=== PATIENT | female | born 1960 | race Caucasian/White ===

== ENCOUNTER 2023-12-24 12:19 | Outpatient (AMB) | payer MEDICARE, SELFPAY ==
--- NOTE | 2023-12-24 12:34 | MHC.OFFWIV ---
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 see sage Developer Relations Manager Required: No Allergies acetaminophen Allergy (Severe, Verified 12/24/23 12:38) Swelling allopurinol Allergy (Severe, Verified 12/24/23 12:38) Swelling blue dye Allergy (Severe, Verified 12/24/23 12:38) Swelling codeine Allergy (Severe, Verified 12/24/23 12:38) Swelling oxycodone [From Percocet] Allergy (Severe, Verified 12/24/23 12:38) Swelling HPI 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 She states that she walked in to day because she has been having this LUQ pain x 1 month. She states she fell on her side and then that's when the pain started. She states that initially it did not feel that bad but over the last couple weeks it is gotten significantly worse and has been worsening daily in the last few days. She states that she can not lay on her left side because it will wake her up. She says it feels like it starts in the front of her abdomen and goes to the back area. She says that she is worried that it could be her kidneys or her spleen. No pain with eating but reports a reduced appetite. She has been very nauseous with the pain x 2 weeks. She states lorazepam tends to subside the nausea. She denies any significant weight loss. No bowel changes. No dysuria. She does get frequent urination. She follows with Dr. Briggs. No blood in the urine. She is endorses night sweats x 2 weeks. No fever or chills. S/p cholecystectomy. FORMERLY [facility], [facility] Medical History (Updated 12/24/23 @ 13:18 by Kalpana Veronica PA-C) GERD (gastroesophageal reflux disease) Generalized anxiety disorder with panic attacks Dyslipidemia Overactive bladder AML (acute myeloid leukemia) in remission Surgical History (Updated 12/24/23 @ 13:18 by Kalpana Veronica PA-C) Stem cells transplant status Physical Exam Vital Signs: Last Vital Signs Pulse 90 12/24/23 12:45 Resp 14 12/24/23 12:45 BP 98/70 12/24/23 12:45 Pulse Ox 96 12/24/23 12:45 Oxygen Delivery Method Room Air 12/24/23 12:45 BMI result Body Mass Index 32.0 Const Orientation/consciousness: patient oriented x3 Neck Thyroid: Thyroid normal Lymphatic: no lymphadenopathy noted Resp Auscultation: clear to auscultation bilaterally Cardio Rate: regular rate Rhythm: regular rhythm Heart sounds: S1 normal heart sound present and S2 normal heart sound present GI Other: There is tenderness to palpation in the right upper quadrant with some guarding. CVA tenderness bilaterally. Inspection: Yes normal to inspection Palpation (GI): Soft to palpation Auscultation: normoactive bowel sounds Skin General skin exam: no rashes or lesions noted Neuro General: patient oriented x3, gait normal and no focal motor deficits Assessment & Plan Assessment & Plan (1) Left upper quadrant abdominal pain: Code(s): R10.12 - Left upper quadrant pain Plan: Given the amount of discomfort today on exam I have recommended her to go to the ER as there is no CT scan available here today. I have recommended that she get more of an emergent evaluation. An expect was called in. We will send her to [facility]. Advised to follow up next week in the office for a new patient visit. (2) Nausea: Code(s): R11.0 - Nausea Plan: As above. Coding Level of Care Code Est Pt Level 4 (64380) Diagnoses Left upper quadrant abdominal pain R10.12 Nausea R11.0
[2023-12-24 12:45] VITALS: BP 98/70; PULSE 90; RESP 14; O2SAT 96; BMI 32.0
== END 2023-12-24 13:14 | disposition home or self-care (01) ==
PROVIDERS: PCP Physician Assistant; Visit Provider Physician Assistant
DX: R10.12 Left upper quadrant pain (principal); R11.0 Nausea
CPT/HCPCS: 99214

== ENCOUNTER 2023-12-31 15:35 | Outpatient (AMB) | payer MEDICARE, SELFPAY ==
--- NOTE | 2023-12-31 15:37 | MHC.PC.OV ---
Vital Signs 12/31/23 15:52 Height 5 ft 2.5 in BP 124/73 Blood Pressure Location Lt brachial Position Sitting Respiration 14 Pulse 78 Pulse Source Pulse Oximeter Temp 98.1 F Temp Source Temporal Artery Scan Pulse Oximetry (%) 97 Oxygen Delivery Method Room Air Intake Visit Reasons: 30 min new visit Intake Note: New patient visit Allergies acetaminophen Allergy (Severe, Verified 12/31/23 15:42) Swelling allopurinol Allergy (Severe, Verified 12/31/23 15:42) Swelling blue dye Allergy (Severe, Verified 12/31/23 15:42) Swelling codeine Allergy (Severe, Verified 12/31/23 15:42) Swelling oxycodone [From Percocet] Allergy (Severe, Verified 12/31/23 15:42) Swelling Medication List - Last Reconciled 12/31/23 by Kalpana Veronica PA-C atorvastatin 80 mg PO DAILY clonidine HCl 0.1 mg PO DAILY erythromycin ophthalmic (eye) escitalopram oxalate 20 mg PO DAILY ibuprofen (Motrin IB) 200 mg PO Q6H PRN lorazepam 1 mg PO BID montelukast 10 mg PO DAILY nystatin 1 appl topical BID-TID omeprazole 80 mg PO ONCE Tobacco use date assessed: 12/31/23 Fall risk assessment: 2 + Falls in past year Last assessed Fall Risk: 12/31/23 Dental Screening Dental Screen Date: 12/31/23 Did you have a dental visit in the last 12 months?: Yes Did you have a dental problem in the last 6 months where you did not have access to dental care?: No Was dental information given to patient?: Patient has dentist HPI 30 min new visit HPI Details Patient is a 63-year-old female with a significant past medical history of AML, s/p stem cell transpant 1992, anxiety, hyperlipidemia, GERD, ckd stage 3, asthma, prior TIA 2013, hypertension, compression fracture of lumbar spine, fibromyalgia, IBS, insomnia, osteonecrosis of left knee, thyroid nodule, degenerative joint disease, diverticulosis, ulcers found by endoscopy in 2008,, s/p cervical fusion per patient in 2010 presenting today for a follow up. -She was seen recently for LUQ pain x 1 month. She states she fell on her side and then that's when the pain started. She states that initially it did not feel that bad but over the last couple weeks it is gotten significantly worse and has been worsening daily in the last few days. She states that she can not lay on her left side because it will wake her up. She says it feels like it starts in the front of her abdomen and goes to the back area. She says that she is worried that it could be her kidneys or her spleen. No pain with eating but reports a reduced appetite. She has been very nauseous with the pain x 2 weeks. She states lorazepam tends to subside the nausea. She denies any significant weight loss. No bowel changes. No dysuria. She does get frequent urination. She follows with Dr. Briggs. No blood in the urine. She is endorses night sweats x 2 weeks. No fever or chills. S/p cholecystectomy. I had sent her to the ER where she did have a CT of the abdomen and pelvis which was consistent with mild enterocolitis with liquid stool in normal caliber small bowel loops and right hemicolon with air-fluid levels. No significant wall thickening or surrounding inflammatory change. It also showed apparent bladder wall thickening which could be due to under distention or cystitis. She was discharged and diagnosed with unspecified abdominal pain. She saw urology yesterday and who told her that the kidneys are normal. No signs of a uti. She thinks the LUQ is coming from her back since her fall a month ago. She tripped and landed on a large flower pot. No radiation of pain down the legs. She is still very sore. She states that 2 years ago she had her left foot operated on ([facility]OS) and since then she has has numbness in her left foot which has caused her to fall a bit more frequently. Heme/onc: follows with Dr. Owens annually and gets IVIG intermittently. FORMERLY [facility] Medical History (Updated 12/31/23 @ 16:31 by Kalpana Veronica PA-C) GERD (gastroesophageal reflux disease) Generalized anxiety disorder with panic attacks Dyslipidemia Overactive bladder AML (acute myeloid leukemia) in remission Surgical History (Updated 12/24/23 @ 13:18 by Kalpana Veronica PA-C) Stem cells transplant status Social History Housing: House Patient Tobacco Use Status: Never used Tobacco e-Cigarette/Vaping Use: Never Used Second Hand Smoke Exposure: Yes service: No Current occupational status: retired Cognitive needs: No Hearing needs: No Vision needs: Yes (glasses) Questionnaire PHQ-9 Over the last 2 weeks, how often have you been bothered by any of the following problems? 1. Little interest or pleasure in doing things: not at all 2. Feeling down, depressed, or hopeless: not at all 3. Trouble falling or staying asleep, or sleeping too much: nearly every day 4. Feeling tired or having little energy: not at all 5. Poor appetite or overeating: not at all 6. Feeling bad about yourself - or that you are a failure or have let yourself or your family down: not at all 7. Trouble concentrating on things, such as reading the newspaper or watching television: not at all 8. Moving or speaking so slowly that other people could have noticed. Or the opposite - being so fidgety or restless that you have been moving around a lot more than usual: not at all 9. Thoughts that you would be better off or of hurting yourself in some way: not at all Total score: 3 Depression Screening Done: Yes 23209 - PHQ-9 Billing: Yes Source: Developed by Drs. Coy Tam, Monica Calvin, Eliazar Monroy and colleagues, with an educational ignacio from [employer]. Thrive Questionnaire Date Thrive assessed: 12/31/23 I am a: Patient What is your living situation today?: I have a steady place to live Within the past 12 months, did the food you bought not last and you didn't have the money to get more?: Never true Within the past 12 months, did you worry whether your food would run out before you got money to buy more?: Never true Do you have trouble paying for medicines?: No Do you have trouble getting transportation to medical appointments?: No Do you have trouble paying your heating and electricity bill?: No Do you have trouble taking care of your child, family member or friend?: No Do you have trouble with day-to-day activities such as bathing, preparing meals, shopping, managing finances, etc.?: No Are you currently unemployed and looking for a job?: No Are you interested in more education?: No Please select the resources that you would like help with: None THRIVE Score: 0 AUDIT C Alcohol Use Questionnaire (AUDIT-C) 1. How often do you have a drink containing alcohol?: Monthly or less 2. How many drinks containing alcohol do you have on a typical day when you are drinking?: 1 or 2 3. How often do you have six or more drinks on one occasion?: Never Total Score: 1 IRAIS-7 AMB Questionnaire IRAIS-7 Feeling nervous, anxious, or on edge: 3 = Nearly every day Not being able to stop or control worryin = Nearly every day Worrying too much about different things: 3 = Nearly every day Trouble relaxin = Nearly every day Being so restless that it is hard to sit still: 3 = Nearly every day Becoming easily annoyed or irritable: 2 = More than half the days Feeling afraid as if something awful might happen: 0 = Not at all Total IRAIS-7 score (0-4 normal; 5-9 mild; 10-14 moderate; 15-21 severe): 17 Source: Developed by Drs. Coy Tam, Monica Calvin, Eliazar Monroy and colleagues, with an educational ignacio from [employer]. IRAIS-7 Assessment Billing IRAIS-7 Assessment Tool: IRAIS-7 Assessment 91864 Physical exam (Primary Care) Vital Signs: Last Vital Signs Temp 98.1 F 12/31/23 15:52 Pulse 78 12/31/23 15:52 Resp 14 12/31/23 15:52 BP 124/73 12/31/23 15:52 Pulse Ox 97 12/31/23 15:52 Oxygen Delivery Method Room Air 12/31/23 15:52 Tobacco/Smoking Status: Tobacco use Status Tobacco use date assessed 12/31/23 12/31/23 15:46 Patient Tobacco Use Status Never used Tobacco 12/31/23 15:46 e-Cigarette/Vaping Use Never Used 12/31/23 15:46 Assessment and Plan Assessment & Plan (1) Thoracic back pain: Code(s): M54.6 - Pain in thoracic spine Qualifiers: Chronicity: acute Plan: X-ray ordered. No report of any findings on CT. We will try baclofen as she has tolerated Flexeril in the past but did not find this as effective. Discussed risks and benefits and adverse effects of the medication. (2) RUQ pain: Code(s): R10.11 - Right upper quadrant pain Plan: Unchanged. Labs ordered. (3) AML (acute myeloid leukemia) in remission: Code(s): C92.01 - Acute myeloblastic leukemia, in remission Plan: Following with Heme-Onc. Has been in remission for over 20 years. (4) Dyslipidemia: Code(s): E78.5 - Hyperlipidemia, unspecified Plan: Lipids ordered. (5) Generalized anxiety disorder with panic attacks: Code(s): F41.1 - Generalized anxiety disorder; F41.0 - Panic disorder [episodic paroxysmal anxiety] Plan: Stable on lorazepam and Lexapro. Continue current regimen. Plan Labs ordered. Follow up in 2-4 weeks. Sooner if needed. Patient understands and agrees with the plan. Orders: Orders Vitamin B12 and Folate Today C92.01 - Acute myeloblastic leukemia, in remission, E78.5 - Hyperlipidemia, unspecified, F41.0 - Panic disorder [episodic paroxysmal anxiety], F41.1 - Generalized anxiety disorder, M54.6 - Pain in thoracic spine, R10.11 - Right upper quadrant pain TSH reflex Free T4 Today C92.01 - Acute myeloblastic leukemia, in remission, E78.5 - Hyperlipidemia, unspecified, F41.0 - Panic disorder [episodic paroxysmal anxiety], F41.1 - Generalized anxiety disorder, M54.6 - Pain in thoracic spine, R10.11 - Right upper quadrant pain Lyme IgG/IgM w/reflex to WB Today C92.01 - Acute myeloblastic leukemia, in remission, E78.5 - Hyperlipidemia, unspecified, F41.0 - Panic disorder [episodic paroxysmal anxiety], F41.1 - Generalized anxiety disorder, M54.6 - Pain in thoracic spine, R10.11 - Right upper quadrant pain XR thoracic spine 2V Today M54.6 - Pain in thoracic spine, R10.11 - Right upper quadrant pain Comprehensive [place]. Panel Fast Today C92.01 - Acute myeloblastic leukemia, in remission, E78.5 - Hyperlipidemia, unspecified, F41.0 - Panic disorder [episodic paroxysmal anxiety], F41.1 - Generalized anxiety disorder, M54.6 - Pain in thoracic spine, R10.11 - Right upper quadrant pain Lipid Panel Today C92.01 - Acute myeloblastic leukemia, in remission, E78.5 - Hyperlipidemia, unspecified, F41.0 - Panic disorder [episodic paroxysmal anxiety], F41.1 - Generalized anxiety disorder, M54.6 - Pain in thoracic spine, R10.11 - Right upper quadrant pain Complete Blood Count Auto Diff Today C92.01 - Acute myeloblastic leukemia, in remission, E78.5 - Hyperlipidemia, unspecified, F41.0 - Panic disorder [episodic paroxysmal anxiety], F41.1 - Generalized anxiety disorder, M54.6 - Pain in thoracic spine, R10.11 - Right upper quadrant pain PT Evaluation and Treatment Today M54.6 - Pain in thoracic spine Medications: New baclofen 10 mg PO TID 30 days 90 tabs 1RF diclofenac sodium 1% (Arthritis Pain (diclofenac)) 4 grams topical QID PRN 100 grams 3RF pain Coding Level of Care Code Est Pt Level 4 (14373) Complex EM visit Add On G2211 Diagnoses Thoracic back pain M54.6 Chronicity: acute RUQ pain R10.11 AML (acute myeloid leukemia) in remission C92.01 Dyslipidemia E78.5 Generalized anxiety disorder with panic attacks F41.1; F41.0 Additional Codes IRAIS-7 Assessment Billing - IRAIS-7 Assessment Tool: IRAIS-7 Assessment 13651 ([id number])
[2023-12-31 15:52] VITALS: BP 124/73; PULSE 78; RESP 14; TEMP 36.7; O2SAT 97
== END 2023-12-31 16:29 | disposition home or self-care (01) ==
PROVIDERS: PCP Physician Assistant; Visit Provider Physician Assistant
DX: M54.6 Pain in thoracic spine (principal); C92.01 Acute myeloblastic leukemia, in remission; R10.11 Right upper quadrant pain; E78.5 Hyperlipidemia, unspecified; F41.1 Generalized anxiety disorder; F41.0 Panic disorder [episodic paroxysmal anxiety]
CPT/HCPCS: 99214; G2211

== ENCOUNTER 2024-01-12 10:56 | Outpatient (REF) | payer MEDICARE, SELFPAY ==
[2024-01-12 14:27] LABS: MANUAL DIFF FLAG NO
[2024-01-12 14:36] LABS: Basophils Absolute Auto 0.1 X10*3/uL (0.0-0.2); Basophils Percent Auto 0.5 % (0-2); Eosinophils Absolute Auto 0.4 X10*3/uL (0.0-0.4); Hematocrit 37.9 % (37.0-47.0); Hemoglobin 12.5 g/dl (12.0-16.0); Imm Gran Abs Auto 0.03 X10*3/uL (0.00-0.03); Imm Gran Pct Auto 0.3 % (0.0-0.4); Lymphocytes Absolute Auto 1.8 X10*3/uL (1.2-4.9); Lymphocytes Percent Auto 18.7 % (20-40); Mean Corpuscular Hemoglobin 30.4 pg (27.0-33.0); Mean Corpuscular Volume 92.2 fL (80.0-98.0); Mean Platelet Volume 9.5 fL (9.4-12.3); Monocytes Absolute Auto 0.7 X10*3/uL (0.1-1.2); Monocytes Percent Auto 6.9 % (2-11); Neutrophils Absolute Auto 6.9 x10*3/uL (2.0-8.3); Neutrophils Percent Auto 69.6 % (45-73); Platelet Count 248 X10*3/uL (160-400); Red Blood Count 4.11 X10*6/uL (4.20-5.50); Red Cell Distribution Width 14.5 % (11.0-16.0); White Blood Count 9.9 X10*3/uL (4.8-10.8)
[2024-01-12 14:57] LABS: Alanine Aminotransferase 19 U/L (0-31); Albumin Level 3.9 g/dL (3.5-5.0); Alkaline Phosphatase 100 U/L (39-117); Anion Gap 11 (12-20); Aspartate Amino Transferase 22 U/L (5-31); Bilirubin Total 0.5 mg/dL (0.0-1.0); Blood Urea Nitrogen 19 mg/dL (9-16); Calcium 9.9 mg/dL (8.4-10.2); Carbon Dioxide 25 mmol/L (22-29); Chloride 111 mmol/L (96-108); Cholesterol 229 mg/dL (<200); Estimated Glomerular Filt Rate 46; Glucose Fasting 88 mg/dL (60-99); HDL Cholesterol 35 mg/dL (>40); LDL Cholesterol Calculated 148 mg/dL (<100); Sodium 143 mmol/L (135-145); Total Protein 6.8 g/dL (6.5-8.0); Triglycerides 230 mg/dL (<150)
[2024-01-12 15:14] LABS: TSH reflex Free T4 1.13 uIU/mL (0.32-4.0)
[2024-01-12 15:23] LABS: Folate 5.4 ng/mL (> or = 4.0); Vitamin B12 332 pg/mL (200-900)
[2024-01-13 22:08] LABS: Lyme Abs Screen <0.90 index
== END 2024-01-12 10:57 | disposition home or self-care (01) ==
LOC: HO.WFDLDS 10:56
PROVIDERS: Visit Provider Physician Assistant
DX: M54.6 Pain in thoracic spine (principal); R10.11 Right upper quadrant pain; C92.01 Acute myeloblastic leukemia, in remission; E78.5 Hyperlipidemia, unspecified; F41.1 Generalized anxiety disorder; F41.0 Panic disorder [episodic paroxysmal anxiety]
CPT/HCPCS: 36415; 80053; 80061; 82607; 82746; 84443; 85025; 86617; 86618

== ENCOUNTER 2024-01-15 09:07 | Outpatient (AMB) | payer MEDICARE, SELFPAY ==
[2024-01-15 09:34] VITALS: BP 108/60; PULSE 90; RESP 15; TEMP 36.5; O2SAT 99; BMI 31.9
--- NOTE | 2024-01-15 09:34 | MHC.OFFWIV ---
Intake Vital Signs 01/15/24 09:34 Height 5 ft 2.5 in Weight 177 lb 5 oz BMI 31.9 BP 108/60 Blood Pressure Location Rt brachial Position Sitting Respiration 15 Pulse 90 Pulse Source Pulse Oximeter Temp 97.7 F Temp Source Temporal Artery Scan Pulse Oximetry (%) 99 Oxygen Delivery Method Room Air Intake Visit Reasons: Gout issues Patient Tobacco Use Status: Never used Tobacco Patient Financial Services Coordinator Required: No Accompanied by: Sister Allergies acetaminophen Allergy (Severe, Verified 01/15/24 09:39) Swelling allopurinol Allergy (Severe, Verified 01/15/24 09:39) Swelling blue dye Allergy (Severe, Verified 01/15/24 09:39) Swelling codeine Allergy (Severe, Verified 01/15/24 09:39) Swelling oxycodone [From Percocet] Allergy (Severe, Verified 01/15/24 09:39) Swelling Do you need a note to return to daycare/school/sports/work: No HPI HPI Comments History of Present Illness Details This is a 63-year-old female with a past medical history of GERD, generalized anxiety disorder with panic attacks, dyslipidemia, overactive bladder, multiple medication allergies and AML in remission presenting for gout. Her symptoms started a week ago today with swelling, redness and severe pain in the right big toe and foot. She called the office, and her PCP initially prescribed colchicine, but the tablets at the pharmacy had blue dye so she could not take them due to her allergy. She was then prescribed a Medrol Dosepak which she started taking a few days ago. She is also elevating and icing her foot. She says the swelling and redness and pain have decreased, but she is requesting prednisone because it is usually faster working for her and is more effective. Patient says she has had gout on and off for the past 10 years. Her last episode was about a year ago. She has not sure what triggered this episode. No foot trauma, fever or wounds. Patient mentions last night she had a sore throat and was concerned she was going to have a medication reaction because she gets swelling and throat closing with certain medications. She took some Benadryl. She has no sore throat today, fevers, chills, shortness of breath, hives. Patient mentioned she also has some canker sores for which I recommended [id number] canker cover and to check with the pharmacist to make sure she can use this safely with her allergies. [facility] Medical History (Updated 12/31/23 @ 16:31 by Kalpana Veronica PA-C) GERD (gastroesophageal reflux disease) Generalized anxiety disorder with panic attacks Dyslipidemia Overactive bladder AML (acute myeloid leukemia) in remission Surgical History (Updated 12/24/23 @ 13:18 by Kalpana Veronica PA-C) Stem cells transplant status Social History Housing: House Patient Tobacco Use Status: Never used Tobacco e-Cigarette/Vaping Use: Never Used Second Hand Smoke Exposure: Yes service: No Current occupational status: retired Cognitive needs: No Hearing needs: No Vision needs: Yes (glasses) Review of Systems Const Details: Pertinent ROS negative except as noted in HPI. Physical Exam Vital Signs: Last Vital Signs Temp 97.7 F 01/15/24 09:34 Pulse 90 01/15/24 09:34 Resp 15 01/15/24 09:34 BP 108/60 01/15/24 09:34 Pulse Ox 99 01/15/24 09:34 Oxygen Delivery Method Room Air 01/15/24 09:34 BMI result Body Mass Index 31.9 Const Other: Constitutional: Alert, in no distress. Mouth/Throat: Canker sore on insight of lower lip. No erythema, exudates or swelling. Musculoskeletal: Mild swelling and erythema of the right big toe MTP joint. She has right great toe pain with flexion, extension and palpation. Dorsal pedal pulses are symmetric. No open wounds. Assessment & Plan Assessment & Plan (1) Gout attack: Code(s): M10.9 - Gout, unspecified Qualifiers: Gout site: toe Gout etiology: idiopathic Laterality: right Qualified Code(s): M10.071 - Idiopathic gout, right ankle and foot Plan Elevate, push fluids, use ice or cool compress. Discontinue methylprednisolone. Prescribed prednisone taper. Side effects and administration reviewed. Follow up with PCP if symptoms do not continue resolving over the next 48 hours or sooner for worsening symptoms. Medications: New prednisone Take 3 tabs qam x 3 days, then take 2 tabs daily for 3 days, then take 1 tab daily for 3 days, then take 1/2 tab daily for 2 days; 19 tabs 0RF Discontinued methylprednisolone (Medrol (Ron)) Discontinued Reason: Doctor's Order PO PER PKG DIR for 6 days 21 ea 0RF Coding Level of Care Code Est Pt Level 3 (26461) Diagnoses Acute idiopathic gout involving toe of right foot M10.071 Gout site: toe Gout etiology: idiopathic Laterality: right
--- OUTSIDE RECORDS SUMMARY | 2024-01-21 06:31 | XMS_ITS | Continuity of Care Document ---
Author Organization [facility] Address [address] [place] [id number]- Care Team Providers Care Cleaning Professional Name Role Phone Sendy Buckner MD Primary Care Physician [facility] Date[facility]): 09/08[facility]19 - 09/08/[address] [address]- [facility] Attending Physician: Sendy Buckner MD Allergies, Adverse Reactions, Alerts Substance Reaction Severity Status codeine acute abdominal pain Active allopurinol swelling of face/neck Active pravastatin Active lisinopril Active Cipro Active Xanax Active Flexeril Active Tylenol with Codeine Active Dilaudid IV ONLY/// PO OK Active Vicodin swelling face/ neck Active Percocet 5/325 acute abdominal pain Activ e amLODIPine Active Immunizations Given and Recorded Vaccine Date Status Refusal Reason Influenza Virus Vaccine (oldterm) 06/05/19 Recorde d Pneumococcal Vaccine (oldterm) 1 06/29/15 Given influenza virus vaccine, inactivated 2 03/29/15 Gi faustino influenza virus vaccine, inactivated 04/25/14 Give n influenza virus vaccine, inactivated 3 04/25/14 Gi faustino influenza virus vaccine, inactivated 04/07/13 Give n pneumococcal 23-valent vaccine 04/07/13 Given tetanus-diphtheria toxoids (Td) 4 05/27/11 Recorde d tetanus-diphtheria toxoids (Td) 03/07/11 Given hepatitis B adult vaccine 5 09/18/97 Recorded hepatitis B adult vaccine 6 04/18/97 Recorded hepatitis B adult vaccine 7 03/20/97 Recorded Measles/Mumps/Rubella Virus Vaccine 8 02/05/95 Rec orded 1Admin Note: PER PT 2Admin Note: [facility] [place] 3Admin Note: DECLINED 4Location History: [facility] 5Location History: [facility] 6Location History: [facility] 7Location History: [facility] 8Location History: [facility] Medications albuterol-ipratropium 3 mg-0.5 mg/3 ml inhalation solution 3 mL, Neb, 4 times a day, # 180 each, 3 Refills, Maintenance, 11/03/18 14:28:35 EDT, Solution, 3 mLNeb 4 times a day Start Date: 11/03/18 Status: Ordered Aspir 81 Oral Enteric Coated Tablet 1 tablet = 81 mg, By Mouth, Daily, # 30 tablet, 3 Refills, Maintenance, 03/29/14 11:38:34, EC Tablet Start Date: 03/29/14 Stop Date: 07/27/14 Status: Ordered atorvastatin 80 mg oral tablet 1 tablet = 80 mg, By Mouth, Daily, # 90 tablet, 0 Refills, Maintenance, 06/09/19 9:35:50 EST, Tablet Start Date: 06/09/19 Stop Date: 09/07/19 Status: Ordered Claritin 10 mg oral tablet 1 tablet = 10 mg, By Mouth, Daily, # 30 tablet, 0 Refills, Maintenance, 03/07/14 11:52:01, Tablet Start Date: 03/07/14 Status: Ordered Flovent HFA 110 mcg/inh inhalation aerosol 2 puffs, Inhalation, 2 times a day, # 12 Gm, 6 Refills, Maintenance, 07/05/19 11:41:07 EST, Aerosol, 159, cm, 07/05/19 11:19:56 EST, Height, 81, kg, 04/06/19 23:12:31 EDT, Dry Weight Start Date: 07/05/19 Status: Ordered FLUoxetine 20 mg oral capsule 40 mg, 2, capsule, By Mouth, Daily, # 180 capsule, Refills 1, Tot. Refills 1, Maintenance, 04/22/1916:31:30 EDT, Route to Pharmacy Electronically, [id number], [facility] #[id number] Start Date: 04/22/19 Status: Ordered Imodium A-D 2 mg oral tablet 2 mg, 1, tablet, By Mouth, Every 4 hours, PRN, # 100 tablet, Refills 0, Tot. Refills 0, Maintenance, for loose stool, 08/06/17 12:58:09, Route to Pharmacy Electronically, [id number], [facility] [id number] Start Date: 08/06/17 Status: Ordered LORazepam 1 mg oral tablet See Instructions, TAKE 1 TABLET BY MOUTH THREE TIMES DAILY NEEDED FOR ANXIETY, # 75 tablet, 0 Refills, Soft Stop, 09/07/19 10:54:00 EST, Dry Weight Start Date: 09/07/19 Status: Ordered minoxidil 2% topical solution 1 mL = 0.02 Gm, Topically, 2 times a day, # 60 mL, 0 Refills, Maintenance, 03/07/14 11:52:58, Solution Start Date: 03/07/14 Status: Ordered nystatin topical 209853 u/gm powder 1 application, Topically, 2 times a day, # 60 Gm, 0 Refills, Maintenance, 02/28/19 16:40:54 EDT, Powder, 1 application Topically 2 times a day Start Date: 02/28/19 Status: Ordered SEROquel 50 mg oral tablet 1 tablet = 50 mg, By Mouth, Daily, as needed., # 30 tablet, 6 Refills, Maintenance, 07/05/19 11:51:50 EST, Tablet, 159, cm, 07/05/19 11:19:56 EST, Height, 81, kg, 04/06/19 23:12:31 EDT, Dry Weight Start Date: 07/05/19 Status: Ordered Singulair 10 mg oral tablet 1, tablet, By Mouth, Daily in PM, # 30 tablet, Refills 5, Tot. Refills 5, Maintenance, 11/29/18 16:38:09 EDT, Route to Pharmacy Electronically, [id number], [facility] [id number] Start Date: 11/29/18 Status: Ordered Trelegy Ellipta inhalation powder 1 puffs, Inhalation, Daily, at the same time every day, # 60 each, 0 Refills, Maintenance, 209:03:00 EST, Powder, [facility] [address], 159, cm, 07/05/19 11:19:00 EST, Height, 81, kg, 04/06/19 23:12:00 EDT, Dry Weight Start Date: 08/19/19 Status: Ordered Ventolin HFA 108 mcg/inh inhalation aerosol with adapter 2 puffs, Inhalation, 4 times a day, PRN for wheezing, # 18 Gm, 6 Refills, Maintenance, 07/05/19 11:51:28 EST, Aerosol, 159, cm, 07/05/19 11:19:56 EST, Height, 81, kg, 04/06/19 23:12:31 EDT, Dry Weight Start Date: 07/05/19 Status: Ordered Vitamin C 500 mg oral tablet 1 tablet = 500 mg, By Mouth, Daily, # 30 tablet, 0 Refills, Maintenance, 03/07/14 11:53:25, Tablet Start Date: 03/07/14 Status: Ordered Vitamin D3 1000 intl units oral tablet 1 tablet = 1,000 International_Units, By Mouth, Daily, # 30 tablet, 0 Refills, Maintenance, 03/07/14 11:52:45, Tablet Start Date: 03/07/14 Status: Ordered Problem List Condition Effective Dates Status Health Status Inform ant 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) 1 Active Adenomatous colon polyp(Conf irmed) 2, 3 Active Anemia(Confirmed) Active Anxiety(Confirmed) Active Asthma(Confirmed) Active Back pain(Confirmed) Active Thomas's esophagus(Confirmed) 4 Active Cataract(Confirmed) 5 Active CVA (cerebral infarction)(Confirmed) Active Cervical disc disease(Confirmed) Active CKD (chronic kidney disease) stage 3, GFR 30-59 ml/min(Confirmed) Active Chronic pain(Confirmed) Active Compression fracture of thor acic spine, non-traumatic(Confirmed) Active Depression(Confirmed) Active Dyslipidemia(Confirmed) Active GERD (gastroesophageal reflu x disease)(Confirmed) Active Gout(Confirmed) Active 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) 6 Active Headache(Confirmed) Active Internal and external hemorr hoids without complication(Confirmed) 7 Active Hypertension(Confirmed) Active Insomnia(Confirmed) Active IBS (irritable bowel syndrome)(Confirmed) Active Knee pain(Confirmed) Active Other nonspecific abnormal s shadia enzyme levels(Confirmed) Active Thigh numbness(Confirmed) Active Degenerative joint disease(Confirmed) Active Osteopenia(Confirmed) Active Recurrent UTI (urinary tract infection)(Confirmed) Active Rib pain(Confirmed) Active Shoulder pain(Confirmed) Active Thyroid nodule(Confirmed) Active Vitamin D deficiency(Confirmed) Active 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 2018 3Colonoscopy 2012 positive polyp, repeat 2015. 4Barrett's esophagus on endoscopy in the past, patient having repeat endoscopy 2013. 5BILATERAL 6RIGHT KNEE 7colo 2016 Social History Social History Type Response Smoking Status Never smoker entered on: 01/10/14 Sex
--- OUTSIDE RECORDS SUMMARY | 2024-01-21 06:31 | XMS_ITS | Continuity of Care Document ---
Author Organization [facility] Sean lt Address [address] [place] [address]- Care Team Providers Care Clinical Quality Assurance Specialist Name Role Phone Sita PEREYRA, Sendy Arteaga Primary Care Physician [facility] Date[facility]): 09[facility]21 - 10/20/21 [facility] Adult [address] [place] [address]- Allergies, Adverse Reactions, Alerts Substance Reaction Severity Status codeine acute abdominal pain Active allopurinol swelling of face/neck Active lisinopril Active methocarbamol Active Cipro Active Xanax Active Flexeril Active Tylenol with Codeine Active Dilaudid IV ONLY/// PO OK Active Vicodin swelling face/ neck Active Other Environmental Allergy blue dye Active Percocet 5/325 acute abdominal pain Activ e Immunizations Given and Recorded Vaccine Date Status Refusal Reason SARS-CoV-2 (COVID-19) mRNA-1273 vaccine 10/02/21 G iven SARS-CoV-2 (COVID-19) mRNA-1273 vaccine 10/18/20 R ecorded SARS-CoV-2 (COVID-19) mRNA-1273 vaccine 09/20/20 R ecorded Influenza Virus Vaccine (oldterm) 06/05/19 Recorde d [...] orded 1Admin Note: PER PT 2Admin Note: [facility] [place] 3Admin Note: DECLINED 4Location History: [facility] 5Location [facility]: [facility] 6Location [facility] 7Location History[facility] 8Location History: [facility] Medications albuterol-ipratropium 3 mg-0.5 mg/3 ml inhalation [...] mg, By Mouth, Daily, # 90 tablet, 3 Refills, Maintenance, 05/31/20 10:03:00 EST, Tablet, [facility] #[id number], 155, cm, 05/31/20 2:34:00 EST, Height, 77, kg, 05/31/20 2:34:00 EST, Dry Weight Start Date: 05/31/20 Status: Ordered Blood Pressure Monitor See Instructions, # 1 each, Refills 0, Tot. Refills 0, Maintenance, ICD I10, 10/05/20 14:06:00 EST,Supply, 155, cm, 06/07/20 11:11:00 EST, Height, 77, kg, 05/31/20 2:34:00 EST, Dry Weight Start Date: 10/05/20 Status: Ordered ciclopirox topical 0.77% shampoo 0 Refills, Maintenance, 09/21/21 9:18:00 EST, Partial fill upon patient request if the prescriptionis for a schedule II opioid drug. Start Date: 09/21/21 Status: Ordered cloNIDine 0.1 mg oral tablet 0.1 mg, 1, tablet, By Mouth, Daily at bedtime, # 30 tablet, Refills 0, Tot. Refills 0, Maintenance,09/11/21 11:36:00 EST, Route to Pharmacy Electronically, [facility] #[id number], Partial fill upon patient request if the prescription is for a sc... Start Date: 09/11/21 Status: Ordered duloxetine 20 mg oral enteric coated capsule 1 capsule = 20 mg, By Mouth, 2 times a day, no blue dye capsule, allergic, # 60 capsule, 0 Refills,Maintenance, 09/24/21 14:27:00 EST, EC Capsule, [facility] #[id number], Partial fill upon patient request if the prescription is for a schedule II... Start Date: 09/24/21 Status: Ordered fluocinolone 0.01% topical oil 1 application, Topically, 3 times a day, # 118.28 mL, 0 Refills, Maintenance, 09/21/21 9:18:00 EST,Oil, Partial fill upon patient request if the prescription is for a schedule II opioid drug. Start Date: 09/21/21 Status: Ordered LORazepam 1 mg oral tablet 1 tablet = 1 mg, By Mouth, 2 times a day, PRN as needed for anxiety, # 60 tablet, 0 Refills, Maintenance, 09/21/21 9:14:00 EST, Tablet, [facility] #[id number], Partial fill upon patient request if the prescription is for a schedule II opioid drug... Start Date: 09/21/21 Status: Ordered magnesium oxide 500 mg oral tablet 1 tablet = 500 mg, By Mouth, Daily, 0 Refills, Maintenance, 12/04/20 6:40:00 EDT, Partial fill uponpatient request if the prescription is for a schedule II opioid drug. Start Date: 12/04/20 Status: Ordered montelukast 10 mg oral tablet 10 mg, 1, tablet, By Mouth, Daily, no blue dye, allergic, # 90 tablet, Refills 3, Tot. Refills 3, Maintenance, 09/28/21 9:47:00 EST, Route to Pharmacy Electronically, [facility] #[id number], Partial fill upon patient request if the prescription i... Start Date: 09/28/21 Status: Ordered mupirocin 2% topical ointment 1 application, Topically, 3 times a day, # 15 Gm, 0 Refills, Maintenance, 09/21/21 9:17:00 EST, Ointment, Partial fill upon patient request if the prescription is for a schedule II opioid drug. Start Date: 09/21/21 Status: Ordered omeprazole 20 mg oral enteric coated capsule 1 capsule = 20 mg, By Mouth, Daily, [id number], # 30 capsule, 6 Refills, Maintenance, 08/14/21 15:12:00EST, EC Capsule, [facility] #[id number], Partial fill upon patient request if the prescriptionis for a schedule II opioid drug., 158, cm, ... Start Date: 08/14/21 Status: Ordered predniSONE 10 mg oral tablet See Instructions, take 6 tabs x 3 days, then take 5 tabs x 3 days, then take 4 tabs x 3 days, then take 3 tabs x 3 days, then 2 tabs x 3 days, then 1 tab x 3 days, # 63 tablet, 0 Refills, Maintenance, 09/21/21 9:19:00 EST, [facility] #[id number],... Start Date: 09/21/21 Status: Ordered Tylenol Extra Strength 500 mg oral tablet 2 tablet = 1,000 mg, By Mouth, Every 8 hours, PRN Pain , Mild, 0 Refills, Maintenance, 06/24/21 9:34:00 EST, Partial fill upon patient request if the prescription is for a schedule II opioid drug. Start Date: 06/24/21 Status: Ordered Ventolin HFA 108 mcg/inh inhalation aerosol with adapter 2 puffs, Inhalation, 4 times a day, PRN for wheezing, # 18 Gm, 11 Refills, Maintenance, 05/13/21 14:54:00 EDT, Aerosol, [facility] #[id number], 158, cm, 05/13/21 14:25:00 EDT, Height, 83.3, kg, 12/26/20 11:59:00 EDT, Dry Weight Start Date: 05/13/21 Stop Date: 05/08/22 Status: Ordered Vitamin C 500 mg oral tablet 1 tablet = 500 mg, By Mouth, Daily, 0 Refills, Maintenance, 12/04/20 6:40:00 EDT, Partial fill uponpatient request if the prescription is for a schedule II opioid drug. Start Date: 12/04/20 Status: Ordered Vitamin D3 1000 intl units oral tablet 1 tablet = 1,000 International_Units, By Mouth, Daily, # 30 tablet, 0 Refills, Maintenance, 03/07/14 11:52:45, Tablet Start Date: 03/07/14 Status: Ordered Wixela Inhub 250 mcg-50 mcg inhalation powder 1 inhalation, Inhalation, 2 times a day, rinse mouth and throat after use, # 1 each, 3 Refills, Maintenance, 09/11/21 11:32:00 EST, Powder, [facility] #[id number], Partial fill upon patient request if the prescription is for a schedule II opioid... Start Date: 09/11/21 Status: Ordered ZyrTEC 10 mg oral tablet 1 tablet = 10 mg, By Mouth, Daily, 0 Refills, Maintenance, 12/04/20 6:39:00 EDT, Partial fill upon patient request if the prescription is for a schedule II opioid drug. 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) 1 Active Adenomatous colon polyp(Conf irmed) 2, 3 Active Anxiety(Confirmed) Active Asthma(Confirmed) Active Thomas's esophagus(Confirmed) 4 Active Cataract(Confirmed) 5 Active CVA (cerebral infarction)(Confirmed) Active CKD (chronic kidney disease) stage 3, GFR 30-59 ml/min(Confirmed) Active Compression fracture of thor acic spine, non-traumatic(Confirmed) Active Depression(Confirmed) Active Dyslipidemia(Confirmed) Active GERD (gastroesophageal reflu x disease)(Confirmed) Active Generalized anxiety disorder(Confirmed) Active Gout(Confirmed) Active 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) 6 Active Headache(Confirmed) Active Internal and external hemorr hoids without complication(Confirmed) 7 Active Hypertension(Confirmed) Active Insomnia(Confirmed) Active IBS (irritable bowel syndrome)(Confirmed) Active Other nonspecific abnormal s shadia enzyme levels(Confirmed) Active Thigh numbness(Confirmed) Active Obese class I(Confirmed) Active Degenerative joint disease(Confirmed) Active Osteopenia(Confirmed) Active Medicare annual wellness vis it, subsequent(Confirmed) Active Recurrent UTI (urinary tract infection)(Confirmed) Active Right rotator cuff tear(Confirmed) Active Seasonal allergies(Confirmed) Active Syncope and collapse(Confirmed) Active Thyroid nodule(Confirmed) Active Vitamin D deficiency(Confirmed) Active 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 2018 3Colonoscopy 2012 positive polyp, repeat 2015. 4Barrett's esophagus on endoscopy in the past, patient having repeat endoscopy 2013. 5BILATERAL 6RIGHT KNEE 7colo 2016 Social History Social History Type Response Smoking Status Never smoker entered on: 01/10/14 Sex Female
--- OUTSIDE RECORDS SUMMARY | 2024-01-21 06:31 | XMS_ITS | Continuity of Care Document ---
Author Organization [facility] Address [address], [address] [place] [address]- Care Team Providers Care Home Health Rn Name Role Phone Sita PEREYRA, Sendy Arteaga Primary Care Physician [phone] [facility]counter [facility] Date[facility]s): 08/06/20 - 09/05/20 [facility] [address], [address], [address] [place] [address]- Attending Physician: Dusty Valdez Admitting Physician: AdmtrDusty Referring Physician: Admtr, Ar8 Allergies, Adverse Reactions, Alerts Substance Reaction Severity [...] orded 1Admin Note: PER PT 2Admin Note: [facility] [place] 3Admin Note: DECLINED 4Location History: [facility] 5Location History: [facility] 6Location History: [facility] 7Location History: [facility] 8Location History: [facility] Medications albuterol-ipratropium 3 mg-0.5 mg/3 ml inhalation [...] 3 Refills, Maintenance, 05/31/20 10:03:00 EST, Tablet, [facility] #[id number], 155, cm, 05/31/20 2:34:00 EST, Height, 77, kg, 05/31/20 2:34:00 EST, Dry Weight Start Date: 05/31/20 Status: Ordered Claritin 10 mg oral tablet 1 tablet = 10 mg, By Mouth, Daily, # 30 tablet, 0 Refills, Maintenance, 03/07/14 11:52:01, Tablet Start Date: 03/07/14 Status: Ordered FLUoxetine 20 mg oral capsule 60 mg, 3, capsule, By Mouth, Daily, # 270 capsule, Refills 2, Tot. Refills 2, Maintenance, 06/12/2010:43:00 EST, Route to Pharmacy Electronically, [facility] #[id number], Partial fill upon patient request, 155, cm, 06/07/20 11:11:00 EST, Height,... Start Date: 06/12/20 Status: Ordered fluticasone 50 mcg/inh nasal spray See Instructions, SHAKE LIQUID AND USE 1 SPRAY IN EACH NOSTRIL TWICE DAILY, # 48 Gm, 0 Refills, Maintenance, [facility] #52944, 90, SHAKE LIQUID AND USE 1 SPRAY IN EACH NOSTRIL TWICE DAILY,158, cm, 04/24/20 12:18:00 EDT, Height, 81, kg, ... Start Date: 04/24/20 Status: Ordered Imodium A-D 2 mg oral tablet 2 mg, 1, tablet, By Mouth, Every 4 hours, PRN, # 100 tablet, Refills 0, Tot. Refills 0, Maintenance, for loose stool, 08/06/17 12:58:09, Route to Pharmacy Electronically, [id number], [id number] Start Date: 08/06/17 Status: Ordered LORazepam 1 mg oral tablet 1 tablet, By Mouth, Daily at bedtime, # 30 tablet, 0 Refills, Maintenance, 08/29/20 9:09:00 EST, [facility] #[id number], 155, cm, 06/07/20 11:11:00 EST, Height, 77, kg, 05/31/20 2:34:00 EST, DryWeight Start Date: 08/29/20 Status: Ordered minoxidil 2% topical solution 1 mL = 0.02 Gm, Topically, 2 times a day, # 60 mL, 0 Refills, Maintenance, 03/07/14 11:52:58, Solution Start Date: 03/07/14 Status: Ordered nystatin topical 282029 u/gm powder 1 application, Topically, 2 times a day, # 60 Gm, 0 Refills, Maintenance, 02/28/19 16:40:54 EDT, Powder, 1 application Topically 2 times a day Start Date: 02/28/19 Status: Ordered predniSONE 10 mg oral tablet See Instructions, Take 6 tablets x 3 days, then 5 tablets x 3 days, then 4 tablets x 3 days, then 3tablets x 3 days, then 2 tablets x 3 days, then 1 tablet x 3 days, # 63 tablet, 0 Refills, Maintenance, 05/04/20 12:17:00 EDT, [facility] #[id number]... Start Date: 05/04/20 Status: Ordered Singulair 10 mg oral tablet 1, tablet, By Mouth, Daily in PM, # 30 tablet, Refills 5, Tot. Refills 5, Maintenance, 01/13/20 10:43:00 EDT, Route to Pharmacy Electronically, [facility] #[id number], 158, cm, 10/10/19 10:55:00EDT, Height, 81, kg, 04/06/19 23:12:00 EDT, Dry Weight Start Date: 01/13/20 Status: Ordered Ventolin HFA 108 mcg/inh inhalation [...] and throat after use, # 1 each, 2 Refills, Maintenance, 06/12/20 10:41:00 EST, Powder, [facility] #[id number], Partial fill upon patient request, 1 inhalation Inhalation 2 times a day,Instr:rin... 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
--- OUTSIDE RECORDS SUMMARY | 2024-01-21 06:31 | XMS_ITS | Continuity of Care Document ---
Author Organization [facility] Emery Bolden Sean lt Address [address] [place] [address]- Care Team Providers Care Screen Making Technician Name Role Phone Sita PEREYRA, Sendy Arteaga Primary Care Physician [phone] [facility] Date[facility]s): 04/09/20 - 05/09/20 [facility] Emery Friendley Adult [address] [place] [address]- [facility] Allergies, Adverse Reactions, Alerts Substance Reaction Severity [...] 1Admin Note: PER PT 2Admin Note: [facility] [place] 3Admin Note: DECLINED 4Location History: [facility] 5Location History: [facility] 6Location History: [facility] 7Location History: [facility] 8Location History: [facility] Medications albuterol-ipratropium 3 mg-0.5 mg/3 [...] tablet = 80 mg, By Mouth, Daily, further refills require appt, # 90 tablet, 0 Refills, Maintenance, 02/14/20 10:57:00 EDT, Tablet, [facility] #[id number], 158, cm, 10/10/19 10:55:00 EDT, Height, 81, kg, 04/06/19 23:12:00 EDT, Dry Weight Start Date: 02/14/20 Stop Date: 05/14/20 Status: Ordered Claritin 10 mg oral tablet 1 tablet = 10 mg, By Mouth, Daily, # 30 tablet, 0 Refills, Maintenance, 03/07/14 11:52:01, Tablet Start Date: 03/07/14 Status: Ordered FLUoxetine 20 mg oral tablet 3 tablet = 60 mg, By Mouth, Daily, # 270 tablet, 2 Refills, Maintenance, 03/02/20 11:49:00 EDT, Tablet, [email or web address] #[id number], 158, cm, 10/10/19 10:55:00 EDT, Height, 81, kg, 04/06/19 23:12:00 EDT, Dry Weight Start Date: 03/02/20 Status: Ordered fluticasone 50 mcg/inh nasal spray See Instructions, SHAKE LIQUID AND USE 1 SPRAY IN EACH NOSTRIL TWICE DAILY, # 48 Gm, 0 Refills, Maintenance, [email or web address] #[id number], 90, SHAKE LIQUID AND USE 1 SPRAY IN EACH NOSTRIL TWICE DAILY,158, cm, 04/24/20 12:18:00 EDT, Height, 81, kg, .. Start Date: 04/24/20 Status: Ordered Imodium A-D 2 mg oral tablet 2 mg, 1, tablet, By Mouth, Every 4 hours, PRN, # 100 tablet, Refills 0, Tot. Refills 0, Maintenance, for loose stool, 08/06/17 12:58:09, Route to Pharmacy Electronically, [id number], [id number] Start Date: 08/06/17 Status: Ordered LORazepam 1 mg oral tablet 1 tablet = 1 mg, By Mouth, Daily at bedtime, # 30 tablet, 0 Refills, Soft Stop, 05/03/20 15:16:00 EDT, [facility] #[id number], 158, cm, 04/24/20 12:18:00 EDT, Height, 81, kg, 04/06/19 23:12:00 EDT, Dry Weight Start Date: 05/03/20 Status: Ordered minoxidil 2% topical solution 1 mL = 0.02 Gm, Topically, 2 times a day, # 60 mL, 0 Refills, Maintenance, 03/07/14 11:52:58, Solution Start Date: 03/07/14 Status: Ordered nystatin topical 028524 u/gm powder 1 application, Topically, 2 times [...] tablet, 0 Refills, Maintenance, 05/04/20 12:17:00 EDT, [facility] #17... Start Date: 05/04/20 Status: Ordered Singulair 10 mg oral tablet 1, tablet, By Mouth, Daily in PM, # 30 tablet, Refills 5, Tot. Refills 5, Maintenance, 01/13/20 10:43:00 EDT, [facility]ically, [id number], 158, cm, 10/10/19 10:55:00EDT, Height, 81, kg, 04/06/19 23:12:00 EDT, Dry Weight Start Date: 01/13/20 Status: Ordered valacyclovir 1 gm oral tablet 1 tablet = 1 Gm, By Mouth, 2 times a day, # 14 tablet, 0 Refills, Maintenance, 04/24/20 12:56:00 EDT, Tablet, [facility] #[id number], 158, cm, 04/24/20 12:18:00 EDT, Height, 81, kg, 04/06/19 23:12:00 EDT, Dry Weight Start Date: 04/24/20 Status: Ordered Ventolin HFA 108 mcg/inh inhalation [...]
--- OUTSIDE RECORDS SUMMARY | 2024-01-21 06:31 | XMS_ITS | Continuity of Care Document ---
Author Organization [facility] ter Address [address] [place] [address]- Care Team Providers Care Advanced Clinical Specialist Name Role Phone Sita PEREYRA, Sendy Arteaga Primary Care Physician [phone] [facility]counter [facility] Date(s): 09/07/19 - 09/07/[address] [address]- [facility] Attending Physician: Kahlil Neumann MD Allergies, Adverse Reactions, Alerts Substance Reaction [...] orded 1Admin Note: PER PT 2Admin Note: [facility] [place] 3Admin Note: DECLINED 4Location History: [facility] 5Location History: [facility] 6Location History: [facility] 7Location History: [facility] 8Location History: [facility] Medications albuterol-ipratropium 3 mg-0.5 mg/3 ml inhalation [...] Maintenance, 04/22/1916:31:30 EDT, Route to Pharmacy Electronically, [id number], [facility] #[id number] Start Date: 04/22/19 Status: Ordered Imodium A-D 2 mg oral tablet 2 mg, 1, tablet, By Mouth, Every 4 hours, PRN, # 100 tablet, Refills 0, Tot. Refills 0, Maintenance, for loose stool, 08/06/17 12:58:09, Route to Pharmacy Electronically, [id number], [facility] [address] Start Date: 08/06/17 Status: Ordered LORazepam 1 [...] Start Date: 03/07/14 Status: Ordered nystatin topical 519208 u/gm powder 1 application, Topically, 2 times [...] 11/29/18 16:38:09 EDT, Route to Pharmacy Electronically, [id number], [facility] [address] Start Date: 11/29/18 Status: Ordered Trelegy Ellipta inhalation powder 1 puffs, Inhalation, Daily, at the same time every day, # 60 each, 0 Refills, Maintenance, 209:03:00 EST, Powder, [facility] [address], 159, cm, 07/05/19 11:19:00 EST, Height, 81, [...]
--- OUTSIDE RECORDS SUMMARY | 2024-01-21 06:31 | XMS_ITS | Continuity of Care Document ---
Author Organization [facility] Emery Bolden Sean lt Address [address] [place] [address]- Care Team Providers Care Entry Level Accountant Name Role Phone Sita PEREYRA, Sendy Arteaga Primary Care Physician [phone] [facility]counter [facility] Date(s): 06/05/20 - 07/05/20 [facility] Emery Bolden Adult [address] [place] [address]- Allergies, Adverse Reactions, Alerts Substance Reaction Severity [...] orded 1Admin Note: PER PT 2Admin Note: [facility] [place] 3Admin Note: DECLINED 4Location History: [facility] 5Location History: [facility] 6Location History: [facility] 7Location History: [facility] 8Location History: [facility] Medications albuterol-ipratropium 3 mg-0.5 mg/3 [...] 3 Refills, Maintenance, 05/31/20 10:03:00 EST, Tablet, [facility] #[id number], 155, cm, 05/31/20 2:34:00 EST, Height, 77, [...] Maintenance, 06/12/2010:43:00 EST, Route to Pharmacy Electronically, [facility] #[id number], Partial fill upon patient request, 155, cm, 06/07/20 11:11:00 EST, Height,... Start Date: 06/12/20 Status: Ordered fluticasone 50 mcg/inh nasal spray See Instructions, SHAKE LIQUID AND USE 1 SPRAY IN EACH NOSTRIL TWICE DAILY, # 48 Gm, 0 Refills, Maintenance, [facility] #[id number], 90, SHAKE LIQUID AND USE 1 SPRAY IN EACH NOSTRIL TWICE DAILY,158, cm, 04/24/20 12:18:00 EDT, Height, 81, kg, /... Start Date: 04/24/20 Status: Ordered Imodium A-D 2 mg oral tablet 2 mg, 1, tablet, By Mouth, Every 4 hours, PRN, # 100 tablet, Refills 0, Tot. Refills 0, Maintenance, for loose stool, 08/06/17 12:58:09, Route to Pharmacy Electronically, [id number], [facility] [address] Start Date: 08/06/17 Status: Ordered LORazepam 1 mg oral tablet 1 tablet = 1 mg, By Mouth, Daily at bedtime, # 30 tablet, 0 Refills, Soft Stop, 07/03/20 14:17:00 EST, [facility] #[id number], 155, cm, 06/07/20 11:11:00 EST, Height, 77, kg, 05/31/20 2:34:00 EST, Dry Weight Start Date: 07/03/20 Status: Ordered minoxidil 2% topical solution 1 mL = 0.02 Gm, Topically, 2 times a day, # 60 mL, 0 Refills, Maintenance, 03/07/14 11:52:58, Solution Start Date: 03/07/14 Status: Ordered nystatin topical 677420 u/gm powder 1 application, Topically, 2 times [...] tablet, 0 Refills, Maintenance, 05/04/20 12:17:00 EDT, [facility] #17... Start Date: 05/04/20 Status: Ordered Singulair 10 mg oral tablet 1, tablet, By Mouth, Daily in PM, # 30 tablet, Refills 5, Tot. Refills 5, Maintenance, 01/13/20 10:43:00 EDT, Route to Pharmacy Electronically, [facility] #[id number], 158, cm, 10/10/19 10:55:00EDT, Height, 81, kg, [...] 2 Refills, Maintenance, 06/12/20 10:41:00 EST, Powder, [facility] #[id number], Partial fill upon patient request, 1 inhalation [...]
--- OUTSIDE RECORDS SUMMARY | 2024-01-21 06:31 | XMS_ITS | Continuity of Care Document ---
Author Organization [facility] ter Address [address] [place] [address]- Care Team Providers Care Inside Sales Supervisor Name Role Phone Sita PEREYRA, Sendy Arteaga Primary Care Physician Encounter [facility] Date(s): 09/23/19 - 11/09/[address] [address]- [facility] Attending Physician: Peter Sexton MD Admitting Physician: Peter Sexton MD Allergies, Adverse Reactions, Alerts Substance Reaction [...] orded 1Admin Note: PER PT 2Admin Note: [facility] [place] 3Admin Note: DECLINED 4Location History: [facility] 5Location History: [facility] 6Location History: [facility] 7Location History: [facility] 8Location History: [facility] Medications albuterol-ipratropium 3 mg-0.5 mg/3 ml [...] Weight Start Date: 07/05/19 Status: Ordered FLUoxetine 40 mg oral capsule 1 capsule = 40 mg, By Mouth, Daily, No blue dye and no tablets, patient is allergic, # 90 capsule, 3 Refills, Maintenance, 10/24/19 11:25:00 EDT, Capsule, [facility] #[id number], 158, cm, 10/10/19 10:55:00 EDT, Height, 81, kg, 04/06/19 23:12:00 E... Start Date: 3/30/20 Status: Ordered Imodium A-D 2 mg oral tablet 2 mg, 1, tablet, By Mouth, Every 4 hours, PRN, # 100 tablet, Refills 0, Tot. Refills 0, Maintenance, for loose stool, 08/06/17 12:58:09, Route to Pharmacy Electronically, [id number], [facility] [address] Start Date: 08/06/17 Status: Ordered LORazepam 1 [...] Start Date: 03/07/14 Status: Ordered nystatin topical 041039 u/gm powder 1 application, Topically, 2 times [...] 11/29/18 16:38:09 EDT, Route to Pharmacy Electronically, [id number], [facility] [address] Start Date: 11/29/18 Status: Ordered Trelegy Ellipta inhalation powder 1 puffs, Inhalation, Daily, at the same time every day, # 60 each, 0 Refills, Maintenance, 209:03:00 EST, Powder, [facility] [place] [id number] [facility] [address], 159, cm, 07/05/19 11:19:00 EST, Height, [...]
--- OUTSIDE RECORDS SUMMARY | 2024-01-21 06:32 | XMS_ITS | Continuity of Care Document ---
Author Organization [facility] Address [address] [place] [address]- Care Team Providers Care Faculty Support Coordinator Name Role Phone Kalpana Escalante Primary Care Physician Encounter [facility] Date(s): 08/28/23 - 09/27/23 [facility] Care [address] [place] [address] Attending Physician: Dusty Valdez Admitting Physician: AdmtrDusty Referring Physician: Admtr, Ar8 Allergies, Adverse Reactions, Alerts Substance Reaction Severity Status codeine acute abdominal pain Active allopurinol swelling of face/neck Active lisinopril leg cramps Active methocarbamol lip swelling and numbness A ctive Vicodin swelling face/ neck Active Cipro Active Xanax Active Tylenol with Codeine Active Dilaudid IV ONLY/// PO OK Active Other Environmental Allergy blue dye Active Percocet 5/325 acute abdominal pain Activ e Immunizations Given and Recorded Vaccine Date Status Refusal Reason influenza virus vaccine, inactivated 06/02/22 Delon rded influenza virus vaccine, inactivated 1 03/29/15 Gi faustino influenza virus vaccine, inactivated 04/25/14 Give n influenza virus vaccine, inactivated 2 04/25/14 Gi faustino influenza virus vaccine, inactivated 04/07/13 Give n SARS-CoV-2 (COVID-19) mRNA-1273 vaccine 10/02/21 G iven SARS-CoV-2 (COVID-19) mRNA-1273 vaccine 10/18/20 R ecorded SARS-CoV-2 (COVID-19) mRNA-1273 vaccine 09/20/20 R ecorded Influenza Virus Vaccine (oldterm) 06/05/19 Recorde d Pneumococcal Vaccine (oldterm) 3 06/29/15 Given pneumococcal 23-valent vaccine 04/07/13 Given tetanus-diphtheria toxoids (Td) 4 05/27/11 Recorde d tetanus-diphtheria toxoids (Td) 03/07/11 Given hepatitis B adult vaccine 5 09/18/97 Recorded hepatitis B adult vaccine 6 04/18/97 Recorded hepatitis B adult vaccine 7 03/20/97 Recorded Measles/Mumps/Rubella Virus Vaccine 8 02/05/95 Rec orded 1Admin Note: [facility] [place] 2Admin Note: DECLINED 3Admin Note: PER PT 4Location History: [facility] 5Location History: [facility] 6Location History: [facility] 7Location History: [facility] 8Location History: [facility] Medications Advair Diskus 250 mcg-50 mcg inhalation powder 1, puffs, Inhalation, 2 times a day, # 180 each, Refills 2, Tot. Refills 2, Maintenance, 08/05/23 10:25:00 EST, Powder, Route to Pharmacy Electronically, NCPDP_[id number], [facility] #[id number], 160, cm, 08/05/23 9:45:00 EST, Height, 81.5, kg, 1... Start Date: 08/05/23 Status: Ordered albuterol-ipratropium 3 mg-0.5 mg/3 ml inhalation solution [...] Ordered atorvastatin 80 mg oral tablet 1 tablet, By Mouth, Daily, # 90 tablet, 3 Refills, Maintenance, 06/01/23 11:32:00 EST, [facility] #[id number], 160, cm, 05/29/23 11:42:00 EDT, Height, 83.2, kg, 04/09/23 11:58:00 EDT, Dry Weight Start Date: 06/01/23 Status: Ordered cloNIDine 0.1 mg oral tablet 1, tablet, By Mouth, Daily at bedtime, for 90 days, # 90 tablet, Refills 3, Tot. Refills 3, Physician Stop 05/26/24 11:32:00 EDT, 06/01/23 11:32:00 EST, Route to Pharmacy Electronically, [email or web address] #[id number], 160, cm, 05/29/23 11:42:00 EDT, Hei... Start Date: 06/01/23 Stop Date: 05/26/24 Status: Ordered cyclobenzaprine 5 mg oral tablet 1 tablet = 5 mg, By Mouth, 2 times a day, for 30 days, TAKE 1 TABLET BY MOUTH TWICE DAILY NEEDED, # 60 tablet, 1 Refills, Acute 10/04/23 10:17:00 EDT, 08/05/23 10:17:00 EST, Tablet, [facility] #73254, Partial fill upon patient request if... Start Date: 08/05/23 Stop Date: 10/04/23 Status: Ordered escitalopram 20 mg oral tablet 1 tablet = 20 mg, By Mouth, Daily, # 90 tablet, 1 Refills, Maintenance, 09/18/23 11:54:00 EST, Tablet, [email or web address] #[id number], Partial fill upon patient request if the prescription is for a schedule II opioid drug., 157.8, cm, 09/02/23 13:30:00 E... Start Date: 09/18/23 Status: Ordered Fish Oil 1000 mg oral capsule 1 capsule = 1,000 mg, By Mouth, 3 times a day, # 270 capsule, 3 Refills, Maintenance, 08/05/23 10:17:00 EST, Capsule, [email or web address] #[id number], Partial fill upon patient request if the prescription is for a schedule II opioid drug., 160, cm, ... Start Date: 08/05/23 Stop Date: 07/30/24 Status: Ordered LORazepam 1 mg oral tablet 1 tablet = 1 mg, By Mouth, 2 times a day, # 60 tablet, 0 Refills, Maintenance, 08/30/23 11:33:00 EST, Tablet, [email or web address] #[id number], Partial fill upon patient request if the prescription is fora schedule II opioid drug., 160, cm, 08/05/23 9:45:... Start Date: 08/30/23 Stop Date: 09/29/23 Status: Ordered montelukast 10 mg oral tablet 1, tablet, By Mouth, Daily, NO BLUE DYE, ALLERGIC., # 90 tablet, Refills 1, Tot. Refills 1, Maintenance, 10/28/22 11:30:00 EDT, Route to Pharmacy Electronically, [facility] #[id number], 157.4, cm, 05/28/22 11:29:00 EDT, Height, 83.1, kg, 07/07/22... Start Date: 10/28/22 Status: Ordered nystatin topical 892778 u/gm powder 1 application, Topically, 2 times a day, apply to affected area, # 30 Gm, 1 Refills, Maintenance, 11/26/21 11:45:00 EDT, Powder, [facility] #[id number], Partial fill upon patient request if the prescription is for a schedule II opioid drug., 1 ap... Start Date: 11/26/21 Status: Ordered omeprazole 40 mg oral enteric coated capsule 1 capsule, By Mouth, 2 times a day, # 180 capsule, 0 Refills, Maintenance, 09/15/23 12:05:00 EST, [facility] #[id number], 157.8, cm, 09/02/23 13:30:00 EST, Height, 83.8, kg, 09/02/23 13:30:00 EST, Dry Weight Start Date: 09/15/23 Status: Ordered Ventolin HFA 108 mcg/inh inhalation aerosol with adapter 2 puffs, Inhalation, 4 times a day, PRN for wheezing, # 18 Gm, 11 Refills, Maintenance, 05/08/22 14:54:00 EDT, Aerosol, [facility] #[id number], 157.4, cm, 04/10/22 10:13:00 EDT, Height, 81.8, kg, 03/18/22 7:38:00 EDT, Dry Weight Start Date: 05/08/22 Stop Date: 05/03/23 Status: Ordered Vitamin C 500 mg oral [...] 11:52:45, Tablet Start Date: 03/07/14 Status: Ordered ZyrTEC 10 mg oral tablet 1 tablet = 10 mg, By Mouth, Daily, 0 Refills, Maintenance, 12/04/20 6:39:00 EDT, Partial fill upon patient request if the prescription is for a schedule II opioid drug. 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 Confirmed Active Adenomatous colon polyp 2, 3, 4 Confirmed Active Asthma Confirmed Active Thomas's esophagus 5 Confirmed Active Cataract 6 Confirmed Active CVA (cerebral infarction) Confirmed Active Chronic kidney disease, stage 3a 7 Confirmed Active Compression fracture of thoracic spine, non-traumatic Confirmed Active Dyslipidemia Confirmed Active GERD (gastroesophageal reflux disease) Confirmed Active Generalized anxiety disorder Confirmed Active Gout Confirmed Active Knee joint replacement by other means 8 Confirmed Active Internal and external hemorrhoids without complication 9 Confirmed Active Insomnia Confirmed Active IBS (irritable bowel syndrome) Confirmed Active Other nonspecific abnormal serum enzyme levels Confirmed Active Obese class I Confirmed Active Degenerative joint disease Confirmed Active Osteopenia Confirmed Active Recurrent UTI (urinary tract infection) Confirmed Active Right rotator cuff tear Confirmed Active Seasonal allergies Confirmed Active Syncope and collapse Confirmed Active Thyroid nodule Confirmed Active Vitamin D deficiency Confirmed Active 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 2018 4Colonoscopy 2012 positive polyp, repeat 2015. 5Barrett's esophagus on endoscopy in the past, patient having repeat endoscopy 2013. 6BILATERAL 7Per chart review meets GFR criteria 8RIGHT KNEE 9colo 2016 Social History Social History Type Response Smoking Status Never smoker entered on: 01/10/14 Sex Female Patient Care team information Care Team Personnel Name: Kalpana Escalante Position: S Associate Professional Member Role: PCP Address: Address: [address] [place] [address] [place] [address]- Care Team Related Persons Name: SHIMA BRANDT Address: home [address] [place] [address] Name: SRIRAM GUZMAN Address: [address] [address]
--- OUTSIDE RECORDS SUMMARY | 2024-01-21 06:32 | XMS_ITS | Continuity of Care Document ---
Author Organization [facility] Emery Bolden Sean lt Address [address] [place] [address]- Care Team Providers Care Valve Maker Name Role Phone Kahlil Neumann MD Primary Care Physician [facility] Date(s): 07/05/19 - 07/12/19 [facility] Emery Bolden Adult [address] [place] [address]- [facility] Attending Physician: Miladis GOODWIN, Sandy Gomez Allergies, Adverse Reactions, Alerts Substance Reaction Severity [...] orded 1Admin Note: PER PT 2Admin Note: [facility] [place] 3Admin Note: DECLINED 4Location History: [facility] 5Location History: [facility] 6Location History: [facility] [...] Maintenance, 04/22/1916:31:30 EDT, Route to Pharmacy Electronically, [id number], [facility] #[id number] Start Date: 04/22/19 Status: Ordered Imodium A-D 2 mg oral tablet 2 mg, 1, tablet, By Mouth, Every 4 hours, PRN, # 100 tablet, Refills 0, Tot. Refills 0, Maintenance, for loose stool, 08/06/17 12:58:09, Route to Pharmacy Electronically, [id number], [facility] [address] Start Date: 08/06/17 Status: Ordered LORazepam 1 mg oral tablet See Instructions, TAKE 1 TABLET BY MOUTH THREE TIMES DAILY NEEDED FOR ANXIETY, # 90 tablet, 0 Refills, Soft Stop, 06/09/19 9:39:00 EST Start Date: 06/09/19 Status: Ordered minoxidil 2% topical solution 1 mL = 0.02 Gm, Topically, 2 times a day, # 60 mL, 0 Refills, Maintenance, 03/07/14 11:52:58, Solution Start Date: 03/07/14 Status: Ordered nystatin topical 108368 u/gm powder 1 application, Topically, 2 times a day, # 60 Gm, 0 Refills, Maintenance, 02/28/19 16:40:54 EDT, Powder, 1 application Topically 2 times a day Start Date: 02/28/19 Status: Ordered predniSONE 20 mg oral tablet 1 tablet = 20 mg, By Mouth, Daily, for 14 days, # 14 tablet, 0 Refills, Acute 07/19/19 11:50:27 EST, 07/05/19 11:50:27 EST, 159, cm, 07/05/19 11:19:56 EST, Height, 81, kg, 04/06/19 23:12:31 EDT, Dry Weight Start Date: 07/05/19 Stop Date: 07/19/19 Status: Ordered SEROquel 50 mg oral tablet [...] 11/29/18 16:38:09 EDT, Route to Pharmacy Electronically, [id number], [facility] Start Date: 11/29/18 Status: Ordered Ventolin HFA 108 mcg/inh inhalation [...] repeat endoscopy 2013. 5BILATERAL 6RIGHT KNEE 7colo 2015 Vital Signs Most recent to oldest [Reference Range]: 1 Height 159 cm (07/05/19 11:19 AM) Weight 84.5 kg (07/05/19 11:19 AM) Pulse Rate [55-90 bpm] 78 bpm (07/05/19 11:19 AM) Body Mass Index [18.5-24.99] 33.42 *>HHI* (07/05/19 11:19 AM) Blood Pressure [90-138/55-84 mm Hg] 120/ 84mm Hg (07/05/19 11:19 AM) Blood pressure sites Arm, left (07/05/19 11:19 AM) Social History Social History Type Response Smoking Status Never smoker entered on: 01/10/14 Sex
--- OUTSIDE RECORDS SUMMARY | 2024-01-21 06:32 | XMS_ITS | Continuity of Care Document ---
Author Organization [facility] Address [address] [place] [address]- Care Team Providers Care Auto Service Instructor Name Role Phone Sita PEREYRA, Sendy Arteaga Primary Care Physician Encounter [facility] Date(s): 10/22/21 - 10/29/21 [facility] [address] [place] [address]- Attending Physician: Raghav Colvin MD Admitting Physician: Raghav Colvin MD Referring Physician: Sendy Buckner MD Allergies, Adverse Reactions, Alerts Substance Reaction Severity Status codeine acute abdominal pain Active allopurinol swelling of face/neck Active Cipro Active Vicodin swelling face/ neck Active Other Environmental Allergy blue dye Active lisinopril Active methocarbamol Active Xanax Active Flexeril Active Tylenol with Codeine Active Dilaudid IV ONLY/// PO OK Active Percocet 5/325 acute abdominal pain Activ [...] orded 1Admin Note: PER PT 2Admin Note: [facility] [place] 3Admin Note: DECLINED 4Location History: [facility] 5Location History: [facility] 6Location History: [facility] 7Location History: [facility] 8Location History: [facility] Medications albuterol-ipratropium 3 mg-0.5 mg/3 [...] 3 Refills, Maintenance, 05/31/20 10:03:00 EST, Tablet, [facility] #[id number], 155, cm, 05/31/20 2:34:00 EST, Height, 77, [...] at bedtime, # 30 tablet, Refills 0, Route to Pharmacy Electronically, [facility] #[id number], 158, cm, 09/30/21 10:23:00 EST, Height, 83.2, kg, 06/24/21 6:39:00 EST, Dry Weight Start Date: 10/21/21 Status: Ordered duloxetine 20 mg oral enteric coated capsule 1 capsule = 20 mg, By Mouth, 2 times a day, no blue dye capsule, allergic, # 60 capsule, 0 Refills,Maintenance, 09/24/21 14:27:00 EST, EC Capsule, [facility] #08107, Partial fill upon patient request if the [...] mg oral tablet 1 tablet, By Mouth, 2 times a day, PRN NEEDED FOR ANXIETY, # 60 tablet, 0 Refills, Maintenance, 10/21/21 12:55:00 EDT, [facility] #71710, 158, cm, 09/30/21 10:23:00 EST, Height, 83.2, kg, 06/24/21 6:39:00 EST, Dry Weight Start Date: 10/21/21 Status: Ordered magnesium oxide 500 mg oral [...] 09/28/21 9:47:00 EST, Route to Pharmacy Electronically, [facility] #[id number], Partial fill upon patient request if the [...] 6 Refills, Maintenance, 08/14/21 15:12:00EST, EC Capsule, [facility] #27198, Partial fill upon patient request if the [...] tablet, 0 Refills, Maintenance, 09/21/21 9:19:00 EST, [facility] #[id number],... Start Date: 09/21/21 Status: Ordered Tylenol Extra [...] 11 Refills, Maintenance, 05/13/21 14:54:00 EDT, Aerosol, [facility] #29729, 158, cm, 05/13/21 14:25:00 EDT, Height, 83.3, [...] 3 Refills, Maintenance, 09/11/21 11:32:00 EST, Powder, [facility] #[id number], Partial fill upon patient request if the [...] endoscopy 2013. 5BILATERAL 6RIGHT KNEE 7colo 2016 Vital Signs Most recent to oldest [Reference Range]: 1 Height 158 cm (10/22/21 10:11 AM) Weight 79.83 kg (10/22/21 10:11 AM) Oxygen Saturation [94-100 %] 96 % (10/22/21 10:11 AM) Pulse Rate [55-90 bpm] 107 bpm *H* (10/22/21 10:11 AM) Body Mass Index [18.5-24.99] 31.98 *>HHI* (10/22/21 10:11 AM) Blood Pressure [90-138/55-84 mm Hg] 130/ 58mm Hg (10/22/21 10:11 AM) Mode of Delivery (Oxygen) Room air (10/22/21 10:11 AM) Blood pressure sites Arm, left (10/22/21 10:11 AM) Weight Obtained Via Patient/family state d (10/22/21 10:11 AM) Social History Social History Type Response Smoking Status Never smoker entered on: 01/10/14 Sex Female
--- OUTSIDE RECORDS SUMMARY | 2024-01-21 06:32 | XMS_ITS | Continuity of Care Document ---
Author Organization [facility] Address [address] [place] [address]- Care Team Providers Care Bottom Precipitator Operator Name Role Phone Sita PEREYRA, Sendy Arteaga Primary Care Physician [phone] Encounter [facility] Date(s): 12/06/20 - 01/05/21 [facility] [address] [place] [address]- Attending Physician: Admtr, Michael8 Admitting Physician: Admtr, Ar8 Referring Physician: Admtr, Ar8 Allergies, Adverse Reactions, Alerts Substance Reaction Severity Status codeine acute abdominal pain Active allopurinol swelling of face/neck Active pravastatin Active lisinopril Active Cipro Active Xanax Active Flexeril Active Tylenol with Codeine Active Dilaudid IV ONLY/// PO OK Active Vicodin swelling face/ neck Active Other Environmental Allergy blue dye Active Percocet 5/ acute abdominal pain Activ e amLODIPine Active Immunizations Given and Recorded Vaccine Date Status Refusal Reason SARS-CoV-2 (COVID-19) mRNA-1273 vaccine 09/20/20 R ecorded [...] 1Admin Note: PER PT 2Admin Note: [facility] [place] 3Admin Note: DECLINED 4Location History: [facility] 5Location History: [facility] 6Location History: [facility] 7Location [facility]: [facility] 8Location History: [facility] Medications albuterol-ipratropium 3 mg-0.5 mg/3 ml inhalation [...] 3 Refills, Maintenance, 05/31/20 10:03:00 EST, Tablet, [facility] #[id number], 155, cm, 05/31/20 2:34:00 EST, Height, 77, kg, 05/31/20 2:34:00 EST, Dry Weight Start Date: 05/31/20 Status: Ordered Blood Pressure Monitor See Instructions, # 1 each, Refills 0, Tot. Refills 0, Maintenance, ICD I10, 10/05/20 14:06:00 EST,Supply, 155, cm, 06/07/20 11:11:00 EST, Height, 77, kg, 05/31/20 2:34:00 EST, Dry Weight Start Date: 10/05/20 Status: Ordered FLUoxetine 20 mg oral capsule 40 mg, 2, capsule, By Mouth, Daily, # 60 capsule, Refills 3, Tot. Refills 3, Maintenance, 12/31/20 14:58:00 EDT, Route to Pharmacy Electronically, [facility] #[id number], Partial fill upon patient request if the prescription is for a schedule II... Start Date: 12/31/20 Status: Ordered Imodium A-D 2 mg oral tablet 2 mg, 1, tablet, By Mouth, Every 4 hours, PRN, # 100 tablet, Refills 0, Tot. Refills 0, Maintenance, for loose stool, 08/06/17 12:58:09, Route to Pharmacy Electronically, [id number], [facility] [id number] Start Date: 08/06/17 Status: Ordered LORazepam 1 mg oral tablet 1 tablet, By Mouth, Daily at bedtime, # 30 tablet, 0 Refills, Maintenance, 12/28/20 14:27:00 EDT, [facility] #[id number], 158, cm, 12/27/20 11:09:00 EDT, Height, 83.3, kg, 12/26/20 11:59:00 EDT,Dry Weight Start Date: 12/28/20 Status: Ordered magnesium oxide 500 mg oral tablet 1 tablet = 500 mg, By Mouth, Daily, 0 Refills, Maintenance, 12/04/20 6:40:00 EDT, Partial fill uponpatient request if the prescription is for a schedule II opioid drug. Start Date: 12/04/20 Status: Ordered minoxidil 2% topical solution 1 mL = 0.02 Gm, Topically, 2 times a day, # 60 mL, 0 Refills, Maintenance, 03/07/14 11:52:58, Solution Start Date: 03/07/14 Status: Ordered nystatin topical 968760 u/gm powder 1 application, Topically, 2 times [...] days, # 63 tablet, 0 Refills, Maintenance, 12/27/20 11:41:00 EDT, [facility] #17... Start Date: 12/27/20 Status: Ordered SEROquel 25 mg oral tablet 25 mg, 1, tablet, By Mouth, Daily, # 30 tablet, Refills 1, Tot. Refills 1, Maintenance, 12/27/20 11:38:00 EDT, Route to Pharmacy Electronically, [facility] #[id number], Partial fill upon patientrequest if the prescription is for a schedule II op... Start Date: 12/27/20 Status: Ordered Ventolin HFA 108 mcg/inh inhalation [...] 2 Refills, Maintenance, 06/12/20 10:41:00 EST, Powder, [facility] #[id number], Partial fill upon patient request, 1 inhalation Inhalation 2 times a day,Instr:rin... Start Date: 06/12/20 Status: Ordered ZyrTEC 10 mg oral tablet [...] nonspecific abnormal s shadia enzyme levels(Confirmed) Active Neck pain on right side(Confirmed) Active Thigh numbness(Confirmed) Active Degenerative joint disease(Confirmed) Active Osteopenia(Confirmed) Active Painful and cold lower extremity(Confirmed) Active Recurrent UTI (urinary tract infection)(Confirmed) Active Seasonal allergies(Confirmed) Active Syncope and collapse(Confirmed) [...]
--- OUTSIDE RECORDS SUMMARY | 2024-01-21 06:32 | XMS_ITS | Continuity of Care Document ---
Author Organization [facility] Address [address] [place] [address]- Care Team Providers Care Commercial Litigation Associate Name Role Phone Sita PEREYRA, Sendy Arteaga Primary Care Physician Encounter [facility] Date(s): 03/19/20 - 05/26/20 [facility] [address] [place] [address]- [facility] Attending Physician: Raghav Colvin MD Admitting Physician: [...] Note: [facility] [place] 3Admin Note: DECLINED 4Location History: [facility] 5Location History: [facility] 6Location History: [facility] 7Location History: [facility] 8Location History: [facility] Medications albuterol-ipratropium 3 mg-0.5 mg/3 [...] Date: 03/29/14 Stop Date: 07/27/14 Status: Ordered Claritin 10 mg oral tablet 1 tablet = 10 mg, By Mouth, Daily, # 30 tablet, 0 Refills, Maintenance, 03/07/14 11:52:01, Tablet Start Date: 03/07/14 Status: Ordered FLUoxetine 20 mg oral tablet 3 tablet = 60 mg, By Mouth, Daily, # 270 tablet, 2 Refills, Maintenance, 03/02/20 11:49:00 EDT, Tablet, [facility] #[id number], 158, cm, 10/10/19 10:55:00 EDT, Height, 81, kg, 04/06/19 23:12:00 EDT, Dry Weight Start Date: 03/02/20 Status: Ordered fluticasone 50 mcg/inh nasal spray See Instructions, SHAKE LIQUID AND USE 1 SPRAY IN EACH NOSTRIL TWICE DAILY, # 48 Gm, 0 Refills, Maintenance, [facility] #[id number], 90, SHAKE LIQUID AND USE 1 SPRAY IN EACH NOSTRIL TWICE DAILY,158, cm, 04/24/20 12:18:00 EDT, Height, 81, kg, ... Start Date: 04/24/20 Status: Ordered Imodium A-D 2 mg oral tablet 2 mg, 1, tablet, By Mouth, Every 4 hours, PRN, # 100 tablet, Refills 0, Tot. Refills 0, Maintenance, for loose stool, 08/06/17 12:58:09, Route to Pharmacy Electronically, [id number], [facility] [id number] Start Date: 08/06/17 Status: Ordered LORazepam 1 mg oral tablet 1 tablet = 1 mg, By Mouth, Daily at bedtime, # 30 tablet, 0 Refills, Soft Stop, 05/03/20 15:16:00 EDT, [facility] #[id number], 158, cm, 04/24/20 12:18:00 EDT, Height, 81, kg, 04/06/19 23:12:00 EDT, Dry Weight Start Date: 05/03/20 Status: Ordered minoxidil 2% topical solution 1 mL = 0.02 Gm, Topically, 2 times a day, # 60 mL, 0 Refills, Maintenance, 03/07/14 11:52:58, Solution Start Date: 03/07/14 Status: Ordered nystatin topical 845004 u/gm powder 1 application, Topically, 2 times [...] tablet, 0 Refills, Maintenance, 05/04/20 12:17:00 EDT, [facility] #17... Start Date: 05/04/20 Status: Ordered Singulair 10 mg oral tablet 1, tablet, By Mouth, Daily in PM, # 30 tablet, Refills 5, Tot. Refills 5, Maintenance, 01/13/20 10:43:00 EDT, Route to Pharmacy Electronically, [facility] #[id number], 158, cm, 10/10/19 10:55:00EDT, Height, 81, kg, 04/06/19 23:12:00 EDT, Dry Weight Start Date: 01/13/20 Status: Ordered valacyclovir 1 gm oral tablet 1 tablet = 1 Gm, By Mouth, 2 times a day, # 14 tablet, 0 Refills, Maintenance, 04/24/20 12:56:00 EDT, Tablet, [facility] #[id number], 158, cm, 04/24/20 12:18:00 EDT, Height, 81, [...]
--- OUTSIDE RECORDS SUMMARY | 2024-01-21 06:32 | XMS_ITS | Continuity of Care Document ---
Author Organization [facility] Address [address] [place] [address]- Care Team Providers Care Senior Net Engineer Name Role Phone Kalpana Escalante Primary Care Physician Encounter [facility] Date(s): 11/25/23 - 12/25/23 [facility] [address] [place] [address]- Allergies, Adverse Reactions, Alerts Substance Reaction Severity Status codeine acute abdominal pain Active allopurinol swelling of face/neck Active lisinopril leg cramps Active methocarbamol lip swelling and numbness A ctive Cipro Active Xanax Active Zofran Active Tylenol with Codeine Active Dilaudid IV ONLY/// PO OK Active Vicodin swelling face/ neck Active Other Environmental Allergy blue dye Active Percocet 5/ acute abdominal pain Activ e Immunizations Given [...] 4 05/27/11 Recorde d tetanus-diphtheria toxoids (Td) 8/12/11 Given hepatitis B adult vaccine 5 09/18/97 Recorded hepatitis B adult vaccine 6 04/18/97 Recorded hepatitis B adult vaccine 7 03/20/97 Recorded Measles/Mumps/Rubella Virus Vaccine 8 02/05/95 Rec orded 1Admin Note: [facility] [place] 2Admin Note: DECLINED 3Admin Note: PER PT 4Location History: [facility] 5Location History: [facility] 6Location History: [facility] 7Location History: [facility] 8Location History: [facility] Medications Advair Diskus 250 mcg-50 mcg inhalation powder 1, puffs, Inhalation, 2 times a day, # 180 each, Refills 2, Tot. Refills 2, Maintenance, 10/21/23 19:43:00 EDT, Powder, Route to Pharmacy Electronically, NCPDP_[id number], [facility] #[id number], 157.8, cm, 09/02/23 13:30:00 EST, Height, 83.8, kg... Start Date: 10/21/23 Status: Ordered albuterol-ipratropium 3 mg-0.5 mg/3 ml inhalation solution 3 mL, Neb, 4 times a day, PRN cough, wheezing or shortness of breath, DX R06.2, # 180 each, 1 Refills, Maintenance, 11/25/23 13:59:00 EDT, Solution, [facility] #[id number], 3 mL Neb 4 times a day,PRN:cough, wheezing or shortness of breath,Instr:D... Start Date: 11/25/23 Status: Ordered Aspir 81 Oral Enteric Coated Tablet 1 tablet = 81 mg, By Mouth, Daily, # 30 tablet, 3 Refills, Maintenance, 03/29/14 11:38:34, EC Tablet Start Date: 03/29/14 Stop Date: 07/27/14 Status: Ordered atorvastatin 80 mg oral tablet 1 tablet, By Mouth, Daily, # 90 tablet, 3 Refills, Maintenance, 06/01/23 11:32:00 EST, [facility] #[id number], 160, cm, 05/29/23 11:42:00 EDT, Height, 83.2, kg, 04/09/23 11:58:00 EDT, Dry Weight Start Date: 06/01/23 Status: Ordered Bactrim DS 800 mg-160 mg oral tablet 1 tablet, By Mouth, Every 12 hours, # 10 tablet, 0 Refills, Maintenance, 12/12/23 12:04:00 EDT, [facility] #[id number], Partial fill upon patient request if the prescription is for a schedule IIopioid drug., 1 tablet By Mouth Every 12 hours,x5 d... Start Date: 12/12/23 Stop Date: 12/17/23 Status: Ordered cloNIDine 0.1 mg oral tablet 1, tablet, By Mouth, Daily at bedtime, for 90 days, # 90 tablet, Refills 3, Tot. Refills 3, Physician Stop 05/26/24 11:32:00 EDT, 06/01/23 11:32:00 EST, Route to Pharmacy Electronically, [facility] #[id number], 160, cm, 05/29/23 11:42:00 EDT, Hei... Start Date: 06/01/23 Stop Date: 05/26/24 Status: Ordered escitalopram 20 mg oral tablet 1 tablet = 20 mg, By Mouth, Daily, # 90 tablet, 1 Refills, Maintenance, 09/18/23 11:54:00 EST, Tablet, [facility] #[id number], Partial fill upon patient request if the prescription is for a schedule II opioid drug., 157.8, cm, 09/02/23 13:30:00 E... Start Date: 09/18/23 Status: Ordered Fish Oil 1000 mg oral capsule 1 capsule = 1,000 mg, By Mouth, 3 times a day, # 270 capsule, 3 Refills, Maintenance, 08/05/23 10:17:00 EST, Capsule, [facility] #[id number], Partial fill upon patient request if the prescription is for a schedule II opioid drug., 160, cm, ... Start Date: 08/05/23 Stop Date: 07/30/24 Status: Ordered LORazepam 1 mg oral tablet 1 tablet = 1 mg, By Mouth, 2 times a day, # 60 tablet, 0 Refills, Maintenance, 10/29/23 16:22:00 EDT, Tablet, [facility] #[id number], Partial fill upon patient request if the prescription is fora schedule II opioid drug., 157.8, cm, 09/02/23 13:... Start Date: 10/29/23 Stop Date: 11/28/23 Status: Ordered LORazepam 1 mg oral tablet 1 tablet = 1 mg, By Mouth, 2 times a day, for 30 days, # 60 tablet, 0 Refills, Hard Stop 12/26/23 15:53:00 EDT, 11/26/23 15:53:00 EDT, Tablet, [facility] #[id number], Partial fill upon patient request if the prescription is for a schedule II opio... Start Date: 11/26/23 Stop Date: 12/26/23 Status: Ordered montelukast 10 mg oral tablet 1, tablet, By Mouth, Daily, NO BLUE DYE, ALLERGIC., # 90 tablet, Refills 0, Tot. Refills 0, Maintenance, 11/25/23 11:28:00 EDT, Route to Pharmacy Electronically, [facility] #[id number], 157.8, cm, 09/02/23 13:30:00 EST, Height, 83.8, kg, 09/02/23... Start Date: 11/25/23 Status: Ordered nystatin topical 378913 u/gm powder 1 application, Topically, 2 times a day, apply to affected area, # 30 Gm, 1 Refills, Maintenance, 12/15/23 18:32:00 EDT, Powder, [facility] #[id number], Partial fill upon patient request if the prescription is for a schedule II opioid drug., 1 ap... Start Date: 12/15/23 Status: Ordered omeprazole 40 mg oral enteric coated capsule 1 capsule, By Mouth, 2 times a day, # 180 capsule, 0 Refills, Maintenance, 09/15/23 12:05:00 EST, [facility] #[id number], 157.8, cm, 09/02/23 13:30:00 EST, Height, 83.8, kg, 09/02/23 13:30:00 EST, Dry Weight Start Date: 09/15/23 Status: Ordered Ventolin HFA 108 mcg/inh inhalation aerosol with adapter 2 puffs, Inhalation, 4 times a day, PRN for wheezing, # 18 Gm, 11 Refills, Maintenance, 05/08/22 14:54:00 EDT, Aerosol, [facility] #[id number], 157.4, cm, 04/10/22 10:13:00 EDT, Height, 81.8, [...] myeloid leukemia) in remission 1 Confirmed Active Acute on chronic cystitis Confirmed Active Adenomatous colon polyp 2, 3, [...] colonoscopy in 3 years i.e. 2018 4Colonoscopy 2013 positive polyp, repeat 2015. 5Barrett's esophagus on endoscopy in the past, patient having repeat endoscopy 2013. 6BILATERAL 7Per chart review meets GFR criteria 8RIGHT KNEE 9colo 2016 Social History Social History Type Response Smoking Status Never smoker entered on: 01/10/14 Sex Female Patient Care team information Care Team Personnel Name: Kalpana Escalante Position: Reference Physician Member Role: PCP Address: Address: [address] [place] [address]- Care Team Related Persons Name: SHIMA BRANDT Address: [address] [place] [address] Name: SRIRAM GUZMAN Address: home [address] [address]
--- OUTSIDE RECORDS SUMMARY | 2024-01-21 06:32 | XMS_ITS | Continuity of Care Document ---
Author Organization [facility] Address [address] [facility], [address], [address] [place] [address]- Care Team Providers Care Manager Critical Care Name Role Phone Sita PEREYRA, Sendy Arteaga Primary Care Physician Encounter [facility] Date(s): 07/17/20 - 08/16/20 [facility] [address], [address], [address] [place] [address]- Allergies, Adverse Reactions, Alerts Substance Reaction Severity [...] orded 1Admin Note: PER PT 2Admin Note: [facility] [place] 3Admin Note: DECLINED 4Location History: [facility] 5Location History: [facility] 6Location History: [facility] 7Location History: [facility] 8Location History: [facility] [...] 3 Refills, Maintenance, 05/31/20 10:03:00 EST, Tablet, [facility] #22783, 155, cm, 05/31/20 2:34:00 EST, Height, 77, [...] Maintenance, 06/12/2010:43:00 EST, Route to Pharmacy Electronically, [facility] #[id number], Partial fill upon patient request, 155, cm, 06/07/20 11:11:00 EST, Height,... Start Date: 06/12/20 Status: Ordered fluticasone 50 mcg/inh nasal spray See Instructions, SHAKE LIQUID AND USE 1 SPRAY IN EACH NOSTRIL TWICE DAILY, # 48 Gm, 0 Refills, Maintenance, [facility] #88304, 90, SHAKE LIQUID AND USE 1 SPRAY IN EACH NOSTRIL TWICE DAILY,158, cm, 04/24/20 12:18:00 EDT, Height, 81, kg, 09/... Start Date: 04/24/20 Status: Ordered Imodium A-D 2 mg oral tablet 2 mg, 1, tablet, By Mouth, Every 4 hours, PRN, # 100 tablet, Refills 0, Tot. Refills 0, Maintenance, for loose stool, 08/06/17 12:58:09, Route to Pharmacy Electronically, [id number], [facility] [address] Start Date: 08/06/17 Status: Ordered LORazepam 1 mg oral tablet 1 tablet = 1 mg, By Mouth, Daily at bedtime, # 30 tablet, 0 Refills, Soft Stop, 07/03/20 14:17:00 EST, [facility] #69358, 155, cm, 06/07/20 11:11:00 EST, Height, 77, kg, 05/31/20 2:34:00 EST, Dry Weight Start Date: 07/03/20 Status: Ordered minoxidil 2% topical solution 1 mL = 0.02 Gm, Topically, 2 times a day, # 60 mL, 0 Refills, Maintenance, 03/07/14 11:52:58, Solution Start Date: 03/07/14 Status: Ordered nystatin topical 346250 u/gm powder 1 application, Topically, 2 times [...] tablet, 0 Refills, Maintenance, 05/04/20 12:17:00 EDT, [facility] #17... Start Date: 05/04/20 Status: Ordered Singulair 10 mg oral tablet 1, tablet, By Mouth, Daily in PM, # 30 tablet, Refills 5, Tot. Refills 5, Maintenance, 01/13/20 10:43:00 EDT, Route to Pharmacy Electronically, [facility] #[id number], 158, cm, 10/10/19 10:55:00EDT, Height, 81, kg, [...] 2 Refills, Maintenance, 06/12/20 10:41:00 EST, Powder, [facility] #[id number], Partial fill upon patient request, 1 inhalation [...]
--- OUTSIDE RECORDS SUMMARY | 2024-01-21 06:32 | XMS_ITS | Continuity of Care Document ---
Author Organization [facility] Address [address] [place] [address]- Care Team Providers Care Nuclear Security Officer Name Role Phone Sita PEREYRA, Sendy Arteaga Primary Care Physician Encounter [facility] Date(s): 07/16/20 - 08/15/20 [facility] [address] [place] [address]- Attending Physician: Dusty Valdez Admitting Physician: Admtr, Dusty Referring Physician: Admtr, Ar8 Allergies, Adverse Reactions, [...] orded 1Admin Note: PER PT 2Admin Note: [facility] [place] 3Admin Note: DECLINED 4Location History: [facility] 5Location History: [facility] 6Location History: [facility] 7Location History: [facility] 8Location History: [facility] Medications albuterol-ipratropium 3 mg-0.5 mg/3 ml inhalation [...] 3 Refills, Maintenance, 05/31/20 10:03:00 EST, Tablet, [facility] #[id number], 155, cm, 05/31/20 2:34:00 EST, Height, 77, [...] Maintenance, 06/12/2010:43:00 EST, Route to Pharmacy Electronically, [facility] #[id number], Partial fill upon patient request, 155, cm, 06/07/20 11:11:00 EST, Height,... Start Date: 06/12/20 Status: Ordered fluticasone 50 mcg/inh nasal spray See Instructions, SHAKE LIQUID AND USE 1 SPRAY IN EACH NOSTRIL TWICE DAILY, # 48 Gm, 0 Refills, Maintenance, [facility] #34235, 90, SHAKE LIQUID AND USE 1 SPRAY IN EACH NOSTRIL TWICE DAILY,158, cm, 04/24/20 12:18:00 EDT, Height, 81, kg, ... Start Date: 04/24/20 Status: Ordered Imodium A-D 2 mg oral tablet 2 mg, 1, tablet, By Mouth, Every 4 hours, PRN, # 100 tablet, Refills 0, Tot. Refills 0, Maintenance, for loose stool, 08/06/17 12:58:09, Route to Pharmacy Electronically, [id number], [facility] [address] Start Date: 08/06/17 Status: Ordered LORazepam 1 mg oral tablet 1 tablet = 1 mg, By Mouth, Daily at bedtime, # 30 tablet, 0 Refills, Soft Stop, 07/03/20 14:17:00 EST, [facility] #[id number], 155, cm, 06/07/20 11:11:00 EST, Height, 77, kg, 05/31/20 2:34:00 EST, Dry Weight Start Date: 07/03/20 Status: Ordered minoxidil 2% topical solution 1 mL = 0.02 Gm, Topically, 2 times a day, # 60 mL, 0 Refills, Maintenance, 03/07/14 11:52:58, Solution Start Date: 03/07/14 Status: Ordered nystatin topical 639997 u/gm powder 1 application, Topically, 2 times [...] tablet, 0 Refills, Maintenance, 05/04/20 12:17:00 EDT, [facility] #17... Start Date: 05/04/20 Status: Ordered Singulair 10 mg oral tablet 1, tablet, By Mouth, Daily in PM, # 30 tablet, Refills 5, Tot. Refills 5, Maintenance, 01/13/20 10:43:00 EDT, Route to Pharmacy Electronically, [facility] #[id number], 158, cm, 10/10/19 10:55:00EDT, Height, 81, kg, [...] 2 Refills, Maintenance, 06/12/20 10:41:00 EST, Powder, [facility] #[id number], Partial fill upon patient request, 1 inhalation [...]
--- OUTSIDE RECORDS SUMMARY | 2024-01-21 06:32 | XMS_ITS | Continuity of Care Document ---
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 Name Role Phone Sita PEREYRA, Sendy Arteaga Primary Care Physician [phone] Encounter [facility] Date(s): 01/17/22 - 02/16/22 [facility] [address] [place] [address]- Attending Physician: AdmDusty poe Admitting Physician: Admtr, Dusty Referring Physician: Admtr, [...] orded 1Admin Note: PER PT 2Admin Note: [facility] [place] 3Admin Note: DECLINED 4Location History: [facility] 5Location History: [facility] 6Location History: [facility] 7Location History: [facility] 8Location History: [facility] Medications albuterol-ipratropium 3 mg-0.5 mg/3 [...] Daily, # 90 tablet, 3 Refills, Maintenance, 12/26/21 13:23:00 EDT, Tablet, [facility] #[id number], 158, cm, 12/17/21 8:57:00 EDT, Height, 83.2, kg, 06/24/21 6:39:00 EST, Dry Weight Start Date: 12/26/21 Status: Ordered Blood Pressure Monitor See Instructions, # 1 each, Refills 0, Tot. Refills 0, Maintenance, ICD I10, 10/05/20 14:06:00 EST,Supply, 155, cm, 06/07/20 11:11:00 EST, Height, 77, kg, 05/31/20 2:34:00 EST, Dry Weight Start Date: 10/05/20 Status: Ordered busPIRone 10 mg oral tablet 10 mg, 1, tablet, By Mouth, 3 times a day, no Blue dye allergic, # 90 tablet, Refills 2, Tot. Refills 2, Maintenance, 11/05/21 8:57:00 EDT, Route to Pharmacy Electronically, [facility] #[id number], Partial fill upon patient request if the prescri... Start Date: 11/05/21 Status: Ordered ciclopirox topical 0.77% shampoo 0 Refills, Maintenance, 09/21/21 9:18:00 EST, Partial fill upon patient request if the prescriptionis for a schedule II opioid drug. Start Date: 09/21/21 Status: Ordered cloNIDine 0.1 mg oral tablet 1, tablet, By Mouth, Daily at bedtime, # 30 tablet, Refills 0, Tot. Refills 0, 12/04/21 10:21:00 EDT, Route to Pharmacy Electronically, [facility] #[id number], 158, cm, 10/22/21 10:11:00 EDT, Height, 83.2, kg, 06/24/21 6:39:00 EST, Dry Weight Start Date: 12/04/21 Status: Ordered fluocinolone 0.01% topical oil 1 application, Topically, 3 times a day, # 118.28 mL, 0 Refills, Maintenance, 09/21/21 9:18:00 EST,Oil, Partial fill upon patient request if the prescription is for a schedule II opioid drug. Start Date: 09/21/21 Status: Ordered FLUoxetine 20 mg oral capsule 60 mg, 3, capsule, By Mouth, Daily, # 90 capsule, Refills 0, Tot. Refills 0, Maintenance, 01/30/22 17:19:00 EDT, Route to Pharmacy Electronically, [facility] #[id number], Partial fill upon patient request if the prescription is for a schedule II... Start Date: 01/30/22 Status: Ordered furosemide 20 mg oral tablet 20 mg, 1, tablet, By Mouth, Daily, # 30 tablet, Refills 1, Tot. Refills 1, Maintenance, 12/16/21 13:52:00 EDT, Route to Pharmacy Electronically, [facility] #[id number], Partial fill upon patientrequest if the prescription is for a schedule II op... Start Date: 12/16/21 Status: Ordered LORazepam 1 mg oral tablet 1 tablet, By Mouth, 2 times a day, PRN NEEDED FOR ANXIETY, # 60 tablet, 0 Refills, Maintenance, 01/28/22 17:07:00 EDT, [facility] #[id number], 158, cm, 12/31/21 12:43:00 EDT, Height, 83.2, kg, 06/24/21 6:39:00 EST, Dry Weight Start Date: 01/28/22 Status: Ordered magnesium oxide 500 mg oral [...] 09/28/21 9:47:00 EST, Route to Pharmacy Electronically, [facility] #[id number], Partial fill upon patient request if the prescription i... Start Date: 09/28/21 Status: Ordered mupirocin 2% topical ointment 1 application, Topically, 3 times a day, # 15 Gm, 0 Refills, Maintenance, 09/21/21 9:17:00 EST, Ointment, Partial fill upon patient request if the prescription is for a schedule II opioid drug. Start Date: 09/21/21 Status: Ordered nystatin topical 920559 u/gm powder 1 application, Topically, 2 times a day, apply to affected area, # 30 Gm, 1 Refills, Maintenance, 11/26/21 11:45:00 EDT, Powder, [facility] #[id number], Partial fill upon patient request if the prescription is for a schedule II opioid drug., 1 ap... Start Date: 11/26/21 Status: Ordered omeprazole 20 mg oral enteric coated capsule 1 capsule = 20 mg, By Mouth, Daily, j45.40, # 30 capsule, 6 Refills, Maintenance, 08/14/21 15:12:00EST, EC Capsule, [facility] #[id number], Partial fill upon patient request if the prescriptionis for a schedule II opioid drug., 158, cm, 2... Start Date: 08/14/21 Status: Ordered predniSONE 10 mg oral tablet See Instructions, take 6 tabs x 3 days, then take 5 tabs x 3 days, then take 4 tabs x 3 days, then take 3 tabs x 3 days, then 2 tabs x 3 days, then 1 tab x 3 days, # 63 tablet, 0 Refills, Maintenance, 09/21/21 9:19:00 EST, [facility] #[id number],... Start Date: 09/21/21 Status: Ordered predniSONE 10 mg oral tablet See Instructions, Take 6 tablets x 3 days, then 5 tablets x 3 days, then 4 tablets x 3 days, then 3tablets x 3 days, then 2 tablets x 3 days, then 1 tablet x 3 days, # 63 tablet, 0 Refills, Maintenance, 02/12/22 8:00:00 EDT, [facility] #176... Start Date: 02/12/22 Status: Ordered Suprep Bowel Prep Kit oral liquid See Instructions, bowel preparation for colonoscopy, # 1 kit, 0 Refills, Maintenance, 12/03/21 16:57:00 EDT, [facility]/pharmacy #[id number], Partial fill upon patient request if the prescription is for a schedule II opioid drug., bowel preparation for colonoscopy... Start Date: 12/03/21 Status: Ordered Tylenol Extra Strength 500 mg [...] 11 Refills, Maintenance, 05/13/21 14:54:00 EDT, Aerosol, [facility] #[id number], 158, cm, 05/13/21 14:25:00 EDT, Height, 83.3, [...] 3 Refills, Maintenance, 09/11/21 11:32:00 EST, Powder, [facility] #[id number], Partial fill upon patient request if the [...] Adenomatous colon polyp(Conf irmed) 2, 3 Active Asthma(Confirmed) Active Thomas's esophagus(Confirmed) 4 Active Cataract(Confirmed) 5 Active CVA (cerebral infarction)(Confirmed) Active CKD (chronic kidney disease) stage 3, GFR 30-59 ml/min(Confirmed) Active Compression fracture of thor acic spine, non-traumatic(Confirmed) Active Dyslipidemia(Confirmed) Active GERD (gastroesophageal reflu x [...] rotator cuff tear(Confirmed) Active Seasonal allergies(Confirmed) Active Depression(Confirmed) Active Syncope and collapse(Confirmed) Active Thyroid nodule(Confirmed) [...]
--- OUTSIDE RECORDS SUMMARY | 2024-01-21 06:32 | XMS_ITS | Continuity of Care Document ---
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 Name Role Phone Sita PEREYRA, Sendy Arteaga Primary Care Physician Encounter [facility] Date(s): 09/18/22 - 10/18/22 [facility] [address] [facility] [address], [address], [address] [place] [address]- Allergies, Adverse Reactions, Alerts Substance Reaction Severity Status codeine acute abdominal pain Active allopurinol swelling of face/neck Active lisinopril leg cramps Active methocarbamol lip swelling and numbness A ctive Cipro Active Xanax Active Flexeril lip swelling and numbness Ac tive Tylenol with Codeine Active Dilaudid IV ONLY/// [...] orded 1Admin Note: PER PT 2Admin Note: [facility] [place] 3Admin Note: DECLINED 4Location History: [facility] 5Location History: [facility] 6Location History: [facility] 7Location History: [facility] 8Location History: [facility] Medications albuterol-ipratropium 3 mg-0.5 mg/3 [...] 3 Refills, Maintenance, 12/26/21 13:23:00 EDT, Tablet, [facility] #[id number], 158, cm, 12/17/21 8:57:00 EDT, Height, 83.2, [...] 12/04/21 10:21:00 EDT, Route to Pharmacy Electronically, [facility] #[id number], 158, cm, 10/22/21 10:11:00 EDT, Height, 83.2, kg, 06/24/21 6:39:00 EST, Dry Weight Start Date: 12/04/21 Status: Ordered fluocinolone 0.01% topical oil 1 application, Topically, 3 times a day, # 118.28 mL, 0 Refills, Maintenance, 09/21/21 9:18:00 EST,Oil, Partial fill upon patient request if the prescription is for a schedule II opioid drug. Start Date: 09/21/21 Status: Ordered FLUoxetine 20 mg oral capsule 3, capsule, By Mouth, Daily, # 90 capsule, Refills 0, Tot. Refills 0, Maintenance, 10/08/22 9:59:00EDT, Route to Pharmacy Electronically, [facility] #[id number], 157.4, cm, 05/28/22 11:29:00 EDT, Height, 83.1, kg, 07/07/22 7:08:00 EST, Dry Weight Start Date: 10/08/22 Status: Ordered furosemide 20 mg oral tablet 20 mg, 1, tablet, By Mouth, Daily, # 30 tablet, Refills 1, Tot. Refills 1, Maintenance, 12/16/21 13:52:00 EDT, Route to Pharmacy Electronically, [facility] #[id number], Partial fill upon patientrequest if the prescription is for a schedule II op... Start Date: 12/16/21 Status: Ordered ipratropium nasal 21 mcg/inh spray 1 sprays, Nares, Both, Daily at bedtime, # 30 mL, 1 Refills, Maintenance, 05/13/22 13:04:00 EDT, [facility] #[id number], Partial fill upon patient request if the prescription is for a schedule II opioid drug., 1 sprays Nares, Both Daily at bedtim... Start Date: 05/13/22 Status: Ordered Lidocaine Viscous 2% solution 1 application, Topically, 4 times a day, PRN for mouth sore pain, # 100 mL, 0 Refills, Maintenance,05/19/22 13:34:00 EDT, Solution, [facility] #[id number], Partial fill upon patient request if the prescription is for a schedule II opioid drug.,... Start Date: 05/19/22 Status: Ordered LORazepam 1 mg oral tablet 1 tablet, By Mouth, 2 times a day, PRN NEEDED FOR ANXIETY, # 60 tablet, 0 Refills, Maintenance, 10/06/22 13:33:00 EDT, [facility] #[id number], 157.4, cm, 05/28/22 11:29:00 EDT, Height, 83.1, kg, 07/07/22 7:08:00 EST, Dry Weight Start Date: 10/06/22 Status: Ordered magnesium oxide 500 mg oral [...] 09/28/21 9:47:00 EST, Route to Pharmacy Electronically, [facility] #[id number], Partial fill upon patient request if the prescription i... Start Date: 09/28/21 Status: Ordered nystatin topical 997896 u/gm powder 1 application, Topically, 2 times a day, apply to affected area, # 30 Gm, 1 Refills, Maintenance, 11/26/21 11:45:00 EDT, Powder, [facility] #[id number], Partial fill upon patient request if the prescription is for a schedule II opioid drug., 1 ap... Start Date: 11/26/21 Status: Ordered omeprazole 40 mg oral enteric coated capsule 1 capsule, By Mouth, 2 times a day, # 180 capsule, 0 Refills, Maintenance, 08/21/22 17:07:00 EST, [facility] #[id number], 157.4, cm, 05/28/22 11:29:00 EDT, Height, 83.1, kg, 07/07/22 7:08:00 EST, Dry Weight Start Date: 08/21/22 Status: Ordered predniSONE 10 mg oral tablet See Instructions, Take 6 tablets x 3 days, then 5 tablets x 3 days, then 4 tablets x 3 days, then 3tablets x 3 days, then 2 tablets x 3 days, then 1 tablet x 3 days, # 63 tablet, 0 Refills, Maintenance, 04/29/22 11:49:00 EDT, [facility] #17... Start Date: 04/29/22 Status: Ordered Symbicort 160mcg/4.5mcg Inhaler 2, puffs, Inhalation, 2 times a day, # 10.2 Gm, Refills 11, Tot. Refills 11, Maintenance, 04/10/22 11:03:00 EDT, Aerosol, Route to Pharmacy Electronically, [id number], [facility] #[id number], 157.4, cm, 04/10/22 10:13:00 EDT, Height, 81.8,... Start Date: 04/10/22 Stop Date: 04/05/23 Status: Ordered Symbicort 160mcg/4.5mcg Inhaler 2, puffs, INHALE 2 PUFFS BY MOUTH TWICE DAILY Start Date: 05/13/22 Status: Ordered Tylenol Extra Strength 500 mg [...] 11 Refills, Maintenance, 05/08/22 14:54:00 EDT, Aerosol, [facility] #[id number], 157.4, cm, 04/10/22 10:13:00 EDT, Height, 81.8, [...] replacement by other means 8 Confirmed Active Headache Confirmed Active Internal and external hemorrhoids without complication 9 Confirmed Active Hypertension Confirmed Active Insomnia Confirmed Active IBS (irritable bowel syndrome) Confirmed Active Other nonspecific abnormal serum enzyme levels Confirmed Active Thigh numbness Confirmed Active Obese class I Confirmed Active Degenerative joint disease Confirmed Active Osteopenia Confirmed Active Medicare annual wellness visit, subsequent Confirmed Active Recurrent UTI (urinary tract infection) Confirmed Active Right rotator cuff tear Confirmed Active Seasonal allergies Confirmed Active Depression Confirmed Active Syncope and collapse Confirmed Active [...] review meets GFR criteria 8RIGHT KNEE 9colo 2015 Social History Social History Type Response Smoking Status Never smoker entered on: 01/10/14 Sex Female Patient Care team information Care Team Personnel Name: Sita PEREYRA, Sendy Arteaga Position: S Primary Care Physician Member Role: PCP Address: Address: [address] [place] [phone]- Care Team Related Persons Name: SHIMA BRANDT Address: home [address] [place] [address] Name: SRIRAM GUZMAN Address: [address] [address]
--- OUTSIDE RECORDS SUMMARY | 2024-01-21 06:32 | XMS_ITS | Continuity of Care Document ---
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 Name Role Phone Not on Staff, PCP Primary Care Physician Unavail able Encounter [facility] Date(s): 03/24/23 - 04/23/23 [facility] [address] [place] [id number] Attending Physician: Dusty Valdez Admitting Physician: Dusty Valdez Referring Physician: Admtr, Michael8 Allergies, Adverse Reactions, Alerts Substance Reaction Severity Status codeine acute abdominal pain Active allopurinol swelling of face/neck Active lisinopril leg cramps Active methocarbamol lip swelling and numbness A ctive Cipro Active Tylenol with Codeine Active Vicodin swelling face/ neck Active Xanax Active Dilaudid IV ONLY/// PO OK Active [...] Vaccine 8 02/05/95 Rec orded 1Admin Note: [facility] [place] 2Admin Note: DECLINED 3Admin Note: PER PT 4Location History: [facility] 5Location History: [facility] 6Location History: [...] tablet, By Mouth, Daily, # 90 tablet, 1 Refills, Maintenance, 12/24/22 19:45:00 EDT, [id number], 157.4, cm, 05/28/22 11:29:00 EDT, Height, 83.1, kg, 07/07/22 7:08:00 EST, Dry Weight Start Date: 12/24/22 Status: Ordered Blood Pressure Monitor See Instructions, # 1 each, Refills 0, Tot. Refills 0, Maintenance, ICD I10, 10/05/20 14:06:00 EST,Supply, 155, cm, 06/07/20 11:11:00 EST, Height, 77, kg, 05/31/20 2:34:00 EST, Dry Weight Start Date: 10/05/20 Status: Ordered cloNIDine 0.1 mg oral tablet 1, tablet, By Mouth, Daily at bedtime, # 30 tablet, Refills 0, Tot. Refills 0, 12/04/21 10:21:00 EDT, Route to Pharmacy Electronically, [facility] #[id number], 158, cm, 10/22/21 10:11:00 EDT, Height, 83.2, kg, 06/24/21 6:39:00 EST, Dry Weight Start Date: 12/04/21 Status: Ordered cyclobenzaprine 5 mg oral tablet 1 tablet = 5 mg, By Mouth, 3 times a day, PRN Spasm, # 30 tablet, 0 Refills, Acute 05/16/23 17:00:00 EDT, 04/16/23 14:03:00 EDT, Tablet, [facility] #[id number], Partial fill upon patient requestif the prescription is for a schedule II opioid vickey... Start Date: 04/16/23 Stop Date: 05/16/23 Status: Ordered fluocinolone 0.01% topical oil 1 application, Topically, 3 times a day, # 118.28 mL, 0 Refills, Maintenance, 09/21/21 9:18:00 EST,Oil, Partial fill upon patient request if the prescription is for a schedule II opioid drug. Start Date: 09/21/21 Status: Ordered FLUoxetine 20 mg oral capsule 3, capsule, By Mouth, Daily, # 90 capsule, Refills 0, Tot. Refills 0, Maintenance, 03/03/23 17:55:00 EDT, Route to Pharmacy Electronically, [facility] #[id number], 157.4, cm, 02/04/23 13:32:00 EDT, Height, 83.1, kg, 07/07/22 7:08:00 EST, Dry Weight Start Date: 03/03/23 Status: Ordered LORazepam 1 mg oral tablet 1 tablet = 1 mg, By Mouth, 2 times a day, # 30 tablet, 0 Refills, Maintenance, 04/08/23 13:01:00 EDT, Tablet, [facility] #[id number], Partial fill upon patient request if the prescription is fora schedule II opioid drug., 159, cm, 03/22/23 11:12... Start Date: 04/08/23 Status: Ordered montelukast 10 mg oral tablet 1, tablet, By Mouth, Daily, NO BLUE DYE, ALLERGIC., # 90 tablet, Refills 1, Tot. Refills 1, Maintenance, 10/28/22 11:30:00 EDT, Route to Pharmacy Electronically, [facility] #[id number], 157.4, cm, 05/28/22 11:29:00 EDT, Height, 83.1, kg, 07/07/22... Start Date: 10/28/22 Status: Ordered nystatin topical 211105 u/gm powder 1 application, Topically, 2 times a day, apply to affected area, # 30 Gm, 1 Refills, Maintenance, 11/26/21 11:45:00 EDT, Powder, [facility] #[id number], Partial fill upon patient request if the prescription is for a schedule II opioid drug., 1 ap... Start Date: 11/26/21 Status: Ordered Omeprazole = 40 mg, By Mouth, 2 times a day, 0 Refills, Maintenance, 03/21/23 12:11:00 EDT, Partial fill upon patient request if the prescription is for a schedule II opioid drug. Start Date: 03/21/23 Status: Ordered Ventolin HFA 108 mcg/inh inhalation aerosol with adapter 2 puffs, Inhalation, 4 times a day, PRN for wheezing, # 18 Gm, 11 Refills, Maintenance, 05/08/22 14:54:00 EDT, Aerosol, [facility] #[id number], 157.4, cm, 04/10/22 10:13:00 EDT, Height, 81.8, [...] Care team information Care Team Personnel Name: Not on Staff, PCP Position: S Physician (General Medicine) Member Role: PCP Care Team Related Persons Name: SHIMA BRANDT Address: [address] [place] [address] Name: SRIRAM GUZMAN Address: [address] [address]
--- OUTSIDE RECORDS SUMMARY | 2024-01-21 06:32 | XMS_ITS | Continuity of Care Document ---
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 [place] 3Admin Note: DECLINED 4Location History: [facility] [...] 3 Refills, Maintenance, 12/26/21 13:23:00 EDT, Tablet, [facility] #[id number], 158, cm, 12/17/21 8:57:00 EDT, Height, 83.2, [...] 11/05/21 8:57:00 EDT, Route to Pharmacy Electronically, [facility] #[id number], Partial fill upon patient request if the [...] 12/04/21 10:21:00 EDT, Route to Pharmacy Electronically, [facility] #[id number], 158, cm, 10/22/21 10:11:00 EDT, Height, 83.2, kg, 06/24/21 6:39:00 EST, Dry Weight Start Date: 12/04/21 Status: Ordered fluocinolone 0.01% topical oil 1 application, Topically, 3 times a day, # 118.28 mL, 0 Refills, Maintenance, 09/21/21 9:18:00 EST,Oil, Partial fill upon patient request if the prescription is for a schedule II opioid drug. Start Date: 09/21/21 Status: Ordered FLUoxetine 20 mg oral capsule See Instructions, take 1 caps daily x 2 weeks, then take 2 caps x 2 weeks, then take 3 caps x 2 weeks, then continue 3 caps daily, # 45 capsule, Refills 0, Tot. Refills 0, Maintenance, 12/31/21 13:14:00 EDT, Instructions Replace Required Details, Rout... Start Date: 12/31/21 Status: Ordered furosemide 20 mg oral tablet 20 mg, 1, tablet, By Mouth, Daily, # 30 tablet, Refills 1, Tot. Refills 1, Maintenance, 12/16/21 13:52:00 EDT, Route to Pharmacy Electronically, [facility] #[id number], Partial fill upon patientrequest if the prescription is for a schedule II op... Start Date: 12/16/21 Status: Ordered LORazepam 1 mg oral tablet 1 tablet, By Mouth, 2 times a day, PRN NEEDED FOR ANXIETY, # 60 tablet, 0 Refills, Maintenance, 12/25/21 8:31:00 EDT, [facility] #[id number], 158, cm, 12/17/21 8:57:00 EDT, Height, 83.2, kg, 06/24/21 6:39:00 EST, Dry Weight Start Date: 12/25/21 Status: Ordered magnesium oxide 500 mg oral [...] 09/28/21 9:47:00 EST, Route to Pharmacy Electronically, [facility] #[id number], Partial fill upon patient request if the prescription i... Start Date: 09/28/21 Status: Ordered mupirocin 2% topical ointment 1 application, Topically, 3 times a day, # 15 Gm, 0 Refills, Maintenance, 09/21/21 9:17:00 EST, Ointment, Partial fill upon patient request if the prescription is for a schedule II opioid drug. Start Date: 09/21/21 Status: Ordered nystatin topical 236860 u/gm powder 1 application, Topically, 2 times a day, apply to affected area, # 30 Gm, 1 Refills, Maintenance, 11/26/21 11:45:00 EDT, Powder, [facility] #[id number], Partial fill upon patient request if the prescription is for a schedule II opioid drug., 1 ap... Start Date: 11/26/21 Status: Ordered omeprazole 20 mg oral enteric coated capsule 1 capsule = 20 mg, By Mouth, Daily, j45.40, # 30 capsule, 6 Refills, Maintenance, 08/14/21 15:12:00EST, EC Capsule, [facility] #[id number], Partial fill upon patient request if the [...] days, # 63 tablet, 0 Refills, Maintenance, 11/28/21 13:34:00 EDT, [facility] #17... Start Date: 11/28/21 Status: Ordered predniSONE 10 mg oral tablet See Instructions, take 6 tabs x 3 days, then take 5 tabs x 3 days, then take 4 tabs x 3 days, then take 3 tabs x 3 days, then 2 tabs x 3 days, then 1 tab x 3 days, # 63 tablet, 0 Refills, Maintenance, 09/21/21 9:19:00 EST, [facility] #[id number],... Start Date: 09/21/21 Status: Ordered Suprep Bowel Prep Kit oral liquid See Instructions, bowel preparation for colonoscopy, # 1 kit, 0 Refills, Maintenance, 12/03/21 16:57:00 EDT, [facility]/pharmacy #[id number], Partial fill upon patient request if [...] 11 Refills, Maintenance, 05/13/21 14:54:00 EDT, Aerosol, [facility] #[id number], 158, cm, 05/13/21 14:25:00 EDT, Height, 83.3, [...] 3 Refills, Maintenance, 09/11/21 11:32:00 EST, Powder, [facility] #[id number], Partial fill upon patient request if the [...] colonoscopy in 3 years i.e. 2018 3Colonoscopy 2013 positive polyp, repeat 2015. 4Barrett's esophagus on endoscopy in the past, patient having repeat endoscopy 2013. 5BILATERAL 6RIGHT KNEE 7colo 2016 Social History Social History Type Response Smoking Status Never smoker entered on: 01/10/14 Sex Female
--- OUTSIDE RECORDS SUMMARY | 2024-01-21 06:32 | XMS_ITS | Continuity of Care Document ---
Author Organization [facility] Address [address] [place] [address]- Care Team Providers Care Precast Worker Name Role Phone Sendy Buckner MD Primary Care Phys[place] [facility] [place] 01[place]21 [facility] [address] [place] [address]- Attending Physician: Peter Sexton MD Admitting Physician: Peter Sexton MD Referring Physician: Sendy Buckner MD Allergies, [...] orded 1Admin Note: PER PT 2Admin Note: [facility] [place] 3Admin Note: DECLINED 4Location History: [facility] 5Location History: [facility] 6Location History: [facility] 7Location History: [facility] 8Location History: [facility] Medications albuterol-ipratropium 3 mg-0.5 mg/3 ml inhalation [...] 3 Refills, Maintenance, 05/31/20 10:03:00 EST, Tablet, [facility] #[id number], 155, cm, 05/31/20 2:34:00 EST, Height, 77, [...] 12/31/20 14:58:00 EDT, Route to Pharmacy Electronically, [facility] #[id number], Partial fill upon patient request if the prescription is for a schedule II... Start Date: 12/31/20 Status: Ordered Imodium A-D 2 mg oral tablet 2 mg, 1, tablet, By Mouth, Every 4 hours, PRN, # 100 tablet, Refills 0, Tot. Refills 0, Maintenance, for loose stool, 08/06/17 12:58:09, Route to Pharmacy Electronically, [id number], [id number] Start Date: 08/06/17 Status: Ordered LORazepam 1 mg oral tablet 1 tablet, By Mouth, Daily at bedtime, # 30 tablet, 0 Refills, Maintenance, 12/28/20 14:27:00 EDT, [facility] #[id number], 158, cm, 12/27/20 11:09:00 EDT, Height, 83.3, [...] Start Date: 03/07/14 Status: Ordered nystatin topical 178891 u/gm powder 1 application, Topically, 2 times [...] tablet, 0 Refills, Maintenance, 12/27/20 11:41:00 EDT, [id number]... Start Date: 12/27/20 Status: Ordered SEROquel 25 mg oral tablet 25 mg, 1, tablet, By Mouth, Daily, # 30 tablet, Refills 1, Tot. Refills 1, Maintenance, 12/27/20 11:38:00 EDT, Route to Pharmacy Electronically, [facility] #[id number], Partial fill upon patientrequest if the prescription [...] 2 Refills, Maintenance, 06/12/20 10:41:00 EST, Powder, [facility] #[id number], Partial fill upon patient request, 1 inhalation [...]
--- OUTSIDE RECORDS SUMMARY | 2024-01-21 06:32 | XMS_ITS | Continuity of Care Document ---
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 Role Phone Kalpana Escalante Primary Care Physician [phone] [place]counter [facility] [place](s): 03/24/23 - 07/08/23 [facility] [address] [place], [place] [address] Discharge Disposition: A-D/C Home Attending Physician: Graciela PEREYRA(Hem/Onc), Asher Hayes Admitting Physician: Graciela PEREYRA(Hem/Onc), Asher Hayes Referring Physician: Sendy Buckner MD Allergies, Adverse Reactions, Alerts Substance Reaction Severity Status codeine acute abdominal pain Active allopurinol swelling of face/neck Active lisinopril leg cramps Active methocarbamol lip swelling and numbness A ctive Cipro Active Xanax Active Tylenol with Codeine [...] Vaccine 8 02/05/95 Rec orded 1Admin Note: [facility] [place] [facility] 2Admin Note: DECLINED 3Admin Note: PER PT 4[facility]: [facility] 5Location History: [facility] 6Location History: [facility] 7Location History: [facility] 8Location History: [facility] Medications albuterol-ipratropium 3 mg-0.5 mg/3 ml [...] tablet, 3 Refills, Maintenance, 06/01/23 11:32:00 EST, [facility] #[id number], 160, cm, 05/29/23 11:42:00 EDT, Height, 83.2, kg, 04/09/23 11:58:00 EDT, Dry Weight Start Date: 06/01/23 Status: Ordered cloNIDine 0.1 mg oral tablet 1, tablet, By Mouth, Daily at bedtime, for 90 days, # 90 tablet, Refills 3, Tot. Refills 3, Physician Stop 05/26/24 11:32:00 EDT, 06/01/23 11:32:00 EST, Route to Pharmacy Electronically, [facility] #[id number], 160, cm, 05/29/23 11:42:00 EDT, Hei... Start Date: 06/01/23 Stop Date: 05/26/24 Status: Ordered cyclobenzaprine 5 mg oral tablet TAKE 1 TABLET BY MOUTH TWICE DAILY NEEDED Start Date: 05/29/23 Status: Ordered FLUoxetine 20 mg oral capsule 3, capsule, By Mouth, Daily, # 270 capsule, Refills 3, Tot. Refills 3, Maintenance, 06/01/23 11:33:00 EST, Route to Pharmacy Electronically, [facility] #[id number], 160, cm, 05/29/23 11:42:00 EDT, Height, 83.2, kg, 04/09/23 11:58:00 EDT, Dry Weight Start Date: 06/01/23 Stop Date: 05/26/24 Status: Ordered LORazepam 1 mg oral tablet 1 tablet = 1 mg, By Mouth, 2 times a day, # 60 tablet, 0 Refills, Maintenance, 07/01/23 11:33:00 EST, Tablet, [facility] #[id number], Partial fill upon patient request if the prescription is fora schedule II opioid drug., 160, cm, 06/23/23 9:22:... Start Date: 07/01/23 Stop Date: 07/31/23 Status: Ordered montelukast 10 mg oral tablet 1, tablet, By Mouth, Daily, NO BLUE DYE, ALLERGIC., # 90 tablet, Refills 1, Tot. Refills 1, Maintenance, 10/28/22 11:30:00 EDT, Route to Pharmacy Electronically, [facility] #[id number], 157.4, cm, 05/28/22 11:29:00 EDT, Height, 83.1, kg, 07/07/22... Start Date: 10/28/22 Status: Ordered nystatin topical 231582 u/gm powder 1 application, Topically, 2 times a day, apply to affected area, # 30 Gm, 1 Refills, Maintenance, 11/26/21 11:45:00 EDT, Powder, [facility] #[id number], Partial fill upon patient request if the prescription is for a schedule II opioid drug., 1 ap... Start Date: 11/26/21 Status: Ordered Ventolin HFA 108 mcg/inh inhalation aerosol with adapter 2 puffs, Inhalation, 4 times a day, PRN for wheezing, # 18 Gm, 11 Refills, Maintenance, 05/08/22 14:54:00 EDT, Aerosol, [facility] #[id number], 157.4, cm, 04/10/22 10:13:00 EDT, Height, 81.8, [...] 2tubular adenomas of colon, repeat screening in 2025 3pt should repeat colonoscopy in 3 years [...] Care Team Personnel Name: Kalpana Escalante Position: [facility] Associate Professional Member Role: PCP Address: Address: [address] [place] [address] [place] [address]- Name: Graciela PEREYRA(Hem/Onc)Asher Position: [facility] Physician - Oncology Med Service: Hematology & Oncology Member Role: Admitting Physician Address: Address: [address] [place] [address] for Cancer Care [facility] [place] [address]- Care Team Related Persons Name: SHIMA BRANDT Address: home [address] [place] [address] [place] [id number] Name: SRIRAM GUZMAN Address: home [address] [address]
--- OUTSIDE RECORDS SUMMARY | 2024-01-21 06:32 | XMS_ITS | Continuity of Care Document ---
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 Role Phone Kahlil Neumann MD Primary Care Physician Encounter [facility] Date(s): 07/05/19 - 07/15/19 [facility] Adult [address] [place] [address]- [facility] Attending Physician: Admtr, Michael8 Admitting Physician: Admtr, Dusty Referring Physician: Admtr, [...] orded 1Admin Note: PER PT 2Admin Note: [facility] [place] 3Admin Note: DECLINED 4Location History: [facility] 5Location History: [facility] 6Location History: [facility] 7Location History: [facility] 8Location History: [facility] Medications albuterol-ipratropium 3 mg-0.5 mg/3 ml inhalation [...] Maintenance, 04/22/1916:31:30 EDT, Route to Pharmacy Electronically, [id number], [facility] #[id number] Start Date: 04/22/19 Status: Ordered Imodium A-D 2 mg oral tablet 2 mg, 1, tablet, By Mouth, Every 4 hours, PRN, # 100 tablet, Refills 0, Tot. Refills 0, Maintenance, for loose stool, 08/06/17 12:58:09, Route to Pharmacy Electronically, [id number], [facility] [id number] Start Date: 08/06/17 Status: Ordered LORazepam 1 [...] Start Date: 03/07/14 Status: Ordered nystatin topical 923412 u/gm powder 1 application, Topically, 2 times [...] 11/29/18 16:38:09 EDT, Route to Pharmacy Electronically, [id number], [facility] [id number] Start Date: 11/29/18 Status: Ordered Ventolin HFA [...] endoscopy 2013. 5BILATERAL 6RIGHT KNEE 7colo 2016 Procedures Procedure Date Related Diagnosis Body Site Status Barium enema 1 Completed Cataract surgery 2 Comple rubi Endoscopy of upper gastroint estinal tract and banding of esophageal varices 3 Completed 06/26/2011 2BILATERAL 2004 Social History Social History Type Response Smoking Status Never smoker entered on: 01/10/14 Sex
--- OUTSIDE RECORDS SUMMARY | 2024-01-21 06:32 | XMS_ITS | Continuity of Care Document ---
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 Discharge Disposition: A-D/C Home Attending Physician: Nathan Wolfe MD Admitting Physician: Nathan Wolfe MD Referring Physician: Nathan Wolfe MD Allergies, Adverse Reactions, Alerts Substance Reaction Severity Status codeine acute abdominal pain Active allopurinol swelling of face/neck Active Cipro Active Xanax Active Tylenol with Codeine Active Dilaudid IV ONLY/// PO OK Active Vicodin swelling face/ neck Active Percocet 5/325 acute abdominal pain Activ e lisinopril leg cramps Active methocarbamol lip swelling and numbness A ctive Flexeril lip swelling and numbness Ac tive Other Environmental Allergy blue dye Active Immunizations Given and Recorded Vaccine Date [...] Note: [facility] [place] 3Admin Note: DECLINED 4Location History: [facility] 5Location History: [facility] 6Location History: [facility] 7Location History: [facility] 8Location History: [facility] Medications albuterol-ipratropium 3 mg-0.5 mg/3 ml [...] 3 Refills, Maintenance, 12/26/21 13:23:00 EDT, Tablet, [facility] #[id number], 158, cm, 12/17/21 8:57:00 EDT, Height, 83.2, [...] 12/04/21 10:21:00 EDT, Route to Pharmacy Electronically, [facility] #[id number], 158, cm, 10/22/21 10:11:00 EDT, Height, 83.2, [...] By Mouth, Daily, # 90 capsule, Refills 1, Tot. Refills 1, Maintenance, 04/08/22 17:14:00 EDT, Route to Pharmacy Electronically, [facility] #[id number], 157.4, cm, 03/18/22 7:38:00 EDT, Height, 81.8, kg, 03/18/22 7:38:00 EDT, Dry Weight Start Date: 04/08/22 Status: Ordered furosemide 20 mg oral tablet 20 mg, 1, tablet, By Mouth, Daily, # 30 tablet, Refills 1, Tot. Refills 1, Maintenance, 12/16/21 13:52:00 EDT, Route to Pharmacy Electronically, [facility] #[id number], Partial fill upon patientrequest if the prescription is for a schedule II op... Start Date: 12/16/21 Status: Ordered ipratropium nasal 21 mcg/inh spray 1 sprays, Nares, Both, Daily at bedtime, # 30 mL, 1 Refills, Maintenance, 05/13/22 13:04:00 EDT, [facility] #[id number], Partial fill upon patient request if the prescription is for a schedule II opioid drug., 1 sprays Nares, Both Daily at bedtim... Start Date: 05/13/22 Status: Ordered Lidocaine Viscous 2% solution 1 application, Topically, 4 times a day, PRN for mouth sore pain, # 100 mL, 0 Refills, Maintenance,05/19/22 13:34:00 EDT, Solution, [facility] #[id number], Partial fill upon patient request if the prescription is for a schedule II opioid drug.,... Start Date: 05/19/22 Status: Ordered LORazepam 1 mg oral tablet 1 tablet, By Mouth, 2 times a day, PRN NEEDED FOR ANXIETY, # 60 tablet, 0 Refills, Maintenance, 06/24/22 9:20:00 EST, [facility] #[id number], 157.4, cm, 05/28/22 11:29:00 EDT, Height, 81.8, kg, 03/18/22 7:38:00 EDT, Dry Weight Start Date: 06/24/22 Status: Ordered magnesium oxide 500 mg oral [...] 09/28/21 9:47:00 EST, Route to Pharmacy Electronically, [facility] #[id number], Partial fill upon patient request if the prescription i... Start Date: 09/28/21 Status: Ordered nystatin topical 194210 u/gm powder 1 application, Topically, 2 times a day, apply to affected area, # 30 Gm, 1 Refills, Maintenance, 11/26/21 11:45:00 EDT, Powder, [facility] #[id number], Partial fill upon patient request if the prescription is for a schedule II opioid drug., 1 ap... Start Date: 11/26/21 Status: Ordered omeprazole 40 mg oral enteric coated capsule 1 capsule = 40 mg, By Mouth, 2 times a day, # 180 capsule, 0 Refills, Maintenance, 05/13/22 13:03:00 EDT, EC Capsule, [facility] #[id number], Partial fill upon patient request if the prescription is for a schedule II opioid drug., 157.4, cm, 04/26... Start Date: 05/13/22 Status: Ordered predniSONE 10 mg oral tablet See Instructions, Take 6 tablets x 3 days, then 5 tablets x 3 days, then 4 tablets x 3 days, then 3tablets x 3 days, then 2 tablets x 3 days, then 1 tablet x 3 days, # 63 tablet, 0 Refills, Maintenance, 04/29/22 11:49:00 EDT, [facility] #[id number]... Start Date: 04/29/22 Status: Ordered Symbicort 160mcg/4.5mcg Inhaler 2, puffs, Inhalation, 2 times a day, # 10.2 Gm, Refills 11, Tot. Refills 11, Maintenance, 04/10/22 11:03:00 EDT, Aerosol, Route to Pharmacy Electronically, [id number], [facility] #[id number], 157.4, cm, 04/10/22 10:13:00 EDT, Height, 81.8,... [...] 11 Refills, Maintenance, 05/08/22 14:54:00 EDT, Aerosol, [facility] #[id number], 157.4, cm, 04/10/22 10:13:00 EDT, Height, 81.8, [...] meets GFR criteria 8RIGHT KNEE 9colo 2016 Vital Signs Most recent to oldest [Reference Range]: 1 2 3 Oxygen Saturation [94-100 %] 98 % (07/07/22 10:15 AM) 100 % (07/07/22 10:00 AM) 100 % (07/07/22 9:45 AM) Pulse Rate [55-90 bpm] 86 bpm (07/07/22 7:15 AM) 76 bpm (07/07/22 7:08 AM) Blood Pressure [90-138/55-84 mm Hg] 122/69mm Hg (07/07/22 10:15 AM) 122/68mm Hg (07/07/22 10:00 AM) 120/68mm Hg (07/07/22 9:45 AM) Respiratory Rate [16-30 br/min] 19 br/min (07/07/22 10:15 AM) 17 br/min (07/07/22 10:00 AM) 17 br/min (07/07/22 9:45 AM) Temperature [96.8-100.4 DegF] 97 DegF (07/07/22 10:15 AM) 97.6 DegF (07/07/22 9:15 AM) 98 DegF (07/07/22 7:08 AM) Liters per Minute 6 L/min (07/07/22 10:00 AM) 6 L/min (07/07/22 9:45 AM) 6 L/min (07/07/22 9:30 AM) Mode of Delivery (Oxygen) Room air (07/07/22 10:15 AM) Simple face mask (07/07/22 10:00 AM) Simple face mask (07/07/22 9:45 AM) Blood pressure sites Arm, right (07/07/22 9:15 AM) Temperature Route Temporal (07/07/22 10:15 AM) Temporal (07/07/22 9:15 AM) Temporal (07/07/22 7:08 AM) Dry Weight 83.1 kg (07/07/22 7:08 AM) Dry Weight Obtained Via Standing scale (07/07/22 7:08 AM) Social History Social History Type Response Smoking Status Never smoker entered on: 01/10/14 Sex Female History and physical note * Event Display: History and Physical Hospital Authored Date: Note * Denise Lamar RN: PERFORM Event Display: Discharge/Transfer Note Hospital Authored Date: [id number] Nursing Discharge Note Entered On: 07/07/2022 11:57 EST Performed On: 07/07/2022 11:57 EST by Denise Lamar RN Nursing Discharge Note 2 Discharge Time : 07/07/2022 11:56 EST Discharge Level of Care at Discharge : Home/Long-Term/Foster Care Patient Left Unit Via : Wheelchair Patient Accompanied Off Unit with : Responsible adult DC Instructions Provided & Signed by Pt : Yes Patient Understands D/C Instructions : Yes Patient Instructions Discharge Signed : Yes Did Pt have Specialty Bed or Wound Vac : No Denise Lamar RN - 07/07/2022 11:57 EST * Denise Lamar RN: PERFORM Event Display: Patient Education/Instruction Authored Date: [id number] Inpatient Adult Discharge Instructions [address] [address] Name: PHANI BRANDT : 1960 Visit: 07/07/2022 05:43:00 Current Date: 07/07/2022 09:40 Account: [id number] Inpatient Adult Discharge Instructions We would like to thank you for allowing us to assist you with your healthcare needs. The following includes patient education materials and information regarding your injury/illness. Our entire staffstrives to provide an excellent experience for our patients and their families. PLEASE ENSURE YOU FOLLOW-UP PER THE INSTRUCTIONS BELOW! ?? YOUR OPINION IS IMPORTANT TO US! Please complete the survey you may receive by mail or email. Your feedback will be used to make improvements to the healthcare experiences of our patients and their families. Surveys are administered by [employer] ?? If further treatment with your primary care physician or another doctor is recommended, it is important for you to keep the appointment. Call your primary care physician or return to the Emergency Department immediately if your condition worsens, fails to improve, or new symptoms develop. If you need to find a doctor, you can call [facility] [employer] for a referral at [phone] or toll free at [phone] or log in to [email or web address].. ?? You can view and manage your care through the patient portal or by using a health care jordan of your choosing. [facility] is a website that allows you to securely view your medical information including your hospital discharge summary, office visit summaries, medications and follow-up visits. You can also request appointments, renew medications, and request access to your medical information using a health care jordan of your choosing, or just ask a question. You can enroll at [email or web address] or register during your next office visit. You have been discharged from [facility], Patient Care Unit: [facility]. If you have any questions regarding these instructions after you leave, please call us and we will be happy to assist you. [facility] Your Care Team Attending Physician Aiden PEREYRA, Nathan Mcfarlane Discharging Providers Nathan Wolfe MD Reason for Admission LT HALLUX RIGIDUS VALGUSFUSION DS Tests Performed Below is a partial list of the tests performed during your hospitalization. You may have had other tests and procedures not included in this list. Please discuss all test results with your provider. Primary Care Provider Sita PEREYRA, Sendy Arteaga Advance Directive Health Care Proxy on File Yes - Health Care Proxy No qualifying data available. Discharge Vitals Temperature: 97.6 DegF Pulse Rate: 86 bpm Respiratory Rate:??15 br/min??Low Systolic Blood Pressure: 121 mm Hg Diastolic Blood Pressure: 64 mm Hg Oxygen Saturation: 100 % Studies Pending All tests and labs ordered during this hospital stay have been completed unless listed below. Please discuss all pending results with your provider listed above in these instructions. ?? No incomplete studies found What to do next Instructions From Your Doctor Discharge Orders Instructions from your Care Team FOLLOW POSTOP INSTRUCTIONS TAKE ASPRIN 325 EC DAILY X 14 DAYS Scheduled Follow-Up Appointments Thursday 1:25 PM EST ?? With: Sukhjinder PEREYRA, [place] Where: [facility] [address] [place] [address]- Thursday 1:00 PM EST ?? With: Hari Jaramillo MD Where: [facility] You Need to Schedule the Following Appointments Follow Up with??Nathan Wolfe When??Within 1 to 2 weeks Where: [address] [facility] [place] [address]- [facility] (1) Follow Up with??Sendy Buckner When??In 0 days Discharge Medications PHANI BRANDT :1960 Visit Date:07/07/2022 Medications: Please continue your medications until treatment is completed or stopped by your provider. Medications not listed below should be discontinued. Discuss any questions related to medications with your provider. What How Much When Why Instructions Next Dose Unchanged Acetaminophen (Tylenol Extra Strength 500 mg oral tablet) 2 tab(s) Oral Every 8 hours as needed for Pain , Mild Unchanged Albuterol (Ventolin HFA 108 mcg/ inh inhalation aerosol with adapter) 2 puff(s) Inhalation 4 times a day as needed for for wheezing Duration: 30 Days Unchanged Albuterol/ Ipratropium (albuterol-ipratropium 3 mg-0.5 mg/ 3 ml inhalation solution) 3 Milliliter Nebulized inhalation 4 times a day Unchanged Ascorbic Acid (Vitamin C 500 mg oral tablet) 1 tab(s) Oral Daily Unchanged Aspirin (Aspir 81 Oral Enteric Coated Tablet) 1 tab(s) Oral Daily Duration: 30 Days Unchanged Atorvastatin (atorvastatin 80 mg oral tablet) 1 tab(s) Oral Daily Unchanged Budesonide-Formoterol (Symbicort 160mcg/ 4.5mcg Inhaler) 2 puff(s) INHALE 2 PUFFS BY MOUTH TWICE DAILY ?? Unchanged Budesonide-Formoterol (Symbicort 160mcg/ 4.5mcg Inhaler) 2 puff(s) Inhalation Twice a day Duration: 30 Days Unchanged Cetirizine (ZyrTEC 10 mg oral tablet) 1 tab(s) Oral Daily Unchanged Cholecalciferol (Vitamin D3 1000 intl units oral tablet) 1 tab(s) Oral Daily Unchanged Ciclopirox Topical (ciclopirox topical 0.77% shampoo) Unchanged Clonidine (cloNIDine 0.1 mg oral tablet) 1 tab(s) Oral Daily at Bedtime Unchanged Durable Medical Equipment (Blood Pressure Monitor) See instructions Hypertension ICD I10 ?? Unchanged Fluocinolone Topical (fluocinolone 0.01% topical oil) 1 jordan Topically 3 times a day Unchanged Fluoxetine (FLUoxetine 20 mg oral capsule) 3 capsule Oral Daily Unchanged Furosemide (furosemide 20 mg oral tablet) 1 tab(s) Oral Daily Unchanged Ipratropium Nasal (ipratropium nasal 21 mcg/ inh spray) 1 spray(s) Nares, Both Daily at Bedtime Unchanged Lidocaine Topical (Lidocaine Viscous 2% solution) 1 jordan Topically 4 times a day as needed for for mouth sore pain Unchanged Lorazepam (LORazepam 1 mg oral tablet) 1 tab(s) Oral Twice a day as needed for NEEDED FOR ANXIETY Unchanged Magnesium Oxide (magnesium oxide 500 mg oral tablet) 1 tab(s) Oral Daily Unchanged Montelukast (montelukast 10 mg oral tablet) 1 tab(s) Oral Daily no blue dye, allergic ?? Unchanged Nystatin Topical (nystatin topical 635410 u/ gm powder) 1 jordan Topically Twice a day apply to affected area ?? Unchanged Omeprazole (omeprazole 40 mg oral enteric coated capsule) 1 capsule Oral Twice a day Unchanged PredniSONE (predniSONE 10 mg oral tablet) See instructions Take 6 tablets x 3 days, then 5 tablets x 3 days, then 4 tablets x 3 days, then 3 tablets x 3 days,then 2 tablets x 3 days, then 1 tablet x 3 days ?? Test Results Below is a partial list of the most recent Laboratory test results done prior to this discharge. You may have had other tests and procedures not included in this list. Please discuss all test resultswith your provider. Allergies (NKA means No Known Allergies) Cipro Dilaudid??(IV ONLY/// PO OK) Flexeril??(lip swelling and numbness) Other Environmental Allergy??(blue dye) Percocet 5/325??(acute abdominal pain) Tylenol with Codeine Vicodin??(swelling face/ neck) Xanax allopurinol??(swelling of face/neck) codeine??(acute abdominal pain) lisinopril??(leg cramps) methocarbamol??(lip swelling and numbness) Problems Active Problems??(31) Adenomatous colon polyp?? AML (acute myeloid leukemia) in remission?? Asthma?? Thomas's esophagus?? Cataract?? Chronic kidney disease, stage 3a?? Compression fracture of thoracic spine, non-traumatic?? CVA (cerebral infarction)?? Degenerative joint disease?? Depression?? Dyslipidemia?? Generalized anxiety disorder?? GERD (gastroesophageal reflux disease)?? Gout?? Headache?? Hypertension?? IBS (irritable bowel syndrome)?? Insomnia?? Internal and external hemorrhoids without complication?? Knee joint replacement by other means?? Medicare annual wellness visit, subsequent?? Obese class I?? Osteopenia?? Other nonspecific abnormal serum enzyme levels?? Recurrent UTI (urinary tract infection)?? Right rotator cuff tear?? Seasonal allergies?? Syncope and collapse?? Thigh numbness?? Thyroid nodule?? Vitamin D deficiency?? Education Materials Below is the list of Educational Leaflet Providered with your Discharge Instructions. Surgery Medical Daystay Surgical Overnight Discharge Instructions?? Valuables and Belongings I fully understand and agree that [facility] accepts no responsibility for all my personal property including clothing, toilet articles, radios, jewelry, dentures, hearing aids, rings, money, or any other property that is in my possession or is brought to me after admission. I understand certain valuables may be placed in a hospital safe for a short period of time. I understand that the hospital is not liable for loss or damage due to accident, fire, or other natural occurrence while said property is in the safe. I accept full responsibility for any personal property that I keep with me, and will not hold the hospital responsible in case of loss or disappearance. I acknowledge that i have been encouraged to send valuables and belongings home. ?? Date for Pt to Sign Valuables/Belongings: 07/07/22 07:08:00 ?? Valuables & Belongings ?? Clothes Electronic devices Jewelry Monetary Items Personal devices Miscellaneous Medications (Valuables) Valuables at Bedside Jacket, Pants, Shirt, Shoes, Undergarments ? Walker ? Valuables Sent Home ? Valuables Sent to Security ? Other Discharge Information ? Pulmonary Rehab Status?? Pulmonary Rehab Discharge Status?? Respiratory Rate:??15 br/min??Low ? Common Emergency Awareness Tips IS IT A STROKE? Act FAST and Check for these signs: FACE Does the face look uneven? ARM Does one arm drift down? SPEECH Does their speech sound strange? TIME Call at any sign of stroke ?? Heart Attack Signs Chest discomfort: Most heart attacks involve discomfort in the center of the chest and lasts more than a few minutes, or goes away and comes back. It can feel like uncomfortable pressure, squeezing, fullness or pain. Discomfort in upper body: Symptoms can include pain or discomfort in one or both arms, back, neck, jaw or stomach. Shortness of breath: With or without discomfort. Other signs: Breaking out in a cold sweat, nausea, or lightheaded. Remember, MINUTES DO MATTER. If you experience any of these heart attack warning signs, call to get immediate medical attention! ?? Smoking can increase your chances of developing chronic health problems and can cause harmful effects to other family members in your house. If you smoke, you are strongly encouraged to quit. Please call [facility] [employer] [facility] at [phone] or [phone] ([phone]) or log in to [email or web address] for referrals to smoking cessation programs. ?? The National Suicide Prevention Hotline is available 16/02 if you or someone you know needs to find a reason to keep living. By calling 7-555-900-GetMyBoat (7869) you'll be connected to a skilled, trained counselor at a crisis center in your area. INPATIENT DISCHARGE INSTRUCTIONS SIGNATURE PAGE PHANI BRANDT Location:[facility] Registration Date and Time:07/07/2022 05:43 EST Primary Care Physician: Sita PEREYRA, Sendy Arteaga, I PHANI BRANDT, have received the above patient education materials/instructions and have verbalized understanding. If ambulance or transport services are being used I further acknowledge being given a choice of service. ?? If you need to contact me, please call me at this number: . Patient/Tool Salvage Worker Name: Patient/Tool Salvage Worker Signature: Relationship to Patient: Witness Name/Signature: Date: * Denise Lamar RN: PERFORM, SIGN, VERIFY Event Display: Patient Education Handout Authored Date: [id number] * Denise Lamar RN: PERFORM Event Display: Patient Education Leaflets Authored Date: [id number] Surgery Medical Daystay Surgical Overnight Discharge Instructions ?? 295 Medical Daystay/Surgical Overnight Discharge Instructions ? Since your coordination and judgment may be altered by medication and/or anesthesia, a responsible adult must drive you home from the hospital. ? If you have received medication for pain or sedation while under our care, you should not drive, operate machinery, drink alcohol, or sign any legal documents for 24 hours.?? You should have someone with you at home tonight. ? Remain at home the day of discharge.?? You may be up and about unless otherwise instructed by your physician. ? You may resume your daily prescription medication schedule.?? Any depressant medication should be avoided for 24 hours unless otherwise instructed by your surgeon or anesthesiologist. ? Call your physician for a follow-up appointment.? If you experience unusual or severe pain not relied by your pain medication, excessive bleedingor drainage, persistent nausea and vomiting, excessive swelling or redness, foul odor from incisionsite or fever over 100.6F, you need to call your physician. ? A follow-up phone call by a nurse will be made the day after your procedure.?? If you have stayed with us over night, you will not be receiving a follow-up phone call. ? Nausea and vomiting are a common side effect of prescription pain medication.?? We recommend that pills are not taken on an empty stomach.?? While taking any prescription pain medication you should not drive or drink alcohol. ? Patient Care team information Care Team Personnel Name: Sita PEREYRA, Sendy Arteaga Position: [facility] Primary Care Physician Member Role: PCP Address: Address: [address] [place] [id number]- Care Team Related Persons Name: SHIMA BRANDT Address: home [address] [place] [address] [place] [address] Name: SRIRAM GUZMAN Address: home [address] [address]
--- OUTSIDE RECORDS SUMMARY | 2024-01-21 06:32 | XMS_ITS | Continuity of Care Document ---
Author Organization [facility] Address [address] [place] [address]- Care Team Providers Care Accountant Manager Name Role Phone Sita PEREYRA, Sendy Arteaga Primary Care Physician Encounter [facility] [place] Date(s): 11/19/21 - 01/15/22 [facility] [address] [place] [address]- Attending Physician: Raghav Colvin MD Admitting Physician: Raghav Colvin MD Referring Physician: Raghav Colvin MD Allergies, Adverse Reactions, Alerts Substance Reaction Severity Status codeine acute abdominal pain Active allopurinol swelling of face/neck Active methocarbamol Active Xanax Active Vicodin swelling face/ neck Active lisinopril Active Cipro Active Flexeril Active Tylenol with Codeine Active [...] orded 1Admin Note: PER PT 2Admin Note: [facility] [facility] [place] 3Admin Note: DECLINED 4Location History: [facility] 5Location History: [facility] 6Location History: [facility] 7Location History: [facility] 8Location History: [facility] Medications albuterol-ipratropium 3 mg-0.5 mg/3 ml [...] 3 Refills, Maintenance, 12/26/21 13:23:00 EDT, Tablet, [facility] #[id number], 158, cm, 12/17/21 8:57:00 EDT, Height, 83.2, [...] 11/05/21 8:57:00 EDT, Route to Pharmacy Electronically, [facility] #[id number], Partial fill upon patient request if the [...] 12/04/21 10:21:00 EDT, Route to Pharmacy Electronically, [facility] #[id number], 158, cm, 10/22/21 10:11:00 EDT, Height, 83.2, [...] 12/16/21 13:52:00 EDT, Route to Pharmacy Electronically, [facility] #[id number], Partial fill upon patientrequest if the prescription is for a schedule II op... Start Date: 12/16/21 Status: Ordered LORazepam 1 mg oral tablet 1 tablet, By Mouth, 2 times a day, PRN NEEDED FOR ANXIETY, # 60 tablet, 0 Refills, Maintenance, 12/25/21 8:31:00 EDT, [facility] #[id number], 158, cm, 12/17/21 8:57:00 EDT, Height, 83.2, [...] 09/28/21 9:47:00 EST, Route to Pharmacy Electronically, [facility] #[id number], Partial fill upon patient request if the prescription i... Start Date: 09/28/21 Status: Ordered mupirocin 2% topical ointment 1 application, Topically, 3 times a day, # 15 Gm, 0 Refills, Maintenance, 09/21/21 9:17:00 EST, Ointment, Partial fill upon patient request if the prescription is for a schedule II opioid drug. Start Date: 09/21/21 Status: Ordered nystatin topical 655724 u/gm powder 1 application, Topically, 2 times a day, apply to affected area, # 30 Gm, 1 Refills, Maintenance, 11/26/21 11:45:00 EDT, Powder, [facility] #[id number], Partial fill upon patient request if the prescription is for a schedule II opioid drug., 1 ap... Start Date: 11/26/21 Status: Ordered omeprazole 20 mg oral enteric coated capsule 1 capsule = 20 mg, By Mouth, Daily, j45.40, # 30 capsule, 6 Refills, Maintenance, 08/14/21 15:12:00EST, EC Capsule, [facility] #[id number], Partial fill upon patient request if the [...] tablet, 0 Refills, Maintenance, 11/28/21 13:34:00 EDT, [facility] #[id number]... Start Date: 11/28/21 Status: Ordered predniSONE 10 mg oral tablet See Instructions, take 6 tabs x 3 days, then take 5 tabs x 3 days, then take 4 tabs x 3 days, then take 3 tabs x 3 days, then 2 tabs x 3 days, then 1 tab x 3 days, # 63 tablet, 0 Refills, Maintenance, 09/21/21 9:19:00 EST, [facility] #[id number],... Start Date: 09/21/21 Status: Ordered Suprep Bowel Prep Kit oral liquid See Instructions, bowel preparation for colonoscopy, # 1 kit, 0 Refills, Maintenance, 12/03/21 16:57:00 EDT, [facility]/pharmacy #[id number], Partial fill upon patient request [...] 11 Refills, Maintenance, 05/13/21 14:54:00 EDT, Aerosol, [facility] #[id number], 158, cm, 05/13/21 14:25:00 EDT, Height, 83.3, [...] 3 Refills, Maintenance, 09/11/21 11:32:00 EST, Powder, [facility] #[id number], Partial fill upon patient request if the [...]
--- OUTSIDE RECORDS SUMMARY | 2024-01-21 06:32 | XMS_ITS | Continuity of Care Document ---
Author Organization [facility] Address [address] [place] [address]- Care Team Providers Care Mixer Operator Tablets Name Role Phone Sendy Buckner MD Primary Care Physician [phone] [place] [facility] - 04/12/20 [facility] [address] [place] [address]- [facility] Attending Physician: Raghav Colvin MD Admitting [...] 1Admin Note: PER PT 2Admin Note: [facility] [place] 3Admin Note: DECLINED 4Location History: [facility] 5Location History: [facility] [place] 6Location History: [facility] 7Location History: [facility] 8Location History: [facility] Medications albuterol-ipratropium 3 mg-0.5 mg/3 ml inhalation [...] 0 Refills, Maintenance, 02/14/20 10:57:00 EDT, Tablet, [facility] #[id number], 158, cm, 10/10/19 10:55:00 EDT, Height, 81, kg, 04/06/19 23:12:00 EDT, Dry Weight Start Date: 02/14/20 Stop Date: 05/14/20 Status: Ordered Breo Ellipta 200 mcg-25 mcg/inh inhalation powder 1 puffs, Inhalation, Daily, # 3 each, 3 Refills, Maintenance, 12/01/19 13:09:00 EDT, Powder, 1 puffs Inhalation Daily, 158, cm, 10/10/19 10:55:00 EDT, Height, 81, kg, 04/06/19 23:12:00 EDT, Dry Weight Start Date: 12/01/19 Status: Ordered Claritin 10 mg oral tablet 1 tablet = 10 mg, By Mouth, Daily, # 30 tablet, 0 Refills, Maintenance, 03/07/14 11:52:01, Tablet Start Date: 03/07/14 Status: Ordered FLUoxetine 20 mg oral tablet 3 tablet = 60 mg, By Mouth, Daily, # 270 tablet, 2 Refills, Maintenance, 03/02/20 11:49:00 EDT, Tablet, [facility] #[id number], 158, cm, 10/10/19 10:55:00 EDT, Height, 81, kg, 04/06/19 23:12:00 EDT, Dry Weight Start Date: 03/02/20 Status: Ordered Imodium A-D 2 mg oral tablet 2 mg, 1, tablet, By Mouth, Every 4 hours, PRN, # 100 tablet, Refills 0, Tot. Refills 0, Maintenance, for loose stool, 08/06/17 12:58:09, Route to Pharmacy Electronically, [id number], [facility] [id number] Start Date: 08/06/17 Status: Ordered LORazepam 1 mg oral tablet 1 tablet = 1 mg, By Mouth, Daily at bedtime, # 30 tablet, 0 Refills, Soft Stop, 04/03/20 10:20:00 EDT, [facility] #[id number], 158, cm, 10/10/19 10:55:00 EDT, Height, 81, kg, 04/06/19 23:12:00 EDT, Dry Weight Start Date: 04/03/20 Status: Ordered minoxidil 2% topical solution 1 mL = 0.02 Gm, Topically, 2 times a day, # 60 mL, 0 Refills, Maintenance, 03/07/14 11:52:58, Solution Start Date: 03/07/14 Status: Ordered nystatin topical 889504 u/gm powder 1 application, Topically, 2 times [...] days, # 63 tablet, 0 Refills, Maintenance, 01/24/20 8:52:00 EDT, [facility] #[id number]... Start Date: 01/24/20 Status: Ordered SEROquel 50 mg oral tablet [...] 01/13/20 10:43:00 EDT, Route to Pharmacy Electronically, [facility] #[id number], 158, cm, 10/10/19 10:55:00EDT, Height, 81, kg, 04/06/19 23:12:00 EDT, Dry Weight Start Date: 01/13/20 Status: Ordered Trelegy Ellipta inhalation powder 1 puffs, Inhalation, Daily, at the same time every day, # 60 each, 0 Refills, Maintenance, 209:03:00 EST, Powder, [facility] [address], 159, cm, [...]
--- OUTSIDE RECORDS SUMMARY | 2024-01-21 06:32 | XMS_ITS | Continuity of Care Document ---
Author Organization [facility] Address [address] [place] [address]- Care Team Providers Care Music Store Manager Name Role Phone Sita PEREYRA, Sendy Arteaga Primary Care Physician [place] [facility] 02[place]25[place]22 - 03/27/22 [facility] [address] [place] [address]- Attending Physician: Dusty Valdez Admitting Physician: AdmtrDusty Referring Physician: José Miguel, Dusty Allergies, Adverse Reactions, Alerts Substance Reaction Severity [...] 03/07/11 Given hepatitis B adult vaccine 5 2/23/98 Recorded hepatitis B adult vaccine 6 04/18/97 Recorded hepatitis B adult vaccine 7 03/20/97 Recorded Measles/Mumps/Rubella Virus Vaccine 8 02/05/95 Rec orded 1Admin Note: PER PT 2Admin Note: [facility] [place] 3Admin Note: DECLINED 4Location History: [facility] 5Location History: [facility] 6Location History: [facility] 7Location History: [facility] 8Location History: [facility] Medications albuterol-ipratropium 3 mg-0.5 mg/3 ml [...] 3 Refills, Maintenance, 12/26/21 13:23:00 EDT, Tablet, [facility] #[id number], 158, cm, 12/17/21 8:57:00 EDT, Height, 83.2, [...] 11/05/21 8:57:00 EDT, Route to Pharmacy Electronically, [facility] #[id number], Partial fill upon patient request if the [...] 12/04/21 10:21:00 EDT, Route to Pharmacy Electronically, [facility] #[id number], 158, cm, 10/22/21 10:11:00 EDT, Height, 83.2, [...] 01/30/22 17:19:00 EDT, Route to Pharmacy Electronically, [facility] #[id number], Partial fill upon patient request if the prescription is for a schedule II... Start Date: 01/30/22 Status: Ordered furosemide 20 mg oral tablet 20 mg, 1, tablet, By Mouth, Daily, # 30 tablet, Refills 1, Tot. Refills 1, Maintenance, 12/16/21 13:52:00 EDT, Route to Pharmacy Electronically, [facility] #[id number], Partial fill upon patientrequest if the prescription is for a schedule II op... Start Date: 12/16/21 Status: Ordered LORazepam 1 mg oral tablet 1 tablet, By Mouth, 2 times a day, PRN NEEDED FOR ANXIETY, # 60 tablet, 0 Refills, Maintenance, 02/28/22 9:07:00 EDT, [facility] #[id number], 158, cm, 12/31/21 12:43:00 EDT, Height, 83.2, kg,06/24/21 6:39:00 EST, Dry Weight Start Date: 02/28/22 Status: Ordered magnesium oxide 500 mg oral [...] 09/28/21 9:47:00 EST, Route to Pharmacy Electronically, [facility] #[id number], Partial fill upon patient request if the prescription i... Start Date: 09/28/21 Status: Ordered mupirocin 2% topical ointment 1 application, Topically, 3 times a day, # 15 Gm, 0 Refills, Maintenance, 09/21/21 9:17:00 EST, Ointment, Partial fill upon patient request if the prescription is for a schedule II opioid drug. Start Date: 09/21/21 Status: Ordered nystatin topical 055810 u/gm powder 1 application, Topically, 2 times a day, apply to affected area, # 30 Gm, 1 Refills, Maintenance, 11/26/21 11:45:00 EDT, Powder, [facility] #[id number], Partial fill upon patient request if the prescription is for a schedule II opioid drug., 1 ap... Start Date: 11/26/21 Status: Ordered omeprazole 20 mg oral enteric coated capsule 1 capsule = 20 mg, By Mouth, Daily, j45.40, # 30 capsule, 6 Refills, Maintenance, 08/14/21 15:12:00EST, EC Capsule, [facility] #[id number], Partial fill upon patient request if the [...] tablet, 0 Refills, Maintenance, 09/21/21 9:19:00 EST, [facility] #[id number],... Start Date: 09/21/21 Status: Ordered predniSONE 10 mg oral tablet See Instructions, Take 6 tablets x 3 days, then 5 tablets x 3 days, then 4 tablets x 3 days, then 3tablets x 3 days, then 2 tablets x 3 days, then 1 tablet x 3 days, # 63 tablet, 0 Refills, Maintenance, 02/12/22 8:00:00 EDT, [facility] #176... Start Date: 02/12/22 Status: Ordered Tylenol Extra Strength 500 mg [...] 11 Refills, Maintenance, 05/13/21 14:54:00 EDT, Aerosol, [facility] #[id number], 158, cm, 05/13/21 14:25:00 EDT, Height, 83.3, [...] 3 Refills, Maintenance, 09/11/21 11:32:00 EST, Powder, [facility] #[id number], Partial fill upon patient request if the [...] 1 Active Adenomatous colon polyp(Conf irmed) 2, 3, 4 Active Asthma(Confirmed) Active Thomas's esophagus(Confirmed) 5 Active Cataract(Confirmed) 6 Active CVA (cerebral infarction)(Confirmed) Active Chronic kidney disease, stag e 3a(Confirmed) 7 Active Compression fracture of thor acic spine, non-traumatic(Confirmed) Active Dyslipidemia(Confirmed) Active GERD (gastroesophageal reflu x disease)(Confirmed) Active Generalized anxiety disorder(Confirmed) Active Gout(Confirmed) Active 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) 8 Active Headache(Confirmed) Active Internal and external hemorr hoids without complication(Confirmed) 9 Active Hypertension(Confirmed) Active Insomnia(Confirmed) Active IBS (irritable [...] Never smoker entered on: 01/10/14 Sex Female Care Team Personnel Name: Sita PEREYRA, Sendy Arteaga Address: [address] [place] [address]
--- OUTSIDE RECORDS SUMMARY | 2024-01-21 06:33 | XMS_ITS | Continuity of Care Document ---
Author Organization [facility] Address [address] [place] [address]- Care Team Providers Care Pipefitter Name Role Phone Kalpana Escalante Primary Care Physician Amarilis hay [place] [facility] [place] Date(s): 08/28/23 - 11/02/23 [facility] [address] [place] [address] Discharge Disposition: A-D/C Home Attending Physician: Graciela PEREYRA(Hem/Onc), Asher Hayes Admitting Physician: Graciela PEREYRA(Hem/Onc), Asher Hayes Referring Physician: Kalpana Escalante Allergies, Adverse Reactions, Alerts Substance Reaction Severity [...] Vaccine 8 02/05/95 Rec orded 1Admin Note: [facility] [place] 2Admin Note: DECLINED 3Admin Note: PER PT 4Location History: [facility] 5Location History: [facility] 6Location History: [facility] 7Location History: [facility] 8Location History: [facility] Medications Advair Diskus 250 mcg-50 mcg inhalation powder 1, puffs, Inhalation, 2 times a day, # 180 each, Refills 2, Tot. Refills 2, Maintenance, 10/21/23 19:43:00 EDT, Powder, Route to Pharmacy Electronically, [id number], [facility] #[id number], 157.8, cm, 09/02/23 13:30:00 EST, Height, 83.8, kg... Start Date: 10/21/23 Status: Ordered albuterol-ipratropium 3 mg-0.5 mg/3 ml inhalation solution 3 mL, Neb, 4 times a day, # 180 each, 3 Refills, Maintenance, 10/21/23 19:43:00 EDT, Solution, [facility] #[id number], 3 mL Neb 4 times a day, 157.8, cm, 09/02/23 13:30:00 EST, Height, 83.8, kg,09/02/23 13:30:00 EST, Dry Weight Start Date: 10/21/23 Status: Ordered Aspir 81 Oral Enteric Coated Tablet 1 tablet = 81 mg, By Mouth, Daily, # 30 tablet, 3 Refills, Maintenance, 03/29/14 11:38:34, EC Tablet Start Date: 03/29/14 Stop Date: 07/27/14 Status: Ordered atorvastatin 80 mg oral tablet 1 tablet, By Mouth, Daily, # 90 tablet, 3 Refills, Maintenance, 06/01/23 11:32:00 EST, [facility] #[id number], 160, cm, 05/29/23 11:42:00 EDT, Height, 83.2, kg, 04/09/23 11:58:00 EDT, Dry Weight Start Date: 06/01/23 Status: Ordered cloNIDine 0.1 mg oral tablet 1, tablet, By Mouth, Daily at bedtime, for 90 days, # 90 tablet, Refills 3, Tot. Refills 3, Physician Stop 05/26/24 11:32:00 EDT, 06/01/23 11:32:00 EST, Route to Pharmacy Electronically, [facility] #[id number], 160, cm, 05/29/23 11:42:00 EDT, Hei... Start Date: 06/01/23 Stop Date: 05/26/24 Status: Ordered escitalopram 20 mg oral tablet 1 tablet = 20 mg, By Mouth, Daily, # 90 tablet, 1 Refills, Maintenance, 09/18/23 11:54:00 EST, Tablet, [facility] #[id number], Partial fill upon patient request if the prescription is for a schedule II opioid drug., 157.8, cm, 09/02/23 13:30:00 E... Start Date: 09/18/23 Status: Ordered Fish Oil 1000 mg oral capsule 1 capsule = 1,000 mg, By Mouth, 3 times a day, # 270 capsule, 3 Refills, Maintenance, 08/05/23 10:17:00 EST, Capsule, [facility] #[id number], Partial fill upon patient request if the prescription is for a schedule II opioid drug., 160, cm, ... Start Date: 08/05/23 Stop Date: 07/30/24 Status: Ordered LORazepam 1 mg oral tablet 1 tablet = 1 mg, By Mouth, 2 times a day, # 60 tablet, 0 Refills, Maintenance, 10/29/23 16:22:00 EDT, Tablet, [facility] #[id number], Partial fill upon patient request if the prescription is fora schedule II opioid drug., 157.8, cm, 09/02/23 13:... Start Date: 10/29/23 Stop Date: 11/28/23 Status: Ordered montelukast 10 mg oral tablet 1, tablet, By Mouth, Daily, NO BLUE DYE, ALLERGIC., # 90 tablet, Refills 1, Tot. Refills 1, Maintenance, 10/28/22 11:30:00 EDT, Route to Pharmacy Electronically, [facility] #[id number], 157.4, cm, 05/28/22 11:29:00 EDT, Height, 83.1, kg, 07/07/22... Start Date: 10/28/22 Status: Ordered nystatin topical 118399 u/gm powder 1 application, Topically, 2 times a day, apply to affected area, # 30 Gm, 1 Refills, Maintenance, 11/26/21 11:45:00 EDT, Powder, [facility] #[id number], Partial fill upon patient request if the prescription is for a schedule II opioid drug., 1 ap... Start Date: 11/26/21 Status: Ordered omeprazole 40 mg oral enteric coated capsule 1 capsule, By Mouth, 2 times a day, # 180 capsule, 0 Refills, Maintenance, 09/15/23 12:05:00 EST, [facility] #[id number], 157.8, cm, 09/02/23 13:30:00 EST, Height, 83.8, kg, 09/02/23 13:30:00 EST, Dry Weight Start Date: 09/15/23 Status: Ordered Ventolin HFA 108 mcg/inh inhalation aerosol with adapter 2 puffs, Inhalation, 4 times a day, PRN for wheezing, # 18 Gm, 11 Refills, Maintenance, 05/08/22 14:54:00 EDT, Aerosol, [facility] #[id number], 157.4, cm, 04/10/22 10:13:00 EDT, Height, 81.8, [...] meets GFR criteria 8RIGHT KNEE 9colo 2015 Vital Signs Most recent to oldest [Reference Range]: 1 Height 157.8 cm (09/02/23 1:30 PM) Weight 83.8 kg (09/02/23 1:30 PM) Oxygen Saturation [94-100 %] 95 % (09/02/23 1:30 PM) Pulse Rate [55-90 bpm] 87 bpm (09/02/23 1:30 PM) Body Mass Index [18.5-24.99 kg/m2] 33.65 kg/m2 *>HHI* (09/02/23 1:30 PM) Blood Pressure [90-138/55-84 mm Hg] 135/ 84mm Hg (09/02/23 1:30 PM) Temperature [96.8-100.4 DegF] 97.4 DegF (09/02/23 1:30 PM) Mode of Delivery (Oxygen) Room air (09/02/23 1:30 PM) Blood pressure sites Arm, right (09/02/23 1:30 PM) Temperature Route Oral (09/02/23 1:30 PM) Dry Weight 83.8 kg (09/02/23 1:30 PM) Weight Obtained Via Standing scale (09/02/23 1:30 PM) Dry Weight Obtained Via Standing scale (09/02/23 1:30 PM) Social History Social History Type Response Smoking Status Never smoker entered on: 01/10/14 Sex Female Patient Care team information Care Team Personnel Name: Kalpana Escalante Position: [facility] Associate Professional Member Role: PCP Name: Graciela PEREYRA(Hem/Onc)Asher Position: [facility] Physician - Oncology Med Service: Hematology & Oncology Member Role: Admitting Physician Address: Address: [address] [place] [address] for Cancer Care [facility] [place] [address]- Care Team Related Persons Name: SHIMA BRANDT Address: home [address] [place] [address] [place] [address] Name: SRIRAM GUZMAN Address: home [address] [address]
--- OUTSIDE RECORDS SUMMARY | 2024-01-21 06:33 | XMS_ITS | Continuity of Care Document ---
Author Organization [facility] Address [address] [place] [address]- Care Team Providers Care Principal Engineer Name Role Phone Sita PEREYRA, Sendy Arteaga Primary Care Physician [phone] Encounter [facility] [place] Date(s): 12/16/21 - 01/15/22 [facility] [address] [place] [address]- Attending Physician: AdmDusty poe Admitting Physician: AdmtrDusty Referring Physician: Admtr, Ar8 [...] orded 1Admin Note: PER PT 2Admin Note: [facility] [place] 3Admin Note: DECLINED 4Location History: [facility] 5Location History: [facility] 7Location History: [facility] 8Location History: [facility] Medications albuterol-ipratropium 3 mg-0.5 mg/3 ml [...] 3 Refills, Maintenance, 12/26/21 13:23:00 EDT, Tablet, [facility] #[id number], 158, cm, 12/17/21 8:57:00 EDT, Height, 83.2, [...] 11/05/21 8:57:00 EDT, Route to Pharmacy Electronically, [facility] #[id number], Partial fill upon patient request if the [...] 12/04/21 10:21:00 EDT, Route to Pharmacy Electronically, [facility] #[id number], 158, cm, 10/22/21 10:11:00 EDT, Height, 83.2, [...] 12/16/21 13:52:00 EDT, Route to Pharmacy Electronically, [facility] #[id number], Partial fill upon patientrequest if the prescription is for a schedule II op... Start Date: 12/16/21 Status: Ordered LORazepam 1 mg oral tablet 1 tablet, By Mouth, 2 times a day, PRN NEEDED FOR ANXIETY, # 60 tablet, 0 Refills, Maintenance, 12/25/21 8:31:00 EDT, [facility] #[id number], 158, cm, 12/17/21 8:57:00 EDT, Height, 83.2, [...] 09/28/21 9:47:00 EST, Route to Pharmacy Electronically, [facility] #[id number], Partial fill upon patient request if the prescription i... Start Date: 09/28/21 Status: Ordered mupirocin 2% topical ointment 1 application, Topically, 3 times a day, # 15 Gm, 0 Refills, Maintenance, 09/21/21 9:17:00 EST, Ointment, Partial fill upon patient request if the prescription is for a schedule II opioid drug. Start Date: 09/21/21 Status: Ordered nystatin topical 790208 u/gm powder 1 application, Topically, 2 times a day, apply to affected area, # 30 Gm, 1 Refills, Maintenance, 11/26/21 11:45:00 EDT, Powder, [facility] #[id number], Partial fill upon patient request if the prescription is for a schedule II opioid drug., 1 ap... Start Date: 11/26/21 Status: Ordered omeprazole 20 mg oral enteric coated capsule 1 capsule = 20 mg, By Mouth, Daily, j45.40, # 30 capsule, 6 Refills, Maintenance, 08/14/21 15:12:00EST, EC Capsule, [facility] #[id number], Partial fill upon patient request if the [...] tablet, 0 Refills, Maintenance, 11/28/21 13:34:00 EDT, [facility] #17... Start Date: 11/28/21 Status: Ordered predniSONE 10 mg oral tablet See Instructions, take 6 tabs x 3 days, then take 5 tabs x 3 days, then take 4 tabs x 3 days, then take 3 tabs x 3 days, then 2 tabs x 3 days, then 1 tab x 3 days, # 63 tablet, 0 Refills, Maintenance, 09/21/21 9:19:00 EST, [facility] #[id number],... Start Date: 09/21/21 Status: Ordered Suprep Bowel Prep Kit oral liquid See Instructions, bowel preparation for colonoscopy, # 1 kit, 0 Refills, Maintenance, 12/03/21 16:57:00 EDT, [facility]/pharmacy #[id number], Partial fill upon patient request [...] 11 Refills, Maintenance, 05/13/21 14:54:00 EDT, Aerosol, [facility] #[id number], 158, cm, 05/13/21 14:25:00 EDT, Height, 83.3, [...] 3 Refills, Maintenance, 09/11/21 11:32:00 EST, Powder, [facility] #[id number], Partial fill upon patient request if the [...]
--- OUTSIDE RECORDS SUMMARY | 2024-01-21 06:33 | XMS_ITS | Patient Health Record ---
Author Organization [facility] [place] Address [address] [place] [address] Care Team Providers Care Medical Technologist Name Role Phone Kalpana Veronica Primary Care Provider Unavailabl e BlackJonna Unavailable [phone] HemaBrandie nevarez Unavailable [phone] ALLERGIES Allergen (clinical drug ingredient) Drug/Non Drug Allergy documented on EMR Reaction Allergy Type Onset Date Status acetaminophen / oxycodone Percocet Unknown Drug Allergy Active codeine Codeine severe abdominal pain Drug Allergy Active lisinopril Lisinopril Unknown Drug Allergy Activ e REASON FOR REFERRAL No Information MEDICATIONS Medication SIG (Take, Route, Frequency, Duration) Notes Start Date End Date Status Hair Skin Nails supplement Act eunice LORazepam 1 MG Oral for 30 Act eunice Atorvastatin Calcium 80 MG TAKE 1 TABLET BY MOUTH DAILY Oral for 90 Active Ciclopirox Olamine 0.77 % 1 application to affected area Externally to feet Twice a day for 30 days Active Lexapro Active Aspir-81 Active Singulair Active Vitamin C Active Vitamin D3 Active PROzac 20 MG 1 capsule Orally Onc e a day for 30 day(s) Not-Taking SOCIAL HISTORY Tobacco Use: Social History Observation Description Date Details (start date - stop date) Never Smoker NA - NA Sex Assigned At : Social History Observation Description Sex Assigned At Unknown Tobacco Use/Smoking Question Answer Notes Are you a: nonsmoker Alcohol Screen Question Answer Notes Did you have a drink containing alcohol in the p ast year? Yes Points 0 Interpretation Negative Tobacco use other than smoking: Question Answer Notes Are you an other tobacco user? No VITAL SIGNS Height 5 ft 2.5 in in 08/20/2023 Weight 169 lbs 08/20/2023 BMI 30.41 kg/m2 08/20/2023 PROCEDURES Procedure Date Ordered Date Performed Result Body Sit e 58731-HDMSVPK NAIL, 1-08/20/2023 N/A Encounters Encounter Location Date Provider Diagnosis [facility] [address] 04/27/2023 Jonna Black [facility] [address] 04/27/2023 Jonna Black [facility] [address] [address] 06/05/2023 Jonna Black [facility] [address] 06/09/2023 Brandie Garridoa [facility] [address] 08/20/2023 Jonna Black Tinea unguium B35.1 ; Pain in right toe(s) M79.674 ; Pain in left toe(s) M79.675 and Tinea pedis B35.[address] [address] 11/20/2023 Jonna Black [facility] [address] 12/03/2023 Jonna Nuñez ASSESSMENTS Encounter Date Diagnosis Assessment Notes Treatment Notes Treatment Clinical Notes 08/20/2023 Tinea unguium (ICD-10 - B35.1) 08/20/2023 Pain in right toe(s) (ICD-10 - M79.674) 08/20/2023 Pain in left toe(s) (ICD-10 - M79.675) 08/20/2023 Tinea pedis (ICD-10 - B35.3) PLAN OF TREATMENT Pending Test Test Name Order Date [id number] NAIL, 1-08/20/2023 [id number]-[id number] Plate 10/30/2022 Insurance Providers Payer Name Payer Address Payer Phone Subscriber Number Group Number Insured Name Patient Relationship to Insured Coverage Start Date Coverage End Date Medicare National Govt [employer] [address] [place] [address] [id number] [employer] [place] Self - patient is the insured A[employer] Secondary to Medicare [address] [place] [address] [phone] [id number] [employer] [place] Self - patient is the insured MEDICAL (GENERAL) HISTORY Medical History History ICD Code Anxiety Arthritis Back,Hip,and Knee pain Cancer Cataracts Gall bladder removed Gout Kidney disease Osteoporosis Reflux ( GERD) Stroke TIA 2013 Measles Mumps Chicken pox Bone implants/screws Surgical History Surgery Date(Month/Year) tonsillectomy 4yrs old prince 02/02/1992 cataract surgery 2004,2006 total left knee replacement 2006 neck fusion 2010 R rotator cuff tear repair 06/24/21 L foot surgery
--- OUTSIDE RECORDS SUMMARY | 2024-01-21 06:33 | XMS_ITS | Continuity of Care Document ---
Author Organization [facility] Address [address] [place] [address]- Care Team Providers Care Active Directory Specialist Name Role Phone Sita PEREYRA, Sendy Arteaga Primary Care Physician Encounter [facility] [place] Date(s): 10/22/21 - 12/20/21 [facility] [address] [place] [address]- Attending Physician: Raghav Colvin MD Admitting Physician: Raghav Colvin MD Referring Physician: Raghav Colvin MD Allergies, Adverse Reactions, Alerts Substance Reaction Severity Status codeine acute abdominal pain Active allopurinol swelling of face/neck Active Tylenol with Codeine Active Vicodin swelling face/ neck Active lisinopril Active Cipro Active methocarbamol Active Xanax Active Flexeril Active Dilaudid IV ONLY/// PO OK Active [...] orded 1Admin Note: PER PT 2Admin Note: [facility] [place] 3Admin Note: DECLINED 4Location History: [facility] 5Location History: [facility] 6Location History: [facility] 7Location History: [facility] 8Location History: [facility] Medications albuterol-ipratropium 3 mg-0.5 mg/3 [...] 3 Refills, Maintenance, 05/31/20 10:03:00 EST, Tablet, [facility] #[id number], 155, cm, 05/31/20 2:34:00 EST, Height, 77, [...] 11/05/21 8:57:00 EDT, Route to Pharmacy Electronically, [facility] #[id number], Partial fill upon patient request if the [...] 12/04/21 10:21:00 EDT, Route to Pharmacy Electronically, [facility] #[id number], 158, cm, 10/22/21 10:11:00 EDT, Height, 83.2, kg, 06/24/21 6:39:00 EST, Dry Weight Start Date: 12/04/21 Status: Ordered fluocinolone 0.01% topical oil 1 application, Topically, 3 times a day, # 118.28 mL, 0 Refills, Maintenance, 09/21/21 9:18:00 EST,Oil, Partial fill upon patient request if the prescription is for a schedule II opioid drug. Start Date: 09/21/21 Status: Ordered furosemide 20 mg oral tablet 20 mg, 1, tablet, By Mouth, Daily, # 30 tablet, Refills 1, Tot. Refills 1, Maintenance, 12/16/21 13:52:00 EDT, Route to Pharmacy Electronically, [facility] #[id number], Partial fill upon patientrequest if the prescription is for a schedule II op... Start Date: 12/16/21 Status: Ordered LORazepam 1 mg oral tablet 1 tablet, By Mouth, 2 times a day, PRN NEEDED FOR ANXIETY, # 60 tablet, 0 Refills, Maintenance, 11/22/21 7:55:00 EDT, [facility] #[id number], 158, cm, 10/22/21 10:11:00 EDT, Height, 83.2, kg,06/24/21 6:39:00 EST, Dry Weight Start Date: 11/22/21 Status: Ordered magnesium oxide 500 mg oral [...] 09/28/21 9:47:00 EST, Route to Pharmacy Electronically, [facility] #[id number], Partial fill upon patient request if the prescription i... Start Date: 09/28/21 Status: Ordered mupirocin 2% topical ointment 1 application, Topically, 3 times a day, # 15 Gm, 0 Refills, Maintenance, 09/21/21 9:17:00 EST, Ointment, Partial fill upon patient request if the prescription is for a schedule II opioid drug. Start Date: 09/21/21 Status: Ordered nystatin topical 987386 u/gm powder 1 application, Topically, 2 times a day, apply to affected area, # 30 Gm, 1 Refills, Maintenance, 11/26/21 11:45:00 EDT, Powder, [facility] #[id number], Partial fill upon patient request if the prescription is for a schedule II opioid drug., 1 ap... Start Date: 11/26/21 Status: Ordered omeprazole 20 mg oral enteric coated capsule 1 capsule = 20 mg, By Mouth, Daily, j45.40, # 30 capsule, 6 Refills, Maintenance, 08/14/21 15:12:00EST, EC Capsule, [facility] #[id number], Partial fill upon patient request if the [...] tablet, 0 Refills, Maintenance, 11/28/21 13:34:00 EDT, [facility] #17... Start Date: 11/28/21 Status: Ordered predniSONE 10 mg oral tablet See Instructions, take 6 tabs x 3 days, then take 5 tabs x 3 days, then take 4 tabs x 3 days, then take 3 tabs x 3 days, then 2 tabs x 3 days, then 1 tab x 3 days, # 63 tablet, 0 Refills, Maintenance, 09/21/21 9:19:00 EST, [facility] #[id number],... Start Date: 09/21/21 Status: Ordered Suprep Bowel Prep Kit oral liquid See Instructions, bowel preparation for colonoscopy, # 1 kit, 0 Refills, Maintenance, 12/03/21 16:57:00 EDT, [facility]/pharmacy #[id number], Partial fill upon patient request [...] 11 Refills, Maintenance, 05/13/21 14:54:00 EDT, Aerosol, [facility] #[id number], 158, cm, 05/13/21 14:25:00 EDT, Height, 83.3, [...] 09/11/21 11:32:00 EST, Powder, [facility] #[id number], Partial fill upon patient request if the [...]
--- OUTSIDE RECORDS SUMMARY | 2024-01-21 06:33 | XMS_ITS | Continuity of Care Document ---
Author Organization [facility] Address [address] [place] [address]- Care Team Providers Care Restaurant Managing Partner Name Role Phone Sita PEREYRA, Sendy Arteaga Primary Care Physician Encounter [facility] [place] Date(s): 11/19/21 - 03/16/22 [facility] [address] [place] [address]- Attending Physician: Raghav Colvin MD Admitting Physician: Raghav Colvin MD Allergies, Adverse Reactions, [...] 1Admin Note: PER PT 2Admin Note: [facility] [place] 3Admin Note: DECLINED 4Location History: [facility] 5Location History: [facility] 6Location History: [facility] 7Location History: [facility] 8Location History: [facility] Medications albuterol-ipratropium 3 mg-0.5 mg/3 [...] 3 Refills, Maintenance, 12/26/21 13:23:00 EDT, Tablet, [facility] #[id number], 158, cm, 12/17/21 8:57:00 EDT, Height, 83.2, [...] 11/05/21 8:57:00 EDT, Route to Pharmacy Electronically, [facility] #[id number], Partial fill upon patient request if the [...] 12/04/21 10:21:00 EDT, Route to Pharmacy Electronically, [facility] #[id number], 158, cm, 10/22/21 10:11:00 EDT, Height, 83.2, [...] 01/30/22 17:19:00 EDT, Route to Pharmacy Electronically, [facility] #[id number], Partial fill upon patient request if the prescription is for a schedule II... Start Date: 01/30/22 Status: Ordered furosemide 20 mg oral tablet 20 mg, 1, tablet, By Mouth, Daily, # 30 tablet, Refills 1, Tot. Refills 1, Maintenance, 12/16/21 13:52:00 EDT, Route to Pharmacy Electronically, [facility] #[id number], Partial fill upon patientrequest if the prescription is for a schedule II op... Start Date: 12/16/21 Status: Ordered LORazepam 1 mg oral tablet 1 tablet, By Mouth, 2 times a day, PRN NEEDED FOR ANXIETY, # 60 tablet, 0 Refills, Maintenance, 02/28/22 9:07:00 EDT, [facility] #[id number], 158, cm, 12/31/21 12:43:00 EDT, Height, 83.2, [...] 09/28/21 9:47:00 EST, Route to Pharmacy Electronically, [facility] #[id number], Partial fill upon patient request if the prescription i... Start Date: 09/28/21 Status: Ordered mupirocin 2% topical ointment 1 application, Topically, 3 times a day, # 15 Gm, 0 Refills, Maintenance, 09/21/21 9:17:00 EST, Ointment, Partial fill upon patient request if the prescription is for a schedule II opioid drug. Start Date: 09/21/21 Status: Ordered nystatin topical 969565 u/gm powder 1 application, Topically, 2 times a day, apply to affected area, # 30 Gm, 1 Refills, Maintenance, 11/26/21 11:45:00 EDT, Powder, [facility] #[id number], Partial fill upon patient request if the prescription is for a schedule II opioid drug., 1 ap... Start Date: 11/26/21 Status: Ordered omeprazole 20 mg oral enteric coated capsule 1 capsule = 20 mg, By Mouth, Daily, j45.40, # 30 capsule, 6 Refills, Maintenance, 08/14/21 15:12:00EST, EC Capsule, [facility] #[id number], Partial fill upon patient request if the [...] tablet, 0 Refills, Maintenance, 09/21/21 9:19:00 EST, [facility] #[id number],... Start Date: 09/21/21 Status: Ordered predniSONE 10 mg oral tablet See Instructions, Take 6 tablets x 3 days, then 5 tablets x 3 days, then 4 tablets x 3 days, then 3tablets x 3 days, then 2 tablets x 3 days, then 1 tablet x 3 days, # 63 tablet, 0 Refills, Maintenance, 02/12/22 8:00:00 EDT, [facility] #176... Start Date: 02/12/22 Status: Ordered Suprep Bowel Prep Kit oral liquid See Instructions, 176ml x2 as directed prior to colonoscopy, # 354 mL, 0 Refills, Maintenance, 02/25/22 8:56:00 EDT, [facility] #[id number], Partial fill upon patient request if the prescriptionis for a schedule II opioid drug., 176ml x2 as dire... Start Date: 02/25/22 Status: Ordered Tylenol Extra Strength 500 mg [...] 11 Refills, Maintenance, 05/13/21 14:54:00 EDT, Aerosol, [facility] #[id number], 158, cm, 05/13/21 14:25:00 EDT, Height, 83.3, [...] 3 Refills, Maintenance, 09/11/21 11:32:00 EST, Powder, Fwd: [facility] #[id number], Partial fill upon patient request if the [...] Cataract(Confirmed) 5 Active CVA (cerebral infarction)(Confirmed) Active Chronic kidney disease, stag e 3a(Confirmed) 6 Active Compression fracture of thor acic spine, non-traumatic(Confirmed) Active Dyslipidemia(Confirmed) Active GERD (gastroesophageal reflu x disease)(Confirmed) Active Generalized anxiety disorder(Confirmed) Active Gout(Confirmed) Active 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) 7 Active Headache(Confirmed) Active Internal and external hemorr hoids without complication(Confirmed) 8 Active Hypertension(Confirmed) Active Insomnia(Confirmed) Active IBS (irritable [...] past, patient having repeat endoscopy 2013. 5BILATERAL 6Per chart review meets GFR criteria 7RIGHT KNEE 8colo 2016 Social History Social History Type Response Smoking Status Never smoker entered on: 01/10/14 Sex Female
--- OUTSIDE RECORDS SUMMARY | 2024-01-21 06:33 | XMS_ITS | Continuity of Care Document ---
Author Organization [facility] Address [address] [place] [address]- Care Team Providers Care Liquor Runner Name Role Phone Sita PEREYRA, Sendy Arteaga Primary Care Physician Encounter [facility] [place] Date(s): 10/22/21 - 12/22/21 [facility] [address] [place] [address]- Attending Physician: Raghav Colvin MD Admitting Physician: Raghav Colvin MD Allergies, Adverse Reactions, Alerts Substance Reaction Severity Status codeine acute abdominal pain Active allopurinol swelling of face/neck Active Vicodin swelling face/ neck Active lisinopril [...] 2Admin Note: [facility] [place] 3Admin Note: DECLINED 4Location History: [facility] 5Location History: [facility] 6Location History: [facility] 7Location History: [facility] 8Location History: [facility] Medications albuterol-ipratropium 3 mg-0.5 mg/3 [...] 3 Refills, Maintenance, 05/31/20 10:03:00 EST, Tablet, [facility] #[id number], 155, cm, 05/31/20 2:34:00 EST, Height, 77, [...] 11/05/21 8:57:00 EDT, Route to Pharmacy Electronically, [facility] #[id number], Partial fill upon patient request if the [...] 12/04/21 10:21:00 EDT, Route to Pharmacy Electronically, [facility] #[id number], 158, cm, 10/22/21 10:11:00 EDT, Height, 83.2, [...] 12/16/21 13:52:00 EDT, Route to Pharmacy Electronically, [facility] #[id number], Partial fill upon patientrequest if the prescription is for a schedule II op... Start Date: 12/16/21 Status: Ordered LORazepam 1 mg oral tablet 1 tablet, By Mouth, 2 times a day, PRN NEEDED FOR ANXIETY, # 60 tablet, 0 Refills, Maintenance, 11/22/21 7:55:00 EDT, [facility] #[id number], 158, cm, 10/22/21 10:11:00 EDT, Height, 83.2, [...] 09/28/21 9:47:00 EST, Route to Pharmacy Electronically, [facility] #[id number], Partial fill upon patient request if the prescription i... Start Date: 09/28/21 Status: Ordered mupirocin 2% topical ointment 1 application, Topically, 3 times a day, # 15 Gm, 0 Refills, Maintenance, 09/21/21 9:17:00 EST, Ointment, Partial fill upon patient request if the prescription is for a schedule II opioid drug. Start Date: 09/21/21 Status: Ordered nystatin topical 560738 u/gm powder 1 application, Topically, 2 times a day, apply to affected area, # 30 Gm, 1 Refills, Maintenance, 11/26/21 11:45:00 EDT, Powder, [facility] #[id number], Partial fill upon patient request if the prescription is for a schedule II opioid drug., 1 ap... Start Date: 11/26/21 Status: Ordered omeprazole 20 mg oral enteric coated capsule 1 capsule = 20 mg, By Mouth, Daily, j45.40, # 30 capsule, 6 Refills, Maintenance, 08/14/21 15:12:00EST, EC Capsule, [facility] #05898, Partial fill upon patient request if the [...] tablet, 0 Refills, Maintenance, 11/28/21 13:34:00 EDT, [facility] #17... Start Date: 11/28/21 Status: Ordered predniSONE 10 mg oral tablet See Instructions, take 6 tabs x 3 days, then take 5 tabs x 3 days, then take 4 tabs x 3 days, then take 3 tabs x 3 days, then 2 tabs x 3 days, then 1 tab x 3 days, # 63 tablet, 0 Refills, Maintenance, 09/21/21 9:19:00 EST, [facility] #[id number],... Start Date: 09/21/21 Status: Ordered Suprep Bowel Prep Kit oral liquid See Instructions, bowel preparation for colonoscopy, # 1 kit, 0 Refills, Maintenance, 12/03/21 16:57:00 EDT, [facility]/pharmacy #[id number], Partial fill upon patient request [...] 11 Refills, Maintenance, 05/13/21 14:54:00 EDT, Aerosol, [facility] #[id number], 158, cm, 05/13/21 14:25:00 EDT, Height, 83.3, [...] 09/11/21 11:32:00 EST, Powder, [facility] #[id number], Partial fill upon patient request if the [...]
--- OUTSIDE RECORDS SUMMARY | 2024-01-21 06:33 | XMS_ITS | Continuity of Care Document ---
Author Organization [facility] Address [address] [place] [address]- Care Team Providers Care Engineering Group Leader Name Role Phone Sita PEREYRA, Sendy Arteaga Primary Care Physician Encounter [facility] Date(s): 06/07/20 - 08/15/20 [facility] [address] [place] [address]- Attending Physician: Raghav Colvin MD Admitting Physician: Raghav Colvin MD Referring Physician: Raghav Colvin MD Allergies, Adverse Reactions, Alerts Substance Reaction Severity Status codeine acute abdominal pain Active allopurinol swelling of face/neck Active pravastatin Active Cipro Active Flexeril Active Tylenol with Codeine Active Dilaudid IV ONLY/// PO OK Active Vicodin swelling face/ neck Active amLODIPine Active Percocet 5/325 acute abdominal pain Activ e lisinopril Active Xanax Active Immunizations Given and Recorded Vaccine Date [...] Note: PER PT 2Admin Note: [facility] [place] 3Admin Note: DECLINED 4Location History: [facility] 5Location History: [facility] 6Location History: [facility] 7Location History: [facility] 8Location History: [facility] Medications albuterol-ipratropium 3 mg-0.5 mg/3 ml [...] 3 Refills, Maintenance, 05/31/20 10:03:00 EST, Tablet, [facility] #[id number], 155, cm, 05/31/20 2:34:00 EST, Height, 77, [...] Maintenance, 06/12/2010:43:00 EST, Route to Pharmacy Electronically, [facility] #[id number], Partial fill upon patient request, 155, cm, 06/07/20 11:11:00 EST, Height,... Start Date: 06/12/20 Status: Ordered fluticasone 50 mcg/inh nasal spray See Instructions, SHAKE LIQUID AND USE 1 SPRAY IN EACH NOSTRIL TWICE DAILY, # 48 Gm, 0 Refills, Maintenance, [facility] #[id number], 90, SHAKE LIQUID AND USE 1 SPRAY IN EACH NOSTRIL TWICE DAILY,158, cm, 04/24/20 12:18:00 EDT, Height, 81, kg, ... Start Date: 04/24/20 Status: Ordered Imodium A-D 2 mg oral tablet 2 mg, 1, tablet, By Mouth, Every 4 hours, PRN, # 100 tablet, Refills 0, Tot. Refills 0, Maintenance, for loose stool, 08/06/17 12:58:09, Route to Pharmacy Electronically, [id number], [facility] [id number] Start Date: 08/06/17 Status: Ordered LORazepam 1 mg oral tablet 1 tablet = 1 mg, By Mouth, Daily at bedtime, # 30 tablet, 0 Refills, Soft Stop, 07/03/20 14:17:00 EST, [facility] #[id number], 155, cm, 06/07/20 11:11:00 EST, Height, 77, kg, 05/31/20 2:34:00 EST, Dry Weight Start Date: 07/03/20 Status: Ordered minoxidil 2% topical solution 1 mL = 0.02 Gm, Topically, 2 times a day, # 60 mL, 0 Refills, Maintenance, 03/07/14 11:52:58, Solution Start Date: 03/07/14 Status: Ordered nystatin topical 272262 u/gm powder 1 application, Topically, 2 times [...] tablet, 0 Refills, Maintenance, 05/04/20 12:17:00 EDT, [facility] #17... Start Date: 05/04/20 Status: Ordered Singulair 10 mg oral tablet 1, tablet, By Mouth, Daily in PM, # 30 tablet, Refills 5, Tot. Refills 5, Maintenance, 01/13/20 10:43:00 EDT, Route to Pharmacy Electronically, [facility] #[id number], 158, cm, 10/10/19 10:55:00EDT, Height, 81, kg, [...] 2 Refills, Maintenance, 06/12/20 10:41:00 EST, Powder, [facility] #[id number], Partial fill upon patient request, 1 inhalation [...]
--- OUTSIDE RECORDS SUMMARY | 2024-01-21 06:33 | XMS_ITS | Continuity of Care Document ---
Author Organization [facility] Address [address] [facility], [address] d Floor, [address] [place] [address]- Care Team Providers Care Trigonometry Tutor Name Role Phone Sita PEREYRA, Sendy Arteaga Primary Care Physician En[place] [facility] [place] Date(s): 07/18/20 - 09/05/20 [facility] [address], [address], [address] [place] [address]- Attending Physician: Brandie Garsia Admitting Physician: Brandie Garsia Referring Physician: Sendy Buckner MD Allergies, Adverse Reactions, Alerts Substance Reaction Severity Status codeine acute abdominal pain Active allopurinol swelling of face/neck Active Vicodin swelling face/ neck Active pravastatin Active lisinopril Active Cipro Active Xanax Active Flexeril Active Tylenol with Codeine Active Dilaudid IV ONLY/// PO OK Active amLODIPine Active Percocet 5/325 acute abdominal pain Activ e Immunizations Given and Recorded Vaccine Date Status Refusal Reason Influenza Virus Vaccine (oldterm) 06/05/19 Recorde d Pneumococcal Vaccine (oldterm) 1 06/29/15 Given influenza virus vaccine, inactivated 2 03/29/15 Gi afustino influenza virus vaccine, inactivated 04/25/14 Give n [...] 1Admin Note: PER PT 2Admin Note: [facility] [place] 3Admin Note: DECLINED 4Location History: [facility] [...] 3 Refills, Maintenance, 05/31/20 10:03:00 EST, Tablet, [facility] #[id number], 155, cm, 05/31/20 2:34:00 EST, Height, 77, [...] Maintenance, 06/12/2010:43:00 EST, Route to Pharmacy Electronically, [facility] #[id number], Partial fill upon patient request, 155, cm, 06/07/20 11:11:00 EST, Height,... Start Date: 06/12/20 Status: Ordered fluticasone 50 mcg/inh nasal spray See Instructions, SHAKE LIQUID AND USE 1 SPRAY IN EACH NOSTRIL TWICE DAILY, # 48 Gm, 0 Refills, Maintenance, [facility] #[id number], 90, SHAKE LIQUID AND USE 1 SPRAY IN EACH NOSTRIL TWICE DAILY,158, cm, 04/24/20 12:18:00 EDT, Height, 81, kg, ... Start Date: 04/24/20 Status: Ordered Imodium A-D 2 mg oral tablet 2 mg, 1, tablet, By Mouth, Every 4 hours, PRN, # 100 tablet, Refills 0, Tot. Refills 0, Maintenance, for loose stool, 08/06/17 12:58:09, Route to Pharmacy Electronically, [id number], [id number] Start Date: 08/06/17 Status: Ordered LORazepam 1 mg oral tablet 1 tablet, By Mouth, Daily at bedtime, # 30 tablet, 0 Refills, Maintenance, 08/29/20 9:09:00 EST, [facility] #[id number], 155, cm, 06/07/20 11:11:00 EST, Height, 77, kg, 05/31/20 2:34:00 EST, DryWeight Start Date: 08/29/20 Status: Ordered minoxidil 2% topical solution 1 mL = 0.02 Gm, Topically, 2 times a day, # 60 mL, 0 Refills, Maintenance, 03/07/14 11:52:58, Solution Start Date: 03/07/14 Status: Ordered nystatin topical 726592 u/gm powder 1 application, Topically, 2 times [...] tablet, 0 Refills, Maintenance, 05/04/20 12:17:00 EDT, [facility] #17... Start Date: 05/04/20 Status: Ordered Singulair 10 mg oral tablet 1, tablet, By Mouth, Daily in PM, # 30 tablet, Refills 5, Tot. Refills 5, Maintenance, 01/13/20 10:43:00 EDT, Route to Pharmacy Electronically, [facility] #[id number], 158, cm, 10/10/19 10:55:00EDT, Height, 81, kg, [...] 2 Refills, Maintenance, 06/12/20 10:41:00 EST, Powder, [facility] #[id number], Partial fill upon patient request, 1 inhalation [...]
--- OUTSIDE RECORDS SUMMARY | 2024-01-21 06:33 | XMS_ITS | Continuity of Care Document ---
Author Organization [facility] Address [address] [place] [address]- Care Team Providers Care Category Development Manager Name Role Phone Sita PEREYRA, Sendy Arteaga Primary Care Physician [phone] [place] [facility] [place] 02/04/23 - 03/06/[address] [address]- Allergies, Adverse Reactions, Alerts Substance Reaction Severity [...] influenza virus vaccine, inactivated 3 04/25/14 Gi faustion influenza virus vaccine, inactivated 04/07/13 Give n pneumococcal 23-valent vaccine 04/07/13 Given tetanus-diphtheria toxoids (Td) 4 05/27/11 Recorde d tetanus-diphtheria toxoids (Td) 03/07/11 Given hepatitis B adult vaccine 5 09/18/97 Recorded hepatitis B adult vaccine 6 04/18/97 Recorded hepatitis B adult vaccine 7 03/20/97 Recorded Measles/Mumps/Rubella Virus Vaccine 8 02/05/95 Rec orded 1Admin Note: PER PT 2Admin Note: [facility] [place] 3Admin Note: DECLINED 4Location History: [facility] 5Location History: [facility] 6Location History: [facility] 7Location History: [facility] 8Location History: [facility] Medications Acetaminophen PRN, 0 Refills, Maintenance, 02/04/23 13:31:00 EDT, Partial fill upon patient request if the prescription is for a schedule II opioid drug. Start Date: 02/04/23 Status: Ordered albuterol-ipratropium 3 mg-0.5 mg/3 ml [...] tablet, 1 Refills, Maintenance, 12/24/22 19:45:00 EDT, [facility] #[id number], 157.4, cm, 05/28/22 11:29:00 EDT, Height, 83.1, [...] 12/04/21 10:21:00 EDT, Route to Pharmacy Electronically, [facility] #[id number], 158, cm, 10/22/21 10:11:00 EDT, Height, 83.2, [...] 03/03/23 17:55:00 EDT, Route to Pharmacy Electronically, [facility] #[id number], 157.4, cm, 02/04/23 13:32:00 EDT, Height, 83.1, kg, 07/07/22 7:08:00 EST, Dry Weight Start Date: 03/03/23 Status: Ordered furosemide 20 mg oral tablet 20 mg, 1, tablet, By Mouth, Daily, # 90 tablet, Refills 3, Tot. Refills 3, Maintenance, 02/06/23 14:19:00 EDT, Route to Pharmacy Electronically, [facility] #[id number], Partial fill upon patientrequest if the prescription is for a schedule II op... Start Date: 02/06/23 Stop Date: 02/01/24 Status: Ordered ipratropium nasal 21 mcg/inh spray 1 sprays, Nares, Both, Daily at bedtime, # 30 mL, 1 Refills, Maintenance, 05/13/22 13:04:00 EDT, [facility] #[id number], Partial fill upon patient request if the prescription is for a schedule II opioid drug., 1 sprays Nares, Both Daily at bedtim... Start Date: 05/13/22 Status: Ordered Lidocaine Viscous 2% solution 1 application, Topically, 4 times a day, PRN for mouth sore pain, # 100 mL, 0 Refills, Maintenance,05/19/22 13:34:00 EDT, Solution, [facility] #30136, Partial fill upon patient request if the prescription is for a schedule II opioid drug.,... Start Date: 05/19/22 Status: Ordered LORazepam 1 mg oral tablet 1 tablet, By Mouth, 2 times a day, PRN NEEDED FOR ANXIETY, # 60 tablet, 0 Refills, Maintenance, 02/05/23 12:14:00 EDT, [facility] #[id number], 157.4, cm, 02/04/23 13:32:00 EDT, Height, 83.1, kg, 07/07/22 7:08:00 EST, Dry Weight Start Date: 02/05/23 Status: Ordered magnesium oxide 500 mg oral [...] 10/28/22 11:30:00 EDT, Route to Pharmacy Electronically, [facility] #[id number], 157.4, cm, 05/28/22 11:29:00 EDT, Height, 83.1, kg, 07/07/22... Start Date: 10/28/22 Status: Ordered nystatin topical 868987 u/gm powder 1 application, Topically, 2 times a day, apply to affected area, # 30 Gm, 1 Refills, Maintenance, 11/26/21 11:45:00 EDT, Powder, [facility] #[id number], Partial fill upon patient request if the prescription is for a schedule II opioid drug., 1 ap... Start Date: 11/26/21 Status: Ordered omeprazole 40 mg oral enteric coated capsule 1 capsule, By Mouth, 2 times a day, no blue dye, # 180 capsule, 0 Refills, Maintenance, 12/18/22 15:11:00 EDT, [facility] #79881, 157.4, cm, 05/28/22 11:29:00 EDT, Height, 83.1, kg, 07/07/22 7:08:00 EST, Dry Weight Start Date: 12/18/22 Status: Ordered predniSONE 10 mg oral tablet See Instructions, Take 6 tablets x 3 days, then 5 tablets x 3 days, then 4 tablets x 3 days, then 3tablets x 3 days, then 2 tablets x 3 days, then 1 tablet x 3 days, # 63 tablet, 0 Refills, Maintenance, 04/29/22 11:49:00 EDT, [facility] #17... Start Date: 04/29/22 Status: Ordered Symbicort 160mcg/4.5mcg Inhaler 2, puffs, Inhalation, 2 times a day, # 10.2 Gm, Refills 11, Tot. Refills 11, Maintenance, 04/10/22 11:03:00 EDT, Aerosol, Route to Pharmacy Electronically, [id number], 157.4, cm, 04/10/22 10:13:00 EDT, Height, 81.8,... Start Date: 04/10/22 Stop Date: 04/05/23 Status: Ordered Ventolin HFA 108 mcg/inh inhalation aerosol with adapter 2 puffs, Inhalation, 4 times a day, PRN for wheezing, # 18 Gm, 11 Refills, Maintenance, 05/08/22 14:54:00 EDT, Aerosol, [facility] #[id number], 157.4, cm, 04/10/22 10:13:00 EDT, Height, 81.8, [...] Care team information Care Team Personnel Name: Sendy Buckner MD Position: [facility] Physician - Primary Care Member Role: PCP Address: Address: [address] [place] [address]- Name: Nancy Montalvo Position: [facility] TA Member Role: Lifetime Consulting Physician Care Team Related Persons Name: SHIMA BRANDT Address: home [address] [place] [address] Name: SRIRAM GUZMAN Address: home [address] [address]
--- OUTSIDE RECORDS SUMMARY | 2024-01-21 06:33 | XMS_ITS | Continuity of Care Document ---
Author Organization [facility] Address [address] [place] [address]- Care Team Providers Care High School Library Media Specialist Name Role Phone Sita PEREYRA, Sendy Arteaga Primary Care Physician Encounter [facility] Date(s): 05/29/22 - 06/28/22 [facility] [address] [place] [address]- Allergies, Adverse Reactions, Alerts Substance Reaction Severity Status codeine acute abdominal pain Active allopurinol swelling of face/neck Active lisinopril leg cramps Active methocarbamol lip swelling and numbness A ctive Cipro Active Xanax Active Flexeril lip swelling and numbness Ac tive Tylenol with Codeine Active Dilaudid IV ONLY/// PO OK Active Vicodin swelling face/ neck Active Other Environmental Allergy blue dye Active Percocet acute abdominal pain Activ e Immunizations Given [...] 1Admin Note: PER PT 2Admin Note: [facility] [place] 3Admin Note: DECLINED 4Location History: [facility] 5Location History: [facility] 6Location History: [facility] 7Location History: [facility] 8Location History: [facility] Medications albuterol-ipratropium 3 mg-0.5 mg/3 ml [...] 3 Refills, Maintenance, 12/26/21 13:23:00 EDT, Tablet, [facility] #[id number], 158, cm, 12/17/21 8:57:00 EDT, Height, 83.2, [...] 12/04/21 10:21:00 EDT, Route to Pharmacy Electronically, [facility] #[id number], 158, cm, 10/22/21 10:11:00 EDT, Height, 83.2, [...] 04/08/22 17:14:00 EDT, Route to Pharmacy Electronically, [facility] #[id number], 157.4, cm, 03/18/22 7:38:00 EDT, Height, 81.8, kg, 03/18/22 7:38:00 EDT, Dry Weight Start Date: 04/08/22 Status: Ordered furosemide 20 mg oral tablet 20 mg, 1, tablet, By Mouth, Daily, # 30 tablet, Refills 1, Tot. Refills 1, Maintenance, 12/16/21 13:52:00 EDT, Route to Pharmacy Electronically, [facility] #52184, Partial fill upon patientrequest if the prescription is for a schedule II op... Start Date: 12/16/21 Status: Ordered ipratropium nasal 21 mcg/inh spray 1 sprays, Nares, Both, Daily at bedtime, # 30 mL, 1 Refills, Maintenance, 05/13/22 13:04:00 EDT, [facility] #19052, Partial fill upon patient request if the prescription is for a schedule II opioid drug., 1 sprays Nares, Both Daily at bedtim... Start Date: 05/13/22 Status: Ordered Lidocaine Viscous 2% solution 1 application, Topically, 4 times a day, PRN for mouth sore pain, # 100 mL, 0 Refills, Maintenance,05/19/22 13:34:00 EDT, Solution, [facility] #30696, Partial fill upon patient request if the prescription is for a schedule II opioid drug.,... Start Date: 05/19/22 Status: Ordered LORazepam 1 mg oral tablet 1 tablet, By Mouth, 2 times a day, PRN NEEDED FOR ANXIETY, # 60 tablet, 0 Refills, Maintenance, 06/24/22 9:20:00 EST, [facility] #36454, 157.4, cm, 05/28/22 11:29:00 EDT, Height, 81.8, [...] 09/28/21 9:47:00 EST, Route to Pharmacy Electronically, [facility] #[id number], Partial fill upon patient request if the prescription i... Start Date: 09/28/21 Status: Ordered nystatin topical 345862 u/gm powder 1 application, Topically, 2 times a day, apply to affected area, # 30 Gm, 1 Refills, Maintenance, 11/26/21 11:45:00 EDT, Powder, [facility] #18319, Partial fill upon patient request if the prescription is for a schedule II opioid drug., 1 ap... Start Date: 11/26/21 Status: Ordered omeprazole 40 mg oral enteric coated capsule 1 capsule = 40 mg, By Mouth, 2 times a day, # 180 capsule, 0 Refills, Maintenance, 05/13/22 13:03:00 EDT, EC Capsule, [facility] #59013, Partial fill upon patient request if the [...] tablet, 0 Refills, Maintenance, 04/29/22 11:49:00 EDT, [facility] #17... Start Date: 04/29/22 Status: Ordered Symbicort 160mcg/4.5mcg Inhaler 2, puffs, Inhalation, 2 times a day, # 10.2 Gm, Refills 11, Tot. Refills 11, Maintenance, 04/10/22 11:03:00 EDT, Aerosol, Route to Pharmacy Electronically, [id number], [facility] #[id number], 157.4, cm, 04/10/22 10:13:00 EDT, Height, 81.8,... [...] 11 Refills, Maintenance, 05/08/22 14:54:00 EDT, Aerosol, [facility] #37811, 157.4, cm, 04/10/22 10:13:00 EDT, Height, 81.8, [...] Team Personnel Name: Sendy Buckner MD Position: [facility] Primary Care Physician Member Role: PCP Address: Address: [address] [place] [address]- Care Team Related Persons Name: SHIMA BRANDT Address: home [address] [place] [address] Name: SRIRAM GUZMAN Address: [address] [address]
--- OUTSIDE RECORDS SUMMARY | 2024-01-21 06:33 | XMS_ITS | Continuity of Care Document ---
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 Mixer Operator Name Role Phone Sita PEREYRA, Sendy Arteaga Primary Care Physician [phone] Encounter [facility] Date(s): 05/28/22 - 06/27/22 [facility] [address] [place] [address]- Attending Physician: Dusty Valdez Admitting Physician: Admtr, [...] 1Admin Note: PER PT 2Admin Note: [facility] [place] 3Admin Note: DECLINED 4Location History: [facility] 5Location History: [facility] 6Location History: [facility] 7Location History: [facility] 8Location History: [facility] Medications albuterol-ipratropium 3 mg-0.5 mg/3 [...] 3 Refills, Maintenance, 12/26/21 13:23:00 EDT, Tablet, [email or web address] #[id number], 158, cm, 12/17/21 8:57:00 EDT, Height, 83.2, [...] 12/04/21 10:21:00 EDT, Route to Pharmacy Electronically, [facility] #69709, 158, cm, 10/22/21 10:11:00 EDT, Height, 83.2, [...] 04/08/22 17:14:00 EDT, Route to Pharmacy Electronically, [facility] #46436, 157.4, cm, 03/18/22 7:38:00 EDT, Height, 81.8, kg, 03/18/22 7:38:00 EDT, Dry Weight Start Date: 04/08/22 Status: Ordered furosemide 20 mg oral tablet 20 mg, 1, tablet, By Mouth, Daily, # 30 tablet, Refills 1, Tot. Refills 1, Maintenance, 12/16/21 13:52:00 EDT, Route to Pharmacy Electronically, [facility] #48492, Partial fill upon patientrequest if the prescription is for a schedule II op... Start Date: 12/16/21 Status: Ordered ipratropium nasal 21 mcg/inh spray 1 sprays, Nares, Both, Daily at bedtime, # 30 mL, 1 Refills, Maintenance, 05/13/22 13:04:00 EDT, [facility] #61488, Partial fill upon patient request if the prescription is for a schedule II opioid drug., 1 sprays Nares, Both Daily at bedtim... Start Date: 05/13/22 Status: Ordered Lidocaine Viscous 2% solution 1 application, Topically, 4 times a day, PRN for mouth sore pain, # 100 mL, 0 Refills, Maintenance,05/19/22 13:34:00 EDT, Solution, [facility] #02834, Partial fill upon patient request if the prescription is for a schedule II opioid drug.,... Start Date: 05/19/22 Status: Ordered LORazepam 1 mg oral tablet 1 tablet, By Mouth, 2 times a day, PRN NEEDED FOR ANXIETY, # 60 tablet, 0 Refills, Maintenance, 06/24/22 9:20:00 EST, [facility] #65933, 157.4, cm, 05/28/22 11:29:00 EDT, Height, 81.8, [...] 09/28/21 9:47:00 EST, Route to Pharmacy Electronically, [facility] #[id number], Partial fill upon patient request if the prescription i... Start Date: 09/28/21 Status: Ordered nystatin topical 237905 u/gm powder 1 application, Topically, 2 times a day, apply to affected area, # 30 Gm, 1 Refills, Maintenance, 11/26/21 11:45:00 EDT, Powder, [facility] #93848, Partial fill upon patient request if the prescription is for a schedule II opioid drug., 1 ap... Start Date: 11/26/21 Status: Ordered omeprazole 40 mg oral enteric coated capsule 1 capsule = 40 mg, By Mouth, 2 times a day, # 180 capsule, 0 Refills, Maintenance, 05/13/22 13:03:00 EDT, EC Capsule, [facility] #16731, Partial fill upon patient request if the [...] tablet, 0 Refills, Maintenance, 04/29/22 11:49:00 EDT, [facility] #17... Start Date: 04/29/22 Status: Ordered Symbicort 160mcg/4.5mcg Inhaler 2, puffs, Inhalation, 2 times a day, # 10.2 Gm, Refills 11, Tot. Refills 11, Maintenance, 04/10/22 11:03:00 EDT, Aerosol, Route to Pharmacy Electronically, [id number][id number], [facility] #[id number], 157.4, cm, 04/10/22 10:13:00 EDT, Height, 81.8,... [...] 11 Refills, Maintenance, 05/08/22 14:54:00 EDT, Aerosol, [facility] #46735, 157.4, cm, 04/10/22 10:13:00 EDT, Height, 81.8, [...] Care Physician Member Role: PCP Address: Address: [address] [place] [address]- Care Team Related Persons Name: SHIMA BRANDT Address: home [address] [place] [address] [place] [address] Name: SRIRAM GUZMAN Address: home [address] [address]
--- OUTSIDE RECORDS SUMMARY | 2024-01-21 06:33 | XMS_ITS | Continuity of Care Document ---
Author Organization [facility] Address [address] [place] [address]- Care Team Providers Care Obstetrics Nurse Name Role Phone Sita PEREYRA, Sendy Arteaga Primary Care Physician [phone] Encounter [facility] Date(s): 10/22/20 - 11/21/20 [facility] [address] [place] [address]- Allergies, Adverse Reactions, Alerts Substance Reaction Severity [...] Note: [facility] [place] 3Admin Note: DECLINED 4Location History: [facility] 5Location History: [facility] 6Location History: [facility] 7Location History: [facility] 8Location History: [facility] Medications albuterol-ipratropium 3 mg-0.5 mg/3 ml inhalation [...] 3 Refills, Maintenance, 05/31/20 10:03:00 EST, Tablet, [facility] #63672, 155, cm, 05/31/20 2:34:00 EST, Height, 77, kg, 05/31/20 2:34:00 EST, Dry Weight Start Date: 05/31/20 Status: Ordered Blood Pressure Monitor See Instructions, # 1 each, Refills 0, Tot. Refills 0, Maintenance, ICD I10, 10/05/20 14:06:00 EST,Supply, 155, cm, 06/07/20 11:11:00 EST, Height, 77, kg, 05/31/20 2:34:00 EST, Dry Weight Start Date: 10/05/20 Status: Ordered Claritin 10 mg oral tablet 1 tablet = 10 mg, By Mouth, Daily, # 30 tablet, 0 Refills, Maintenance, 03/07/14 11:52:01, Tablet Start Date: 03/07/14 Status: Ordered FLUoxetine 20 mg oral capsule 60 mg, 3, capsule, By Mouth, Daily, # 270 capsule, Refills 2, Tot. Refills 2, Maintenance, 06/12/2010:43:00 EST, Route to Pharmacy Electronically, [facility] #21093, Partial fill upon patient request, 155, cm, 06/07/20 11:11:00 EST, Height,... Start Date: 06/12/20 Status: Ordered fluticasone 50 mcg/inh nasal spray See Instructions, SHAKE LIQUID AND USE 1 SPRAY IN EACH NOSTRIL TWICE DAILY, # 48 Gm, 0 Refills, Maintenance, [facility] #32473, 90, SHAKE LIQUID AND USE 1 SPRAY IN EACH NOSTRIL TWICE DAILY,158, cm, 04/24/20 12:18:00 EDT, Height, 81, kg, ... Start Date: 04/24/20 Status: Ordered Imodium A-D 2 mg oral tablet 2 mg, 1, tablet, By Mouth, Every 4 hours, PRN, # 100 tablet, Refills 0, Tot. Refills 0, Maintenance, for loose stool, 08/06/17 12:58:09, Route to Pharmacy Electronically, [id number], [facility] [id number] Start Date: 08/06/17 Status: Ordered LORazepam 1 mg oral tablet 1 tablet, By Mouth, Daily at bedtime, # 30 tablet, 0 Refills, Maintenance, 10/24/20 12:19:00 EDT, [facility] #74584, 155, cm, 06/07/20 11:11:00 EST, Height, 77, kg, 05/31/20 2:34:00 EST, Dry Weight Start Date: 10/24/20 Status: Ordered minoxidil 2% topical solution 1 mL = 0.02 Gm, Topically, 2 times a day, # 60 mL, 0 Refills, Maintenance, 03/07/14 11:52:58, Solution Start Date: 03/07/14 Status: Ordered nystatin topical 090569 u/gm powder 1 application, Topically, 2 times a day, # 60 Gm, 0 Refills, Maintenance, 02/28/19 16:40:54 EDT, Powder, 1 application Topically 2 times a day Start Date: 02/28/19 Status: Ordered Singulair 10 mg oral tablet 1, tablet, By Mouth, Daily in PM, # 30 tablet, Refills 5, Tot. Refills 5, Maintenance, 01/13/20 10:43:00 EDT, Route to Pharmacy Electronically, [facility] #[id number], 158, cm, 10/10/19 10:55:00EDT, Height, 81, kg, 04/06/19 23:12:00 EDT, Dry Weight Start Date: 01/13/20 Status: Ordered Suprep Bowel Prep Kit oral liquid See Instructions, 176ml x 2 as directed before procedure, # 1 kit, 0 Refills, Maintenance, 10/25/2110:49:00 EDT, [facility] #[id number], Partial fill upon patient request if the prescription isfor a schedule II opioid drug., 176ml x 2 as direct... Start Date: 10/25/20 Status: Ordered Ventolin HFA 108 mcg/inh inhalation aerosol with adapter 2 puffs, Inhalation, 4 times a day, PRN for wheezing, # 18 Gm, 6 Refills, Maintenance, 07/05/19 11:51:28 EST, Aerosol, 159, cm, 07/05/19 11:19:56 EST, Height, 81, kg, 04/06/19 23:12:31 EDT, Dry Weight Start Date: 07/05/19 Status: Ordered Vitamin D3 1000 intl units oral tablet 1 tablet = 1,000 International_Units, By Mouth, Daily, # 30 tablet, 0 Refills, Maintenance, 03/07/14 11:52:45, Tablet Start Date: 03/07/14 Status: Ordered Wixela Inhub 250 mcg-50 mcg inhalation powder 1 inhalation, Inhalation, 2 times a day, rinse mouth and throat after use, # 1 each, 2 Refills, Maintenance, 06/12/20 10:41:00 EST, Powder, [facility] #81757, Partial fill upon patient request, 1 inhalation [...] (urinary tract infection)(Confirmed) Active Seasonal allergies(Confirmed) Active Thyroid nodule(Confirmed) Active Vitamin D deficiency(Confirmed) [...]
--- OUTSIDE RECORDS SUMMARY | 2024-01-21 06:33 | XMS_ITS | Continuity of Care Document ---
Author Organization [facility] Address [address] [place] [address]- Care Team Providers Care Stock Tracer Name Role Phone Kalpana Escalante Primary Care Physician Amarilis hay Encounter [facility] Date(s): 10/20/23 - 11/19/23 [facility] [address] [place] [id number]- Allergies, Adverse Reactions, Alerts Substance Reaction Severity Status codeine acute abdominal pain Active allopurinol swelling of face/neck Active lisinopril leg cramps Active methocarbamol lip swelling and numbness A ctive Cipro Active Xanax Active Tylenol with Codeine Active Dilaudid IV ONLY/// PO OK Active Vicodin swelling face/ neck Active Percocet 5/325 acute abdominal pain Activ e Other Environmental Allergy blue dye Active Immunizations [...] Vaccine 8 02/05/95 Rec orded 1Admin Note: [facility] 2Admin Note: DECLINED 3Admin Note: PER PT 4Location History: [facility] 5Location History: [facility] 6Location History: [facility] 7Location History: [facility] 8Location History: [facility] Medications Advair Diskus 250 mcg-50 mcg inhalation powder 1, puffs, Inhalation, 2 times a day, # 180 each, Refills 2, Tot. Refills 2, Maintenance, 10/21/23 19:43:00 EDT, Powder, Route to Pharmacy Electronically, NCPDP_[id number], [facility] #[id number], 157.8, cm, 09/02/23 13:30:00 EST, Height, 83.8, kg... Start Date: 10/21/23 Status: Ordered albuterol-ipratropium 3 mg-0.5 mg/3 ml inhalation solution 3 mL, Neb, 4 times a day, # 180 each, 3 Refills, Maintenance, 10/21/23 19:43:00 EDT, Solution, [facility] #[id number], 3 mL Neb 4 times a day, [...] tablet, 3 Refills, Maintenance, 06/01/23 11:32:00 EST, [facility] #[id number], 160, cm, 05/29/23 11:42:00 EDT, Height, 83.2, kg, 04/09/23 11:58:00 EDT, Dry Weight Start Date: 06/01/23 Status: Ordered cloNIDine 0.1 mg oral tablet 1, tablet, By Mouth, Daily at bedtime, for 90 days, # 90 tablet, Refills 3, Tot. Refills 3, Physician Stop 05/26/24 11:32:00 EDT, 06/01/23 11:32:00 EST, Route to Pharmacy Electronically, [facility] #[id number], 160, cm, 05/29/23 11:42:00 EDT, Hei... Start Date: 06/01/23 Stop Date: 05/26/24 Status: Ordered escitalopram 20 mg oral tablet 1 tablet = 20 mg, By Mouth, Daily, # 90 tablet, 1 Refills, Maintenance, 09/18/23 11:54:00 EST, Tablet, [facility] #[id number], Partial fill upon patient request if the prescription is for a schedule II opioid drug., 157.8, cm, 09/02/23 13:30:00 E... Start Date: 09/18/23 Status: Ordered Fish Oil 1000 mg oral capsule 1 capsule = 1,000 mg, By Mouth, 3 times a day, # 270 capsule, 3 Refills, Maintenance, 08/05/23 10:17:00 EST, Capsule, [facility] #[id number], Partial fill upon patient request if the prescription is for a schedule II opioid drug., 160, cm, ... Start Date: 08/05/23 Stop Date: 07/30/24 Status: Ordered LORazepam 1 mg oral tablet 1 tablet = 1 mg, By Mouth, 2 times a day, # 60 tablet, 0 Refills, Maintenance, 10/29/23 16:22:00 EDT, Tablet, [facility] #[id number], Partial fill upon patient request if the prescription is fora schedule II opioid drug., 157.8, cm, 09/02/23 13:... Start Date: 10/29/23 Stop Date: 11/28/23 Status: Ordered montelukast 10 mg oral tablet 1, tablet, By Mouth, Daily, NO BLUE DYE, ALLERGIC., # 90 tablet, Refills 1, Tot. Refills 1, Maintenance, 10/28/22 11:30:00 EDT, Route to Pharmacy Electronically, [facility] #[id number], 157.4, cm, 05/28/22 11:29:00 EDT, Height, 83.1, kg, 07/07/22... Start Date: 10/28/22 Status: Ordered nystatin topical 459047 u/gm powder 1 application, Topically, 2 times a day, apply to affected area, # 30 Gm, 1 Refills, Maintenance, 11/26/21 11:45:00 EDT, Powder, [facility] #[id number], Partial fill upon patient request if the prescription is for a schedule II opioid drug., 1 ap... Start Date: 11/26/21 Status: Ordered omeprazole 40 mg oral enteric coated capsule 1 capsule, By Mouth, 2 times a day, # 180 capsule, 0 Refills, Maintenance, 09/15/23 12:05:00 EST, [facility] #[id number], 157.8, cm, 09/02/23 13:30:00 EST, Height, 83.8, kg, 09/02/23 13:30:00 EST, Dry Weight Start Date: 09/15/23 Status: Ordered Ventolin HFA 108 mcg/inh inhalation aerosol with adapter 2 puffs, Inhalation, 4 times a day, PRN for wheezing, # 18 Gm, 11 Refills, Maintenance, 05/08/22 14:54:00 EDT, Aerosol, [facility] #[id number], 157.4, cm, 04/10/22 10:13:00 EDT, Height, 81.8, [...] Care Team Personnel Name: Kalpana Escalante Position: [facility] Associate Professional Member Role: PCP Care Team Related Persons Name: SHIMA BRANDT Address: [address] [place] [address] Name: SRIRAM GUZMAN Address: home [address] [address]
--- OUTSIDE RECORDS SUMMARY | 2024-01-21 06:33 | XMS_ITS | Continuity of Care Document ---
Author Organization [facility] Address [address] [place] [id number]- Care Team Providers Care Real Estate Financial Analyst Name Role Phone Sita PEREYRA, Sendy Arteaga Primary Care Physician [phone] Encounter [facility] Date(s): 12/16/21 - 02/16/22 [facility] [address] [place] [address]- Attending Physician: Raghav Colvin MD Admitting Physician: [...] orded 1Admin Note: PER PT 2Admin Note: [facility] 3Admin Note: DECLINED 4Location History: [facility] 5Location History: [facility] 6Location History: [facility] 7Location History: [facility] 8Location History: [facility] Medications albuterol-ipratropium 3 mg-0.5 mg/3 [...] 3 Refills, Maintenance, 12/26/21 13:23:00 EDT, Tablet, [facility] #[id number], 158, cm, 12/17/21 8:57:00 EDT, Height, 83.2, [...] 11/05/21 8:57:00 EDT, Route to Pharmacy Electronically, [facility] #[id number], Partial fill upon patient request if the [...] 12/04/21 10:21:00 EDT, Route to Pharmacy Electronically, [facility] #[id number], 158, cm, 10/22/21 10:11:00 EDT, Height, 83.2, [...] 01/30/22 17:19:00 EDT, Route to Pharmacy Electronically, [facility] #[id number], Partial fill upon patient request if the prescription is for a schedule II... Start Date: 01/30/22 Status: Ordered furosemide 20 mg oral tablet 20 mg, 1, tablet, By Mouth, Daily, # 30 tablet, Refills 1, Tot. Refills 1, Maintenance, 12/16/21 13:52:00 EDT, Route to Pharmacy Electronically, [facility] #[id number], Partial fill upon patientrequest if the prescription is for a schedule II op... Start Date: 12/16/21 Status: Ordered LORazepam 1 mg oral tablet 1 tablet, By Mouth, 2 times a day, PRN NEEDED FOR ANXIETY, # 60 tablet, 0 Refills, Maintenance, 01/28/22 17:07:00 EDT, [facility] #[id number], 158, cm, 12/31/21 12:43:00 EDT, Height, 83.2, [...] 09/28/21 9:47:00 EST, Route to Pharmacy Electronically, [facility] #[id number], Partial fill upon patient request if the prescription i... Start Date: 09/28/21 Status: Ordered mupirocin 2% topical ointment 1 application, Topically, 3 times a day, # 15 Gm, 0 Refills, Maintenance, 09/21/21 9:17:00 EST, Ointment, Partial fill upon patient request if the prescription is for a schedule II opioid drug. Start Date: 09/21/21 Status: Ordered nystatin topical 236421 u/gm powder 1 application, Topically, 2 times a day, apply to affected area, # 30 Gm, 1 Refills, Maintenance, 11/26/21 11:45:00 EDT, Powder, [facility] #[id number], Partial fill upon patient request if the prescription is for a schedule II opioid drug., 1 ap... Start Date: 11/26/21 Status: Ordered omeprazole 20 mg oral enteric coated capsule 1 capsule = 20 mg, By Mouth, Daily, j45.40, # 30 capsule, 6 Refills, Maintenance, 08/14/21 15:12:00EST, EC Capsule, [facility] #[id number], Partial fill upon patient request if the [...] tablet, 0 Refills, Maintenance, 09/21/21 9:19:00 EST, [facility] #[id number],... Start Date: 09/21/21 Status: Ordered predniSONE 10 mg oral tablet See Instructions, Take 6 tablets x 3 days, then 5 tablets x 3 days, then 4 tablets x 3 days, then 3tablets x 3 days, then 2 tablets x 3 days, then 1 tablet x 3 days, # 63 tablet, 0 Refills, Maintenance, 02/12/22 8:00:00 EDT, [facility] #[id number]... Start Date: 02/12/22 Status: Ordered Suprep Bowel Prep Kit oral liquid See Instructions, bowel preparation for colonoscopy, # 1 kit, 0 Refills, Maintenance, 12/03/21 16:57:00 EDT, [facility] #[id number], Partial fill upon patient request if [...] 11 Refills, Maintenance, 05/13/21 14:54:00 EDT, Aerosol, [facility] #[id number], 158, cm, 05/13/21 14:25:00 EDT, Height, 83.3, [...] 3 Refills, Maintenance, 09/11/21 11:32:00 EST, Powder, [facility] #[id number], Partial fill upon patient request if the [...]
--- OUTSIDE RECORDS SUMMARY | 2024-01-21 06:33 | XMS_ITS | Continuity of Care Document ---
Author Organization [facility] Address [address] [place] [address]- Care Team Providers Care Laboratory Phlebotomist Name Role Phone Sita PEREYRA, Sendy Arteaga Primary Care Physician [phone] [facility] Date(s): 02/14/22 - 03/16/22 [facility] [address] [place] [address]- Attending Physician: Dusty Valdez Admitting Physician: AdmtrDusty [...] orded 1Admin Note: PER PT 2Admin Note: [facility] 3Admin Note: DECLINED 4Location History: [facility] 5Location History: [facility] 6Location History: [facility] 7Location History: [facility] 8Location History: [facility] Medications albuterol-ipratropium 3 mg-0.5 mg/3 [...] 3 Refills, Maintenance, 12/26/21 13:23:00 EDT, Tablet, [facility] #[id number], 158, cm, 12/17/21 8:57:00 EDT, Height, 83.2, [...] 11/05/21 8:57:00 EDT, Route to Pharmacy Electronically, [facility] #[id number], Partial fill upon patient request if the [...] 12/04/21 10:21:00 EDT, Route to Pharmacy Electronically, [facility] #[id number], 158, cm, 10/22/21 10:11:00 EDT, Height, 83.2, [...] 01/30/22 17:19:00 EDT, Route to Pharmacy Electronically, [facility] #[id number], Partial fill upon patient request if the prescription is for a schedule II... Start Date: 01/30/22 Status: Ordered furosemide 20 mg oral tablet 20 mg, 1, tablet, By Mouth, Daily, # 30 tablet, Refills 1, Tot. Refills 1, Maintenance, 12/16/21 13:52:00 EDT, Route to Pharmacy Electronically, [facility] #[id number], Partial fill upon patientrequest if the prescription is for a schedule II op... Start Date: 12/16/21 Status: Ordered LORazepam 1 mg oral tablet 1 tablet, By Mouth, 2 times a day, PRN NEEDED FOR ANXIETY, # 60 tablet, 0 Refills, Maintenance, 02/28/22 9:07:00 EDT, [facility] #[id number], 158, cm, 12/31/21 12:43:00 EDT, Height, 83.2, [...] 09/28/21 9:47:00 EST, Route to Pharmacy Electronically, [facility] #[id number], Partial fill upon patient request if the prescription i... Start Date: 09/28/21 Status: Ordered mupirocin 2% topical ointment 1 application, Topically, 3 times a day, # 15 Gm, 0 Refills, Maintenance, 09/21/21 9:17:00 EST, Ointment, Partial fill upon patient request if the prescription is for a schedule II opioid drug. Start Date: 09/21/21 Status: Ordered nystatin topical 700481 u/gm powder 1 application, Topically, 2 times a day, apply to affected area, # 30 Gm, 1 Refills, Maintenance, 11/26/21 11:45:00 EDT, Powder, [facility] #[id number], Partial fill upon patient request if the prescription is for a schedule II opioid drug., 1 ap... Start Date: 11/26/21 Status: Ordered omeprazole 20 mg oral enteric coated capsule 1 capsule = 20 mg, By Mouth, Daily, j45.40, # 30 capsule, 6 Refills, Maintenance, 08/14/21 15:12:00EST, EC Capsule, [facility] #[id number], Partial fill upon patient request if the [...] tablet, 0 Refills, Maintenance, 09/21/21 9:19:00 EST, [facility] #[id number],... Start Date: 09/21/21 Status: Ordered predniSONE 10 mg oral tablet See Instructions, Take 6 tablets x 3 days, then 5 tablets x 3 days, then 4 tablets x 3 days, then 3tablets x 3 days, then 2 tablets x 3 days, then 1 tablet x 3 days, # 63 tablet, 0 Refills, Maintenance, 02/12/22 8:00:00 EDT, [facility] #176... Start Date: 02/12/22 Status: Ordered Suprep Bowel Prep Kit oral liquid See Instructions, 176ml x2 as directed prior to colonoscopy, # 354 mL, 0 Refills, Maintenance, 02/25/22 8:56:00 EDT, [facility] #[id number], Partial fill upon patient request if the [...] 11 Refills, Maintenance, 05/13/21 14:54:00 EDT, Aerosol, [facility] #[id number], 158, cm, 05/13/21 14:25:00 EDT, Height, 83.3, [...] 3 Refills, Maintenance, 09/11/21 11:32:00 EST, Powder, [facility] #[id number], Partial fill upon patient request if the [...]
== END 2024-01-15 12:03 | disposition home or self-care (01) ==
PROVIDERS: PCP Physician Assistant; Visit Provider Physician Assistant Medical
DX: M10.071 Idiopathic gout, right ankle and foot (principal)
CPT/HCPCS: 99213

== ENCOUNTER 2024-01-27 14:50 | Outpatient (AMB) | payer MEDICARE, SELFPAY ==
--- NOTE | 2024-01-27 14:54 | MHC.PC.OV ---
Vital Signs 01/27/24 15:00 Height 5 ft 2.5 in Weight 180 lb 2 oz BMI 32.4 BP 100/72 Blood Pressure Location Rt brachial Position Sitting Pulse 93 Pulse Source Pulse Oximeter Pulse Oximetry (%) 97 Oxygen Delivery Method Room Air Intake Visit Reasons: med check, labs Intake Note: Follow up. Back xray results, blood work. Cogeneration Operator Required: No Allergies acetaminophen Allergy (Severe, Verified 01/27/24 14:55) Swelling allopurinol Allergy (Severe, Verified 01/27/24 14:55) Swelling blue dye Allergy (Severe, Verified 01/27/24 14:55) Swelling codeine Allergy (Severe, Verified 01/27/24 14:55) Swelling oxycodone [From Percocet] Allergy (Severe, Verified 01/27/24 14:55) Swelling Medication List - Last Reconciled 01/27/24 by Kalpana Veronica PA-C atorvastatin 80 mg PO DAILY clonidine HCl 0.1 mg PO DAILY diclofenac sodium 1% (Arthritis Pain (diclofenac)) 4 grams topical QID PRN erythromycin ophthalmic (eye) escitalopram oxalate 20 mg PO DAILY ibuprofen (Motrin IB) 200 mg PO Q6H PRN lorazepam 1 mg PO BID montelukast 10 mg PO DAILY nystatin 1 appl topical BID-TID omeprazole 80 mg PO ONCE Tobacco use date assessed: 12/31/23 Dental Screening Dental Screen Date: 12/31/23 HPI med check, labs HPI Details Patient is a 63-year-old female with a significant past medical history of AML, s/p stem cell transpant 1992, anxiety, hyperlipidemia, GERD, ckd stage 3, asthma, prior TIA 2013, hypertension, compression fracture of lumbar spine, fibromyalgia, IBS, insomnia, osteonecrosis of left knee, thyroid nodule, degenerative joint disease, diverticulosis, ulcers found by endoscopy in 2008,, s/p cervical fusion per patient in 2010 presenting today for a follow up. Musculoskeletal: She does not find the baclofen effective. She is wondering if she can try something else. She has not tried gabapentin before. She does follow with [place] for her back. General: Has tried nutrisystem (recently in October) without improvement. She is a very picky dieter. She has tried to meet with a coin machine servicer repairer. She wants a weight loss drug. She has tried swimming in the past and only lost a few pounds. She has never tried anything over the counter. CV: Blood pressure today in the office is 100/72. She is on 80 mg of atorvastatin for cholesterol control. She states that her cholesterol although still high, is significantly improved to her baseline. Psych: Feels well-controlled with Lexapro , clonidine and lorazepam. [facility] Medical History (Updated 01/27/24 @ 15:54 by Kalpana Veronica PA-C) GERD (gastroesophageal reflux disease) Generalized anxiety disorder with panic attacks Dyslipidemia Overactive bladder AML (acute myeloid leukemia) in remission Surgical History (Updated 12/24/23 @ 13:18 by Kalpana Veronica PA-C) Stem cells transplant status Social History Housing: House Patient Tobacco Use Status: Never used Tobacco e-Cigarette/Vaping Use: Never Used Second Hand Smoke Exposure: Yes service: No Current occupational status: retired Cognitive needs: No Hearing needs: No Vision needs: Yes (glasses) Questionnaire Thrive Questionnaire Date Thrive assessed: 12/31/23 Physical exam (Primary Care) Vital Signs: Last Vital Signs Pulse 93 01/27/24 15:00 BP 100/72 01/27/24 15:00 Pulse Ox 97 01/27/24 15:00 Oxygen Delivery Method Room Air 01/27/24 15:00 BMI result Body Mass Index 32.4 Tobacco/Smoking Status: Tobacco use Status Tobacco use date assessed 12/31/23 01/27/24 14:56 Patient Tobacco Use Status Never used Tobacco 01/27/24 14:56 e-Cigarette/Vaping Use Never Used 01/27/24 14:56 Thrive Assessment: Date of Thrive Assessment Date Thrive assessed 12/31/23 01/27/24 14:56 Const Orientation/consciousness: patient oriented x3 HENMT Ears: hearing grossly normal bilaterally Neck Thyroid: Thyroid normal Lymphatic: no lymphadenopathy noted Resp Auscultation: clear to auscultation bilaterally Cardio Rate: regular rate Rhythm: regular rhythm Heart sounds: S1 normal heart sound present and S2 normal heart sound present Skin General skin exam: no rashes or lesions noted Neuro General: patient oriented x3, gait normal and no focal motor deficits Results Reviewed Results Reviewed: Laboratory Tests 01/12/24 11:00 WBC 9.9 RBC 4.11 L Hgb 12.5 Hct 37.9 Plt Count 248 Creatinine 1.19 Estimated GFR 46 Fasting Glucose 88 Calcium 9.9 Total Bilirubin 0.5 AST 22 ALT 19 Alkaline Phosphatase 100 Total Protein 6.8 Albumin 3.9 Triglycerides 230 H Cholesterol 229 H LDL Cholesterol, Calc 148 H HDL Cholesterol 35 L Vitamin B12 332 Folate 5.4 TSH 1.13 Assessment and Plan Assessment & Plan (1) Thoracic back pain: Code(s): M54.6 - Pain in thoracic spine Qualifiers: Chronicity: chronic Plan: will try gabapentin. discussed risks and benefits and adverse effects. Follows with [facility] (2) Dyslipidemia: Code(s): E78.5 - Hyperlipidemia, unspecified Plan: she is going to try diet changes. Offered to refer to coin machine servicer repairer but she declines. She says that she might try a garlic supplement and some lifestyle modifications as she knows that she does not eat that healthy. She eats a diet with a lot of pastries. (3) Generalized anxiety disorder with panic attacks: Code(s): F41.1 - Generalized anxiety disorder; F41.0 - Panic disorder [episodic paroxysmal anxiety] Plan: will refill meds today. (4) Obesity (BMI 30.0-34.9): Code(s): E66.9 - Obesity, unspecified Plan: We will try we will go you. Discussed risks and benefits and adverse effects of this medication including nausea, vomiting, increased risk of pancreatitis, thyroid malignancy etc.. Discussed that this may not be approved by her insurance. She will let me know. Medications: New gabapentin 300 mg PO BEDTIME 90 caps 0RF semaglutide (weight loss) (Ebonievarian) administer weeks 1 through 4 of therapy 0.25 mg (0.5 mL) subcut QWEEK 3 mL 3RF Changed From lorazepam 1 mg PO BID To lorazepam 1 mg PO BID 30 days 60 tabs 0RF Coding Level of Care Code Est Pt Level 4 (23196) Complex EM visit Add On G2211 Diagnoses Thoracic back pain M54.6 Chronicity: chronic Dyslipidemia E78.5 Generalized anxiety disorder with panic attacks F41.1; F41.0 Obesity (BMI 30.0-34.9) E66.9
[2024-01-27 15:00] VITALS: BP 100/72; PULSE 93; O2SAT 97; BMI 32.4
== END 2024-01-27 15:35 | disposition home or self-care (01) ==
PROVIDERS: PCP Physician Assistant; Visit Provider Physician Assistant
DX: M54.6 Pain in thoracic spine (principal); E78.5 Hyperlipidemia, unspecified; E66.9 Obesity, unspecified; Z68.32 Body mass index [BMI] 32.0-32.9, adult; F41.1 Generalized anxiety disorder; F41.0 Panic disorder [episodic paroxysmal anxiety]
CPT/HCPCS: 99214; G2211

== ENCOUNTER 2024-03-12 09:06 | Outpatient (AMB) | payer MEDICARE, SELFPAY ==
--- NOTE | 2024-03-12 09:06 | AM.OFFWIN_ITS ---
Intake Vital Signs 03/12/24 09:07 Height 5 ft 2.5 in Weight 173 lb BMI 31.1 BP 118/82 Blood Pressure Location Lt brachial Position Sitting Pulse 85 Pulse Source Pulse Oximeter Temp 98.0 F Temp Source Oral Pulse Oximetry (%) 96 Oxygen Delivery Method Room Air Intake Visit Reasons: EP ?Pneumonia Intake Note: pt c/o ? pneumonia. Productive Cough, chest pressure Started 2 weeks ago. Patient Tobacco Use Status: Never used Tobacco Allergies acetaminophen Allergy (Severe, Verified 03/12/24 09:15) Swelling allopurinol Allergy (Severe, Verified 03/12/24 09:15) Swelling blue dye Allergy (Severe, Verified 03/12/24 09:15) Swelling codeine Allergy (Severe, Verified 03/12/24 09:15) Swelling oxycodone [From Percocet] Allergy (Severe, Verified 03/12/24 09:15) Swelling Do you need a note to return to daycare/school/sports/work: No HPI EP ?Pneumonia HPI Details Patient says she has been sick for 2 weeks with cough and shortness of breath with wheeze. She has seen her primary care physician and was given Augmentin and steroids. 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 She has DuoNebs and albuterol which she has been taking as well. Still feels sick. [facility] Medical History (Updated 03/12/24 @ 09:40 by Rangel Pagan MD) GERD (gastroesophageal reflux disease) Generalized anxiety disorder with panic attacks Dyslipidemia Overactive bladder AML (acute myeloid leukemia) in remission Surgical History (Updated 12/24/23 @ 13:18 by Kalpana Veronica PA-C) Stem cells transplant status Social History Housing: House Patient Tobacco Use Status: Never used Tobacco e-Cigarette/Vaping Use: Never Used Second Hand Smoke Exposure: Yes service: No Current occupational status: retired Cognitive needs: No Hearing needs: No Vision needs: Yes (glasses) Review of Systems Const Details: See HPI Physical Exam Vital Signs: Last Vital Signs Temp 98.0 F 03/12/24 09:07 Pulse 85 03/12/24 09:07 BP 118/82 03/12/24 09:07 Pulse Ox 96 03/12/24 09:07 Oxygen Delivery Method Room Air 03/12/24 09:07 BMI result Body Mass Index 31.1 Const General: no acute distress and well developed Nutritional Appearance: well nourished Orientation/consciousness: patient oriented x3 HEENT Head: Yes normocephalic and Yes atraumatic Eyes General: appearance normal, both eyes and all related structures Pupils: Equal, round and reactive pupils present EOM: EOMs intact bilaterally Resp Other: Significant coughing with deep inspiration. Wheezing and crackles throughout all lung núñez. Bases mildly diminished Effort & Inspection: normal respiratory effort Cardio Rate: regular rate Rhythm: regular rhythm Heart sounds: S1 normal heart sound present, S2 normal heart sound present, no gallops, no murmurs and no rubs Neuro General: patient oriented x3 and gait normal Cranial nerves: Yes Equal, round and reactive pupils present Psych Affect: normal affect Assessment & Plan Assessment & Plan (1) Pneumonia: Code(s): J18.9 - Pneumonia, unspecified organism Plan: Concern for ongoing pneumonia and question asthma/COPD exacerbation despite antibiotic and steroid therapy. Checking chest x-ray Adding Z-Ron Continue Augmentin Extending her steroid therapy Also, use albuterol rescue inhaler every 4 hours while sick Orders: Orders XR chest 2V Today J18.9 - Pneumonia, unspecified organism Medications: New prednisone 4 tabs daily for 4 days, 3 tabs daily for 2 days, 2 tabs daily for 2 days, 1 tab daily for 2 days PO daily; 10 days 28 tabs 0RF azithromycin (Zithromax Z-Ron) take 500 mg today (day 1), then 250 mg for 4 days (days 2-5) PO 5 days 6 tabs 0RF Coding Level of Care Code Est Pt Level 3 (90748) Diagnoses Pneumonia J18.9
[2024-03-12 09:07] VITALS: BP 118/82; PULSE 85; TEMP 36.7; O2SAT 96; BMI 31.1
== END 2024-03-12 10:49 | disposition home or self-care (01) ==
PROVIDERS: PCP Physician Assistant; Visit Provider Family Medicine
DX: J18.9 Pneumonia, unspecified organism (principal)
CPT/HCPCS: 99213

== ENCOUNTER 2024-03-12 09:48 | Outpatient (REF) | payer MEDICARE, SELFPAY ==
--- NOTE | ~2024-03-12 | XR_ITS ---
EXAMINATION: XR chest 2V CLINICAL INFORMATION: Reason for Exam J18.9 - Pneumonia, unspecified organism COMPARISON: No prior chest x-ray available in our system for comparison at the time of this dictation. TECHNIQUE: XR chest 2V, 2 Views Lungs and Flora: Small 5 mm nodular opacity projecting over the right upper lobe. Mild patchy opacity right and left infrahilar region could be mild patchy infiltrates. Pleura: Normal. Costophrenic angles are sharp. No pneumothorax. Heart: The heart is normal in size. Mediastinum: The mediastinum is within normal limits.. Bones: Partially included lower cervical spine fusion device. Spondylosis of dorsal spine. XR/XR chest 2V IMPRESSION: 1. Mild patchy opacity projecting over the right and left infrahilar region could be mild patchy infiltrates. 2. Small 5 mm nodular opacity projecting over the right upper lobe. 3. No pleural effusion. Recommendation: Clinical correlation and follow-up chest PA and lateral in one month recommended. If these opacities persist, may require correlation with follow-up CT scan.
== END 2024-03-12 09:49 | disposition home or self-care (01) ==
LOC: HO.HMGCX 09:48
PROVIDERS: PCP Physician Assistant; Visit Provider Family Medicine
DX: J18.9 Pneumonia, unspecified organism (principal)
CPT/HCPCS: 71046

== ENCOUNTER 2024-03-23 10:55 | Outpatient (AMB) | payer MEDICARE, SELFPAY ==
--- NOTE | 2024-03-23 11:07 | A.OFFPC_ITS ---
Vital Signs 03/23/24 11:14 Height 5 ft 2.5 in BMI Reason not done Patient refused/unable BP 116/64 Blood Pressure Location Rt brachial Position Sitting Respiration 14 Pulse 81 Pulse Source Pulse Oximeter Pulse Oximetry (%) 96 Oxygen Delivery Method Room Air Intake Visit Reasons: One week follow up Intake Note: follow up pneumonia Allergies acetaminophen Allergy (Severe, Verified 03/23/24 11:11) Swelling allopurinol Allergy (Severe, Verified 03/23/24 11:11) Swelling azithromycin [From Zithromax Z-Ron] Allergy (Severe, Verified 03/23/24 11:13) Gastrointestinal Upset blue dye Allergy (Severe, Verified 03/23/24 11:11) Swelling codeine Allergy (Severe, Verified 03/23/24 11:11) Swelling oxycodone [From Percocet] Allergy (Severe, Verified 03/23/24 11:11) Swelling Medication List - Last Reconciled 03/23/24 by Kalpana Veronica PA-C atorvastatin 80 mg PO DAILY clonidine HCl 0.1 mg PO DAILY diclofenac sodium 1% (Arthritis Pain (diclofenac)) 4 grams topical QID PRN erythromycin ophthalmic (eye) escitalopram oxalate 20 mg PO DAILY gabapentin 300 mg PO BEDTIME ibuprofen (Motrin IB) 200 mg PO Q6H PRN lorazepam 1 mg PO BID 30 days montelukast 10 mg PO DAILY nystatin 1 appl topical BID-TID omeprazole 80 mg PO ONCE prednisone 4 tabs daily for 4 days, 3 tabs daily for 2 days, 2 tabs daily for 2 days, 1 tab daily for 2 days PO daily; 10 days prednisone take 3 tab po x 3 days, take 2 tab po x 3 days, take 1 tab po x 3 days; semaglutide (weight loss) (Wegovy) 0.25 mg (0.5 mL) subcut QWEEK Tobacco use date assessed: 12/31/23 Dental Screening Dental Screen Date: 12/31/23 HPI One week follow up HPI Details Patient is a 63-year-old female who presents today for a follow up. She was recently seen by my colleague and diagnosed with pneumonia. She was started on azithromycin but did not tolerate this. She was then switch to cephalexin. She has many allergies/drug sensitivities. She says that she tolerated the cephalexin without difficulty. She does feel like she is getting a lot better but still is wheezing. She denies having any fevers, chills, sinus pain or pressure. She states that she is still wheezing a lot and needing to use her albuterol about 4 times a day. She is also using her nebulizer for temporary improvement. She states that the wheezing picked up and she stopped the prednisone. She states that she broke out in a cold sore on her right lower lip and wants to try acyclovir cream because Tyrell is not working and she would like this cream to use if she has another cold sore. This started about 3 weeks ago.. [facility] Medical History (Updated 03/23/24 @ 11:31 by Kalpana Veronica PA-C) GERD (gastroesophageal reflux disease) Generalized anxiety disorder with panic attacks Dyslipidemia Overactive bladder AML (acute myeloid leukemia) in remission Surgical History (Updated 12/24/23 @ 13:18 by Kalpana Veronica PA-C) Stem cells transplant status Social History Housing: House Patient Tobacco Use Status: Never used Tobacco e-Cigarette/Vaping Use: Never Used Second Hand Smoke Exposure: Yes service: No Current occupational status: retired Cognitive needs: No Hearing needs: No Vision needs: Yes (glasses) Questionnaire Thrive Questionnaire Date Thrive assessed: 12/31/23 AUDIT C Alcohol Use Questionnaire (AUDIT-C) 1. How often do you have a drink containing alcohol?: Monthly or less 2. How many drinks containing alcohol do you have on a typical day when you are drinking?: 1 or 2 3. How often do you have six or more drinks on one occasion?: Never Total Score: 1 Physical exam (Primary Care) Vital Signs: Last Vital Signs Pulse 81 03/23/24 11:14 Resp 14 03/23/24 11:14 BP 116/64 03/23/24 11:14 Pulse Ox 96 03/23/24 11:14 Oxygen Delivery Method Room Air 03/23/24 11:14 Tobacco/Smoking Status: Tobacco use Status Tobacco use date assessed 12/31/23 03/23/24 11:17 Patient Tobacco Use Status Never used Tobacco 03/23/24 11:17 e-Cigarette/Vaping Use Never Used 03/23/24 11:17 Thrive Assessment: Date of Thrive Assessment Date Thrive assessed 12/31/23 03/23/24 11:17 Const Orientation/consciousness: patient oriented x3 HENMT Ears: hearing grossly normal bilaterally General nose exam: Normal nasal mucous membranes and turbinates present Face and sinus: Yes sinuses nontender Throat: Yes posterior oropharynx normal Neck Thyroid: Thyroid normal Lymphatic: no lymphadenopathy noted Resp Effort & Inspection: normal respiratory effort and able to speak in complete sentences Auscultation: wheezes throughout Cardio Rate: regular rate Rhythm: regular rhythm Heart sounds: S1 normal heart sound present and S2 normal heart sound present GI Inspection: Yes normal to inspection Palpation (GI): Soft to palpation and Other GI palpation findings present (nontender, no cva tenderness) Auscultation: normoactive bowel sounds Rectal Exam - Female: deferred Skin General skin exam: no rashes or lesions noted Neuro General: patient oriented x3, gait normal and no focal motor deficits Assessment and Plan Assessment & Plan (1) Pneumonia: Code(s): J18.9 - Pneumonia, unspecified organism Qualifiers: Pneumonia type: due to unspecified organism Laterality: bilateral Lung location: lower lobe of lung Qualified Code(s): J18.9 - Pneumonia, unspecified organism Plan: reports sx improvement (2) Wheezing: Code(s): R06.2 - Wheezing Plan: Prednisone taper ordered. We will start Pulmicort. Advised to repeat chest x- ray in a couple weeks. Follow up in 2-3 weeks. Sooner if needed. Patient understands and agrees with the plan. Medications: New acyclovir 5% 1 appl topical 6XD 7 days 15 grams 0RF budesonide 90 mcg/actuation 1 inh inhalation Q12H 30 days 1 ea 1RF Refilled prednisone take 3 tab po x 3 days, take 2 tab po x 3 days, take 1 tab po x 3 days; 18 tabs 0RF Discontinued prednisone Discontinued Reason: Doctor's Order 4 tabs daily for 4 days, 3 tabs daily for 2 days, 2 tabs daily for 2 days, 1 tab daily for 2 days PO daily; 10 days 28 tabs 0RF semaglutide (weight loss) (Jean) administer weeks 1 through 4 of therapy Discontinued Reason: Doctor's Order 0.25 mg (0.5 mL) subcut QWEEK 3 mL 3RF Coding Level of Care Code Est Pt Level 4 (61538) Complex EM visit Add On G2211 Diagnoses Pneumonia of both lower lobes due to infectious organism J18.9 Pneumonia type: due to unspecified organism Laterality: bilateral Lung location: lower lobe of lung Wheezing R06.2
[2024-03-23 11:14] VITALS: BP 116/64; PULSE 81; RESP 14; O2SAT 96
== END 2024-03-23 11:49 | disposition home or self-care (01) ==
PROVIDERS: PCP Physician Assistant; Visit Provider Physician Assistant
DX: J18.9 Pneumonia, unspecified organism (principal); R06.2 Wheezing
CPT/HCPCS: 99214; G2211

== ENCOUNTER 2024-04-07 13:50 | Outpatient (AMB) | payer MEDICARE, SELFPAY ==
--- NOTE | 2024-04-07 13:59 | MHC.PC.OV ---
Vital Signs 04/07/24 14:06 Height 5 ft 2.5 in Weight 180 lb BMI 32.4 BP 110/70 Blood Pressure Location Lt brachial Position Sitting Respiration 14 Pulse 92 Pulse Source Pulse Oximeter Pulse Oximetry (%) 96 Oxygen Delivery Method Room Air Intake Visit Reasons: med check, Intake Note: Follow up medication Allergies acetaminophen Allergy (Severe, Verified 03/23/24 11:11) Swelling allopurinol Allergy (Severe, Verified 03/23/24 11:11) Swelling azithromycin [From Zithromax Z-Ron] Allergy (Severe, Verified 03/23/24 11:13) Gastrointestinal Upset blue dye Allergy (Severe, Verified 03/23/24 11:11) Swelling codeine Allergy (Severe, Verified 03/23/24 11:11) Swelling oxycodone [From Percocet] Allergy (Severe, Verified 03/23/24 11:11) Swelling Medication List - Last Reconciled 04/07/24 by Kalpana Veronica PA-C atorvastatin 80 mg PO DAILY budesonide 90 mcg/actuation 1 inh inhalation Q12H 30 days clonidine HCl 0.1 mg PO DAILY diclofenac sodium 1% (Arthritis Pain (diclofenac)) 4 grams topical QID PRN escitalopram oxalate 20 mg PO DAILY gabapentin 300 mg PO BEDTIME ibuprofen (Motrin IB) 200 mg PO Q6H PRN lorazepam 1 mg PO BID 30 days montelukast 10 mg PO DAILY nystatin 1 appl topical BID-TID omeprazole 80 mg PO ONCE Tobacco use date assessed: 12/31/23 Dental Screening Dental Screen Date: 12/31/23 HPI med check, HPI Details Patient is a 63-year-old female with a significant past medical history of anxiety, chronic back pain, ckd, hyperlipidemia, overactive bladder and a history of AML in remission presenting today for a follow up. Psych: Anxiety is managed with lorazepam 1 mg twice a day, clonidine 0.1 mg daily and Lexapro 20 mg. She states that this is well managed. CV: Blood pressure today in the office is 110/70. She is not on any antihypertensives. Cholesterol is controlled with atorvastatin 80 mg. Pulm: follows with Dr. Landa. General: She has tried nutrisystem, weight watchers, teresa eladio. She tries keto, protein bars, otc fat burner pills, diet and exercise. She has tried with rotary shear worker helper many times. She states she went home with plate to monitor her portions. The most she has lost has been 34 lbs but gained it back. Wants to go on wegovy. Heme: follows with Dr. Owens. She is going for ivig. Nephro: follows annually with Dr. Lucas. Mammogram: UTD 2023, neg Pap: due and scheduled Bone density- due- osteopenia [facility] Medical History (Updated 03/23/24 @ 11:31 by Kalpana Veronica PA-C) GERD (gastroesophageal reflux disease) Generalized anxiety disorder with panic attacks Dyslipidemia Overactive bladder AML (acute myeloid leukemia) in remission Surgical History (Updated 12/24/23 @ 13:18 by Kalpana Veronica PA-C) Stem cells transplant status Social History Housing: House Patient Tobacco Use Status: Never used Tobacco e-Cigarette/Vaping Use: Never Used Second Hand Smoke Exposure: Yes service: No Current occupational status: retired Cognitive needs: No Hearing needs: No Vision needs: Yes (glasses) Questionnaire PHQ-9 Over the last 2 weeks, how often have you been bothered by any of the following problems? 1. Little interest or pleasure in doing things: not at all 2. Feeling down, depressed, or hopeless: not at all 3. Trouble falling or staying asleep, or sleeping too much: not at all 4. Feeling tired or having little energy: not at all 5. Poor appetite or overeating: not at all 6. Feeling bad about yourself - or that you are a failure or have let yourself or your family down: not at all 7. Trouble concentrating on things, such as reading the newspaper or watching television: not at all 8. Moving or speaking so slowly that other people could have noticed. Or the opposite - being so fidgety or restless that you have been moving around a lot more than usual: not at all 9. Thoughts that you would be better off or of hurting yourself in some way: not at all Total score: 0 Source: Developed by Drs. Coy Tam, Monica Calvin, Eliazar Monroy and colleagues, with an educational ignacio from [employer]. Thrive Questionnaire Date Thrive assessed: 12/31/23 I am a: Patient What is your living situation today?: I have a steady place to live Within the past 12 months, did the food you bought not last and you didn't have the money to get more?: Never true Within the past 12 months, did you worry whether your food would run out before you got money to buy more?: Never true Do you have trouble paying for medicines?: No Do you have trouble getting transportation to medical appointments?: No Do you have trouble paying your heating and electricity bill?: No Do you have trouble taking care of your child, family member or friend?: No Do you have trouble with day-to-day activities such as bathing, preparing meals, shopping, managing finances, etc.?: No Are you currently unemployed and looking for a job?: No Are you interested in more education?: No Please select the resources that you would like help with: None Currently or been in a relationship where the following occur: No concerns reported THRIVE Score: 0 AUDIT C Alcohol Use Questionnaire (AUDIT-C) 1. How often do you have a drink containing alcohol?: 2-4 times a month 2. How many drinks containing alcohol do you have on a typical day when you are drinking?: 1 or 2 3. How often do you have six or more drinks on one occasion?: Never Total Score: 2 IRAIS-7 AMB Questionnaire IRAIS-7 Feeling nervous, anxious, or on edge: 3 = Nearly every day Not being able to stop or control worryin = Nearly every day Worrying too much about different things: 3 = Nearly every day Trouble relaxin = Nearly every day Being so restless that it is hard to sit still: 3 = Nearly every day Becoming easily annoyed or irritable: 0 = Not at all Feeling afraid as if something awful might happen: 0 = Not at all Total IRAIS-7 score (0-4 normal; 5-9 mild; 10-14 moderate; 15-21 severe): 15 Source: Developed by Drs. Coy Tam, Monica Cavlin, Eliazar Monroy and colleagues, with an educational ignacio from [employer]. Physical exam (Primary Care) Vital Signs: Last Vital Signs Pulse 92 04/07/24 14:06 Resp 14 04/07/24 14:06 BP 110/70 04/07/24 14:06 Pulse Ox 96 04/07/24 14:06 Oxygen Delivery Method Room Air 04/07/24 14:06 BMI result Body Mass Index 32.4 Tobacco/Smoking Status: Tobacco use Status Tobacco use date assessed 12/31/23 04/07/24 14:01 Patient Tobacco Use Status Never used Tobacco 04/07/24 14:01 e-Cigarette/Vaping Use Never Used 04/07/24 14:01 PHQ-9: PHQ-9 Score PHQ-9: Total score 0 04/07/24 14:01 Thrive Assessment: Date of Thrive Assessment Date Thrive assessed 12/31/23 04/07/24 14:01 Currently or been in a relationship where the following occur: No concerns reported Const Orientation/consciousness: patient oriented x3 HENMT Ears: hearing grossly normal bilaterally Neck Thyroid: Thyroid normal Lymphatic: no lymphadenopathy noted Resp Auscultation: clear to auscultation bilaterally Cardio Rate: regular rate Rhythm: regular rhythm Heart sounds: S1 normal heart sound present and S2 normal heart sound present GI Inspection: Yes normal to inspection Palpation (GI): Soft to palpation and Other GI palpation findings present (nontender, no cva tenderness) Auscultation: normoactive bowel sounds Rectal Exam - Female: deferred Skin General skin exam: no rashes or lesions noted Neuro General: patient oriented x3, gait normal and no focal motor deficits Results Reviewed Results Reviewed: Laboratory Tests 01/12/24 11:00 Triglycerides 230 H Cholesterol 229 H LDL Cholesterol, Calc 148 H HDL Cholesterol 35 L Folate 5.4 TSH 1.13 Laboratory Tests 01/12/24 11:00 WBC 9.9 RBC 4.11 L Hgb 12.5 Hct 37.9 Plt Count 248 Assessment and Plan Assessment & Plan (1) Dyslipidemia: Code(s): E78.5 - Hyperlipidemia, unspecified Plan: Started Garlique in addition to her atorvastatin. We will monitor lipids and LFTs. (2) Generalized anxiety disorder with panic attacks: Code(s): F41.1 - Generalized anxiety disorder; F41.0 - Panic disorder [episodic paroxysmal anxiety] Plan: Currently well-controlled with the lorazepam. (3) Obesity (BMI 30.0-34.9): Code(s): E66.9 - Obesity, unspecified Plan: She has been working on reducing carbohydrate and sugar intake. She has been trying exercise. We will add Wegovy per her request. Discussed risks and benefits and adverse effects of this medication including nausea, vomiting and increased risk of pancreatitis. Follow up in 3 months. Sooner if needed. Labs ordered. Bone density ordered. Orders: Orders XR DEXA axial skeleton Today Z78.0 - Asymptomatic menopausal state Comprehensive Met. Panel Today E66.9 - Obesity, unspecified, E78.5 - Hyperlipidemia, unspecified, F41.0 - Panic disorder [episodic paroxysmal anxiety], F41.1 - Generalized anxiety disorder Complete Blood Count Auto Diff Today E66.9 - Obesity, unspecified, E78.5 - Hyperlipidemia, unspecified, F41.0 - Panic disorder [episodic paroxysmal anxiety], F41.1 - Generalized anxiety disorder Lipid Panel Today E66.9 - Obesity, unspecified, E78.5 - Hyperlipidemia, unspecified, F41.0 - Panic disorder [episodic paroxysmal anxiety], F41.1 - Generalized anxiety disorder TSH reflex Free T4 Today E66.9 - Obesity, unspecified, E78.5 - Hyperlipidemia, unspecified, F41.0 - Panic disorder [episodic paroxysmal anxiety], F41.1 - Generalized anxiety disorder Medications: New semaglutide (weight loss) (Jean) administer weeks 1 through 4 of therapy 0.25 mg (0.5 mL) subcut QWEEK 2 mL 1RF Refilled budesonide 90 mcg/actuation 1 inh inhalation Q12H 30 days 1 ea 1RF Coding Level of Care Code Est Pt Level 4 (65848) Complex EM visit Add On G2211 Diagnoses Dyslipidemia E78.5 Generalized anxiety disorder with panic attacks F41.1; F41.0 Obesity (BMI 30.0-34.9) E66.9
[2024-04-07 14:06] VITALS: BP 110/70; PULSE 92; RESP 14; O2SAT 96; BMI 32.4
== END 2024-04-07 14:38 | disposition home or self-care (01) ==
PROVIDERS: PCP Physician Assistant; Visit Provider Physician Assistant
DX: E78.5 Hyperlipidemia, unspecified (principal); E66.9 Obesity, unspecified; Z68.32 Body mass index [BMI] 32.0-32.9, adult; F41.1 Generalized anxiety disorder; F41.0 Panic disorder [episodic paroxysmal anxiety]
CPT/HCPCS: 99214; G2211

== ENCOUNTER 2024-06-07 12:41 | Outpatient (REF) | payer MEDICARE, SELFPAY ==
--- NOTE | ~2024-06-07 | MM_ITS ---
EXAMINATION: BONE DENSITOMETRY CLINICAL INDICATION: Menopause. COMPARISON: This is the patient's baseline examination. TECHNIQUE: Using a [employer] DXA System (software version: 13.1) manufactured by [employer], dual-energy x-ray absorptiometry was performed of the lumbar spine and left hip. The images are of good technical quality. Summary results are attached. FINDINGS: LEFT FEMUR, NECK: BMD 0.809 g/cm2, Z-score -0.5, T-score -1.6, osteopenia. LEFT FEMUR, TOTAL: BMD 0.873 g/cm2, Z-score -0.2, T-score -1.1, osteopenia. AP SPINE L1-L4: BMD 1.170 g/cm2, Z-score 1.1, T-score -0.1, normal. IDENTIFIED RISK FACTORS: Early menopause, glucocorticoids (chronic), osteoporosis, recurrent falls, renal, secondary osteoporosis. HISTORY OF FRACTURE: None listed. MEDICATIONS: Calcium, vitamin D. MM/XR DEXA axial skeleton IMPRESSION: 1. DIAGNOSIS: Osteopenia based on the lowest T-score value of -1.6 in the femoral neck applying World Health Organization criteria. 2. 10-YEAR FRACTURE RISK PREDICTION, FRAX: Major osteoporotic fracture (clinical spine, forearm, hip or shoulder) 14.5%. Hip fracture 2.0%. 3. Treatment Recommendations: NOF guidelines recommend consideration for treatment in postmenopausal women and men age 50 and older presenting with the following: -A hip or vertebral (clinical or morphometric) fracture. -T-score less than or equal to -2.5 at the femoral neck or spine after appropriate evaluation to exclude secondary causes. -Low bone mass at the hip or spine and a 10-year fracture probability by FRAX of greater than or equal to 3% for hip fracture or greater than or equal to 20% for major osteoporotic fracture based on the [place] adapted WHO algorithm. 4. Other Recommendations: All treatment decisions require clinical judgment and consideration of individual patient factors, including patient preferences, comorbidities, previous drug use, risk factors not captured in the FRAX model (e.g. frailty, falls, vitamin D deficiency, increased bone turnover, interval significant decline in bone density) and possible under or overestimation of fracture risk by FRAX. Additional medical evaluation for secondary cause of low bone mineral density may be appropriate. FUTURE SCAN RECOMMENDATION: People with diagnosed cases of osteoporosis or at high risk for fracture should have regular bone mineral density tests. For patients eligible for Medicare, routine testing is allowed once every 2 years. The testing frequency can be increased to one year for patients who have rapidly progressing disease, those who are receiving or discontinuing medical therapy to restore bone mass, or have additional risk factors. Electronically signed by: Chetna Payne MD 06/08/2024 11:57 AM C[facility]IL[facility]
== END 2024-06-07 12:42 | disposition home or self-care (01) ==
LOC: HO.MAMMO 12:41
PROVIDERS: PCP Physician Assistant; Visit Provider Physician Assistant
DX: Z78.0 Asymptomatic menopausal state (principal)
CPT/HCPCS: 77080

== ENCOUNTER 2024-06-20 13:57 | Outpatient (AMB) | payer MEDICARE, SELFPAY ==
--- NOTE | 2024-06-20 14:31 | A.OFFPC_ITS ---
Vital Signs 06/20/24 14:41 BMI Reason not done Patient refused/unable BP 110/70 Blood Pressure Location Lt brachial Position Sitting Pulse 95 Pulse Source Pulse Oximeter Pulse Oximetry (%) 97 Oxygen Delivery Method Room Air Intake Visit Reasons: spine pain (went to [facility]) Intake Note: Hospital follow up. Attempted to go to the ER yesterday but didn't stay due to [facility] being busy. lump right clavicle. Feather Duster Winder Required: No Allergies acetaminophen Allergy (Severe, Verified 06/30/24 09:31) Swelling allopurinol Allergy (Severe, Verified 06/30/24 09:31) Swelling azithromycin [From Zithromax Z-Ron] Allergy (Severe, Verified 06/30/24 09:31) Gastrointestinal Upset blue dye Allergy (Severe, Verified 06/30/24 09:31) Swelling codeine Allergy (Severe, Verified 06/30/24 09:31) Swelling oxycodone [From Percocet] Allergy (Severe, Verified 06/30/24 09:31) Swelling Tobacco use date assessed: 12/31/23 Dental Screening Dental Screen Date: 12/31/23 HPI HPI Comments History of Present Illness Details This is a 63-year-old female with a past medical history of GERD, generalized anxiety disorder with panic attacks, dyslipidemia, overactive bladder, multiple medication allergies and AML in remission presenting for follow up She was hospitalized at [facility] overnight 06/22-06/23-increased flank pain. ?UTI. given flexeril, gabapentin. recently went to the ER for increased pain, left before being seen. She is having severe neck pain, posterior, lateral with radiation in the right upper chest right shoulder and proximal right arm. There were people scattered all over the waiting room and she was told the wait would be long. MRI cervical spine ordered. Referrals already placed by PCP as requested by patient Psych: Anxiety is managed with lorazepam 1 mg twice a day, clonidine 0.1 mg daily and Lexapro 20 mg. She states that this is well managed. Pulm: follows with Dr. Landa. General: She has tried nutrisystem, weight watchers, teresalyudmila whatleyig. She tries keto, protein bars, otc fat burner pills, diet and exercise. She has tried with trip motor operator many times. She states she went home with plate to monitor her portions. The most she has lost has been 34 lbs but gained it back. Wants to go on wegovy. Heme: follows with Dr. Owens. She is going for ivig. Nephro: follows annually with Dr. Lucas. Mammogram: UTD 2023, neg Pap: due and scheduled Bone density- due- osteopenia ROS see HPI PHYSICAL EXAM: GENERAL: Alert and oriented x 3. NAD EYES: EOMI. Anicteric. HENT: Moist mucous membranes. No scleral icterus. No cervical lymphadenopathy. LUNGS: Clear to auscultation bilaterally. CARDIOVASCULAR: Regular rate and rhythm. No murmur. No JVD. ABDOMEN: Soft, non-tender +bs EXTREMITIES: No edema. Non-tender. SKIN: No rashes or lesions. Warm. NEUROLOGIC: No focal neurological deficits. CN II-XII grossly intact PSYCHIATRIC: Cooperative. Appropriate mood and affect [facility] Medical History (Updated 07/04/24 @ 02:04 by Maisha Jensen MD) GERD (gastroesophageal reflux disease) Generalized anxiety disorder with panic attacks Dyslipidemia Overactive bladder AML (acute myeloid leukemia) in remission Surgical History (Updated 12/24/23 @ 13:18 by Kalpana Veronica PA-C) Stem cells transplant status Social History Housing: House Patient Tobacco Use Status: Never used Tobacco e-Cigarette/Vaping Use: Never Used Second Hand Smoke Exposure: Yes service: No Current occupational status: retired Cognitive needs: No Hearing needs: No Vision needs: Yes (glasses) Questionnaire Thrive Questionnaire Date Thrive assessed: 04/07/24 I am a: Patient What is your living situation today?: I have a steady place to live Within the past 12 months, did the food you bought not last and you didn't have the money to get more?: Never true Within the past 12 months, did you worry whether your food would run out before you got money to buy more?: Never true Do you have trouble paying for medicines?: No Do you have trouble getting transportation to medical appointments?: No Do you have trouble paying your heating and electricity bill?: No Do you have trouble taking care of your child, family member or friend?: No Do you have trouble with day-to-day activities such as bathing, preparing meals, shopping, managing finances, etc.?: No Are you currently unemployed and looking for a job?: No Are you interested in more education?: No Please select the resources that you would like help with: None Currently or been in a relationship where the following occur: No concerns reported THRIVE Score: 0 Physical exam (Primary Care) Vital Signs: Last Vital Signs Pulse 95 06/20/24 14:41 BP 110/70 06/20/24 14:41 Pulse Ox 97 06/20/24 14:41 Oxygen Delivery Method Room Air 06/20/24 14:41 Tobacco/Smoking Status: Tobacco use Status Tobacco use date assessed 12/31/23 06/20/24 14:33 Patient Tobacco Use Status Never used Tobacco 06/20/24 14:33 e-Cigarette/Vaping Use Never Used 06/20/24 14:33 Thrive Assessment: Date of Thrive Assessment Date Thrive assessed 04/07/24 06/20/24 14:33 Currently or been in a relationship where the following occur: No concerns repor rubi Coding Level of Care Code Est Pt Level 4 (85786) Complex EM visit Add On G2211 Diagnoses Neck pain M54.2 Cervical radiculopathy M54.12 Assessment & Plan Assessment & Plan (1) Neck pain: Code(s): M54.2 - Cervicalgia Category: Medical Plan: Short term tramadol. Has many listed medication allergies. Advised not to combine with lorazepam. Try to space from gabapentin (2) Cervical radiculopathy: Code(s): M54.12 - Radiculopathy, cervical region Category: Medical Plan: MRI cervical spine. There is some fullness below the clavicle. history of osteopenia. Orders: Orders MR cervical spine w con 06/20/24 Z98.890 - Other specified postprocedural states, M54.2 - Cervicalgia Urine Culture 06/20/24 R10.9 - Unspecified abdominal pain Medications: New tramadol 50 mg PO Q6H PRN 28 tabs 0RF pain 7 days NS
[2024-06-20 14:41] VITALS: BP 110/70; PULSE 95; O2SAT 97
== END 2024-06-20 16:30 | disposition home or self-care (01) ==
PROVIDERS: PCP Physician Assistant; Visit Provider Internal Medicine
DX: M54.2 Cervicalgia (principal); M54.12 Radiculopathy, cervical region

== ENCOUNTER → 2024-06-20 13:57 | Outpatient (BNVA) | payer MEDICARE, SELFPAY | PROVIDERS: PCP Physician Assistant; Visit Provider Internal Medicine | DX: M54.2 Cervicalgia (principal); M54.12 Radiculopathy, cervical region | CPT/HCPCS: 99212 ==

== ENCOUNTER 2024-06-30 10:41 | Outpatient (AMB) | payer MEDICARE, SELFPAY ==
--- NOTE | 2024-06-30 09:30 | A.OFFPC_ITS ---
Intake Visit Reasons: brendan Intake Note: Discuss medication and ER visits. Swelling in legs in feet, not able to eat and drink as much. Does not want to go back into the ER. 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 She states that she is having bilateral flank pain and low back pain. She has been back and forth to the hospital 5 times in the last month and states that she is very uncomfortable. She states her back is swollen and her legs are swollen. She has gone to [place] a few times and did stay over. She went to [facility] on 06/25 by ambulance with flank pain and swelling. She states that they found nothing but could not get labs and states the did not do any imaging. She left after an hour and a half because she was dissatisfied with the ER. She states that she has since d/c'd all pain meds because she is worried about her kidneys. She is seeing her public stenographer, Dr. Lucas, on 07/05. -Her kidney function from the ER on 05/27-06/14 was normal. She had a neg abdominal CT at [place] on 06/13. She had an appointment booked with physiatry on Thursday but could not make it. States she does not want to see them and prefers her physician from [facility]. She does not need a referral. She saw urology on Thursday and states she had a bladder scan that was normal. Her urination is a bit decreased and she feels secondary to dehydration. She has been experiencing the lower leg swelling. She states it started this weekend after eating [place] food and feels that it is causing the swelling as it has improved but remains on the tops of her feet. No leg pain or erythema. Has a management trainee marketing, Dr. Slaughter, and is due to be seen (seen last year at [facility]). Does not recall when her next appointment is. No cp, sob, or palpitations. She generally has been feeling weak and has not been eating or drinking much because she has been bed ridden with this back pain. She can get up to do some things but states that this is just not like her. She does have MRIs ordered but not scheduled. She did have x-rays at [place] and CT of the abdomen and pelvi s. [facility] Medical History (Updated 06/30/24 @ 10:32 by Kalpana Veronica PA-C) GERD (gastroesophageal reflux disease) Generalized anxiety disorder with panic attacks Dyslipidemia Overactive bladder AML (acute myeloid leukemia) in remission Surgical History (Updated 12/24/23 @ 13:18 by Kalpana Veronica PA-C) Stem cells transplant status Social History Housing: House Patient Tobacco Use Status: Never used Tobacco e-Cigarette/Vaping Use: Never Used Second Hand Smoke Exposure: Yes service: No Current occupational status: retired Cognitive needs: No Hearing needs: No Vision needs: Yes (glasses) Questionnaire Thrive Questionnaire Date Thrive assessed: 04/07/24 Physical exam (Primary Care) Tobacco/Smoking Status: Tobacco use Status Tobacco use date assessed 12/31/23 06/30/24 09:31 Patient Tobacco Use Status Never used Tobacco 06/30/24 09:31 e-Cigarette/Vaping Use Never Used 06/30/24 09:31 Thrive Assessment: Date of Thrive Assessment Date Thrive assessed 04/07/24 06/30/24 09:31 Telehealth Telehealth Telehealth Platform: Telephone Location of provider rendering services: practice address Location of patient: address on file Patient Identification confirmed using: Name, : Yes Telehealth method: voice only Patient verbally consented to treatment: Yes Patient verbally consented to billing insurance company: Yes Patient informed of any privacy concerns related to visit: Yes Minutes spent on Phone/Video with Pt.: 18 Results Reviewed Results Reviewed: As above Coding Level of Care Code Tele Est Pt Level 3 (63029) Complex EM visit Add On G2211 Diagnoses Bilateral low back pain M54.50 Swelling of lower leg M79.89 CKD stage 3a, GFR 45-59 ml/min N18.31 Generalized weakness R53.1 Assessment & Plan Assessment & Plan (1) Bilateral low back pain: Code(s): M54.50 - Low back pain, unspecified Category: Medical Plan: Not significantly changed. Discussed that she could try the gabapentin again but she is going to hold off on this until she sees [facility] and nephrology. (2) Swelling of lower leg: Code(s): M79.89 - Other specified soft tissue disorders Category: Medical Plan: Labs ordered today. Advised that she should come into the office to be evaluated. Also advised to contact Cardiology. She would like to trial Lasix. (3) CKD stage 3a, GFR 45-59 ml/min: Code(s): N18.31 - Chronic kidney disease, stage 3a Category: Medical Plan: Appear stable but we will recheck. (4) Generalized weakness: Code(s): R53.1 - Weakness Category: Medical Plan: Advised to come in for labs. Overall stable. Has follow up with Cardiology, Nephrology, Urology and [facility], has had multiple ER visits. Return in 1 week for evaluation. Orders: Orders B Type Natriuretic Peptide Today M54.50 - Low back pain, unspecified, M79.89 - Other specified soft tissue disorders, N18.31 - Chronic kidney disease, stage 3a, R53.1 - Weakness Comprehensive Met. Panel Today M54.50 - Low back pain, unspecified, M79.89 - Other specified soft tissue disorders, N18.31 - Chronic kidney disease, stage 3a, R53.1 - Weakness TSH reflex Free T4 Today M54.50 - Low back pain, unspecified, M79.89 - Other specified soft tissue disorders, N18.31 - Chronic kidney disease, stage 3a, R5 3.1 - Weakness Complete Blood Count Auto Diff Today M54.50 - Low back pain, unspecified, M79.89 - Other specified soft tissue disorders, N18.31 - Chronic kidney disease, stage 3a, R53.1 - Weakness Medications: New furosemide (Lasix) 20 mg PO DAILY PRN 7 tabs 0RF edema
== END 2024-06-30 10:42 | disposition home or self-care (01) ==
LOC: HO.HMCFM 10:41
PROVIDERS: PCP Physician Assistant; Visit Provider Physician Assistant
DX: M54.50 Low back pain, unspecified (principal); M79.89 Other specified soft tissue disorders; N18.31 Chronic kidney disease, stage 3a; R53.1 Weakness

== ENCOUNTER 2024-07-06 11:46 | Outpatient (REF) | payer MEDICARE, SELFPAY ==
[2024-07-06 14:11] LABS: MANUAL DIFF FLAG NO
[2024-07-06 14:14] LABS: Basophils Absolute Auto 0.1 X10*3/uL (0.0-0.2); Basophils Percent Auto 0.9 % (0-2); Eosinophils Absolute Auto 0.3 X10*3/uL (0.0-0.4); Eosinophils Percent Auto 3.8 % (0-4); Hematocrit 39.6 % (37.0-47.0); Hemoglobin 13.3 g/dl (12.0-16.0); Imm Gran Abs Auto 0.03 X10*3/uL (0.00-0.03); Imm Gran Pct Auto 0.3 % (0.0-0.4); Lymphocytes Percent Auto 22.3 % (20-40); Mean Corpuscular HGB Conc 33.6 g/dl (31.0-35.0); Mean Corpuscular Hemoglobin 30.2 pg (27.0-33.0); Mean Platelet Volume 9.7 fL (9.4-12.3); Monocytes Absolute Auto 0.8 X10*3/uL (0.1-1.2); Monocytes Percent Auto 8.9 % (2-11); Neutrophils Absolute Auto 5.7 x10*3/uL (2.0-8.3); Neutrophils Percent Auto 63.8 % (45-73); Platelet Count 311 X10*3/uL (160-400); Red Cell Distribution Width 13.6 % (11.0-16.0); White Blood Count 8.9 X10*3/uL (4.8-10.8)
[2024-07-06 14:34] LABS: Alanine Aminotransferase 29 U/L (0-31); Albumin Level 4.2 g/dL (3.5-5.0); Alkaline Phosphatase 122 U/L (39-117); Anion Gap 15 (12-20); Aspartate Amino Transferase 36 U/L (5-31); Bilirubin Total 0.6 mg/dL (0.0-1.0); Blood Urea Nitrogen 14 mg/dL (9-16); Calcium 10.3 mg/dL (8.4-10.2); Carbon Dioxide 26 mmol/L (22-29); Chloride 106 mmol/L (96-108); Cholesterol 178 mg/dL (<200); Estimated Glomerular Filt Rate 36; Glucose Random 89 mg/dL (60-115); HDL Cholesterol 40 mg/dL (>40); LDL Cholesterol Calculated 108 mg/dL (<100); Potassium 3.5 mmol/L (3.3-5.1); Sodium 143 mmol/L (135-145); Total Protein 7.5 g/dL (6.5-8.0); Triglycerides 152 mg/dL (<150)
[2024-07-06 14:48] LABS: B Type Natriuretic Peptide 37 pg/mL (<100)
== END 2024-07-06 11:47 | disposition home or self-care (01) ==
LOC: HO.WFDLDS 11:46
PROVIDERS: Visit Provider Physician Assistant
DX: E66.9 Obesity, unspecified (principal); F41.1 Generalized anxiety disorder; F41.0 Panic disorder [episodic paroxysmal anxiety]; E78.5 Hyperlipidemia, unspecified; R53.1 Weakness; N18.31 Chronic kidney disease, stage 3a; M54.50 Low back pain, unspecified; M79.89 Other specified soft tissue disorders
CPT/HCPCS: 36415; 80053; 80061; 83880; 84443; 85025

== ENCOUNTER → 2024-07-14 18:16 | Outpatient (BNV) | payer MEDICARE, SELFPAY | PROVIDERS: PCP Physician Assistant; Visit Provider Radiology Diagnostic Radiology | DX: M43.12 Spondylolisthesis, cervical region (principal) | CPT/HCPCS: 72141 ==

== ENCOUNTER 2024-07-14 18:24 | Outpatient (REF) | payer MEDICARE, SELFPAY | END 2024-07-14 18:25 | disposition home or self-care (01) | LOC: HO.MRI 18:24 | PROVIDERS: PCP Physician Assistant; Visit Provider Physician Assistant | DX: M54.12 Radiculopathy, cervical region (principal) | CPT/HCPCS: 72141 ==

== ENCOUNTER 2024-09-07 13:48 | Outpatient (AMB) | payer MEDICARE, SELFPAY ==
--- NOTE | 2024-09-07 13:56 | A.OFFPC_ITS ---
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: No Allergies acetaminophen Allergy (Severe, Verified 09/07/24 13:56) Swelling allopurinol Allergy (Severe, Verified 09/07/24 13:56) Swelling azithromycin [From Zithromax Z-Ron] Allergy (Severe, Verified 09/07/24 13:56) Gastrointestinal Upset blue dye Allergy (Severe, Verified 09/07/24 13:56) Swelling codeine Allergy (Severe, Verified 09/07/24 13:56) Swelling oxycodone [From Percocet] Allergy (Severe, Verified 09/07/24 13:56) Swelling Medication List - Last Reconciled 09/07/24 by Kalpana Veronica PA-C atorvastatin 80 mg PO DAILY diclofenac sodium 1% (Arthritis Pain (diclofenac)) 4 grams topical QID PRN furosemide (Lasix) 20 mg PO DAILY PRN ibuprofen (Motrin IB) 200 mg PO Q6H PRN lorazepam 1 mg PO BID 30 days montelukast 10 mg PO DAILY multivitamin with minerals (Hair,Skin and Nails tablet) 1 tab PO DAILY nystatin 1 appl topical BID-TID omeprazole 80 mg PO ONCE prednisone take 3 tab po x 3 days, take 2 tab po x 3 days, 1 tab po x 3 days Tobacco use date assessed: 09/07/24 Dental Screening Dental Screen Date: 12/31/23 HPI Med review HPI Details History of Present Illness The patient is a 63-year-old female presenting with a follow-up for management of multiple chronic conditions including gout, asthma, anxiety, and chronic kidney disease. Musculoskeletal: The patient reports continued flare-ups of gout, experiencing them weekly. She states the only relief she gets is with prednisone. She states that every time it seems like she discontinues the prednisone the gout flares back up. She has taken about 6 rounds of prednisone tapers in the last 4 months. she states that she is very careful with her diet but still continues with gout flares. She can not take NSAIDs, she is allergic to Tylenol, she is a llergic to colchicine. She is also allergic to allopurinol. She states that she gets a gout in her feet. On the right foot it is mostly along the ankle joint and into the dorsum of the foot. On the left it is in the left great toe. The patient is scheduled to see a stereoplotter operator on the of the upcoming month. Pulm: The patient's asthma is exacerbated, characterized by severe wheezing whi ch leads to the frequent use of an Albuterol inhaler and nebulizer. It has been like this on and off for a few months. She is supposed to be on a maintenance inhaler.The patient acknowledges relief from breathing difficulties when on prednisone, however, notes that this is not a long-term management option. She normally follows with pulmonology but has not been seen in about a year. She states that she did call Dr. Jaramillo, a creative services specialist, and is waiting to hear back on an appointment. She is not currently on a maintenance inhaler due to cost. Psych: Anxiety has been noted as a significant concern. She did recently send me a portal message requesting to try Wellbutrin and we did discuss the risk of this possibly causing increased levels of anxiety and she states that that has happened. She discontinued it. She states that she has tried Zoloft, Prozac, Celexa and Lexapro without improvement of symptoms. She is still on lorazepam daily. The patient is open to trying Effexor after recognizing previous experiences with Lexapro and Celexa did not sufficiently manage symptoms. The patient attributes part of the anxiety to managing a partner's alcohol use and desires a referral for personal support. she also has a great deal of anxiety regarding her kidneys. Nephro: For chronic kidney disease, the patient plans to monitor kidney function and potential preparation for a kidney donation by a sibling when necessary. She states that she has already contacted [facility] and is prepared that when her kidney function decreases to stage IV she is going to look for a donor. Discussions with Dr. Lucas, a crane operator cab, expressed stability in kidney function, with potential intervention only when levels reach a specified threshold. they have tried to offer some reassurance that this is not the cause of her back pain. Musculoskeletal: She has neck pain, midback pain and low back pain. It does not seem to radiate into the extremities. She states that she did have a referral to neurosurgery for this cervical cord malacia but has not yet made a consult appointment. She states that if she is going to meet with a neurosurgeon she would like to know what her back MRI shows this well. She has not yet had an x-ray of her spine. She also did not follow with physiatry as recommended. She is not currently on any pain medications. no bowel or bladder dysfunction. Health Maintenance - Recommendations for increased screenin g for gout including uric acid levels. - Asthma management adjustments with a p otential new Qvar inhaler. She will let me know if his too expensive - Anxiety management with Effexor introd uction. - Family counseling services referral. - Follow-up imaging including chest x-ra y, bilateral foot x-rays, and lumbar MRI. - Ongoing kidney function monitoring - Patient education on clam picker dependency issues. Social History - Family dynamics include caring and con cern for a sibling potentially donating a kidney. - Stress related to partner's alcohol us e causing interpersonal conflicts. - Exercise limited due to fluctuating he alth conditions such as gout and asthma. - Weight monitoring with losses noted, s eeking comprehensive management. Review of Systems - Respiratory: Reports severe wheezing; no history of congestive heart failure. - Musculoskeletal: Reports persistent go ut attacks, foot pain, and back pain - Neurological: Denies recent changes in symptomatology but notes historical lumbar pain. - Mental Health: Reports increased anxie ty, seeks new management. Physical Exam General: Well developed, well nourished, appears stated age , no acute distress. Cardiac: RRR, no murmurs Lungs: expiratory wheezing noted. able to speak in full sentences without difficulty. Abdomen: Soft, nontender, no CVA tenderness. Extremities: no edema noted. DP pulses 2+ bilaterally. Sensation intact. Reports discomfort to palpation of the Left great toe. Full range of motion. Sensation intact. Reports discomfort to palpation over the dorsum of the right foot. No palpable deformity. No swelling. Full range of motion. Neuro: Alert, oriented x3, mood appropriate, but reports increased anxiety and agitation. Plan - Prescribe Effexor (Venlafaxine) for an xiety management, starting at a low dose and titrate as needed. - Issue a refill for Prednisone to manag e acute gout flare and asthma exac erbation - Conduct chest x-ray and bilateral foot x-rays to evaluate current respiratory status and musculoskeletal complaints respectively. - Schedule lumbar x-ray and MRI to evalu ate musculoskeletal complaints further. - Refer to Dr. Jaramillo for comprehensive as thma management, exploring long-term steroid inhalers. I have ordered QVAR. She will let me know if it is too expensive. - Arrange for consultation with a neuros urgery specialist regarding Back pain. Phone number provided today. - Monitor uric acid levels, renal functi on, and inflammatory markers. - I have referred her to behavioral he alth.Facilitate referral for social work or counseling services focusing on managing spouse?s substance use disorder. [facility] Medical History (Updated 09/07/24 @ 14:33 by Kalpana Veronica PA-C) GERD (gastroesophageal reflux disease) Generalized anxiety disorder with panic attacks Dyslipidemia Overactive bladder AML (acute myeloid leukemia) in remission Surgical History Stem cells transplant status Social History (Updated 09/07/24 @ 14:06 by Yumiko Mixon CMA) Housing: House Alcohol intake: never Patient Tobacco Use Status: Never used Tobacco e-Cigarette/Vaping Use: Never Used Second Hand Smoke Exposure: Yes service: No Current occupational status: retired Cognitive needs: No Hearing needs: No Vision needs: Yes (glasses) Questionnaire PHQ-9 Over the last 2 weeks, how often have you been bothered by any of the following problems? 1. Little interest or pleasure in doing things: not at all 2. Feeling down, depressed, or hopeless: not at all 3. Trouble falling or staying asleep, or sleeping too much: nearly every day 4. Feeling tired or having little energy: several days 5. Poor appetite or overeating: several days 6. Feeling bad about yourself - or that you are a failure or have let yourself or your family down: not at all 7. Trouble concentrating on things, such as reading the newspaper or watching television: not at all 8. Moving or speaking so slowly that other people could have noticed. Or the opposite - being so fidgety or restless that you have been moving around a lot more than usual: not at all 9. Thoughts that you would be better off or of hurting yourself in some way: not at all Total score: 5 Depression Screening Interpretation: Positive Depression Screening Follow-up: Existing condition, In treatment and New Medication prescribed Depression Screening Done: Yes 37697 - PHQ-9 Billing: Yes Source: Developed by Drs. Coy Tam, Monica Calvin, Eliazar Monroy and colleagues, with an educational ignacio from [employer]. Thrive Questionnaire Date Thrive assessed: 07/31/24 I am a: Patient What is your living situation today?: I have a steady place to live Within the past 12 months, did the food you bought not last and you didn't have the money to get more?: Never true Within the past 12 months, did you worry whether your food would run out before you got money to buy more?: Never true Do you have trouble paying for medicines?: No Do you have trouble getting transportation to medical appointments?: No Do you have trouble paying your heating and electricity bill?: No Do you have trouble taking care of your child, family member or friend?: No Do you have trouble with day-to-day activities such as bathing, preparing meals, shopping, managing finances, etc.?: No Are you currently unemployed and looking for a job?: No Are you interested in more education?: No Please select the resources that you would like help with: None Currently or been in a relationship where the following occur: I choose not to answer THRIVE Score: 0 IRAIS-7 AMB Questionnaire IRAIS-7 Feeling nervous, anxious, or on edge: 1 = Several days Not being able to stop or control worryin = Several days Worrying too much about different things: 1 = Several days Trouble relaxin = Several days Being so restless that it is hard to sit still: 1 = Several days Becoming easily annoyed or irritable: 1 = Several days Feeling afraid as if something awful might happen: 1 = Several days Total IRAIS-7 score (0-4 normal; 5-9 mild; 10-14 moderate; 15-21 severe): 7 Source: Developed by Drs. Coy Tam, Monica Calvin, Eliazar Monroy and colleagues, with an educational ignacio from [employer]. IRAIS-7 Assessment Billing IRAIS-7 Assessment Tool: IRAIS-7 Assessment 91574 Physical exam (Primary Care) Tobacco/Smoking Status: Tobacco use Status Tobacco use date assessed 09/07/24 09/07/24 14:02 Patient Tobacco Use Status Never used Tobacco 09/07/24 14:06 e-Cigarette/Vaping Use Never Used 09/07/24 14:06 PHQ-9: PHQ-9 Score PHQ-9: Total score 5 09/07/24 14:35 Depression Screening Interpretation: Positive Depression Screening Follow-up: Existing condition, In treatment and New Medication prescribed Thrive Assessment: Date of Thrive Assessment Date Thrive assessed 07/31/24 09/07/24 14:02 Currently or been in a relationship where the following occur: I choose not to answer Coding Level of Care Code Est Pt Level 5 (03355) Complex EM visit Add On G2211 Diagnoses Wheezing R06.2 Bilateral foot pain M79.671; M79.672 Bilateral low back pain M54.50 Myelomalacia of cervical cord G95.89 Generalized anxiety disorder with panic attacks F41.1; F41.0 Additional Codes PHQ-9 - 17061 - PHQ-9 Billing: Yes ([id number]) IRAIS-7 Assessment Billing - IRAIS-7 Assessment Tool: IRAIS-7 Assessment 94651 ([id number]) Assessment & Plan Assessment & Plan (1) Wheezing: Code(s): R06.2 - Wheezing Category: Medical Plan: Prescribed QVAR. Advised to follow up with pulmonology. Prednisone taper provided. (2) Bilateral foot pain: Code(s): M79.671 - Pain in right foot; M79.672 - Pain in left foot Category: Medical Plan: X-rays ordered. Uric acid and inflammatory markers ordered. Has upcoming appointment with Rheumatology. (3) Bilateral low back pain: Code(s): M54.50 - Low back pain, unspecified Category: Medical Plan: X-ray ordered. MRI ordered. (4) Myelomalacia of cervical cord: Code(s): G95.89 - Other specified diseases of spinal cord Category: Medical Plan: Phone provided to neurosurgery. (5) Generalized anxiety disorder with panic attacks: Code(s): F41.1 - Generalized anxiety disorder; F41.0 - Panic disorder [episodic paroxysmal anxiety] Category: Medical Plan: We will try Effexor. Discussed risks and benefits and adverse effects of this medication. Plan 65 minutes has been today in [id number] time discussing a list of her concerns and reviewing a plan. Orders: Orders XR chest 2V 09/07/24 M79.671 - Pain in right foot, M79.672 - Pain in left foot, R06.2 - Wheezing XR lumbar spine 2-3V 09/07/24 M54.50 - Low back pain, unspecified Complete Blood Count Auto Diff 09/07/24 F41.0 - Panic disorder [episodic paroxysmal anxiety], F41.1 - Generalized anxiety disorder, G95.89 - Other specified diseases of spinal cord, M54.50 - Low back pain, unspecified, M79.671 - Pain in right foot, M79.672 - Pain in left foot, N18.31 - Chronic kidney disease, stage 3a Comprehensive Met. Panel 09/07/24 F41.0 - Panic disorder [episodic paroxysmal anxiety], F41.1 - Generalized anxiety disorder, G95.89 - Other specified diseases of spinal cord, M54.50 - Low back pain, unspecified, M79.671 - Pain in right foot, M79.672 - Pain in left foot, N18.31 - Chronic kidney disease, stage 3a Rheumatoid Factor 09/07/24 F41.0 - Panic disorder [episodic paroxysmal anxiety], F41.1 - Generalized anxiety disorder, G95.89 - Other specified diseases of spinal cord, M54.50 - Low back pain, unspecified, M79.671 - Pain in right foot, M79.672 - Pain in left foot, N18.31 - Chronic kidney disease, stage 3a C Reactive Protein 09/07/24 F41.0 - Panic disorder [episodic paroxysmal anxiety], F41.1 - Generalized anxiety disorder, G95.89 - Other specified diseases of spinal cord, M54.50 - Low back pain, unspecified, M79.671 - Pain in right foot, M79.672 - Pain in left foot, N18.31 - Chronic kidney disease, stage 3a Uric Acid 09/07/24 F41.0 - Panic disorder [episodic paroxysmal anxiety], F41.1 - Generalized anxiety disorder, G95.89 - Other specified diseases of spinal cord, M54.50 - Low back pain, unspecified, M79.671 - Pain in right foot, M79.672 - Pain in left foot, N18.31 - Chronic kidney disease, stage 3a XR foot LT min 3V 09/07/24 M79.671 - Pain in right foot, M79.672 - Pain in left foot XR foot RT min 3V 09/07/24 M79.671 - Pain in right foot, M79.672 - Pain in left foot MR lumbar spine wo con 09/07/24 G95.89 - Other specified diseases of spinal cord, M54.50 - Low back pain, unspecified TSH reflex Free T4 09/07/24 F41.0 - Panic disorder [episodic paroxysmal anxiety], F41.1 - Generalized anxiety disorder, G95.89 - Other specified diseases of spinal cord, M54.50 - Low back pain, unspecified, M79.671 - Pain in right foot, M79.672 - Pain in left foot, N18.31 - Chronic kidney disease, stage 3a UA CC w/rflx Micro + Cult 09/07/24 F41.0 - Panic disorder [episodic paroxysmal anxiety], F41.1 - Generalized anxiety disorder, G95.89 - Other specified diseases of spinal cord, M54.50 - Low back pain, unspecified, M79.671 - Pain in right foot, M79.672 - Pain in left foot, N18.31 - Chronic kidney disease, stage 3a, Z13.220 - Encounter for screening for lipoid disorders Erythrocyte Sedimentation Rate 09/07/24 F41.0 - Panic disorder [episodic paroxysmal anxiety], F41.1 - Generalized anxiety disorder, G95.89 - Other specified diseases of spinal cord, M54.50 - Low back pain, unspecified, M79.671 - Pain in right foot, M79.672 - Pain in left foot, N18.31 - Chronic kidney disease, stage 3a Referrals Behavioral Health Referral F41.0 - Panic disorder [episodic paroxysmal anxiety], F41.1 - Generalized anxiety disorder Medications: New albuterol sulfate 90 mcg/actuation 2 puffs inhalation Q6H PRN 8.5 grams 3RF shortness of breath or wheezing beclomethasone dipropionate 40 mcg/actuation (Qvar RediHaler) administer with spacer 1 inh inhalation BID 10.6 grams 2RF venlafaxine ER (Effexor XR) 37.5 mg PO BEDTIME 90 caps 1RF Refilled prednisone take 3 tab po x 3 days, take 2 tab po x 3 days, 1 tab po x 3 days 18 tabs 0RF
--- OUTSIDE RECORDS SUMMARY | 2024-09-07 15:11 | XMS_ITS | Clinical Summary ---
Author Organization [facility] Address [address] [place] [address] Phone Care Team Providers Care Documentation Specialist Name Role Phone Kalpana Veronica Primary Care Provider [phone] Allergies Active Allergy Reactions Criticality Noted Date Comments Allopurinol 06/26/2024 Blue Dye 06/26/2024 Ciprofloxacin 06/26/2024 Codeine 06/26/2024 Hydromorphone 06/26/2024 Lisinopril 06/26/2024 Methocarbamol 06/26/2024 Oxycodone-Acetaminophen 06/26/2024 Acetaminophen 06/26/2024 Acetaminophen-Codeine 06/26/2024 Hydrocodone-Acetaminophen 06/26/2024 Alprazolam 06/26/2024 Medications No known medications Encounters Date Type Department Care Team Description 06/29/[address] [facility] - Main Lab [address] [facility] [place] [address] Marielena Vera MD Acute kidney failure, unspecified (CMS/HCC); Personal history of urinary (tract) infections 06/26/2024 12:46 AM EST - 06/26/2024 3:[address] [facility] Emergency [address] [place] [address] Bilateral leg edema (Primary Dx) Discharge Disposition: Left Against Medical Advice from Last 3 Months Surgical History Surgery Date Site/Laterality Comments JOINT REPLACEMENT Medical History Medical History Date Comments AML (acute myeloid leukemia) (CMS/HCC) Asthma Cystitis Thomas's esophagus Cataract CKD (chronic kidney disease), stage III (CMS/HCC ) CVA (cerebral vascular accident) (CMS/HCC) DJD (degenerative joint disease) Dyslipidemia Anxiety GERD (gastroesophageal reflux disease) Gout IBS (irritable bowel syndrome) Insomnia Hemorrhoids Osteopenia UTI (urinary tract infection) Thyroid nodule Vitamin D deficiency Syncope and collapse Social History Tobacco Use Types Packs/Day Years Used Date Smoking Tobacco: Never Smokeless Tobacco: Never Tobacco Cessation:Counseling Given: Not Answered Comments Unknown Sex and Gender Information Value Date Recorded Sex Assigned at Not on file Legal Sex Female 12:44 AM EST Gender Identity Not on file Sexual Orientation Not on file Obstetrics History Last Filed Vital Signs Vital Sign Reading Time Taken Comments Blood Pressure 152/88 06/26/2024 1:20 AM EST Pulse 84 06/26/2024 1:20 AM EST Temperature 37 ??C (98.6 ??F) 06/26/2024 1:20 AM EST Respiratory Rate 20 06/26/2024 1:20 AM EST Oxygen Saturation 100% 06/26/2024 1:20 AM EST Inhaled Oxygen Concentration - - Weight 84.2 kg (185 lb 10 oz) 06/26/2024 1:20 AM EST Height 160 cm (5' 2.99 ) 06/26/2024 1:20 AM EST Body Mass Index 32.89 06/26/2024 1:20 AM EST Plan of Treatment Health Maintenance Due Date Last Done Comments Breast Cancer Screening 1960 Zoster Vaccines (1 of 2) 1977 Cervical Cancer Screening: Pap Smear 10/15/1979 Pneumococcal Vaccine: 50+ Years (3 of 3 - PCV) 06/29/2016 06/29/2015, 04/07/2013 Pneumococcal Vaccine: Pediatrics (0 to 5 Years) and At-Risk Patients (6 to 64 Years) (3 of 3 - PCV) 06/29/2016 06/29/2015, 04/07/2013 RSV Immunization Patients 60+ Years Old (1 - Risk 60-74 years 1-dose series) 2018 DTaP,Tdap,and Td Vaccines (3 - Td or Tdap) 05/27/2021 05/27/2011, 03/07/2011 COVID-19 Vaccine ( - season) 2024 10/02/2021, 10/18/2020, 09/20/2020 Influenza Vaccine (#1) 2024 2, 06/05/2019, 03/29/2015, Additional history exists Cholesterol Screening (Lipid Panel) 06/26/2024 Colorectal Cancer Screening: Colonoscopy 06/26/2024 Depression Screening 06/26/2024 Falls Risk Assessment 06/26/2024 Hepatitis C Screening 06/26/2024 Hypertension/CHF/CAD Annual BMP Blood Test 06/26/2024 Medicare Annual Wellness Visit 06/26/2024 Osteoporosis Screening (Bone Density Screening) 06/26/2024 Social Influencers of Health Screening 06/26/2024 MMR Vaccines Aged Out 02/05/1995 No longer eligi ble based on patient's age to complete this topic Hepatitis B Vaccines Completed 09/18/1997, 04/18/1997, 03/20/1997 HIB Vaccines Aged Out No longer eligi ble based on patient's age to complete this topic HPV Vaccines Aged Out No longer eligi ble based on patient's age to complete this topic Hepatitis A Vaccines Aged Out No long er eligible based on patient's age to complete this topic IPV Vaccines Aged Out No longer eligi ble based on patient's age to complete this topic Meningococcal ACWY Vaccine Aged Out N o longer eligible based on patient's age to complete this topic RSV Immunization Patients Under 20 months Aged Out No longer eligible based on patient's age to complete this topic Varicella Vaccines Aged Out No longer eligible based on patient's age to complete this topic Procedures Procedure Name Priority Date/Time Associated Diagnosis Comments BACTERIAL IDENTIFICATION AND SUSCEPTIBILITY, AEROBIC Routine 06/28/2024 11:00 AM EST Acute kidney failure, unspecified (CMS/HCC) Personal history of urinary (tract) infections MAY URINE CULTURE TUBE STAT 06/26/2024 2:18 AM EST URINALYSIS WITH REFLEX MICROSCOPIC AND CULTURE STAT 06/26/2024 2:18 AM EST URINALYSIS WITH REFLEX MICROSCOPIC AND CULTURE STAT 06/26/2024 2:18 AM EST CULTURE URINE STAT 06/26/2024 2:18 AM EST from Last 3 Months Results * Bacterial identification and susceptibility, aerobic (06/28/2024 11:00 AM EST) Pathologist [facility] Culture, Bacterial ID and Sensitivity Mixed urogenital cuba, no uropathogens present. Suggest repeat specimen, if clinically indicated. 06/29/2024 2:12 PM [facility] Other Urine specimen from urethra / Unknown Non-blood Collection / Unknown 06/28/2024 11:00 AM EST 06/29/2024 1:52 PM EST us Marielena Vera MD LAB MICROBIOLOGY - G ENERAL ORDERABLES Final Result [facility] [address] [place] [address], [place] [phone] * (ABNORMAL) Urinalysis with reflex microscopic and culture (06/26/2024 2:18 AM EST) [facility] Specific [place] Urine 1.006 1.003 - 1.030 LAB URINALYSIS - AUTOMATED METHOD 06/26/2024 2:34 AM [facility] pH, Urine 6.0 5.0 - 8.0 pH LAB URINALYSIS - AUTOMATED METHOD 06/26/2024 2:34 AM [facility] Leukocytes, Urine Trace(A) Negative LAB URINALYSIS - AUTOMATED METHOD 06/26/2024 2:34 AM [facility] Nitrite, Urine Negative Negative LAB URINALYSIS - AUTOMATED METHOD 06/26/2024 2:34 AM [facility] Protein, Urine Negative <=Trace mg/dL LAB URINALYSIS - AUTOMATED METHOD 06/26/2024 2:34 AM [facility] Glucose, Urine Negative Negative mg/dL LAB URINALYSIS - AUTOMATED METHOD 06/26/2024 2:34 AM [facility] Ketones, Urine Negative Negative mg/dL LAB URINALYSIS - AUTOMATED METHOD 06/26/2024 2:34 AM [facility] Urobilinogen, Urine 0.2 0.2 - 1.0 mg/dL LAB URINALYSIS - AUTOMATED METHOD 06/26/2024 2:34 AM [facility] Bilirubin, Urine Negative Negative LAB URINALYSIS - AUTOMATED METHOD 06/26/2024 2:34 AM [facility] Blood, Urine Negative Negative LAB URINALYSIS - AUTOMATED METHOD 06/26/2024 2:34 AM [facility] RBC, Urine 1.2 0 - 4 /HPF LAB URINALYSIS - AUTOMATED METHOD 06/26/2024 2:34 AM [facility] WBC, Urine 1.2 0 - 4 /HPF LAB URINALYSIS - AUTOMATED METHOD 06/26/2024 2:34 AM [facility] Squamous Epithelial, Urine 8 0 - 60 /LPF LAB URINALYSIS - AUTOMATED METHOD 06/26/2024 2:34 AM [facility] Bacteria, Urine Negative Negative /HPF LAB URINALYSIS - AUTOMATED METHOD 06/26/2024 2:34 AM [facility] Hyaline Casts, Urine 0.0 0 - 3 /LPF LAB URINALYSIS - AUTOMATED METHOD 06/26/2024 2:34 AM [facility] Urine Urine specimen obtained by clean catch procedure / Unknown Non-blood Collection / Unknown 06/26/2024 2:18 AM EST 06/26/2024 2:23 AM EST us Ermelinda STRAUSS LAB URINE ORDERABLES Final Re sult [facility] [address] [place] [address], * May urine culture tube (06/26/2024 2:18 AM EST) Extra Tube Hold for add-ons. 06/26/2024 4:01 AM [facility] Comment:Auto resulted. Urine Urine specimen obtained by clean catch procedure / Unknown Non-blood Collection / Unknown 06/26/2024 2:18 AM EST 06/26/2024 2:23 AM EST Ermelinda STRAUSS LAB URINE ORDERABLES Final Re sult Performing Organization Address [facility]/ZIP Co de Phone Number [facility] [address] [place] [address], [place] [phone] * Culture urine (06/26/2024 2:18 AM EST) Culture, Urine No growth 06/27/2024 12:35 PM EST [facility] Urine Urine specimen obtained by clean catch procedure / Unknown Non-blood Collection / Unknown 06/26/2024 2:18 AM EST 06/26/2024 2:34 AM EST Ermelinda STRAUSS LAB MICROBIOLOGY - GENERAL OR DERABLES Final Result Performing Organization Address [facility] de Phone Number [facility] [address] [place] [address], [place] [phone] from Last 3 Months Insurance MEDICARE [facility] Care Teams Documentation Specialist Relationship Specialty Start Date End Date Kalpana Veronica PA [address] [place] [address] PCP - General Physician Manager Quantitative 06/26/24
--- OUTSIDE RECORDS SUMMARY | 2024-09-07 15:11 | XMS_ITS | Encounter Summary ---
Author Organization [facility] Address [address] [place] [address] Phone Care Team Providers Care Recruitment Internship Name Role Phone Kalpana Veronica PA-C Primary Care Provider + Encounter Details Date Type Department Care Team (Late st Contact Info) Description 07/05/2024 Documentation Only [facility] [place], [address] [place] [address] Lashon Rios [address] [place] [address] Social History Tobacco Use Types Packs/Day Years Used Date Smoking Tobacco: Never Alcohol Use Standard Drinks/Week Comments Yes 0 (1 standard drink = 0.6 oz pure alcohol) Alcoholic Drinks/day: Occasional social drink Comments Unknown Sex and Gender Information Value Date Recorded Sex Assigned at Not on file Legal Sex Female 4:32 PM EST Gender Identity Not on file Sexual Orientation Not on file documented as of this encounter Plan of Treatment Not on file documented as of this encounter Visit Diagnoses Not on filedocumented in this encounter Care Teams Recruitment Internship Relationship Specialty Start Date End Date Kalpana Veronica PA-C [address] [place] [phone] PCP - General Physician [place] [employer] 07/05/24 documented as of this encounter
--- OUTSIDE RECORDS SUMMARY | 2024-09-07 15:11 | XMS_ITS | Clinical Summary ---
Author Organization [facility] [place], Address [address] [facility] [address] [place] [address] Phone Care Team Providers Care Dye House Worker Name Role Phone Kalpana Veronica PA-C Primary Care Provider + Allergies Active Allergy Reactions Criticality Noted Date Comments Acetaminophen Other (see comments) 11/12/2021 Other reaction(s): ABD PAIN Reaction to blue dye capsules only Allopurinol Other (see comments) 09/13/2019 Alprazolam Other (see comments) 09/13/2019 Amlodipine Other (see comments) 09/13/2019 Ciprofloxacin Other (see comments) 09/13/2019 Codeine Other (see comments) 09/13/2019 Cyclobenzaprine Other (see comments) 09/13/2019 Ezetimibe 11/12/2021 Other reaction(s): leg cramps No, allergy does not cause a rash. Hydrocodone-Acetaminophe n Other (see comments) 09/13/2019 Hydromorphone Other (see comments) 09/13/2019 Hydromorphone Hcl 06/30/2024 Other Reaction(s): IV ONLY/// PO OK Lisinopril Other (see comments) 09/13/2019 Meclizine 11/12/2021 Other reaction(s): lrestless legs, involuntary limb movements, insomnia No, allergy does not cause a rash. Meperidine Other (see comments) 09/13/2019 Methocarbamol 06/30/2024 Other Reaction(s): lip swelling and numbness Oxycodone 11/12/2021 Other reaction(s): ABD PAIN Oxycodone-Acetaminophen Other (see comments) 09/13/2019 Pravastatin Other (see comments) 09/13/2019 Quetiapine 11/12/2021 Other reaction(s): FACIAL REDNESS Tramadol Other (see comments) 09/13/2019 Acetaminophen-Codeine Other (see comments) 09/13/2019 Medications albuterol (2.5 MG/3ML) 0.083% nebulizer solution 3 mL at bed time Act eunice allopurinol (ZYLOPRIM) 100 MG tablet allopurinol 100 mg tablet Active atorvastatin (LIPITOR) 80 MG tablet Take 80 mg by mouth 1 (one) time each day Active HYDROcodone-felix taminophen (NORCO) 5-325 MG per tablet hydrocodone 5 mg-acetaminophen 325 mg tablet Active loperamide (IMODIUM A-D) 2 MG tablet Take 1 tablet by mouth Active loratadine (CLARITIN) 10 MG tablet Take 1 tablet by mouth 1 (one) time each day Active LORazepam (ATIVAN) 1 MG tablet lorazepam 1 mg tablet Active montelukast (SINGULAIR) 10 MG tablet montelukast 10 mg tablet Active predniSONE (DELTASONE) 10 MG tablet at bed time Active QUEtiapine (SEROquel) 25 MG tablet Take 25 mg by mouth Active sulfamethoxazol e-trimethoprim (BACTRIM DS,SEPTRA DS) 800-160 MG per tablet Take 1 tablet by mouth 2 (two) times a day for 7 days 14 tablet 0 Active cholecalciferol (VITAMIN D-3) 25 MCG (1000 UT) tablet Take 1,000 Units by mouth 1 (one) time each day Active gabapentin (NEURONTIN) 300 MG capsule TAKE 2 CAPSULE BY MOUTH EVERY 8 HOURS 4 Active Klayesta powder APPLY TOPICALLY 2 - 3 TIMES PER DAY 4 Active traMADol (ULTRAM) 50 MG tablet TAKE 1 TABLET BY MOUTH EVERY 6 HOURS FOR 7 DAYS NEEDED FOR PAIN 4 Active furosemide (LASIX) 20 MG tablet Take 1 tablet (20 mg total) by mouth 1 (one) time each day 30 tablet 2 4 Active Active Problems Problem Noted Date Diagnosed Date Edema 07/05/2024 Simple renal cyst 10/15/2021 Asthma 05/21/2021 Stage 3a chronic kidney disease 09/13/2019 Overview (07/30/2020): Update for Diagnosis Load Resolved Problems Problem Noted Date Diagnosed Date Resolved Date Syncope 01/01/2021 05/21/2021 Urinary tract infection 06/19/202004/27 Anemia 09/13/2019 05/21/2021 Dyslipidemia 09/13/2019 12/26/2020 Gout 09/13/2019 12/26/2020 Hypertensive disorder 09/13/20192020 Encounters Date Type Department Care Team Description 07/05/2024 4:15 PM EST Office Visit [facility] [place] [address] [place] [id number] Miguelito Lucas MD Stage 3a chronic kidney disease (HCC) (Primary Dx); Edema, not otherwise specified 07/05/2024 Documentation Only [facility] [address] [place] [address] Lashon Rios 06/30/2024 Office Communication [facility] [address] [place] [address] Lashon Rios from Last 3 Months Immunizations Name Administration Dates Next Due Hepatitis B 09/18/1997,04/18/1997,03/20/1997 MMR 02/05/1995 Moderna SARS-COV-2 09/20/2020 Pneumococcal Polysaccharide 06/29/2015, 3 SARS-CoV-2, Unspecified 09/20/2020 Td, Unspecified 05/27/2011,03/07/2011 Family History Medical History Relation Comments Cancer Father 2 Chronic myelogen ous leukemia Cancer Mother 2 Gastric Relation Status Comments Father 1 Father 2 Mother 1 Mother 2 Social History Tobacco Use Types Packs/Day Years Used Date Smoking Tobacco: Never Alcohol Use Standard Drinks/Week Comments Yes 0 (1 standard drink = 0.6 oz pure alcohol) Alcoholic Drinks/day: Occasional social drink Comments Unknown Sex and Gender Information Value Date Recorded Sex Assigned at Not on file Legal Sex Female 4:32 PM EST Gender Identity Not on file Sexual Orientation Not on file Last Filed Vital Signs Vital Sign Reading Time Taken Comments Blood Pressure 118/68 09/20/2019 3:30 PM EST Pulse 74 09/20/2019 3:30 PM EST Temperature - - Respiratory Rate 16 09/20/2019 3:30 PM EST Oxygen Saturation - - Inhaled Oxygen Concentration - - Weight 83 kg (183 lb) 09/20/2019 3:30 PM EST Height 157.5 cm (5' 2 ) 09/20/2019 3:30 PM EST Body Mass Index 33.47 09/20/2019 3:30 PM EST Plan of Treatment Health Maintenance Due Date Last Done Comments Breast Cancer Screening 1960 Colorectal Cancer Screening: Annual FOBT 10/15/2007 Colorectal Cancer Screening: Colonoscopy 10/15/2007 Colorectal Cancer Screening: Sigmoidoscopy 10/15/2007 Pneumococcal Vaccine: 65+ Years (3 of 3 - PCV) 06/29/2016 06/29/2015, 04/07/2013 Pneumococcal Vaccine: Pediatrics (0 to 5 Years) and At-Risk Patients (6 to 64 Years) (3 of 3 - PCV) 06/29/2016 06/29/2015, 04/07/2013 Influenza Vaccine (#1) 2024 06/02/2022 Hepatitis B Vaccine Aged Out 09/18/1997, 04/18/1997, 03/20/1997 No longer eligible based on patient's age to complete this topic Insurance MEDICARE [facility] Care Teams Dye House Worker Relationship Specialty Start Date End Date Kalpana Veronica PA-C [address] [facility] [place] [address] PCP - General Physician [employer] Sales Representative 07/05/24
--- OUTSIDE RECORDS SUMMARY | 2024-09-07 15:11 | XMS_ITS ---
Author Organization [facility] Address [address] [place] [address] Care Team Providers Care Border Police Name Role Phone Kalpana Veronica Primary Care Provider Jonna Gil [phone] REASON FOR VISIT Sm toe buddies Encounters Encounter Location Date Provider Diagnosis [facility] [address] [address] 06/21/2024 Jonna Nuñez Plan Of Treatment Next Appt Details Provider Name:Jonna Rice Joaquin , 09/22/2024 01:30:00 PM, [address] [facility], [place], [address], Progress Notes * Araceli BRANDTOB: [birth year] (63 yo F)Acc No.[id number]:06/21/2024 Patient:?Jaimie BRANDT :1960???Age:63 Y???Sex:Female Address:[address] [place] [address], [address] * true * Date:? Generated for Printi feliciano/Iam/eTransmitting on:?09/07/2024 03:11 PM EST
--- OUTSIDE RECORDS SUMMARY | 2024-09-07 15:11 | XMS_ITS | Patient Health Record ---
Author Organization [facility] Zach lenka Yuan Address [address] [place] [address] Care Team Providers Care Respiratory Care Faculty Name Role Phone Kalpana Veronica Primary Care Provider Unavailabl e JoaquinJonna Unavailable [phone] CameronCassandra Unavailable [phone] Allergies Allergen (clinical drug ingredient) Drug/Non Drug Allergy documented on EMR Reaction Allergy Type Onset Date Status acetaminophen / oxycodone Percocet Unknown Drug Allergy Active codeine Codeine severe abdominal pain Drug Allergy Active lisinopril Lisinopril Unknown Drug Allergy Activ e Reason For Referral No Information Medications Medication SIG (Take, Route, Frequency, Duration) Notes Start Date End Date Status Gabapentin 600 MG 1 tablet Orally Once a day Active PROzac 20 MG 1 capsule Orally Onc e a day for 30 day(s) Not-Taking Baclofen 10 MG 1 tablet as needed Orally Twice a day Active Ciclopirox Olamine 0.77 % 1 application to affected area Externally to feet Twice a day for 30 days Not-Taking Lexapro Not-Taking Vitamin D3 Active Vitamin C Active Singulair Active LORazepam 1 MG Oral for 30 Act eunice Hair Skin Nails supplement Act eunice Atorvastatin Calcium 80 MG TAKE 1 TABLET BY MOUTH DAILY Oral for 90 Active Aspir-81 Active Social History Tobacco Use: Social History Observation Description Date Details (start date - stop date) Never Smoker NA - NA Tobacco Use/Smoking Question Answer Notes Are you a: nonsmoker Alcohol Screen Question Answer Notes Did you have a drink containing alcohol in the p ast year? Yes Points 0 Interpretation Negative Tobacco use other than smoking: Question Answer Notes Are you an other tobacco user? No Problems Problem Type SNOMED Code ICD Code Onset Dates Problem Status W/U Status Risk Notes Problem Acquired hammer toe of left foot (5626830927653038) Other hammer toe(s) (acquired), left foot (M20.42) Active confirmed Problem Localized, primary osteoarthritis of the ankle and/or foot (207040005) Arthritis of joint of lesser toe, left (M19.072) Active confirmed Vital Signs Height 5ft 2.5in in 06/21/2024 Weight 169 lbs 06/21/2024 BMI 30.41 kg/m2 06/21/2024 Encounters Encounter Location Date Provider Diagnosis [facility] [address] 06/21/2024 Cassandra Cameron Pain in left toe(s) M79.675 ; Other hammer toe(s) (acquired), left foot M20.42 ; Tinea unguium B35.1 ; Pain in right toe(s) M79.674 and Pain in left toe(s) M79.[address] [facility] [address] 11/20/2023 [facility] [address] [facility] [address] 05/30/[address] [address] 06/03/[address] [address] 06/21/2024 [facility] [address] 09/01/2024 Jonna Nuñez Assessments Encounter Date Diagnosis (ICD Code) Assessment Notes Treatment Notes Treatment Clinical Notes Section Notes 06/21/2024 Pain in left toe(s) (ICD-10 - M79.675) 06/21/2024 Other hammer toe(s) (acquired), left foot (ICD-10 - M20.42) 06/21/2024 Tinea unguium (ICD-10 - B35.1) 06/21/2024 Pain in right toe(s) (ICD-10 - M79.674) 06/21/2024 Pain in left toe(s) (ICD-10 - M79.675) Plan Of Treatment Pending Test Test Name Order Date [id number] NAIL, 1-5 08/20/2023 [id number] Plate 10/30/2022 Next Appt Details Provider Name:Jonna Nuñez , 09/22/2024 01:30:00 PM, [address] [place], [address], Insurance Providers Payer Name Payer Address Payer Phone Subscriber Number Group Number Insured Name Patient Relationship to Insured Coverage Start Date Coverage End Date Medicare National Govt [facility] [address] [place] [address] [id number] [employer] Jaimie Self - patient is the insured A[employer] Secondary to Medicare [address] [place] [address] [phone] [id number] [employer], Jaimie Self - patient is the insured Medical (General) History Medical History History ICD Code Anxiety Arthritis Back,Hip,and Knee pain Cancer Cataracts Gall bladder removed Gout Kidney disease Osteoporosis Reflux ( GERD) Stroke TIA 2013 Measles Mumps Chicken pox Bone implants/screws Surgical History Surgery Date(Month/Year) tonsillectomy 4yrs old prince 02/02/1992 cataract surgery 2004,2005 total left knee replacement 2006 neck fusion 2010 R rotator cuff tear repair 06/24/21 L foot surgery Hospitalization History Reason Date(Month/Year) spine and neck issue 05/2024
--- OUTSIDE RECORDS SUMMARY | 2024-09-07 15:11 | XMS_ITS | Encounter Summary ---
Author Organization [facility] Address [address] [place] [address] Care Team Providers Care Central Office Operator Supervisor Name Role Phone Kalpana Veronica Primary Care Provider [phone] Encounter Details Date Type Department Care Team (Late st Contact Info) Description 06/29/2024 Lab Requisition [facility] - Main Lab [address] [facility] [place] [phone] Marielena Vera MD [address] [facility] [address] [place] [address] Acute kidney failure, unspecified (CMS/HCC); Personal history of urinary (tract) infections Social History Tobacco Use Types Packs/Day Years Used Date Smoking Tobacco: Never Smokeless Tobacco: Never Comments Unknown Sex and Gender Information Value Date Recorded Sex Assigned at Not on file Legal Sex Female 12:44 AM EST Gender Identity Not on file Sexual Orientation Not on file documented as of this encounter Functional Status * Are you deaf or do you have serious difficulty hearing? Answer Date of Assessment Author No 06/26/2024 1:22 AM Re Torres RN * Are you blind or do you have serious difficulty seeing, even when wearing glasses? Answer Date of Assessment Author No 06/26/2024 1:22 AM Re Torres RN * Do you have serious difficulty walking or climbing stairs? Answer Date of Assessment Author No 06/26/2024 1:22 AM Re Torres RN * Do you have serious difficulty dressing or bathing? Answer Date of Assessment Author No 06/26/2024 1:22 AM Re Torres RN * Because of a physical, mental, or emotional condition, do you have serious difficulty doing errandsalone such as visiting the doctor? Answer Date of Assessment Author No 06/26/2024 1:22 AM Re Torres RN documented as of this encounter Mental Status * Because of a physical, mental, or emotional condition, do you have serious difficulty concentrating, remembering, or making decisions? (5 years old or older) Answer Entry Date Author No 06/26/2024 1:22 AM Re Torres RN documented in this encounter Plan of Treatment Not on file documented as of this encounter Procedures Procedure Name Priority Date/Time Associated Diagnosis Comments BACTERIAL IDENTIFICATION AND SUSCEPTIBILITY, AEROBIC Routine 06/28/2024 11:00 AM EST Acute kidney failure, unspecified (CMS/HCC) Personal history of urinary (tract) infections documented in this encounter Results * Bacterial identification and susceptibility, aerobic (06/28/2024 11:00 AM EST) Culture, Bacterial ID and Sensitivity Mixed urogenital cuba, no uropathogens present. Suggest repeat specimen, if clinically indicated. 06/29/2024 2:12 PM EST [facility] Other Urine specimen from urethra / Unknown Non-blood Collection / Unknown 06/28/2024 11:00 AM EST 06/29/2024 1:52 PM EST Marielena Vera MD LAB MICROBIOLOGY - G ENERAL ORDERABLES Final Result [facility] [address] [place] [address], documented in this encounter Visit Diagnoses Diagnosis Acute kidney failure, unspecified (CMS/HCC) Acute kidney failure, unspecified Personal history of urinary (tract) infections documented in this encounter Care Teams Central Office Operator Supervisor Relationship Specialty Start Date End Date Kalpana Veronica PA [address] [place] [phone] PCP - General Physician Locomotive Repairer Diesel 06/26/24 documented as of this encounter
--- OUTSIDE RECORDS SUMMARY | 2024-09-07 15:11 | XMS_ITS ---
Author Organization [facility] Address [address] [place] [address] Care Team Providers Care Engraver Set Up Operator Name Role Phone Kalpana Veronica Primary Care Provider Jonna Gil [phone] Encounters Encounter Location Date Provider Diagnosis [address] [address] 09/01/2024 Jonna Nuñez Plan Of Treatment Next Appt Details Provider Name:Jonna Nuñez , 09/22/2024 01:30:00 PM, [address] [place] [address], [phone], Progress Notes * Araceli BRANDTOB: [birth year] (63 yo F)Acc No.[id number]:09/01/2024 Progress Note Patient:?Jaimie BRANDT Provider:?Jonna Nuñez DPM :1960???Age:63 Y???Sex:Female D ate:09/01/2024 Address:[address] [place] [address] Pcp:Kalpana Veronica Subjective: * Chief Complaints: * ??? * Medical History:? Objective: * Vitals:? Assessment: Plan: * Treatment: * Images: * The named appointment provid er may or may not be the originator of this progress note, and it is not deemed complete until electronically signed by the appointment provider. Sign off status: Pending * Provider:?Jonna Nuñez DPM Date:?2024 Generated for Katlyn wiggins/Iam/Jessica on:?09/07/2024 03:11 PM EST
--- OUTSIDE RECORDS SUMMARY | 2024-09-07 15:12 | XMS_ITS ---
Author Organization [facility] Address [address] [place] [address] Care Team Providers Care Drapery Examiner Name Role Phone Kalpana Veronica Primary Care Provider UnavailJonna Silva Unavailable [phone] REASON FOR VISIT SD Reschedule/Cancel Encounters Encounter Location Date Provider Diagnosis [facility] [address] [place] [address] 09/01/2024 Jonna Black Plan Of Treatment Next Appt Details Provider Name:Jonna Nuñez , 09/22/2024 01:30:00 PM, [address] [place], [phone], Progress Notes * Araceli BRANDTOB: [birth year] (63 yo F)Acc No.[id number]:09/01/2024 Patient:?Jaimie BRANDT :1960???Age:63 Y???Sex:Female Address:[address] [place] [address], [address] * true * Date:? Generated for Printi ng/Jaydeng/eTransmitting on:?09/07/2024 03:11 PM EST
== END 2024-09-07 15:06 | disposition home or self-care (01) ==
PROVIDERS: PCP Physician Assistant; Visit Provider Physician Assistant
DX: R06.2 Wheezing (principal); G95.89 Other specified diseases of spinal cord; M79.671 Pain in right foot; M79.672 Pain in left foot; M54.50 Low back pain, unspecified; F41.1 Generalized anxiety disorder; F41.0 Panic disorder [episodic paroxysmal anxiety]

== ENCOUNTER 2024-09-07 15:09 | Outpatient (REF) | payer MEDICARE, SELFPAY ==
--- OUTSIDE RECORDS SUMMARY | 2024-09-07 16:12 | XMS_ITS | Encounter Summary ---
Author Organization [facility] Address [address] [place] [address] Phone Care Team Providers Care Torch Operator Name Role Phone Kalpana Veronica PA-C Primary Care Provider + Encounter Details Date Type Department Care Team (Late st Contact Info) Description 07/05/2024 Documentation Only [facility], [address] [place] [address] Lashon Rios [address] [place] [address] Social History Tobacco Use Types [...] on filedocumented in this encounter Care Teams Torch Operator Relationship Specialty Start Date End Date Kalpana Veronica PA-C [address] [place] [address] PCP - General Physician Motion Picture Camera Lens Technician 07/05/24 documented as of this encounter
--- OUTSIDE RECORDS SUMMARY | 2024-09-07 16:12 | XMS_ITS | Clinical Summary ---
Author Organization [facility], Address [address] [facility] [address] [place] [address] Phone Care Team Providers Care Vamper Name Role Phone Kalpana Veronica PA-C Primary [...] Office Visit [facility] [place] [address] [place] [phone] Miguelito Lucas MD Stage 3a chronic kidney disease (HCC) (Primary Dx); Edema, not otherwise specified 07/05/2024 Documentation Only [facility] [address] [place] [address] Lashon Rios 06/30/2024 Office Communication [facility] [address] [place] [address] Lashon Rios from Last 3 [...] age to complete this topic Insurance MEDICARE [facility] Care Teams Vamper Relationship Specialty Start Date End Date Kalpana Veronica PA-C [address] [facility] [address] PCP - General Physician Coffee Grower 07/05/24
--- OUTSIDE RECORDS SUMMARY | 2024-09-07 16:13 | XMS_ITS | Encounter Summary ---
Author Organization [facility] Address [address] [place] [address] Care Team Providers Care Gore Stitcher Name Role Phone Kalpana Veronica Primary Care Provider [phone] Encounter Details Date Type Department Care Team (Late st Contact Info) Description 06/29/2024 Lab Requisition [facility] - Main Lab [address] [facility] [phone] Marielena Vera MD [address] [facility] [address] [place] [address] Acute kidney failure, unspecified (CMS/HCC); Personal history [...] if clinically indicated. 06/29/2024 2:12 PM EST [facility] Other Urine specimen from urethra / Unknown Non-blood Collection / Unknown 06/28/2024 11:00 AM EST 06/29/2024 1:52 PM EST Marielena Vera MD LAB MICROBIOLOGY - G ENERAL ORDERABLES Final Result [facility] [address] [place] [address], documented in this encounter Visit Diagnoses Diagnosis Acute kidney failure, unspecified (CMS/HCC) Acute kidney failure, unspecified Personal history of urinary (tract) infections documented in this encounter Care Teams Gore Stitcher Relationship Specialty Start Date End Date Kalpana Veronica PA [address] [place] [phone] PCP - General Physician Charge Nurse 06/26/24 documented as of this encounter
--- OUTSIDE RECORDS SUMMARY | 2024-09-07 16:13 | XMS_ITS | Clinical Summary ---
Author Organization [facility] Address [address] [place] [address] Phone Care Team Providers Care Brass Plater Name Role Phone Kalpana Veronica Primary Care Provider Allergies Active Allergy Reactions Criticality Noted Date Comments Allopurinol 06/26/2024 Blue Dye 06/26/2024 Ciprofloxacin 06/26/2024 Codeine 06/26/2024 Hydromorphone 06/26/2024 Lisinopril 06/26/2024 Methocarbamol 06/26/2024 Oxycodone-Acetaminophen 06/26/2024 Acetaminophen 06/26/2024 Acetaminophen-Codeine 06/26/2024 Hydrocodone-Acetaminophen 06/26/2024 Alprazolam 06/26/2024 Medications No known medications Encounters Date Type Department Care Team Description 06/29/[address] [facility] - Main Lab [address] [facility] [place] [address] Marielena Vera MD Acute kidney failure, unspecified (CMS/HCC); Personal history of urinary (tract) infections 06/26/2024 12:46 AM EST - 06/26/2024 3:49 AM EST Emergency [facility] Emergency [address] [place] [address] Bilateral leg edema (Primary Dx) [...] susceptibility, aerobic (06/28/2024 11:00 AM EST) Pathologist [facility] Culture, Bacterial ID and Sensitivity Mixed urogenital cuba, no uropathogens present. Suggest repeat specimen, if clinically indicated. 06/29/2024 2:12 PM [facility] Other Urine specimen from urethra / Unknown Non-blood Collection / Unknown 06/28/2024 11:00 AM EST 06/29/2024 1:52 PM EST us Marielena Vera MD LAB MICROBIOLOGY - G ENERAL ORDERABLES Final Result [facility] [address] [place] [address], [place] [phone] * (ABNORMAL) Urinalysis with reflex microscopic and culture (06/26/2024 2:18 AM EST) [facility] [place] Urine 1.006 1.003 - 1.030 LAB URINALYSIS - AUTOMATED METHOD 06/26/2024 2:34 AM [facility] pH, Urine 6.0 5.0 - 8.0 pH LAB URINALYSIS - AUTOMATED METHOD 06/26/2024 2:34 AM [facility] Leukocytes, Urine Trace(A) Negative LAB URINALYSIS - AUTOMATED METHOD 06/26/2024 2:34 AM [facility] Nitrite, Urine Negative Negative LAB URINALYSIS - AUTOMATED METHOD 06/26/2024 2:34 AM [facility] Protein, Urine Negative <=Trace mg/dL LAB URINALYSIS - AUTOMATED METHOD 06/26/2024 2:34 AM [facility] Glucose, Urine Negative Negative mg/dL LAB URINALYSIS - AUTOMATED METHOD 06/26/2024 2:34 AM [facility] Ketones, Urine Negative Negative mg/dL LAB URINALYSIS - AUTOMATED METHOD 06/26/2024 2:34 AM [facility] Urobilinogen, Urine 0.2 0.2 - 1.0 mg/dL LAB URINALYSIS - AUTOMATED METHOD 06/26/2024 2:34 AM [facility] Bilirubin, Urine Negative Negative LAB URINALYSIS - AUTOMATED METHOD 06/26/2024 2:34 AM [facility] Blood, Urine Negative Negative LAB URINALYSIS - AUTOMATED METHOD 06/26/2024 2:34 AM [facility] RBC, Urine 1.2 0 - 4 /HPF LAB URINALYSIS - AUTOMATED METHOD 06/26/2024 2:34 AM [facility] WBC, Urine 1.2 0 - 4 /HPF LAB URINALYSIS - AUTOMATED METHOD 06/26/2024 2:34 AM [facility] Squamous Epithelial, Urine 8 0 - 60 /LPF LAB URINALYSIS - AUTOMATED METHOD 06/26/2024 2:34 AM [facility] Bacteria, Urine Negative Negative /HPF LAB URINALYSIS - AUTOMATED METHOD 06/26/2024 2:34 AM [facility] Hyaline Casts, Urine 0.0 0 - 3 /LPF LAB URINALYSIS - AUTOMATED METHOD 06/26/2024 2:34 AM [facility] Urine Urine specimen obtained by clean catch procedure / Unknown Non-blood Collection / Unknown 06/26/2024 2:18 AM EST 06/26/2024 2:23 AM EST us Ermelinda STRAUSS LAB URINE ORDERABLES Final Re sult [facility] [address] [place] [address], * May urine culture tube (06/26/2024 2:18 AM EST) Extra Tube Hold for add-ons. 06/26/2024 4:01 AM [facility] Comment:Auto resulted. Urine Urine specimen obtained by clean catch procedure / Unknown Non-blood Collection / Unknown 06/26/2024 2:18 AM EST 06/26/2024 2:23 AM EST Ermelinda STRAUSS LAB URINE ORDERABLES Final Re sult Performing Organization Address [facility]/ZIP Co de Phone Number [facility] [address] [place] [address], [place] [phone] * Culture urine (06/26/2024 2:18 AM EST) Culture, Urine No growth 06/27/2024 12:35 PM EST [facility] Urine Urine specimen obtained by clean catch procedure / Unknown Non-blood Collection / Unknown 06/26/2024 2:18 AM EST 06/26/2024 2:34 AM EST Ermelinda STRAUSS LAB MICROBIOLOGY - GENERAL OR DERABLES Final Result Performing Organization Address [facility] de Phone Number [facility] [address] [place] [address], [place] [phone] from Last [address] [facility] Care Teams Brass Plater Relationship Specialty Start Date End Date Kalpana Veronica PA [address] [place] [address] PCP - General Physician Recreation Professor 06/26/24
[2024-09-07 17:33] LABS: MANUAL DIFF FLAG NO
[2024-09-07 18:07] LABS: Appearance Urine Clear; Color Urine Yellow; Glucose Urine UA Negative (Negative); Leukocyte Esterase Urine Trace (Negative); Nitrite Urine Negative (Negative); PH 5.5 (5.0-9.0); UMIC TRIGGER UACC YES; Urine Blood Negative (Negative); Urine Ketones Negative (Negative); Urine Protein Negative (Neg-Trace)
[2024-09-07 18:08] LABS: Basophils Percent Auto 0.2 % (0-2); Eosinophils Percent Auto 0.1 % (0-4); Hematocrit 39.3 % (37.0-47.0); Hemoglobin 13.2 g/dl (12.0-16.0); Imm Gran Abs Auto 0.13 X10*3/uL (0.00-0.03); Imm Gran Pct Auto 0.7 % (0.0-0.4); Lymphocytes Absolute Auto 1.4 X10*3/uL (1.2-4.9); Lymphocytes Percent Auto 7.3 % (20-40); Mean Corpuscular HGB Conc 33.6 g/dl (31.0-35.0); Mean Corpuscular Hemoglobin 29.5 pg (27.0-33.0); Mean Corpuscular Volume 87.7 fL (80.0-98.0); Mean Platelet Volume 9.9 fL (9.4-12.3); Monocytes Absolute Auto 1.3 X10*3/uL (0.1-1.2); Monocytes Percent Auto 6.6 % (2-11); Neutrophils Absolute Auto 16.1 x10*3/uL (2.0-8.3); Neutrophils Percent Auto 85.1 % (45-73); Platelet Count 299 X10*3/uL (160-400); Red Blood Count 4.48 X10*6/uL (4.20-5.50); Red Cell Distribution Width 13.6 % (11.0-16.0); White Blood Count 18.9 X10*3/uL (4.8-10.8)
[2024-09-07 18:13] LABS: Bacteria Urine None Seen (None Seen); Hyaline Casts Urine 0-2 /LPF (0-2); RBC Urine 0-2 /HPF (0-2); Squamous Epithelial Cell Urine 0-2 /HPF (0-2); WBC Urine 0-5 /HPF (0-5)
[2024-09-07 18:14] LABS: Alanine Aminotransferase 19 U/L (0-31); Albumin Level 4.1 g/dL (3.5-5.0); Alkaline Phosphatase 111 U/L (39-117); Anion Gap 16 (12-20); Aspartate Amino Transferase 22 U/L (5-31); Bilirubin Total 0.4 mg/dL (0.0-1.0); Blood Urea Nitrogen 29 mg/dL (9-16); C Reactive Protein 0.81 mg/dL (< or = 0.50); Calcium 9.1 mg/dL (8.4-10.2); Carbon Dioxide 22 mmol/L (22-29); Chloride 106 mmol/L (96-108); Estimated Glomerular Filt Rate 36; Glucose Random 102 mg/dL (60-115); Potassium 3.6 mmol/L (3.3-5.1); Sodium 140 mmol/L (135-145); Total Protein 7.6 g/dL (6.5-8.0); Uric Acid 10.5 mg/dL (2.4-5.7)
[2024-09-07 18:15] LABS: Rheumatoid Factor < 13.0 IU/mL (<15.0)
[2024-09-07 18:28] LABS: TSH reflex Free T4 0.74 uIU/mL (0.32-4.0)
[2024-09-07 18:33] LABS: Erythrocyte Sedimentation Rate 34 MM/HR (0-20)
== END 2024-09-07 15:10 | disposition home or self-care (01) ==
LOC: HO.WFDLDS 15:09
PROVIDERS: Visit Provider Physician Assistant
DX: M79.671 Pain in right foot (principal); M79.672 Pain in left foot; G95.89 Other specified diseases of spinal cord; N18.31 Chronic kidney disease, stage 3a; M54.50 Low back pain, unspecified; F41.1 Generalized anxiety disorder; F41.0 Panic disorder [episodic paroxysmal anxiety]; R06.2 Wheezing
CPT/HCPCS: 36415; 80053; 81001; 84443; 84550; 85025; 85652; 86140; 86431; 96127; 99212

== ENCOUNTER 2024-09-13 12:40 | Outpatient (AMB) | payer MEDICARE, SELFPAY ==
--- NOTE | 2024-09-13 13:05 | MHC.OFFVIS ---
Vital Signs 09/13/24 13:14 Height 5 ft 2.5 in BMI Reason not done Patient refused/unable BP 112/80 Blood Pressure Location Lt brachial Position Sitting Pulse 101 H Pulse Source Pulse Oximeter Pulse Oximetry (%) 97 Oxygen Delivery Method Room Air Intake Visit Reasons: gout/ pt booked due MD schedule change Intake Note: Patient presents for Gout. Allergies acetaminophen Allergy (Severe, Verified 09/13/24 13:09) Swelling allopurinol Allergy (Severe, Verified 09/13/24 13:09) Swelling azithromycin [From Zithromax Z-Ron] Allergy (Severe, Verified 09/13/24 13:09) Gastrointestinal Upset blue dye Allergy (Severe, Verified 09/13/24 13:09) Swelling codeine Allergy (Severe, Verified 09/13/24 13:09) Swelling oxycodone [From Percocet] Allergy (Severe, Verified 09/13/24 13:09) Swelling Medication List - Last Reconciled 09/13/24 by Doris Jerez MD albuterol sulfate 90 mcg/actuation 2 puffs inhalation Q6H PRN atorvastatin 80 mg PO DAILY diclofenac sodium 1% (Arthritis Pain (diclofenac)) 4 grams topical QID PRN furosemide (Lasix) 20 mg PO DAILY PRN ibuprofen (Motrin IB) 200 mg PO Q6H PRN lorazepam 1 mg PO BID 30 days montelukast 10 mg PO DAILY multivitamin with minerals (Hair,Skin and Nails tablet) 1 tab PO DAILY nystatin 1 appl topical BID-TID omeprazole 80 mg PO ONCE prednisone take 3 tab po x 3 days, take 2 tab po x 3 days, 1 tab po x 3 days venlafaxine ER (Effexor XR) 37.5 mg PO BEDTIME HPI Comments Details: Patient is a 63-year-old female with AML currently in remission, hyperlipidemia, CKD stage 3, asthma presents for evaluation of gout Patient states that the past several years she has been having recurrent attacks of monoarticular arthritis involving the bilateral great toes. These episodes would be precipitated by eating meat. They would resolve with Prednisone tapers. Has tried allopurinol low past however had an allergic reaction with swelling. Has also tried colchicine in the past by also have allergic reaction to assess well. Of note her grandfather also had really bad gout. [facility] Medical History (Updated 09/13/24 @ 13:54 by Doris Jerez MD) GERD (gastroesophageal reflux disease) Generalized anxiety disorder with panic attacks Dyslipidemia Overactive bladder AML (acute myeloid leukemia) in remission Surgical History Stem cells transplant status Family History Mother Cancer Father Cancer Social History (Updated 09/13/24 @ 13:13 by CHRISTINE Pelletier) Housing: House Alcohol intake: current Comment: Rare Patient Tobacco Use Status: Never used Tobacco e-Cigarette/Vaping Use: Never Used Second Hand Smoke Exposure: Yes service: No Current occupational status: retired Cognitive needs: No Hearing needs: No Vision needs: Yes (glasses) Review of Systems Const Details: Review of Systems Constitutional: Denies fever, chills, weight loss ENT: Denies vision changes, eye pain or eye redness, dental caries, dry mouth GI: Denies nausea, vomiting, diarrhea, abdominal pain, change in BM Pulm: Denies SOB, ANDERSON, hemoptysis, wheezing Cards: Denies chest pain, palpitations Skin: Denies Raynaud's, rash, nail changes, photosensitivity, SUPERVISOR REACTOR FUELING: Denies headaches, weakness, paresthesias, recurrent falls MSK: as per HPI All other systems reviewed and are unremarkable except noted above Physical Exam Vital Signs: Last Vital Signs Pulse 101 H 09/13/24 13:14 BP 112/80 09/13/24 13:14 Pulse Ox 97 09/13/24 13:14 Oxygen Delivery Method Room Air 09/13/24 13:14 Vital signs reviewed Physical Examination CONSTITUITIONAL Patient alert and cooperative. Well appearing and in no apparent painful distress HEENT Conjunctiva and sclera clear. ?Pupils equal round and reactive to light. ?No lymphadenopathy. ? CHEST/RESPIRATORY SYSTEM Normal respiratory effort and able to speak in complete sentences. ?Clear to auscultation bilaterally. ?No crackles, rales, rhonchi, wheezes heard. CARDIAC SYSTEM Regular rate and rhythm. ?S1 and S2 heard no murmurs. ?Radial pulses intact bilaterally MSK Hands: ?Good senior bioinformatics scientist strength bilaterally. No deformities noted. ?No synovitis noted to the MCPs, PIPs or DIPs. ?No tenderness to palpation of these joints. Wrists: ?Full range of motion at the wrists without pain. ?No tenderness to palpation or synovitis noted to the wrists. Elbows: Full range of motion without pain. No tenderness, weakness, swelling, increased warmth or erythema. Shoulders: Full range of motion without pain. No tenderness, weakness, swelling, increased warmth or erythema. Hips: Full range of motion without pain. Hip bursa: No tenderness to palpation Knees: ?Full range of motion. ?No tenderness, swelling, increased warmth or erythema.?No effusion or crepitations Ankles: Full range of motion. ?No tenderness, swelling, increased warmth or erythema.? Feet: ?Negative squeeze test. ?No tenderness to palpation of the MTPs of the right foot. No tenderness to palpation of the MTPs of the left foot. Surgical scar noted over the left 1st great toe. Tender points:?No tenderness to palpation of the bilateral trapezius, supraspinatus, greater trochanters, anterior costochondral junctions, bilateral gluteal areas, bilateral suboccipital muscle insertions SKIN Skin intact without rashes. No tophi noted Results Reviewed Results Reviewed: Laboratory Tests 09/07/24 15:11 WBC 18.9 H RBC 4.48 Hgb 13.2 Hct 39.3 Plt Count 299 ESR 34 H Sodium 140 Potassium 3.6 Chloride 106 Carbon Dioxide 22 BUN 29 H Creatinine 1.45 H Uric Acid 10.5 H Calcium 9.1 D AST 22 ALT 19 Alkaline Phosphatase 111 C-Reactive Protein 0.81 H Total Protein 7.6 Albumin 4.1 Assessment & Plan Assessment & Plan (1) Gout: Code(s): M10.9 - Gout, unspecified Category: Medical Qualifiers: Gout site: multiple sites Gout etiology: due to renal impairment Chronicity: chronic Presence of tophus: without tophus Qualified Code(s): M1A.39X0 - Chronic gout due to renal impairment, multiple sites, without tophus (tophi) Plan: #Non crystal proven non tophaceous gout Patient is a 58-year-old female with AML in remission and CKD who presents for management of gout. Patient states that whenever she eats meat she will get a flare in her gout involving her bilateral feet and great toes. Tried allopurinol in the past however had allergic reaction and has not been able to take either that or colchicine. Risk factors for gout: Family history, CKD, furosemide use Discussed probenecid and febuxostat with the patient and patient would prefer to start with probenecid. Does not like the black box warning for cardiac events of febuxostat. Plan - Probenecid 500mg bid, start with 250 mg twice a day and then increase to 500 mg twice a day after 1 week - Prednisone 5mg daily - RTC 4 weeks - Labs before visit: CBC, CMP, ESR, CRP, UA Plan I spent 30 minutes reviewing the record and labs, taking a history, examining the patient, discussing the treatment plan and documenting in the medical record Orders: Orders Complete Blood Count Auto Diff 4 Weeks M10.9 - Gout, unspecified Comprehensive Met. Panel 4 Weeks M10.9 - Gout, unspecified C Reactive Protein 4 Weeks M10.9 - Gout, unspecified Uric Acid 4 Weeks M10.9 - Gout, unspecified Erythrocyte Sedimentation Rate 4 Weeks M10.9 - Gout, unspecified Medications: New prednisone 5 mg PO DAILY 90 tabs 0RF M10.9 - Gout, unspecified probenecid Take half (0.5) tablet twice a day for 1 week then 1 tablet twice a day 500 mg PO BID 180 tabs 0RF Discontinued prednisone Discontinued Reason: Doctor's Order take 3 tab po x 3 days, take 2 tab po x 3 days, 1 tab po x 3 days 18 tabs 0RF Coding Level of Care Code New Pt Level 3 (73230) Complex EM visit Add On G2211 Diagnoses Chronic gout due to renal impairment of multiple sites without tophus M1A.39X0 Gout site: multiple sites Gout etiology: due to renal impairment Chronicity: chronic Presence of tophus: without tophus
[2024-09-13 13:14] VITALS: BP 112/80; PULSE 101; O2SAT 97
--- OUTSIDE RECORDS SUMMARY | 2024-09-13 13:32 | XMS_ITS | Encounter Summary ---
Author Organization [facility] Address [address] [place] [address] Phone Care Team Providers Care Quality Control Engineering Technician Name Role Phone Kalpana Veronica PA-C Primary Care Provider + Encounter Details Date Type Department Care Team (Late st Contact Info) Description 07/05/2024 Documentation Only [facility] [place], [address] [place] [address] Lashon Rios [address] [place] [address] Social History Tobacco Use Types [...] on filedocumented in this encounter Care Teams Quality Control Engineering Technician Relationship Specialty Start Date End Date Kalpana Veronica PA-C [address] [place] [id number] PCP - General Physician Pediatric Oncology Nurse 07/05/24 documented as of this encounter
--- OUTSIDE RECORDS SUMMARY | 2024-09-13 13:32 | XMS_ITS | Patient Health Record ---
Author Organization [facility] Zach lenka Yuan Address [address] [place] [address] Care Team Providers Care Union Contract Representative Name Role Phone Kalpana Veronica Primary Care Provider Unavailabl e JoaquinJonna Unavailable [phone] CameronCassandra Unavailable [phone] Allergies Allergen (clinical drug ingredient) Drug/Non Drug [...] Problem Acquired hammer toe of left foot ([id number]) Other hammer toe(s) (acquired), left foot (M20.42) Active confirmed Problem Localized, primary osteoarthritis of the ankle and/or foot ([id number]) Arthritis of joint of lesser toe, left (M19.072) Active confirmed Vital Signs Height 5ft 2.5in in 06/21/2024 Weight 169 lbs 06/21/2024 BMI 30.41 kg/m2 06/21/2024 Encounters Encounter Location Date Provider Diagnosis [facility] [address] 06/21/2024 Cassandra Cameron Pain in left toe(s) M79.675 ; Other hammer toe(s) (acquired), left foot M20.42 ; Tinea unguium B35.1 ; Pain in right toe(s) M79.674 and Pain in left toe(s) M79.[address] [facility] [address] 11/20/2023 [facility] [address] [facility] [address] 05/30/[address] [address] 06/03/[address] [address] 06/21/2024 [facility] [address] 09/01/2024 Jonna Nuñez Assessments Encounter Date Diagnosis [...] Treatment Pending Test Test Name Order Date [id number] NAIL, 1-5 08/20/2023 [id number] Plate 10/30/2022 Next Appt Details Provider Name:Jonna Nuñez , 09/22/2024 01:30:00 PM, [address] [place], [address], Insurance Providers Payer Name Payer Address Payer Phone Subscriber Number Group Number Insured Name Patient Relationship to Insured Coverage Start Date Coverage End Date Medicare National Govt [facility] [address] [place] [address] [id number] [employer] Jaimie Self - patient is the insured AARP Secondary to Medicare [address] [place] [id number] [employer] in, Jaimie Self - patient is [...]
--- OUTSIDE RECORDS SUMMARY | 2024-09-13 13:32 | XMS_ITS | Clinical Summary ---
Author Organization [facility], Address [address] [facility] [address] [place] [address] Phone Care Team Providers Care Healthcare Architect Name Role Phone Kalpana Veronica PA-C Primary [...] Office Visit [facility] [place] [address] [place] [phone] Miguelito Lucas MD Stage 3a chronic kidney disease (HCC) (Primary Dx); Edema, not otherwise specified 07/05/2024 Documentation Only [facility] [address] [place] [address] Lashon Rios 06/30/2024 Office Communication [facility] [address] [place] [address] Lashon Rios from Last 3 [...] age to complete this topic Insurance MEDICARE [facility] Care Teams Healthcare Architect Relationship Specialty Start Date End Date Kalpana Veronica PA-C [address] [place] [address] PCP - General Physician Shrimp Pond Laborer 07/05/24
--- OUTSIDE RECORDS SUMMARY | 2024-09-13 13:33 | XMS_ITS | Clinical Summary ---
Author Organization [facility] Address [address] [place] [address] Phone Care Team Providers Care Beef Farmer Name Role Phone Kalpana Veronica Primary Care Provider [phone] Allergies Active Allergy Reactions Criticality Noted Date Comments Allopurinol 06/26/2024 Blue Dye 06/26/2024 Ciprofloxacin 06/26/2024 Codeine 06/26/2024 Hydromorphone 06/26/2024 Lisinopril 06/26/2024 Methocarbamol 06/26/2024 Oxycodone-Acetaminophen 06/26/2024 Acetaminophen 06/26/2024 Acetaminophen-Codeine 06/26/2024 Hydrocodone-Acetaminophen 06/26/2024 Alprazolam 06/26/2024 Medications No known medications Encounters Date Type Department Care Team Description 06/29/2024 Lab Requisition [facility] - Main Lab [address] [facility] [place] [address] Marielena Vera MD Acute kidney failure, unspecified (CMS/HCC); Personal history of urinary (tract) infections 06/26/2024 12:46 AM EST - 06/26/2024 3:49 AM EST Emergency [facility] Emergency [address] [place] [address] Bilateral leg edema (Primary Dx) [...] patient's age to complete this topic Meningococcal B Vacine Aged Out No lo nger eligible based on patient's age to complete [...] specimen, if clinically indicated. 06/29/2024 2:12 PM [facility] Other Urine specimen from urethra / Unknown Non-blood Collection / Unknown 06/28/2024 11:00 AM EST 06/29/2024 1:52 PM EST us Marielena Vera MD LAB MICROBIOLOGY - G ENERAL ORDERABLES Final Result [facility] [address] [place] [address], [place] [phone] * (ABNORMAL) Urinalysis with reflex microscopic and culture (06/26/2024 2:18 AM EST) Pathologist [facility] Specific [place] Urine 1.006 1.003 - 1.030 LAB URINALYSIS - AUTOMATED METHOD 06/26/2024 2:34 AM [facility] pH, Urine 6.0 5.0 - 8.0 pH LAB URINALYSIS - AUTOMATED METHOD 06/26/2024 2:34 AM [facility] Leukocytes, Urine Trace(A) Negative LAB URINALYSIS - AUTOMATED METHOD 06/26/2024 2:34 AM [facility] Nitrite, Urine Negative Negative LAB URINALYSIS - AUTOMATED METHOD 06/26/2024 2:34 AM [facility] Protein, Urine Negative <=Trace mg/dL LAB URINALYSIS - AUTOMATED METHOD 06/26/2024 2:34 AM [facility] Glucose, Urine Negative Negative mg/dL LAB URINALYSIS - AUTOMATED METHOD 06/26/2024 2:34 AM [facility] Ketones, Urine Negative Negative mg/dL LAB URINALYSIS - AUTOMATED METHOD 06/26/2024 2:34 AM [facility] Urobilinogen, Urine 0.2 0.2 - 1.0 mg/dL LAB URINALYSIS - AUTOMATED METHOD 06/26/2024 2:34 AM [facility] Bilirubin, Urine Negative Negative LAB URINALYSIS - AUTOMATED METHOD 06/26/2024 2:34 AM [facility] Blood, Urine Negative Negative LAB URINALYSIS - AUTOMATED METHOD 06/26/2024 2:34 AM [facility] RBC, Urine 1.2 0 - 4 /HPF LAB URINALYSIS - AUTOMATED METHOD 06/26/2024 2:34 AM [facility] WBC, Urine 1.2 0 - 4 /HPF LAB URINALYSIS - AUTOMATED METHOD 06/26/2024 2:34 AM [facility] Squamous Epithelial, Urine 8 0 - 60 /LPF LAB URINALYSIS - AUTOMATED METHOD 06/26/2024 2:34 AM [facility] Bacteria, Urine Negative Negative /HPF LAB URINALYSIS - AUTOMATED METHOD 06/26/2024 2:34 AM [facility] Hyaline Casts, Urine 0.0 0 - 3 /LPF LAB URINALYSIS - AUTOMATED METHOD 06/26/2024 2:34 AM [facility] Urine Urine specimen obtained by clean catch procedure / Unknown Non-blood Collection / Unknown 06/26/2024 2:18 AM EST 06/26/2024 2:23 AM EST us Ermelinda STRAUSS LAB URINE ORDERABLES Final Re sult [facility] [address] [place] [address], * May urine culture tube (06/26/2024 2:18 AM EST) Extra Tube Hold for add-ons. 06/26/2024 4:01 AM EST [facility] Comment:Auto resulted. Urine Urine specimen obtained by clean catch procedure / Unknown Non-blood Collection / Unknown 06/26/2024 2:18 AM EST 06/26/2024 2:23 AM EST Ermelinda STRAUSS LAB URINE ORDERABLES Final Re sult Performing Organization Address City/[facility]/ZIP Co de Phone Number [facility] [address] [place] [address], [place] [phone] * Culture urine (06/26/2024 2:18 AM EST) Culture, Urine No growth 06/27/2024 12:35 PM EST [facility] Urine Urine specimen obtained by clean catch procedure / Unknown Non-blood Collection / Unknown 06/26/2024 2:18 AM EST 06/26/2024 2:34 AM EST Ermelinda STRAUSS LAB MICROBIOLOGY - GENERAL OR DERABLES Final Result Performing Organization Address [facility]/ZIP Co de Phone Number [facility] [address] [place] [address], [place] [phone] from Last 3 Months Insurance MEDICARE [facility] Care Teams Beef Farmer Relationship Specialty Start Date End Date Kalpana Veronica PA [address] [place] [address] PCP - General Physician Custodial Engineer 06/26/24
--- OUTSIDE RECORDS SUMMARY | 2024-09-13 13:33 | XMS_ITS | Encounter Summary ---
Author Organization [facility] Address [address] [place] [address] Care Team Providers Care Export Freight Clerk Name Role Phone Kalpana Veronica Primary Care Provider [phone] Encounter Details Date Type Department Care Team (Late st Contact Info) Description 06/29/2024 Lab Requisition [facility] - Main Lab [address] [facility] [place] [phone] Marielena Vera MD [address] [facility] [address] [place] [id number] Acute kidney failure, unspecified (CMS/HCC); Personal history [...] if clinically indicated. 06/29/2024 2:12 PM EST [facility] Other Urine specimen from urethra / Unknown Non-blood Collection / Unknown 06/28/2024 11:00 AM EST 06/29/2024 1:52 PM EST Marielena Vera MD LAB MICROBIOLOGY - G ENERAL ORDERABLES Final Result [facility] [address] [place] [address], documented in this encounter Visit Diagnoses Diagnosis Acute kidney failure, unspecified (CMS/HCC) Acute kidney failure, unspecified Personal history of urinary (tract) infections documented in this encounter Care Teams Export Freight Clerk Relationship Specialty Start Date End Date Kalpana eVronica PA [address] [place] [address] PCP - General Physician Treatment Plant Operator 06/26/24 documented as of this encounter
--- OUTSIDE RECORDS SUMMARY | 2024-09-13 13:33 | XMS_ITS ---
Author Organization [facility] Address [address] [place] [address] Care Team Providers Care Lunch Cook Name Role Phone Kalpana Veronica Primary Care Provider Jonna Gil [phone] Encounters Encounter Location Date Provider Diagnosis [address] [address] 09/01/2024 Jonna Nuñez Plan Of Treatment Next Appt Details Provider Name:Jonna Nuñez , 09/22/2024 01:30:00 PM, [address] [place] [address], [address], Progress Notes * Araceli BRANDTOB: [birth year] (63 yo F)Acc No.[id number]:09/01/2024 Progress Note Patient:?Jaimie BRANDT Provider:?Jonna Nuñez DPM :1960???Age:63 Y???Sex:Female D ate:09/01/2024 Address:[address] [place] [address] Pcp:Kalpana Veronica Subjective: * Chief Complaints: * ??? * Medical History:? Objective: * Vitals:? Assessment: Plan: * Treatment: * Images: * The named appointment provid er may or may not be the originator of this progress note, and it is not deemed complete until electronically signed by the appointment provider. Sign off status: Pending * Provider:?Jonna Nuñez DPM Date:?2024 Generated for Katlyn wiggins/Iam/Jessica on:?09/13/2024 01:32 PM EST
--- OUTSIDE RECORDS SUMMARY | 2024-09-13 13:33 | XMS_ITS ---
Author Organization [facility] Address [address] [place] [address] Care Team Providers Care Direct Response Consultant Name Role Phone Kalpana Veronica Primary Care Provider UnavailJonna Silva Unavailable [phone] REASON FOR VISIT SD Reschedule/Cancel Encounters Encounter Location Date Provider Diagnosis [facility] [address] [place] [address] 09/01/2024 Jonna Black Plan Of Treatment Next Appt Details Provider Name:Jonna Nuñez , 09/22/2024 01:30:00 PM, [address] [place], [address], Progress Notes * Araceli BRANDTOB: [birth year] (63 yo F)Acc No.[id number]:09/01/2024 Patient:?Jaimie BRANDT :1960???Age:63 Y???Sex:Female Address:[address] [place] [address], [address] * true * Date:? Generated for Printi ng/Fabaldomerog/eTransmitting on:?09/13/2024 01:32 PM EST
--- OUTSIDE RECORDS SUMMARY | 2024-09-13 13:33 | XMS_ITS ---
Author Organization [facility] Address [address] [place] [address] Care Team Providers Care Carbonating Stone Cleaner Name Role Phone Kalpana Veronica Primary Care Provider Jonna Gil [phone] REASON FOR VISIT Sm toe buddies Encounters Encounter Location Date Provider Diagnosis [facility] [address] 06/21/2024 Jonna Nuñez Plan Of Treatment Next Appt Details Provider Name:Jonna Rice Joaquin , 09/22/2024 01:30:00 PM, [address] [facility], [place], [address], Progress Notes * Araceli BRANDTOB: [birth year] (63 yo F)Acc No.[id number]:06/21/2024 Patient:?Jaimie BRANDT :1960???Age:63 Y???Sex:Female Address:[address] [place] [address], [address] * true * Date:? Generated for Printi feliciano/Iam/eTransmitting on:?09/13/2024 01:32 PM EST
== END 2024-09-13 13:57 | disposition home or self-care (01) ==
PROVIDERS: PCP Physician Assistant; Visit Provider Student in an Organized Health Care Education/Training Program
DX: M1A.39X0 Chronic gout due to renal impairment, multiple sites, without tophus (tophi) (principal)
CPT/HCPCS: 99203; G2211

== ENCOUNTER → 2024-09-13 12:40 | Outpatient (BNVA) | payer MEDICARE, SELFPAY | PROVIDERS: PCP Physician Assistant; Visit Provider Student in an Organized Health Care Education/Training Program | DX: M1A.39X0 Chronic gout due to renal impairment, multiple sites, without tophus (tophi) (principal) | CPT/HCPCS: 99202 ==

== ENCOUNTER 2024-10-13 12:50 | Outpatient (AMB) | payer MEDICARE, SELFPAY ==
--- NOTE | 2024-10-13 13:21 | A.OFFPC_ITS ---
Vital Signs 10/13/24 13:56 Height 5 ft 2.5 in Weight 165 lb 2 oz BMI 29.7 BP 100/68 Blood Pressure Location Rt brachial Position Sitting Respiration 14 Pulse 95 Pulse Source Pulse Oximeter Intake Visit Reasons: labs and weight Intake Note: Follow up lab results. Medical Representative Required: No Accompanied by: Sister Allergies acetaminophen Allergy (Severe, Verified 10/13/24 13:54) Swelling allopurinol Allergy (Severe, Verified 10/13/24 13:54) Swelling azithromycin [From Zithromax Z-Ron] Allergy (Severe, Verified 10/13/24 13:54) Gastrointestinal Upset blue dye Allergy (Severe, Verified 10/13/24 13:54) Swelling codeine Allergy (Severe, Verified 10/13/24 13:54) Swelling oxycodone [From Percocet] Allergy (Severe, Verified 10/13/24 13:54) Swelling Medication List - Last Reconciled 10/13/24 by Kalpana Veronica PA-C albuterol sulfate 90 mcg/actuation 2 puffs inhalation Q6H PRN atorvastatin 80 mg PO DAILY diclofenac sodium 1% (Arthritis Pain (diclofenac)) 4 grams topical QID PRN furosemide (Lasix) 20 mg PO DAILY PRN ibuprofen (Motrin IB) 200 mg PO Q6H PRN lorazepam 1 mg PO BID 30 days montelukast 10 mg PO DAILY multivitamin with minerals (Hair,Skin and Nails tablet) 1 tab PO DAILY nystatin 1 appl topical BID-TID omeprazole 80 mg PO ONCE prednisone 5 mg PO DAILY probenecid 500 mg PO BID Tobacco use date assessed: 10/13/24 Fall risk assessment: No Falls in past year Last assessed Fall Risk: 10/13/24 Dental Screening Dental Screen Date: 12/31/23 HPI labs and weight HPI Details The patient is a 63-year-old female presenting with a follow-up for management of multiple chronic conditions including gout, asthma, anxiety, and chronic kidney disease. Musculoskeletal: Gout is much better controlled. Pulm: Currently stable and following with her instructor bridge., Dr. Jaramillo. Psych: She is doing better with the Effexor but does feel like this could be increased. Nephro: For chronic kidney disease, the patient plans to monitor kidney function and potential preparation for a kidney donation by a sibling when necessary. She states that she has already contacted [facility] and is prepared that when her kidney function decreases to stage IV she is going to look for a donor. Discussions with Dr. Lucas, a dialysis rn, expressed stability in kidney function, with potential intervention only when levels reach a specified threshold. they have tried to offer some reassurance that this is not the cause of her back pain. Musculoskeletal: She has neck pain, midback pain and low back pain. It does not seem to radiate into the extremities. She states that she did have a referral to neurosurgery for this cervical cord malacia but has not yet made a consult appointment. She states that if she is going to meet with a neurosurgeon she would like to know what her back MRI shows this well. She did get an x-ray of her lumbar spine which showed degeneration. She states that she does not want to see physiatry but would be open to seeing [facility]. At times she is having to take ibuprofen despite having kidney disease. Does not tolerate oxycodone. States that the pain is miserable. baclofen is not effective Heme/onc: Following with Dr. Glen Da Silva at [facility] on 11/03/24 [facility] Medical History (Updated 09/13/24 @ 13:54 by Doris Jerez MD) GERD (gastroesophageal reflux disease) Generalized anxiety disorder with panic attacks Dyslipidemia Overactive bladder AML (acute myeloid leukemia) in remission Surgical History Stem cells transplant status Family History Mother Cancer Father Cancer Social History (Updated 10/13/24 @ 14:13 by Yumiko Mixon CMA) Housing: House Alcohol intake: current Comment: Rare Patient Tobacco Use Status: Never used Tobacco e-Cigarette/Vaping Use: Never Used Second Hand Smoke Exposure: Yes service: No Current occupational status: retired Cognitive needs: No Hearing needs: No Vision needs: Yes (glasses) Questionnaire PHQ-9 Over the last 2 weeks, how often have you been bothered by any of the following problems? 1. Little interest or pleasure in doing things: not at all 2. Feeling down, depressed, or hopeless: not at all 3. Trouble falling or staying asleep, or sleeping too much: not at all 4. Feeling tired or having little energy: not at all 5. Poor appetite or overeating: not at all 6. Feeling bad about yourself - or that you are a failure or have let yourself or your family down: not at all 7. Trouble concentrating on things, such as reading the newspaper or watching television: not at all 8. Moving or speaking so slowly that other people could have noticed. Or the opposite - being so fidgety or restless that you have been moving around a lot more than usual: not at all 9. Thoughts that you would be better off or of hurting yourself in some way: not at all Total score: 0 Depression Screening Interpretation: Negative Depression Screening Done: Yes [address]4516 - PHQ-9 Billing: Yes Source: Developed by Drs. Coy Tam, Monica Calvin, Eliazar Monroy and colleagues, with an educational ignacio from [employer]. Thrive Questionnaire Date Thrive assessed: 10/13/24 I am a: Patient What is your living situation today?: I have a steady place to live Within the past 12 months, did the food you bought not last and you didn't have the money to get more?: Never true Within the past 12 months, did you worry whether your food would run out before you got money to buy more?: Never true Do you have trouble paying for medicines?: No Do you have trouble getting transportation to medical appointments?: No Do you have trouble paying your heating and electricity bill?: No Do you have trouble taking care of your child, family member or friend?: No Do you have trouble with day-to-day activities such as bathing, preparing meals, shopping, managing finances, etc.?: No Are you currently unemployed and looking for a job?: No Are you interested in more education?: No Please select the resources that you would like help with: None Currently or been in a relationship where the following occur: I choose not to answer THRIVE Score: 0 Physical exam (Primary Care) Vital Signs: Last Vital Signs Pulse 95 10/13/24 13:56 Resp 14 10/13/24 13:56 BP 100/68 10/13/24 13:56 BMI result Body Mass Index 29.7 Tobacco/Smoking Status: Tobacco use Status Tobacco use date assessed 10/13/24 10/13/24 13:58 Patient Tobacco Use Status Never used Tobacco 10/13/24 14:13 e-Cigarette/Vaping Use Never Used 10/13/24 14:13 PHQ-9: PHQ-9 Score PHQ-9: Total score 0 10/13/24 14:25 Depression Screening Interpretation: Negative Thrive Assessment: Date of Thrive Assessment Date Thrive assessed 10/13/24 10/13/24 14:11 Currently or been in a relationship where the following occur: I choose not to answer Const Orientation/consciousness: patient oriented x3 HENMT Ears: hearing grossly normal bilaterally Neck Thyroid: Thyroid normal Lymphatic: no lymphadenopathy noted Resp Auscultation: clear to auscultation bilaterally Cardio Rate: regular rate Rhythm: regular rhythm Heart sounds: S1 normal heart sound present and S2 normal heart sound present GI Inspection: Yes normal to inspection Palpation (GI): Soft to palpation and Other GI palpation findings present (nontender, no cva tenderness) Auscultation: normoactive bowel sounds Rectal Exam - Female: deferred Skin General skin exam: no rashes or lesions noted Neuro General: patient oriented x3, gait normal and no focal motor deficits Coding Level of Care Code Complex EM visit Add On G2211 Diagnoses Thoracic back pain M54.6 Chronicity: chronic Bilateral low back pain M54.50 CKD stage 3a, GFR 45-59 ml/min N18.31 Generalized anxiety disorder with panic attacks F41.1; F41.0 Additional Codes PHQ-9 - 01799 - PHQ-9 Billing: Yes ([id number]) Assessment & Plan Assessment & Plan (1) Thoracic back pain: Code(s): M54.6 - Pain in thoracic spine Category: Medical Qualifiers: Chronicity: chronic Plan: referral to [facility] (2) Bilateral low back pain: Code(s): M54.50 - Low back pain, unspecified Category: Medical Plan: As above We will start tramadol. Discussed risks and benefits and adverse effects of this medication. Encouraged her to avoid NSAIDs. (3) CKD stage 3a, GFR 45-59 ml/min: Code(s): N18.31 - Chronic kidney disease, stage 3a Category: Medical Plan: Stable. (4) Generalized anxiety disorder with panic attacks: Code(s): F41.1 - Generalized anxiety disorder; F41.0 - Panic disorder [episodic paroxysmal anxiety] Category: Medical Plan: Increase Effexor. Follow up in 3 months. Sooner if needed. Patient understands and agrees with the plan. Orders: Referrals Orthopedics Referral M54.50 - Low back pain, unspecified, M54.6 - Pain in thoracic spine Medications: New tramadol 50 mg PO BID 28 days PRN 56 tabs 0RF pain venlafaxine ER (Effexor XR) 75 mg PO DAILY 90 caps 2RF tramadol 50 mg PO BID 30 days PRN 60 tabs 0RF pain
[2024-10-13 13:56] VITALS: BP 100/68; PULSE 95; RESP 14; BMI 29.7
== END 2024-10-13 14:45 | disposition home or self-care (01) ==
LOC: HO.HMCFM 12:51
PROVIDERS: PCP Physician Assistant; Visit Provider Physician Assistant
DX: M54.6 Pain in thoracic spine (principal); M54.50 Low back pain, unspecified; N18.31 Chronic kidney disease, stage 3a; F41.1 Generalized anxiety disorder; F41.0 Panic disorder [episodic paroxysmal anxiety]

== ENCOUNTER → 2024-10-13 12:50 | Outpatient (BNVA) | payer MEDICARE, SELFPAY | PROVIDERS: PCP Physician Assistant; Visit Provider Physician Assistant | DX: M54.6 Pain in thoracic spine (principal); M54.50 Low back pain, unspecified; N18.31 Chronic kidney disease, stage 3a; F41.1 Generalized anxiety disorder; F41.0 Panic disorder [episodic paroxysmal anxiety] | CPT/HCPCS: 96127; 99212 ==

== ENCOUNTER 2024-10-19 10:15 | Outpatient (AMB) | payer MEDICARE, SELFPAY ==
[2024-10-19 10:17] VITALS: BP 120/74; PULSE 89; O2SAT 96; BMI 28.8
--- NOTE | 2024-10-19 10:17 | A.OFFVIS_ITS ---
Vital Signs 10/19/24 10:17 Height 5 ft 2.5 in Weight 160 lb 1 oz BMI 28.8 BP 120/74 Blood Pressure Location Lt brachial Position Sitting Pulse 89 Pulse Source Pulse Oximeter Pulse Oximetry (%) 96 Oxygen Delivery Method Room Air Intake Visit Reasons: gout Intake Note: Patient last seen by Doctor Doris Jerez on 09/13/24. Patient presents for Gout follow up. Patient states she did not get the uric acid level done yet because she was sick. Accompanied by: Sister Allergies acetaminophen Allergy (Severe, Verified 10/19/24 10:20) Swelling allopurinol Allergy (Severe, Verified 10/19/24 10:20) Swelling azithromycin [From Zithromax Z-Ron] Allergy (Severe, Verified 10/19/24 10:20) Gastrointestinal Upset blue dye Allergy (Severe, Verified 10/19/24 10:20) Swelling codeine Allergy (Severe, Verified 10/19/24 10:20) Swelling oxycodone [From Percocet] Allergy (Severe, Verified 10/19/24 10:20) Swelling HPI Comments Details: Patient is a 63-year-old female with AML currently in remission, hyperlipidemia, CKD stage 3, asthma and gout presents for follow up Interval History: Patient last seen 09/13/2024 with me. At that time she was establishing care for the management of gout. Uric acid significantly elevated at 10. Previous allergic reaction to allopurinol and so was started on probenecid along with prednisone Since starting medications patient has not had any further gout flares. Rheumatologic History: Initial history by me: Patient states that the past several years she has been having recurrent attacks of monoarticular arthritis involving the bilateral great toes. These episodes would be precipitated by eating meat. They would resolve with Prednisone tapers. Has tried allopurinol low past however had an allergic reaction with swelling. Has also tried colchicine in the past by also have allergic reaction to assess well. Of note her grandfather also had really bad gout. Risk Factors for Gout Family history and CKD Denies: HTN, EtOH use and use of medications: low-dose ASA, diuretics, cyclosporine Current Rheumatology Medication(s): Probenecid 500mg bid Prednisone 5mg daily [facility] Medical History (Updated 10/19/24 @ 10:51 by Doris Jerez MD) GERD (gastroesophageal reflux disease) Generalized anxiety disorder with panic attacks Dyslipidemia Overactive bladder AML (acute myeloid leukemia) in remission Surgical History Stem cells transplant status Family History Mother Cancer Father Cancer Social History (Updated 10/13/24 @ 14:13 by Yumiko Mixon CMA) Housing: House Alcohol intake: current Comment: Rare Patient Tobacco Use Status: Never used Tobacco e-Cigarette/Vaping Use: Never Used Second Hand Smoke Exposure: Yes service: No Current occupational status: retired Cognitive needs: No Hearing needs: No Vision needs: Yes (glasses) Review of Systems Const Details: Review of Systems Constitutional: Denies fever, chills, weight loss ENT: Denies vision changes, eye pain or eye redness, dental caries, dry mouth GI: Denies nausea, vomiting, diarrhea, abdominal pain, change in BM Pulm: Denies SOB, ANDERSON, hemoptysis, wheezing Cards: Denies chest pain, palpitations Skin: Denies Raynaud's, rash, nail changes, photosensitivity, ACQUISITIONS ANALYST: Denies headaches, weakness, paresthesias, recurrent falls MSK: as per HPI All other systems reviewed and are unremarkable except noted above Physical Exam Vital Signs: Last Vital Signs Pulse 89 10/19/24 10:17 BP 120/74 10/19/24 10:17 Pulse Ox 96 10/19/24 10:17 Oxygen Delivery Method Room Air 10/19/24 10:17 BMI result Body Mass Index 28.8 Vital signs reviewed Physical Examination CONSTITUITIONAL Patient alert and cooperative. Well appearing and in no apparent painful distress HEENT Conjunctiva and sclera clear. ?Pupils equal round and reactive to light. ?No lymphadenopathy. ? CHEST/RESPIRATORY SYSTEM Normal respiratory effort and able to speak in complete sentences. ?Clear to auscultation bilaterally. ?No crackles, rales, rhonchi, wheezes heard. CARDIAC SYSTEM Regular rate and rhythm. ?S1 and S2 heard no murmurs. ?Radial pulses intact bilaterally MSK Hands: ?Good mixer lever operator strength bilaterally. No deformities noted. ?No synovitis noted to the MCPs, PIPs or DIPs. ?No tenderness to palpation of these joints. Wrists: ?Full range of motion at the wrists without pain. ?No tenderness to palpation or synovitis noted to the wrists. Elbows: Full range of motion without pain. No tenderness, weakness, swelling, increased warmth or erythema. Shoulders: Full range of motion without pain. No tenderness, weakness, swelling, increased warmth or erythema. Hips: Full range of motion without pain. Hip bursa: No tenderness to palpation Knees: ?Full range of motion. ?No tenderness, swelling, increased warmth or erythema.?No effusion or crepitations Ankles: Full range of motion. ?No tenderness, swelling, increased warmth or erythema.? Feet: ?Negative squeeze test. ?No tenderness to palpation of the MTPs of the right foot. No tenderness to palpation of the MTPs of the left foot. Surgical scar noted over the left 1st great toe. Tender points:?No tenderness to palpation of the bilateral trapezius, supraspinatus, greater trochanters, anterior costochondral junctions, bilateral gluteal areas, bilateral suboccipital muscle insertions SKIN Skin intact without rashes. No tophi noted Results Reviewed Results Reviewed: Laboratory Tests 09/07/24 15:11 WBC 18.9 H RBC 4.48 Hgb 13.2 Hct 39.3 Plt Count 299 ESR 34 H Sodium 140 Potassium 3.6 Chloride 106 Carbon Dioxide 22 BUN 29 H Creatinine 1.45 H Uric Acid 10.5 H Calcium 9.1 D AST 22 ALT 19 Alkaline Phosphatase 111 C-Reactive Protein 0.81 H Total Protein 7.6 Albumin 4.1 Assessment & Plan Assessment & Plan (1) Gout: Comment: Non crystal proven Allopurinol - allergic rxn Colchicine - did not tolerate 08/2024: Probenecid and prednisone Code(s): M10.9 - Gout, unspecified Category: Medical Qualifiers: Gout site: multiple sites Gout etiology: due to renal impairment Chronicity: chronic Presence of tophus: without tophus Qualified Code(s): M1A.39X0 - Chronic gout due to renal impairment, multiple sites, without tophus (tophi) Plan: #Non crystal proven non tophaceous gout Patient is a 58-year-old female with AML in remission and CKD who presents for management of gout. Patient states that whenever she eats meat she will get a flare in her gout involving her bilateral feet and great toes. Tried allopurinol in the past however had allergic reaction and has not been able to take either that or colchicine. Risk factors for gout: Family history, CKD, furosemide use Plan - Probenecid 500mg bid - Prednisone 5mg daily - Follow up UA to be done today - RTC 3 months - Labs before visit: CBC, CMP, ESR, CRP, UA Plan I spent 30 minutes reviewing the record and labs, taking a history, examining the patient, discussing the treatment plan and documenting in the medical record Orders: Orders C Reactive Protein 3 Months M1A.39X0 - Chronic gout due to renal impairment, multiple sites, without tophus (tophi) Erythrocyte Sedimentation Rate 3 Months M1A.39X0 - Chronic gout due to renal impairment, multiple sites, without tophus (tophi) Complete Blood Count Auto Diff 3 Months M1A.39X0 - Chronic gout due to renal impairment, multiple sites, without tophus (tophi) Comprehensive Met. Panel 3 Months M1A.39X0 - Chronic gout due to renal impairment, multiple sites, without tophus (tophi) Uric Acid 3 Months M1A.39X0 - Chronic gout due to renal impairment, multiple sites, without tophus (tophi) Coding Level of Care Code Est Pt Level 3 (17987) Complex EM visit Add On G2211 Diagnoses Chronic gout due to renal impairment of multiple sites without tophus M1A.39X0 Gout site: multiple sites Gout etiology: due to renal impairment Chronicity: chronic Presence of tophus: without tophus
--- OUTSIDE RECORDS SUMMARY | 2024-10-19 11:51 | XMS_ITS | Clinical Summary ---
Author Organization [facility], Address [address] [place] [address] Phone Care Team Providers Care Metal Weather Stripper Name Role Phone Kalpana Veronica PA-C Primary [...] nebulizer solution 3 mL at bed time Active allopurinol (ZYLOPRIM) 100 MG tablet allopurinol 100 mg tablet Active atorvastatin (LIPITOR) 80 MG tablet Take 80 mg by mouth 1 (one) time each day Active HYDROcodone-ac etaminophen (NORCO) 5-325 MG per tablet hydrocodone 5 mg-acetaminophe n 325 mg tablet Active loperamide (IMODIUM A-D) [...] tablet Take 25 mg by mouth Active sulfamethoxazo le-trimethopri m (BACTRIM DS,SEPTRA DS) 800-160 MG per tablet Take 1 tablet by mouth 2 (two) times a day for 7 days 14 tablet 0 Active cholecalcifero l (VITAMIN D-3) 25 MCG (1000 UT) tablet [...] by mouth 1 (one) time each day 90 tablet 3 5 09/22/19 26 Active furosemide (LASIX) 20 MG tablet Take 1 tablet (20 mg total) by mouth 1 (one) time each day 30 tablet 2 4 09/22/19 25 Discontin ued(Reord er (does not appear on AVS)) Active Problems Problem Noted Date Diagnosed Date Edema 07/05/2024 Simple renal cyst 10/15/2021 Asthma 05/21/2021 Stage 3a chronic kidney disease 09/13/2019 Overview (07/30/2020): Update for Diagnosis Load Resolved Problems Problem Noted Date Diagnosed Date Resolved Date Syncope 01/01/2021 05/21/2021 Urinary tract infection 06/19/202004/27 Anemia 09/13/2019 05/21/2021 Dyslipidemia 09/13/2019 12/26/2020 Gout 09/13/2019 12/26/2020 Hypertensive disorder 09/13/20192020 Encounters Date Type Department Care Team Description 09/22/2024 Office Communication [facility] [address] [place] [address] Stacy Styles 09/22/2024 Refill [facility] [address] [place] [address] Stacy Styles from Last 3 Months Immunizations Name Administration [...] age to complete this topic Insurance MEDICARE [facility] Care Teams Metal Weather Stripper Relationship Specialty Start Date End Date Kalpana Veronica PA-C [address] [place] [address] PCP - General Physician Claim Investigator 07/05/24
--- OUTSIDE RECORDS SUMMARY | 2024-10-19 11:51 | XMS_ITS | Patient Health Record ---
Author Organization [facility] Address [address] [place] [address] Care Team Providers Care Bioinformatics Computer Scientist Name Role Phone Kalpana Veronica Primary Care Provider Unavailmagy e JoaquinJonna Unavailable [phone] CameronCassandra Unavailable [phone] Allergies Allergen (clinical drug ingredient) Drug/Non Drug Allergy documented on EMR Reaction Allergy Type Onset Date Status acetaminophen / oxycodone Percocet Unknown Drug Allergy Active codeine Codeine severe abdominal pain Drug Allergy Active lisinopril Lisinopril Unknown Drug Allergy Activ e Results Component Value Reference Range Notes X ray : Foot, left 3V Reviewed date:09/22/2024 07:34:28 PM Interpretation:See Examination above Performing Lab: Notes/Report: See Examination above Reason For Referral No Information Medications Medication SIG (Take, Route, Frequency, Duration) Notes Start Date End Date Status Gabapentin 600 MG 1 tablet Orally Once a day Active Atorvastatin Calcium 80 MG TAKE 1 TABLET BY MOUTH DAILY Oral for 90 Active Aspir-81 Active Omeprazole Active Lexapro Not-Taking Probenecid Active Vitamin D3 Active Baclofen 10 MG 1 tablet as needed Orally Twice a day Active PROzac 20 MG 1 capsule Orally Onc e a day for 30 day(s) Not-Taking predniSONE 5 MG/ML as directed Orally Active Ciclopirox Olamine 0.77 % 1 application to affected area Externally to feet Twice a day for 30 days Not-Taking LORazepam 1 MG Oral for 30 Act eunice Hair Skin Nails supplement Act eunice Ammonium Lactate 12 % 1 application Externally to affected areas of dry skin to feet except for between the toes Twice a day for 30 days Active Effexor Active Vitamin C Active Singulair Active Social History Tobacco Use: Social History Observation Description Date Details (start date - stop date) Never Smoker NA - NA Tobacco Use/Smoking Question Answer Notes Are you a: nonsmoker Tobacco use other than smoking: Question Answer Notes Are you an other tobacco user? No Problems Problem Type SNOMED Code ICD Code Onset Dates Problem Status W/U Status Risk Notes Problem Acquired hammer toe of left foot (0364281633205253) Other hammer toe(s) (acquired), left foot (M20.42) Active confirmed Problem Localized, primary osteoarthritis of the ankle and/or foot (581251142) Arthritis of joint of lesser toe, left (M19.072) Active confirmed Problem [id number] Skin ulcer of toe of left foot, limited to breakdown of skin (L97.521) Active confirmed Vital Signs Blood pressure diastolic 66 mm Hg 09/22/2024 Height 5ft2.5in in 09/22/2024 Blood pressure systolic 120 mm Hg 09/22/2024 Weight 161 lbs 09/22/2024 BMI 28.97 kg/m2 09/22/2024 Procedures Procedure Date Ordered Date Performed Result Body Sit e 55931- Debride <25 sq cm 09/22/2024 N/A Encounters Encounter Location Date [facility] [address] [facility]/21/[facility]24 Cassandra Cameron Pain in left toe(s) M79.675 ; Other hammer toe(s) (acquired), left foot M20.42 ; Tinea unguium B35.1 ; Pain in right toe(s) M79.674 and Pain in left toe(s) M79.675 [facility] [address] [place] [address] 09/22/2024 Jonna Black Pain in left toe(s) M79.675 ; Other hammer toe(s) (acquired), left foot M20.42 ; Xerosis of skin L85.3 ; Arthritis of joint of lesser toe, left M19.072 ; Subluxation of metatarsophalangeal joint of toe, initial encounter S93.149A and Skin ulcer of toe of left foot, limited to breakdown of skin L97.521 [facility] [place] [address] [place] [address] 11/20/2023 Jonna Black [facility] [address] [address] 05/30/2024 Jonna Black [facility] [address] [address] 05/30/2024 Jonna Black [facility] [address] [address] 06/03/2024 Jonna Black [facility] [place] [address] [facility] [address] [place] [address] 06/21/2024 Jonna Joaquin [facility] [address] [address] 09/01/2024 Jonna Nuñez Assessments Encounter Date Diagnosis (ICD Code) Assessment Notes Treatment Notes Treatment Clinical Notes Section Notes 06/21/2024 Pain in left toe(s) (ICD-10 - M79.675) 06/21/2024 Other hammer toe(s) (acquired), left foot (ICD-10 - M20.42) 09/22/2024 Pain in left toe(s) (ICD-10 - M79.675) 09/22/2024 Other hammer toe(s) (acquired), left foot (ICD-10 - M20.42) 09/22/2024 Xerosis of skin (ICD -10 - L85.3) 06/21/2024 Tinea unguium (ICD-1 0 - B35.1) 06/21/2024 Pain in right toe(s) (ICD-10 - M79.674) 09/22/2024 Arthritis of joint o f lesser toe, left (ICD-10 - M19.072) 06/21/2024 Pain in left toe(s) (ICD-10 - M79.675) 09/22/2024 Subluxation of metatarsophalangeal joint of toe, initial encounter (ICD-10 - S93.149A) 09/22/2024 Skin ulcer of toe of left foot, limited to breakdown of skin (ICD-10 - L97.521) Patient Educated with: WOUND CARE INSTRUCTIONS. pdf (WOUND CARE INSTRUCTIONS. pdf) Plan Of Treatment Pending Test Test Name Order Date [id number] NAIL, 1-5 08/20/2023 [id number] Plate 10/30/2022 19858- Debride <25 sq cm 09/22/2024 Insurance Providers Payer Name Payer Address Payer Phone Subscriber Number Group Number Insured Name Patient Relationship to Insured Coverage Start Date Coverage End Date Medicare National [employer] [address] [place] [address] [id number] [employer] Jaimie Self - patient is the insured AARP Secondary to Medicare [address] [place] [address] [id number] [employer], Jaimie Self - patient is [...]
--- OUTSIDE RECORDS SUMMARY | 2024-10-19 11:51 | XMS_ITS | Encounter Summary ---
Author Organization [facility] Address [address] [place] [address] Phone Care Team Providers Care Communicable Disease Specialist Name Role Phone Kalpana Veronica PA-C Primary Care Provider + Encounter Details Date Type Department Care Team (Late st Contact Info) Description 07/05/2024 Documentation Only [facility], [address] [place] [address] Lashon Rios [address] [place] [address] Social History Tobacco Use Types [...] on filedocumented in this encounter Care Teams Communicable Disease Specialist Relationship Specialty Start Date End Date Kalpana Veronica PA-C [address] [place] [address] PCP - General Physician Electrical Cad Technician 07/05/24 documented as of this encounter
--- OUTSIDE RECORDS SUMMARY | 2024-10-19 11:51 | XMS_ITS | Encounter Summary ---
Author Organization [facility] Address [address] [place] [address] Phone Care Team Providers Care Earth Science Teacher Name Role Phone Kalpana Veronica PA-C Primary Care Provider + Reason for Visit * Reason Onset Date Comments Med Refill 09/22/2024 Encounter Details Date Type Department Care Team (Late st Contact Info) Description 09/22/2024 Refill [facility], [address] [place] [address] Stacy Styles [address] [place] [phone] Social History Tobacco Use Types Packs/Day Years [...] on filedocumented in this encounter Care Teams Earth Science Teacher Relationship Specialty Start Date End Date Kalpana Veronica PA-C [address] [place] [address] PCP - General Physician Liquor Inspector 07/05/24 documented as of this encounter
--- OUTSIDE RECORDS SUMMARY | 2024-10-19 11:51 | XMS_ITS | Encounter Summary ---
Author Organization [facility] Address [address] [place] [address] Care Team Providers Care Hi Teacher Name Role Phone Kalpana Veronica Primary Care Provider [phone] Encounter Details Date Type Department Care Team (Late st Contact Info) Description 06/29/2024 Lab Requisition [facility] [address] [facility] [place] [phone] Marielena Vera MD [address] [facility] [place] [address] [place] [id number] Acute kidney failure, unspecified (CMS/HCC); Personal history [...] of Assessment Author No 06/26/2024 1:22 AM eR Torres RN * Do you have serious [...] if clinically indicated. 06/29/2024 2:12 PM EST [facility] Other Urine specimen from urethra / Unknown Non-blood Collection / Unknown 06/28/2024 11:00 AM EST 06/29/2024 1:52 PM EST Marielena Vera MD LAB MICROBIOLOGY - G ENERAL ORDERABLES Final Result [facility] [address] [place] [address], documented in this encounter Visit Diagnoses Diagnosis Acute kidney failure, unspecified (CMS/HCC) Acute kidney failure, unspecified Personal history of urinary (tract) infections documented in this encounter Care Teams Hi Teacher Relationship Specialty Start Date End Date Kalpana Veronica PA [address] [place] [address] PCP - General Physician Accounting Officer 06/26/24 documented as of this encounter
--- OUTSIDE RECORDS SUMMARY | 2024-10-19 11:51 | XMS_ITS ---
Author Organization [facility] Address [address] [place] [address] Care Team Providers Care Manager Float Name Role Phone Kalpana Veronica Primary Care Provider Unavailabl e Black, Jonna Unavailable [phone] REASON FOR VISIT SD Reschedule/Cancel Encounters Encounter Location Date Provider Diagnosis [facility] [address] [place] [address] 09/01/2024 Jonna Black Plan Of Treatment No Information Progress Notes * Araceli KINCAIDOB: [birth year] (63 yo F)Acc No.[id number]:09/01/2024 Patient:?Jaimie KINCAID :1960???Age:63 Y???Sex:Female Address:[address] [place] [address], [address] * true * Date:? Generated for Printi ng/Faxing/eTransmitting on:?10/19/2024 11:51 AM EDT
--- OUTSIDE RECORDS SUMMARY | 2024-10-19 11:51 | XMS_ITS | Clinical Summary ---
Author Organization [facility] Address [address] [place] [address] Phone Care Team Providers Care Control System Computer Scientist Name Role Phone Kalpana Veronica Primary Care Provider [phone] Allergies Active Allergy Reactions Criticality Noted Date Comments Allopurinol 06/26/2024 Blue Dye 06/26/2024 Ciprofloxacin 06/26/2024 Codeine 06/26/2024 Hydromorphone 06/26/2024 Lisinopril 06/26/2024 Methocarbamol 06/26/2024 Oxycodone-Acetaminophen 06/26/2024 Acetaminophen 06/26/2024 Acetaminophen-Codeine 06/26/2024 Hydrocodone-Acetaminophen 06/26/2024 Alprazolam 06/26/2024 Medications No known medications Surgical History Surgery Date Site/Laterality Comments JOINT REPLACEMENT Medical History Medical History Date Comments AML (acute myeloid leukemia) ([facility]) Asthma Cystitis Thomas's esophagus Cataract CKD (chronic kidney disease), stage III ([facility] ) CVA (cerebral vascular accident) ([facility]) DJD (degenerative joint disease) Dyslipidemia Anxiety GERD [...] 1960 Zoster Vaccines (1 of 2) 1977 Pneumococcal Vaccine: 50+ Years (3 of 3 - PCV) 06/29/2016 06/29/2015, 04/07/2013 RSV Immunization Patients 60+ Years Old (1 - Risk 60-74 years 1-dose series) 2018 DTaP,Tdap,and Td Vaccines (3 - Td or Tdap) 05/27/2021 05/27/2011, 03/07/2011 COVID-19 Vaccine (4 - season) 2024 10/02/2021, 10/18/2020, 09/20/2020 Influenza Vaccine (#1) 2024 , 06/05/2019, 03/29/2015, Additional history exists Cholesterol Screening [...] age to complete this topic Insurance MEDICARE [facility] Care Teams Control System Computer Scientist Relationship Specialty Start Date End Date Kalpana Veronica PA [address] [facility] [place] [phone] PCP - General Physician Residential Treatment Counselor 06/26/24
--- OUTSIDE RECORDS SUMMARY | 2024-10-19 11:51 | XMS_ITS ---
Author Organization [facility] Address [address] [place] [address] Care Team Providers Care Loading Manager Name Role Phone Kalpana Veronica Primary Care Provider Jonna Gil [phone] Encounters Encounter Location Date Provider Diagnosis [facility] [address] [place] [address] 09/01/2024 Jonna Nuñez Plan Of Treatment No Information Progress Notes * Randy BRANDTDipikaOB: [birth year] (64 yo F)Acc No.[id number]:09/01/2024 Progress Note Patient:?Randy BRANDTen Provider:Edna Nuñez DPM :1960???Age:63 Y???Sex:Female D ate:09/01/2024 Address:[address] [place], [place] [phone] Pcp:Kalpana Veronica Subjective: * Chief Complaints: * ??? * Medical History:? Objective: * Vitals:? Assessment: Plan: * Treatment: * Images: * The named appointment provid er may or may not be the originator of this progress note, and it is not deemed complete until electronically signed by the appointment provider. Sign off status: Pending * Provider:Edna Nuñez DPM Date:?2024 Generated for Katlyn wiggins/Iam/eTransmitting on:?10/19/2024 11:51 AM EDT
--- OUTSIDE RECORDS SUMMARY | 2024-10-19 11:51 | XMS_ITS | Encounter Summary ---
Author Organization [facility] Address [address] [place] [address] Phone Care Team Providers Care Credit Manager Name Role Phone Kalpana Vreonica PA-C Primary Care Provider + Encounter Details Date Type Department Care Team (Late st Contact Info) Description 09/22/2024 Office Communication [facility] [address] [place] [address] Stacy Styles [address] [place] [phone] Social History Tobacco Use Types Packs/Day [...] on file documented as of this encounter Miscellaneous Notes * Telephone Encounter - Stacy Styles - 09/27/2024 10:29 AM EST Made contact with Jaimie and made her aware of Dr. Lucas's response. documented in this encounter Plan of Treatment Not on file documented as of this encounter Visit Diagnoses Not on filedocumented in this encounter Care Teams Credit Manager Relationship Specialty Start Date End Date Kalpana Veronica PA-C [address] [place] [address] PCP - General Physician It Sales Executive 07/05/24 documented as of this encounter
--- OUTSIDE RECORDS SUMMARY | 2024-10-19 11:51 | XMS_ITS ---
Author Organization [facility]en Address [address] [place] [address] Care Team Providers Care Zoology Professor Name Role Phone Kalpana Veronica Primary Care Provider Unavailabl e Black, Jonna Unavailable [phone] Allergies Allergen (clinical drug ingredient) Drug/Non Drug [...] above Performing Lab: Notes/Report: See Examination above REASON FOR VISIT Skin problem(s), Painful Toe(s) Medications Medication SIG (Take, Route, Frequency, Duration) Notes Start Date End Date Status Atorvastatin Calcium 80 MG TAKE 1 TABLET BY MOUTH DAILY Oral for 90 Active Aspir-81 Active Gabapentin 600 MG 1 tablet Orally Once a day Active LORazepam 1 MG Oral for 30 Act eunice Hair Skin Nails supplement Act eunice Omeprazole Active Probenecid Active Baclofen 10 MG 1 tablet as needed Orally Twice a day Active predniSONE 5 MG/ML as directed Orally Active Effexor Active Lexapro Not-Taking Vitamin D3 Active PROzac 20 MG 1 capsule Orally Onc e a day for 30 day(s) Not-Taking Ciclopirox Olamine 0.77 % 1 application to affected area Externally to feet Twice a day for 30 days Not-Taking Ammonium Lactate 12 % 1 application Externally to affected areas of dry skin to feet except for between the toes Twice a day for 30 days Active Vitamin C Active Singulair Active Social [...] Problem Status W/U Status Risk Notes Problem [id number] Skin ulcer of toe of left foot, limited to breakdown of skin (L97.521) Active confirmed Vital Signs Height 5ft2.5in in 09/22/2024 Weight 161 lbs 09/22/2024 BMI 28.97 kg/m2 09/22/2024 Blood pressure systolic 120 mm Hg 09/22/19 25 Blood pressure diastolic 66 mm Hg 025 Procedures Procedure Date Ordered Date Performed Result Body Sit e 47419- Debride <25 sq cm 09/22/2024 N/A Encounters Encounter Location Date Provider Diagnosis [facility] [address] [place] [address] 09/22/2024 Jonna Black Pain in left toe(s) M79.675 ; Other hammer toe(s) (acquired), left foot M20.42 ; Xerosis of skin L85.3 ; Arthritis of joint of lesser toe, left M19.072 ; Subluxation of metatarsophalangeal joint of toe, initial encounter S93.149A and Skin ulcer of toe of left foot, limited to breakdown of skin L97.521 Assessments Encounter Date Diagnosis (ICD Code) Assessment Notes Treatment Notes Treatment Clinical Notes Section Notes 09/22/2024 Pain in left toe(s) (ICD-10 - M79.675) 09/22/2024 Other hammer toe(s) (acquired), left foot (ICD-10 - M20.42) 09/22/2024 Xerosis of skin (ICD -10 - L85.3) 09/22/2024 Arthritis of joint o f lesser toe, left (ICD-10 - M19.072) 09/22/2024 Subluxation of metatarsophalangeal joint of toe, initial encounter (ICD-10 - S93.149A) 09/22/2024 Skin ulcer of toe of left foot, limited to breakdown of skin (ICD-10 - L97.521) Patient Educated with: WOUND CARE INSTRUCTIONS. pdf (WOUND CARE INSTRUCTIONS. pdf) Plan Of Treatment Medication Medication Name Sig Start Date Stop Date Notes Ammonium Lactate 12 % 1 application Exte rnally to affected areas of dry skin to feet except for between the toes Twice a day for 30 days Treatment Notes Assessment Notes Skin ulcer of toe of left fo ot, limited to breakdown of skin Patient Educated with: WOUND CARE INSTRUCTIONS.pdf (WOUND CARE INSTRUCTIONS.pdf) Pending Test Test Name Order Date 78704- Debride <25 sq cm 09/22/2024 Next Appt Details Follow Up: 2 Weeks, Reason: Procedure Notes * Category Sub-Category Detail Notes Debride skin< 25 sq cm Open wound Physician of record performed open wound selective debridement of first 25 sq cm or less, of devitilized necrotic/nonviable soft tissue, fibrin, and exudate extending from the epidermis through the dermis, utilizing sharp dissection with sterile 15 blade, and/or tissue nippers. Sterile antibiotic dressing applied, ANESTHESIA was accomplished TOPICALLY with Lidocaine Hydrochloride Jelly 2 percent. Hemostasis was achieved through direct pressure. Post debridement measurements: 5mm x 4mm x 2mm. Character of the wound post debridement is stable (18254) Progress Notes * Araceli BRANDTOB: [birth year] (63 yo F)Acc No.[id number]:09/22/2024 Progress Note Patient:?Randy BRANDTen Provider:?Jonna Nuñez DPM :1960???Age:63 Y???Sex:Female D ate:09/22/2024 Address:[address] [place], [place] [id number] Pcp:Kalpana Veronica Subjective: * Chief Complaints: * ???Skin problem(s)Painful To e(s) * HPI: ???Skin problems:?Nature:?dryness , scaling.?Location:?B/L .?Duration:?several days.?Course:?worse.?Toe pain:?Nature:?tenderness.?Location:?Left foot, 4th toe.?Duration:?, several weeks.?Course:?worse.?Aggravated by:?any pressure, shoes.?Treatments:?rest/alter normal daily activity, change in shoes.? * ROS:?General/Constitutional:?Nausea?denies.?Vomiting?denies.?Hunger Thirst?denies.?Loss appetite?denies.?Chills?denies.?Fatigue?denies.?Fever?denies.?Night Sweats?denies.?Unexplained weight loss?denies.?Unexplained weight gain?denies.?HEENTM:?Dentures?denies.?Dizziness?denies.?Glasses/contacts?admits.?Retinopathy?de nies.?Blurred/double vision?denies.?TMJ?denies.?Discharge/drainage?denies.?Implants?denies.?Sore throat?denies.?Dental implants?denies.?Hard of hearing ?denies.?Difficulty chewing/swallowing/speaking?denies.?Nose bleeds?denies.?Sore mouth?denies.?Respiratory:?On Oxygen?denies.?Pneumonia/pleurisy?denies.?Bronchitis?admits in winter .?Emphysema?denies.?Coughing?denies.?Cough blood?denies.?Shortness of breath?denies.?Wheezing?admits.?Cardiovascular:?Pacemaker?denies.?MVP?denies.?WPW?denies.?CHF?denies.?Heart attack?denies.?Septal defect?denies.?Rapid beat?denies.?Chest pain ?denies.?Atrial Fib.?denies.?Murmur/Palpitations?admits.?Gastrointestinal:?Hemorrhoids?denies.?Stomach/Abdominal pain?denies.?Dark blood stool?denies.?Irritable bowel ?denies.?Constipation?denies.?Diarrhea?denies.?Hematology:?Swelling?denies.?Clots?denies.?Varicose Veins?admits.?Bruising?denies.?Bleeding problem?denies.?Genitourinary:?Blood urine?denies.?Frequent/Painfu/urination/bladder control?denies.?Kidney stones?denies.?Infection (UTI)?denies.?Nephropathy?denies.?sex trans dis (STD)?denies.?Prostate?denies.?Musculoskeletal:?Hammertoes?admits.?Bunions?admits.?Back Pain?denies.?Muscle Cramps/ Resting?denies.?Muscle cramps / walking?denies.?Generalized aches and pains?denies.?Weakness?denies.?Integ.:?Gold?denies.?Scars?denies.?Corns/calluses?denies.?Ingrown nails?admits.?Painful nails?denies.?Open Sores?denies.?Rashes?denies.?Neurologic:?Difficulty sleeping?admits.?Brain disorder?denies.?Numbness?denies.?Balance trouble?denies.?Confusion?denies.?Fainting/blackouts?denies.?Tingling?denies.?Tr emors?denies.? * Medical History:? * Surgical History:?tonsillect mario 4yrs oldlapchole 02/02/1992cataract surgery 2005,2006total left knee replacement 2006neck fusion 2011R rotator cuff tear repair 06/24/21L foot surgery * Hospitalization/Major Diagno stic Procedure:?spine and neck issue 05/2024 * Family History:?Mother: dece ased 56 yrs, stomach ,liver cancer.?Father: 83 yrs, leukemia.?Maternal Grand Mother: diagnosed with Diabetic - NIDDM.?Siblings: diagnosed with Unspecified essential hypertension, Family history of arthritis.? * Social History:?Tobacco Use:?Tobacco Use/Smoking?Are you a:?nonsmoker ?Tobacco use other than smoking?Are you an other tobacco user??No ???Miscellaneous:?Caffeine: yes, frequency:Tea. ?Children: no. ?Exercise: yes, [employer] [facility] ?Marital status: . 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 * Medications:?TakingEffexor P robenecid Omeprazole predniSONE 5 MG/ML Concentrate as directed Orally Baclofen 10 MG Tablet 1 tablet as needed Orally Twice a day Gabapentin 600 MG Tablet 1 tablet Orally Once a day Aspir-81 Atorvastatin Calcium 80 MG Tablet TAKE 1 TABLET BY MOUTH DAILY Oral Hair Skin Nails , Notes to Pharmacist: supplementLORazepam 1 MG Tablet Oral Singulair Vitamin C Vitamin D3 Taking Effexor Taking Probenecid Taking Omeprazole Taking predniSONE 5 MG/ML Concentrate as directed Orally Taking Baclofen 10 MG Tablet 1 tablet as needed Orally Twice a day Taking Gabapentin 600 MG Tablet 1 tablet Orally Once a day Taking Aspir-81 Taking Atorvastatin Calcium 80 MG Tablet TAKE 1 TABLET BY MOUTH DAILY Oral Taking Hair Skin Nails , Notes to Pharmacist: supplementTaking LORazepam 1 MG Tablet Oral Taking Singulair Taking Vitamin C Taking Vitamin D3 Not-Taking/PRNLexapro Ciclopirox Olamine 0.77 % Cream 1 application to affected area Externally to feet Twice a day PROzac 20 MG Capsule 1 capsule Orally Once a day Medication List reviewed and reconciled with the patientNot-Taking/PRN Lexapro Not-Taking/PRN Ciclopirox Olamine 0.77 % Cream 1 application to affected area Externally to feet Twice a day Not-Taking/PRN PROzac 20 MG Capsule 1 capsule Orally Once a day Medication List reviewed and reconciled with the patient * Allergies:?Codeine: severe a bdominal painLisinoprilPercocetyes[Allergies Verified] Objective: * Vitals:?Ht: 5ft2.5in, Wt:161 , BMI:28.97, Shoe size: 8.5-9, BP:120/66mm Hg, Ht- cm: 158.75 cm, Wt-k.03 kg. * Examination: ???General Examination: ?GENERAL APPEARANCE:?Reveals a pleasant, alert, well nourished, well- developed, well hydrated individual, who demonstrates proper attention to hygiene/body habitus, and is in no acute distress, Pt accompanied by sister, and/who is physically present in exam room at time of visit, additional Historian.?ORIENTED:?person, place, and time.?Dermatologic: ?SKIN FINDINGS:?Skin shows sign(s) of, dryness, scaling, in a stocking fashion, no fissure(s) present, B/L ,?.?ULCER:?Distal, T3, LOCATION, SIZE, 4mm X 4mm X 2mm, BASE, granular, RIM, hyperkeratotic, UNDERMINING, absent, TRACKING, Full thickness breakdown of skin, DRAINAGE, serosanguineous, mild, NECROTIC TISSUE, loosely-adherent, yellow slough, MALODOR, absent, CALOR, absent, ERYTHEMA, absent, PAIN ON PALPATION, present.?Orthopedic: ?MUSCLE STRENGTH:?5/5 all groups in a symmetrical fashion , B/L.?DIGITAL DEFORMITIES:??Digital contracture, PIPJ, T3T4 incompl-reducible with WB, or to push-up test, no over, nor underlapping, Adducto-varus deformity noted T3, T4 ,.?FOOTWEAR:? shoe gear properties exacerbate patients foot/toe deformity , shoe gear properties exacerbate patients foot/toe deformity.?Neurological: ?SENSORY:?Neurological exam reveals intact sensorium, pain sensation normal, vibration sensation intact, pinprick sensation is normal in the lower extremities, Pt denies, anesthesia, burning, paresthesia, tingling, B/L.?TINEL'S COMPRESSION:?Negative tarsal tunnel, jayda pedis, and medial calcaneal nerves.?Vascular: ?DP PULSES (B):?3/4, B/L.?PT PULSES (B):?3/4, B/L.?CAPILLARY FILL TIME:?immediate, all digits, B/L.?TROPHIC CONDITION-TEXTURE/ELASTICITY/TURGOR/HAIR GROWTH (B):?normal, B/L.?TEMPERTURE GRADIENT (C):?normal, warm to cool, proximal to distal, B/L, B/L.?PIGMENTATION:?normal, B/L.?X-Rays - IMAGING REPORT: ?Clinical Indication(s):? Evaluate Biomechanical Deformity.?Views:?3 views of Foot, AP, LO, MO, LEFT??Taken by trained?Podiatric Investment Director (?SF ).?Findings:? normal bone and soft tissue density consistent for patients age and sex.?Digits:? show asymmetrical joint space narrowing at the PIPJ consistent with clinical finding of hammertoe deformity T3T4 hardware head of 2,3 Methead.?HAV:?internal fixation appears intact and stable 1st MTPJ- fusion of 1st met.?Fracture:? Negative fractures identified.? Assessment: * Assessment: 1.?Pain in left toe(s) - M79 .675???2.?Other hammer toe(s) (acquired), left foot - M20.42 (Primary)???Specify :Chronic problem, Worse (4) Decision for surgery (4)???3.?Xerosis of skin - L85.3???Specify :Acute problem, Uncomplicated (3),Rx Management (4)???4.?Arthritis of joint of lesser toe, left - M19.072???5.?Subluxation of metatarsophalangeal joint of toe, initial encounter - S93.149A???6. Skin ulcer of toe of left foot, limited to breakdown of skin - L97.521??? Plan: * Treatment: 2.?Xerosis of skin? Start Ammonium Lactate Cream, 12 %, 1 application, Externally to affected areas of dry skin to feet except for between the toes, Twice a day, 30 days, 280, Refills 3.?? 3.?Skin ulcer of toe of left foot, limited to breakdown of skin?Procedure: 21999- Debride <25 sq cm Notes: Patient Educated with: WOUND CARE INSTRUCTIONS.pdf (WOUND CARE INSTRUCTIONS.pdf)?? * Procedures:?Debride skin< 25 sq cm:?Open wound?Physician of record performed open wound selective debridement of first 25 sq cm or less, of devitilized necrotic/nonviable soft tissue, fibrin, and exudate extending from the epidermis through the dermis, utilizing sharp dissection with sterile 15 blade, and/or tissue nippers. Sterile antibiotic dressing applied, ANESTHESIA was accomplished TOPICALLY with Lidocaine Hydrochloride Jelly 2 percent. Hemostasis was achieved through direct pressure. Post debridement measurements: 5mm x 4mm x 2mm. Character of the wound post debridement is stable (91202).? * Procedure Codes:?92704 X-RAY EXAM OF LEFT FOOT 3V, Modifiers: 26 , [id number] ACTIVE WOUND CARE/20 CM OR <, Modifiers: XS * Preventive Medicine:? ??Counseling:?Discussion:?-14: Office or other outpatient visit for the evaluation and management of an established patient, which required a medically appropriate history and/or examination and MODERATE level of DECISION MAKING for: 1 OR MORE CHRONIC PROBLEM(S) THATS WORSENING, 2 STABLE CHRONIC PROBLEMS, A NEWLY DIAGNOSED PROBLEM WITH UNCERTAIN PROGNOSIS, AN ACUTE COMPLICATED INJURY WITH MULTIPLE TREATMENT OPTIONS, OR AN ACUTE PROBLEM WITH ACCOMPANYING SYSTEMIC SYMPTOMS, THAT POSE(S) A MODERATE RISK OF MORBIDITY. THIS CONDITION MAY ALSO INCLUDE RX DRUG MANAGEMENT, OR A DECISON FOR MINOR SURGERY. The visit on the day of the encounter encompassed interpreting the data and educating the patient as to the nature of their condition, treatment options available according to their individual PMH, meds, allergies, and overall health/living conditions, as well as any potential risks or complications that may occur from a failure to adhere to, and participate in, the recommended course of therapy. The discussion included a complete verbal, and/or written explanation of the examination results, any x-rays taken, the proposed diagnosis, and outline of the treatment plan. A schedule for future care needs was also explained. The patient verbalized an understanding of the instructions at this time and agreed to be an active participant in their treatment. If the patient should think of any questions or concerns after the visit, I have encouraged the patient to call the office.?Digital Surgery:?Digital surgery was discussed with the patient, including the risks of surgery(below), vs not having surgery (persistent pain, deformity, risk for skin ulceration/infection, loss of toe), the potential surg complications, the anesthesia, and the usual post-op course. No guarentees were given. We discussed the potential procedure complications including, but not limited to: pain, swelling, bleeding, scarring, numbness, infection, delayed/non healing, floppy/unstable/shorthened toe, recurrence, failure of the procedure, overcorrection leading to plantarflexed/downward positioned toe, recurrence, need for further surgery, as well as the possibility for loss of the toe itself. We discussed the use of local anesthesia, and the usual post-op course for healing. No guarentees were given. The patient verbally indicated a full understanding of the above conversation, and any other of their questions were answered to their satisfaction. Alternatives to the procedure were also discussed, including conservative care. I also discussed the usual post-operative course and gave no guarantees regarding outcome, FLEXOR : Minimal Incision digital procedure consisting of Percutaneous Flexor Release was discussed with the patient, including the risks of the procedure vs and not having the procedure, the potential procedure complications, the anesthesia, and the usual post-op course. No guarentees were given. We discussed with the patient the complications such as delayed/non healing, excessive scarring, excessive swelling, failure of procedure, floppy toe, infection, numbness, chronic pain, recurrence of the condition, shortened toe, joint stiffness, and possible loss of limb/life. Alternatives to the procedure were also discussed, including conservative care, , The patient will consider surgical treatment.?Digital Treatment:?HT- I explained to the patient the possible etiologies of Hammertoes, including genetics/foot type/shoegear/activity level/exercise routine and the risks/benefits of all the different treatment options for their pain including: No treatment at all, Rest, Ice, New/supportive/wider/deeper Shoe gear, Digital Padding/Strapping/Taping/Bracing/Gel protective sleeves, Foot/Ankle AFO Bracing, Stretching exercises, Deep Tissue Massage, Arch support/shoe inserts with splay metatarsal padding, and Custom orthoses. I insisted that any digital devices be removed daily and not worn overnight for safety. The patient is to carefully examine the toes daily for any skin irritation while using any splinting or padding device. The advantages and disadvantages of each option were discussed and the patients questions re: shoe gear, padding, custom vs prefabricated inserts, activity level, and consistency in home treatment regimens for optimal success were answered to their verbally confirmed satisfaction, Recomm, rest, ice, proper shoegear, padding, orthotics, anti-inflammatories or tylenol as tolerated, topical analgesics, cortisone injections.?Xerosis:?The patient was counseled on the diagnosis, potential etiologies, and treatment options for their skin condition. We discussed the risks and benefits of each option from performing no treatment, to utilizing OTC topical skin creams/ointments, to utilizing prescription topical creams/ointments, to utilizing customized compounded topical medications and use of nocturnal occlusion with any/all previously detailed therapies. We discussed the advantages and disadvantages of each possible treatment and importance for adherence to all the recommended therapies for optimum success and avoid potential complications such as open sore/infection/possible hospitalization. We discussed the potential effectiveness of each topical preparation as well as each ones possible side effects and/or patient medication interactions. Patient questions re: use, dosage, successful outcomes, and application consistency were reviewed and the patient verbalized that all answers were clearly understood. The patient has decided to apply Rx skin creams to their feet save the interspaces while paying special attention to the heels. Such was sent to their pharmacy at the time of visit.? ??Screening/Special Tests:?Fall Risk?Screening:?No falls in the past year ?FALLS: Screening for Future Fall Risk?Have you had any falls with injury in the past year??No * Follow Up:?2 Weeks * Images: * Sign off status: Completed true * Provider:Edna Nuñez DPM Date:?2024 Generated for Katlyn wiggins/Iam/Jessica on:?10/19/2024 11:50 AM EDT History and Physical Notes * HPI (History of Present Illness) Category Sub-Category Detail Notes Category Not es Toe pain Nature: tenderness Location: Left foot, 4th toe Duration: , several weeks Course: worse Aggravated by: any pressure, shoes Treatments: rest/alter normal da lani activity, change in shoes Skin problems Nature: dryness , scaling Location: B/L Duration: several days Course: worse Examination Category Sub-Category Detail Notes Category Not es Neurological SENSORY: Neurological exa m reveals intact sensorium, pain sensation normal, vibration sensation intact, pinprick sensation is normal in the lower extremities, Pt denies, anesthesia, burning, paresthesia, tingling, B/L TINEL'S COMPRESSION: Negative tarsal agnes alessandra, jayda pedis, and medial calcaneal nerves Dermatologic SKIN FINDINGS: Skin shows sign( s) of, dryness, scaling, in a stocking fashion, no fissure(s) present, B/L , ULCER: Distal, T3, LOCATION , SIZE, 4mm X 4mm X 2mm, BASE, granular, RIM, hyperkeratotic, UNDERMINING, absent, TRACKING, Full thickness breakdown of skin, DRAINAGE, serosanguineous, mild, NECROTIC TISSUE, loosely- adherent, yellow slough, MALODOR, absent, CALOR, absent, ERYTHEMA, absent, PAIN ON PALPATION, present Orthopedic FOOTWEAR: shoe gear proper ties exacerbate patients foot/toe deformity , shoe gear properties exacerbate patients foot/toe deformity DIGITAL DEFORMITIES: Digital contracture , PIPJ, T3T4 incompl-reducible with WB, or to push-up test, no over, nor underlapping, Adducto-varus deformity noted T3, T4 , MUSCLE STRENGTH: 5/5 all groups in a symmetrical fashion , B/L General Examination GENERAL APPEARANCE: Reveals a pleasant, alert, well nourished, well-developed, well hydrated individual, who demonstrates proper attention to hygiene/body habitus, and is in no acute distress, Pt accompanied by sister, and/who is physically present in exam room at time of visit, additional Historian ORIENTED: person, place, and t palmira Vascular DP PULSES (B): 3/4, B/L PT PULSES (B): 3/4, B/L CAPILLARY FILL TIME: immediate, all digi ts, B/L TEMPERTURE GRADIENT (C): normal, warm to cool, proximal to distal, B/L, B/L TROPHIC CONDITION-TEXTURE/ELASTICITY/TURGOR/HAIR GROWTH (B): normal, B/L PIGMENTATION: normal, B/L X-Rays - IMAGING REPORT Findings: normal b one and soft tissue density consistent for patients age and sex Fracture: Negative fractures i dentified Digits: show asymmetrical ganesh int space narrowing at the PIPJ consistent with clinical finding of hammertoe deformity T3T4 hardware head of 2,3 Methead HAV: internal fixation ap pears intact and stable 1st MTPJ- fusion of 1st met Views: 3 views of Foot, AP, LO, MO, LEFT Taken by trained Podiatric Investment Director ( SF ) Clinical Indication(s): Evaluate Biomech anical Deformity
== END 2024-10-19 10:44 | disposition home or self-care (01) ==
LOC: HO.RHE 10:15
PROVIDERS: PCP Physician Assistant; Visit Provider Student in an Organized Health Care Education/Training Program
DX: M1A.39X0 Chronic gout due to renal impairment, multiple sites, without tophus (tophi) (principal)
CPT/HCPCS: 99213; G2211

== ENCOUNTER → 2024-10-19 10:15 | Outpatient (BNVA) | payer MEDICARE, SELFPAY | PROVIDERS: PCP Physician Assistant; Visit Provider Student in an Organized Health Care Education/Training Program | DX: M1A.39X0 Chronic gout due to renal impairment, multiple sites, without tophus (tophi) (principal) | CPT/HCPCS: 99212 ==

== ENCOUNTER 2024-10-24 11:58 | Outpatient (REF) | payer MEDICARE, SELFPAY ==
--- OUTSIDE RECORDS SUMMARY | 2024-10-24 13:43 | XMS_ITS ---
Author Organization [facility] Address [address] [place] [address] Care Team Providers Care Sheetrock Applicator Name Role Phone Kalpana Veronica Primary Care Provider Unavailmagy e Black, Jonna Unavailable [phone] REASON FOR VISIT Looking for apt Encounters Encounter Location Date Provider Diagnosis [facility] [address] [place] [address] 10/24/2024 Jonna Black Plan Of Treatment No Information Progress Notes * Araceli KINCAIDOB: [birth year] (64 yo F)Acc No.[id number]:10/24/2024 Patient:?Jaimie KINCAID :1960???Age:64 Y???Sex:Female Address:[address] [place] [address], [address] * * Date:?
--- OUTSIDE RECORDS SUMMARY | 2024-10-24 13:43 | XMS_ITS | Clinical Summary ---
Author Organization [facility], Address [address] [place] [address] Phone Care Team Providers Care Front Load Trash Truck Driver Name Role Phone Kalpana Veronica PA-C Primary [...] each day 90 tablet 3 5 09/22/19 Active Active Problems Problem Noted Date Diagnosed [...] Office Communication [facility], [address] [place] [address] Stacy Styles 09/22/2024 Refill [facility] [address] [place] [address] Stacy Styles from Last 3 Months Immunizations [...] age to complete this topic Insurance MEDICARE [facility] Care Teams Front Load Trash Truck Driver Relationship Specialty Start Date End Date Kalpana Veronica PA-C [address] [place] [address] PCP - General Physician Life Insurance Actuary 07/05/24
--- OUTSIDE RECORDS SUMMARY | 2024-10-24 13:43 | XMS_ITS ---
Author Organization [facility] Address [address] [place] [address] Care Team Providers Care Retail Reset Merchandiser Name Role Phone Kalpana Veronica Primary Care Provider Jonna Gil [phone] Encounters Encounter Location Date Provider Diagnosis [facility] [address] [place] [address] 09/01/2024 Jonna Nuñez Plan Of Treatment No Information Progress Notes * Randy BRANDTDipikaOB: [birth year] (64 yo F)Acc No.[id number]:09/01/2024 Progress Note Patient:?Jaimie BRANDT Provider:Edna Nuñez DPM :1960???Age:63 Y???Sex:Female D ate:09/01/2024 Address:[address] [place], [place] [id number] Pcp:Kalpana Veronica Subjective: * Chief Complaints: * ??? * Medical History:? Objective: * Vitals:? Assessment: Plan: * Treatment: * Images: * The named appointment provid er may or may not be the originator of this progress note, and it is not deemed complete until electronically signed by the appointment provider. Sign off status: Pending * Provider:Edna Nuñez DPM Date:?2024 Generated for Terrii feliciano/Iam/eTransmitting on:?10/24/2024 01:43 PM EDT
--- OUTSIDE RECORDS SUMMARY | 2024-10-24 13:43 | XMS_ITS | Clinical Summary ---
Author Organization [facility] Address [address] [place] [address] Phone Care Team Providers Care Supervisor Glycerin Name Role Phone Kalpana Veronica Primary Care Provider [phone] Allergies Active Allergy Reactions Criticality Noted Date Comments Allopurinol 06/26/2024 Blue Dye 06/26/2024 Ciprofloxacin 06/26/2024 Codeine 06/26/2024 Hydromorphone 06/26/2024 Lisinopril 06/26/2024 Methocarbamol 06/26/2024 Oxycodone-Acetaminophen 06/26/2024 Acetaminophen 06/26/2024 Acetaminophen-Codeine 06/26/2024 Hydrocodone-Acetaminophen 06/26/2024 Alprazolam 06/26/2024 Medications No known medications Surgical History Surgery Date Site/Laterality Comments JOINT REPLACEMENT Medical History Medical History Date Comments AML (acute myeloid leukemia) ([facility]) Asthma Cystitis Thomas's esophagus Cataract CKD (chronic kidney disease), stage III ([facility] ) CVA (cerebral vascular accident) ([facility]) DJD (degenerative joint disease) Dyslipidemia Anxiety GERD [...] age to complete this topic Insurance MEDICARE [facility] Care Teams Supervisor Glycerin Relationship Specialty Start Date End Date Kalpana Veronica PA [address] [place] [phone] PCP - General Physician Freight Claim Investigator 06/26/24
--- OUTSIDE RECORDS SUMMARY | 2024-10-24 13:43 | XMS_ITS ---
Author Organization [facility] Zach Bolden Address [address] [place] [address] Care Team Providers Care Bleach Machine Operator Name Role Phone Kalpana Veronica Primary Care Provider Unavailabl e Black, Jonna Unavailable [phone] Allergies Allergen (clinical drug ingredient) Drug/Non Drug [...] Problem Status W/U Status Risk Notes Problem [id number] Skin ulcer of toe of left foot, limited to breakdown of skin (L97.521) Active confirmed Vital Signs Height 5ft2.5in in 09/22/2024 Weight 161 lbs 09/22/2024 BMI 28.97 kg/m2 09/22/2024 Blood pressure systolic 120 mm Hg 09/22/19 25 Blood pressure diastolic 66 mm Hg 025 Procedures Procedure Date Ordered Date Performed Result Body Sit e 83850- Debride <25 sq cm 09/22/2024 N/A Encounters Encounter Location Date Provider Diagnosis [facility] [place] [address] [place] [address] 09/22/2024 Jonna Black Pain in left toe(s) [...] INSTRUCTIONS.pdf) Pending Test Test Name Order Date 90452- Debride <25 sq cm 09/22/2024 Next Appt [...] of the wound post debridement is stable (54695) Progress Notes * Araceli BRANDTOB: [birth year] (63 yo F)Acc No.[id number]:09/22/2024 Progress Note Patient:?Randy BRANDTen Provider:?Jonna Nuñez DPM :1960???Age:63 Y???Sex:Female D ate:09/22/2024 Address:[address] [place], [place] [phone] Pcp:Kalpana Veronica Subjective: * Chief Complaints: * [...] ???Miscellaneous:?Caffeine: yes, frequency:Tea. ?Children: no. 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 ?Marital status: . 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 * [...] Foot, AP, LO, MO, LEFT??Taken by trained?Podiatric Head Automatic Sawyer (?SF ).?Findings:? normal bone and soft tissue [...] left foot, limited to breakdown of skin?Procedure: 09220- Debride <25 sq cm Notes: Patient Educated [...] of the wound post debridement is stable (18082).? * Procedure Codes:?08621 X-RAY EXAM OF LEFT FOOT 3V, Modifiers: 26 , [id number] ACTIVE WOUND CARE/20 CM OR <, Modifiers: [...] Nuñez DPM Date:?2024 Generated for Katlyn wiggins/Iam/Jessica on:?10/24/2024 01:42 PM EDT History and Physical Notes * HPI [...] ERYTHEMA, absent, PAIN ON PALPATION, present Orthopedic FOOTWEAR EVALUATION: shoe gear p roperties exacerbate patients foot/toe deformity , shoe gear [...] LO, MO, LEFT Taken by trained Podiatric Head Automatic Sawyer ( SF ) Clinical Indication(s): Evaluate Biomech anical Deformity
--- OUTSIDE RECORDS SUMMARY | 2024-10-24 13:43 | XMS_ITS | Encounter Summary ---
Author Organization [facility] Address [address] [place] [address] Phone Care Team Providers Care Passenger Car Cleaning Supervisor Name Role Phone Kalpana Veronica PA-C Primary Care Provider + Encounter Details Date Type Department Care Team (Late st Contact Info) Description 07/05/2024 Documentation Only [facility], [address] [place] [address] Lashon Rios [address] [place] [address] Social History Tobacco Use Types [...] on filedocumented in this encounter Care Teams Passenger Car Cleaning Supervisor Relationship Specialty Start Date End Date Kalpana Veronica PA-C [address] [place] [address] PCP - General Physician Transmission Supervisor 07/05/24 documented as of this encounter
--- OUTSIDE RECORDS SUMMARY | 2024-10-24 13:43 | XMS_ITS | Patient Health Record ---
Author Organization [facility] Address [address] [place] [address] Care Team Providers Care Appeals Specialist Name Role Phone Kalpana Veronica Primary Care Provider Unavailmagy e JoaquinJonna Unavailable [phone] CameronCassandra Unavailable [phone] Allergies Allergen (clinical drug ingredient) Drug/Non Drug [...] Problem Acquired hammer toe of left foot (4037645651280841) Other hammer toe(s) (acquired), left foot (M20.42) Active confirmed Problem Localized, primary osteoarthritis of the ankle and/or foot (301330053) Arthritis of joint of lesser toe, left (M19.072) Active confirmed Problem 51533185378123918 Skin ulcer of toe of left foot, limited to breakdown of skin (L97.521) Active confirmed Vital Signs Blood pressure diastolic 66 mm Hg 09/22/2024 Height 5ft2.5in in 09/22/2024 Blood pressure systolic 120 mm Hg 09/22/2024 Weight 161 lbs 09/22/2024 BMI 28.97 kg/m2 09/22/2024 Procedures Procedure Date Ordered Date Performed Result Body Sit e 47006- Debride <25 sq cm 09/22/2024 N/A Encounters Encounter Location Date Provider Diagnosis [facility] [address] [address] 06/21/2024 Cassandra Cameron Pain in left toe(s) M79.675 ; Other hammer toe(s) (acquired), left foot M20.42 ; Tinea unguium B35.1 ; Pain in right toe(s) M79.674 and Pain in left toe(s) M79.675 [facility] [place] [address] [place] [address] 09/22/2024 Jonna Black Pain in left toe(s) M79.675 ; Other hammer toe(s) (acquired), left foot M20.42 ; Xerosis of skin L85.3 ; Arthritis of joint of lesser toe, left M19.072 ; Subluxation of metatarsophalangeal joint of toe, initial encounter S93.149A and Skin ulcer of toe of left foot, limited to breakdown of skin L97.521 [facility] [place] [address] [place] [address] 10/24/2024 Jonnaalcides Nuñez [facility] [address] [address] 11/20/2023 Jonna Black [facility] [address] [address] 05/30/2024 Jonna Joaquin [facility] [address] [address] 05/30/2024 Jonna [facility] [address] [address] 06/03/2024 [facility] [place] [address] [facility] [address] [place] [address] 06/21/2024 [facility] oJaquin [facility] [address] 09/01/2024 Jonna [facility] Encounter Date Diagnosis (ICD Code) Assessment Notes [...] Treatment Pending Test Test Name Order Date 08882-UKLZXFG NAIL, 1-5 08/20/2023 68709-Mrfspiyr Plate 10/30/2022 27590- Debride <25 sq cm 09/22/2024 Insurance Providers Payer Name Payer Address Payer Phone Subscriber Number Group Number Insured Name Patient Relationship to Insured Coverage Start Date Coverage End Date Medicare National Govt Svcs Inc [address] [place] [address] [id number] [employer] in Jaimie Self - patient is the insured AARP Secondary to Medicare [address] [place] [id number] [employer] in Jaimie Self - patient is [...]
--- OUTSIDE RECORDS SUMMARY | 2024-10-24 13:43 | XMS_ITS | Encounter Summary ---
Author Organization [facility] Address [address] [place] [address] Care Team Providers Care Anesthesiologist Attending Name Role Phone Kalpana Veronica Primary Care Provider [phone] Encounter Details Date Type Department Care Team (Late st Contact Info) Description 06/29/2024 Lab Requisition [facility] - Main Lab [address] [facility] [place] [phone] Marielena Vera MD [address] [facility] [place] [address] [place] [address] Acute kidney failure, unspecified (CMS/HCC); Personal history [...] if clinically indicated. 06/29/2024 2:[address] [facility] Other Urine specimen from urethra / Unknown Non-blood Collection / Unknown 06/28/2024 11:00 AM EST 06/29/2024 1:52 PM EST Marielena Vera MD LAB MICROBIOLOGY - G ENERAL ORDERABLES Final Result [facility] [address] [place] [address], documented in this encounter Visit Diagnoses Diagnosis Acute kidney failure, unspecified (CMS/HCC) Acute kidney failure, unspecified Personal history of urinary (tract) infections documented in this encounter Care Teams Anesthesiologist Attending Relationship Specialty Start Date End Date Kalpana Veronica PA [address] [place] [address] PCP - General Physician Medical Geneticist 06/26/24 documented as of this encounter
[2024-10-24 14:59] LABS: MANUAL DIFF FLAG NO
[2024-10-24 15:08] LABS: Basophils Percent Auto 0.2 % (0-2); Eosinophils Percent Auto 0.1 % (0-4); Hematocrit 38.2 % (37.0-47.0); Hemoglobin 12.7 g/dl (12.0-16.0); Imm Gran Abs Auto 0.13 X10*3/uL (0.00-0.03); Lymphocytes Absolute Auto 1.6 X10*3/uL (1.2-4.9); Lymphocytes Percent Auto 12.5 % (20-40); Mean Corpuscular HGB Conc 33.2 g/dl (31.0-35.0); Mean Corpuscular Hemoglobin 29.5 pg (27.0-33.0); Mean Corpuscular Volume 88.8 fL (80.0-98.0); Monocytes Percent Auto 7.3 % (2-11); Neutrophils Absolute Auto 10.3 x10*3/uL (2.0-8.3); Neutrophils Percent Auto 78.9 % (45-73); Platelet Count 267 X10*3/uL (160-400); Red Cell Distribution Width 15.1 % (11.0-16.0); White Blood Count 13.1 X10*3/uL (4.8-10.8)
[2024-10-24 15:54] LABS: Erythrocyte Sedimentation Rate 38 MM/HR (0-20)
[2024-10-24 17:17] LABS: Alanine Aminotransferase 12 U/L (0-31); Albumin Level 3.9 g/dL (3.5-5.0); Alkaline Phosphatase 97 U/L (39-117); Anion Gap 14 (12-20); Aspartate Amino Transferase 23 U/L (5-31); Bilirubin Total 0.4 mg/dL (0.0-1.0); Blood Urea Nitrogen 22 mg/dL (9-16); C Reactive Protein 2.87 mg/dL (< or = 0.50); Calcium 9.7 mg/dL (8.4-10.2); Carbon Dioxide 27 mmol/L (22-29); Chloride 104 mmol/L (96-108); Estimated Glomerular Filt Rate 45; Glucose Random 79 mg/dL (60-115); Potassium 3.4 mmol/L (3.3-5.1); Sodium 142 mmol/L (135-145); Total Protein 7.1 g/dL (6.5-8.0); Uric Acid 5.6 mg/dL (2.4-5.7)
== END 2024-10-24 11:59 | disposition home or self-care (01) ==
LOC: HO.WFDLDS 11:58
PROVIDERS: Visit Provider Student in an Organized Health Care Education/Training Program
DX: M10.9 Gout, unspecified (principal)
CPT/HCPCS: 36415; 80053; 84550; 85025; 85652; 86140

== ENCOUNTER 2024-11-02 11:59 | Outpatient (AMB) | payer MEDICARE, SELFPAY ==
--- NOTE | 2024-11-02 11:51 | A.OFFPC_ITS ---
Intake Visit Reasons: Discuss labs Intake Note: Discuss labs Oracle Forms Developer Required: No Allergies acetaminophen Allergy (Severe, Verified 11/02/24 11:52) Swelling allopurinol Allergy (Severe, Verified 11/02/24 11:52) Swelling azithromycin [From Zithromax Z-Ron] Allergy (Severe, Verified 11/02/24 11:52) Gastrointestinal Upset blue dye Allergy (Severe, Verified 11/02/24 11:52) Swelling codeine Allergy (Severe, Verified 11/02/24 11:52) Swelling oxycodone [From Percocet] Allergy (Severe, Verified 11/02/24 11:52) Swelling Medication List - Last Reconciled 11/02/24 by Kalpana Veronica PA-C albuterol sulfate 90 mcg/actuation 2 puffs inhalation Q6H PRN atorvastatin 80 mg PO DAILY diclofenac sodium 1% (Arthritis Pain (diclofenac)) 4 grams topical QID PRN furosemide (Lasix) 20 mg PO DAILY PRN ibuprofen (Motrin IB) 200 mg PO Q6H PRN lorazepam 1 mg PO BID 30 days montelukast 10 mg PO DAILY multivitamin with minerals (Hair,Skin and Nails tablet) 1 tab PO DAILY nystatin 1 appl topical BID-TID omeprazole 80 mg PO ONCE prednisone 5 mg PO DAILY probenecid 500 mg PO BID tramadol 50 mg PO BID PRN 28 days tramadol 50 mg PO BID PRN 30 days venlafaxine ER (Effexor XR) 75 mg PO DAILY Tobacco use date assessed: 10/13/24 Dental Screening Dental Screen Date: 12/31/23 HPI Discuss labs HPI Details The patient is a 64-year-old female presenting with a follow-up for management of multiple chronic conditions including gout, asthma, anxiety, and chronic kidney disease. Pulm: Currently stable and following with her ball thread machine tender., Dr. Jaramillo. Psych: She is doing better with the Effexor but does feel like this could be increased. Nephro: For chronic kidney disease, the patient plans to monitor kidney function and potential preparation for a kidney donation by a sibling when necessary. She states that she has already contacted [facility] and is prepared that when her kidney function decreases to stage IV she is going to look for a donor. Discussions with Dr. Lucas, a galley worker, expressed stability in kidney function, with potential intervention only when levels reach a specified threshold. they have tried to offer some reassurance that this is not the cause of her back pain. Musculoskeletal: She states that she fell about a week and half ago walking [place] the mall. She states her right arm and left foot are painful. She follows with Dr. Nuñez and states that she does not have anything available. She states since the fall her left great toe, 2nd toe are very painful and black and blue. She states her gout also is flared. She has been consistent on probenecid. She started a prednisone taper. She has neck pain, midback pain and low back pain. It does not seem to radiate into the extremities. She states that the tramadol does appear to be helpful. baclofen is not effective Heme/onc: Following with Dr. Glen Da Silva at [facility] on 11/03/24. We did review her last CBC abnormality however she was also on prednisone at the time. [facility] Medical History (Updated 11/02/24 @ 13:14 by Kalpana Veronica PA-C) GERD (gastroesophageal reflux disease) Generalized anxiety disorder with panic attacks Dyslipidemia Overactive bladder AML (acute myeloid leukemia) in remission Surgical History Stem cells transplant status Family History Mother Cancer Father Cancer Social History (Updated 11/02/24 @ 11:53 by Yumiko Mixon CMA) Housing: House Alcohol intake: current Comment: Rare Patient Tobacco Use Status: Never used Tobacco e-Cigarette/Vaping Use: Never Used Second Hand Smoke Exposure: Yes Use of substances other than those prescribed or required for medical reasons: No service: No Current occupational status: retired Cognitive needs: No Hearing needs: No Vision needs: Yes (glasses) Questionnaire Thrive Questionnaire Date Thrive assessed: 10/13/24 Physical exam (Primary Care) Tobacco/Smoking Status: Tobacco use Status Tobacco use date assessed 10/13/24 11/02/24 11:53 Patient Tobacco Use Status Never used Tobacco 11/02/24 11:53 e-Cigarette/Vaping Use Never Used 11/02/24 11:53 Thrive Assessment: Date of Thrive Assessment Date Thrive assessed 10/13/24 11/02/24 11:53 Telehealth Telehealth Telehealth Platform: Telephone Location of provider rendering services: practice address Location of patient: address on file Patient Identification confirmed using: Name, : Yes Telehealth method: voice only Patient verbally consented to treatment: Yes Patient verbally consented to billing insurance company: Yes Patient informed of any privacy concerns related to visit: Yes Minutes spent on Phone/Video with Pt.: 20 Coding Level of Care Code Tele Est Pt Level 2 (41072) Diagnoses CKD stage 3a, GFR 45-59 ml/min N18.31 Leukocytosis D72.829 Left foot pain M79.672 Right shoulder pain M25.511 Assessment & Plan Assessment & Plan (1) CKD stage 3a, GFR 45-59 ml/min: Code(s): N18.31 - Chronic kidney disease, stage 3a Category: Medical Plan: Improved from last renal function. She is stable. (2) Leukocytosis: Code(s): D72.829 - Elevated white blood cell count, unspecified Category: Medical Plan: Reviewed CBC with patient. Has an appointment tomorrow with her oncologist. (3) Left foot pain: Code(s): M79.672 - Pain in left foot Category: Medical Plan: X-ray ordered. She is going to schedule an appointment with Dr. Nuñez. (4) Right shoulder pain: Code(s): M25.511 - Pain in right shoulder Category: Medical Plan: X-ray ordered. Has had a history of rotator cuff repair in currently wants to hold off on orthopedic referral. She states that she will schedule this if needed. Orders: Orders Comprehensive Met. Panel 11/02/24 D72.829 - Elevated white blood cell count, unspecified, M25.512 - Pain in left shoulder, M79.672 - Pain in left foot, N18.31 - Chronic kidney disease, stage 3a Erythrocyte Sedimentation Rate 11/02/24 D72.829 - Elevated white blood cell count, unspecified, M25.512 - Pain in left shoulder, M79.672 - Pain in left foot, N18.31 - Chronic kidney disease, stage 3a XR shoulder RT min 2V 11/02/24 M25.511 - Pain in right shoulder XR foot LT min 3V 11/02/24 M79.672 - Pain in left foot Complete Blood Count Auto Diff 11/02/24 D72.829 - Elevated white blood cell count, unspecified, M25.512 - Pain in left shoulder, M79.672 - Pain in left foot, N18.31 - Chronic kidney disease, stage 3a C Reactive Protein 11/02/24 D72.829 - Elevated white blood cell count, unspecified, M25.512 - Pain in left shoulder, M79.672 - Pain in left foot, N18.31 - Chronic kidney disease, stage 3a XR toe LT min 2V 11/02/24 M79.672 - Pain in left foot Medications: Discontinued tramadol Discontinued Reason: Doctor's Order 50 mg PO BID 28 days PRN 56 tabs 0RF pain
--- OUTSIDE RECORDS SUMMARY | 2024-11-02 14:05 | XMS_ITS | Patient Health Record ---
Author Organization [facility] Address [address] [place] [address] Care Team Providers Care Marshmallow Runner Name Role Phone Kalpana Veronica Primary Care Provider Unavailmagy e JoaquinJonna Unavailable [phone] CameronCharissaCassandra Unavailable [phone] Allergies Allergen (clinical drug ingredient) Drug/Non Drug [...] Problem Acquired hammer toe of left foot (7875234891679462) Other hammer toe(s) (acquired), left foot (M20.42) Active confirmed Problem Localized, primary osteoarthritis of the ankle and/or foot (832293761) Arthritis of joint of lesser toe, left (M19.072) Active confirmed Problem 10588918875111159 Skin ulcer of toe of left foot, limited to breakdown of skin (L97.521) Active confirmed Vital Signs Blood pressure diastolic 66 mm Hg 09/22/2024 Height 5ft2.5in in 09/22/2024 Blood pressure systolic 120 mm Hg 09/22/2024 Weight 161 lbs 09/22/2024 BMI 28.97 kg/m2 09/22/2024 Procedures Procedure Date Ordered Date Performed Result Body Sit e 86837- Debride <25 sq cm 09/22/2024 N/A Encounters Encounter Location Date Provider Diagnosis [facility] [address] [address] 06/21/2024 Cassandra Cameron Pain in left toe(s) M79.675 ; Other hammer toe(s) (acquired), left foot M20.42 ; Tinea unguium B35.1 ; Pain in right toe(s) M79.674 and Pain in left toe(s) M79.675 [facility] [place] [address] [place] [address] 09/22/2024 Jonna Black Pain in left toe(s) M79.675 ; Other hammer toe(s) (acquired), left foot M20.42 ; Xerosis of skin L85.3 ; Arthritis of joint of lesser toe, left M19.072 ; Subluxation of metatarsophalangeal joint of toe, initial encounter S93.149A and Skin ulcer of toe of left foot, limited to breakdown of skin L97.[address] [facility] [address] [address] 11/20/2023 Jonnaalcides Nuñez [facility] [address] [address] 05/30/2024 Jonna Black [facility] [address] [address] 05/30/2024 Jonna Joaquin [facility] [address] [address] 06/03/2024 Jonna Black [facility] [place] [address] [facility] [address] [place] [address] 06/21/2024 [facility] Joaquin [facility] [address] [address] 09/01/2024 Jonna Joaquin [facility] [address] [address] 10/24/2024 Jonna Joaquin [facility] Encounter Date Diagnosis (ICD Code) Assessment [...] Treatment Pending Test Test Name Order Date 47463-QEPLJTY NAIL, 1-5 08/20/2023 31613-Mzrnmpfy Plate 10/30/2022 05701- Debride <25 sq cm 09/22/2024 Insurance Providers Payer Name Payer Address Payer Phone Subscriber Number Group Number Insured Name Patient Relationship to Insured Coverage Start Date Coverage End Date Medicare National Govt Svcs Inc [address] [place] [address] [id number] [employer] in [place]aimie Self - patient is the insured AARP Secondary to Medicare [address] [place] [address] [phone] [id number] [employer] in Jaimie Self - patient is [...]
--- OUTSIDE RECORDS SUMMARY | 2024-11-02 14:05 | XMS_ITS | Encounter Summary ---
Author Organization [facility] Address [address] [place] [address] Phone Care Team Providers Care Teachers' Assistant Name Role Phone Kalpana Veronica PA-C Primary Care Provider + Encounter Details Date Type Department Care Team (Late st Contact Info) Description 07/05/2024 Documentation Only [facility] [place], [address] [place] [address] Lashon Rios [address] [place] [address] Social History Tobacco Use Types [...] on filedocumented in this encounter Care Teams Teachers' Assistant Relationship Specialty Start Date End Date Kalpana Veronica PA-C [address] [place] [address] PCP - General Physician Electrostatic Paint Operator 07/05/24 documented as of this encounter
--- OUTSIDE RECORDS SUMMARY | 2024-11-02 14:05 | XMS_ITS ---
Author Organization [facility] Bolden Address [address] [place] [address] Care Team Providers Care Colors Custodian Name Role Phone Kalpana Veronica Primary Care Provider Unavailabl e Black, Jonna Unavailable [phone] Allergies Allergen (clinical drug ingredient) Drug/Non Drug [...] Problem Status W/U Status Risk Notes Problem 51418698059312181 Skin ulcer of toe of left foot, limited to breakdown of skin (L97.521) Active confirmed Vital Signs Height 5ft2.5in in 09/22/2024 Weight 161 lbs 09/22/2024 BMI 28.97 kg/m2 09/22/2024 Blood pressure systolic 120 mm Hg 09/22/19 25 Blood pressure diastolic 66 mm Hg 025 Procedures Procedure Date Ordered Date Performed Result Body Sit e 62597- Debride <25 sq cm 09/22/2024 N/A Encounters Encounter Location Date Provider Diagnosis [facility] [place] [address] [place] [address] 09/22/2024 Jonna Black Pain in left toe(s) [...] INSTRUCTIONS.pdf) Pending Test Test Name Order Date 34616- Debride <25 sq cm 09/22/2024 Next Appt [...] of the wound post debridement is stable (36068) Progress Notes * Araceli BRANDTOB: [birth year] (63 yo F)Acc No.[id number]:09/22/2024 Progress Note Patient:?Randy BRANDTen Provider:?Jonna Nuñez DPM :1960???Age:63 Y???Sex:Female D ate:09/22/2024 Address:[address] [place], [place] [address] Pcp:Kalpana Veronica Subjective: * Chief Complaints: * [...] ???Miscellaneous:?Caffeine: yes, frequency:Tea. ?Children: no. ?Exercise: yes, [employer] Network Engineer Quality Assurance [facility].. ?Marital status: . 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 * [...] Foot, AP, LO, MO, LEFT??Taken by trained?Podiatric Processing Tech (?SF ).?Findings:? normal bone and soft tissue [...] left foot, limited to breakdown of skin?Procedure: 84989- Debride <25 sq cm Notes: Patient Educated [...] of the wound post debridement is stable (86979).? * Procedure Codes:?39444 X-RAY EXAM OF LEFT FOOT 3V, Modifiers: 26 , [id number] ACTIVE WOUND CARE/20 CM OR <, Modifiers: [...] Nuñez DPM Date:?2024 Generated for Katlyn wiggins/Iam/Jessica on:?11/02/2024 02:05 PM EDT History and Physical Notes * [...] LO, MO, LEFT Taken by trained Podiatric Processing Tech ( SF ) Clinical Indication(s): Evaluate Biomech anical Deformity
--- OUTSIDE RECORDS SUMMARY | 2024-11-02 14:06 | XMS_ITS | Clinical Summary ---
Author Organization [facility], Address [address] [facility] [address] [place] [address] Phone Care Team Providers Care Gas Inspector Name Role Phone Kalpana Veronica PA-C Primary [...] Office Communication [facility], [address] [place] [address] Stacy Styles 09/22/2024 Refill [facility] [address] [place] [address] Stacy Styles from Last 3 Months Immunizations [...] - PCV) 06/29/2016 06/29/2015, 04/07/2013 Influenza Vaccine (Season Ended) 2025 06/02/2022 Hepatitis B Vaccine Aged Out 09/18/1997, 04/18/1997, 03/20/1997 No longer eligible based on patient's age to complete this topic Insurance MEDICARE [facility] Care Teams Gas Inspector Relationship Specialty Start Date End Date Kalpana Veronica PA-C [address] [place] [address] PCP - General Physician Plasterer Apprentice 07/05/24
--- OUTSIDE RECORDS SUMMARY | 2024-11-02 14:06 | XMS_ITS ---
Author Organization [facility] Address [address] [place] [address] Care Team Providers Care Street Vendor Name Role Phone Kalpana Veronica Primary Care Provider Jonna Gil [phone] Encounters Encounter Location Date Provider Diagnosis [facility] [address] [place] [address] 09/01/2024 Jonna Nuñez Plan Of Treatment No Information Progress Notes * Randy BRANDTDipikaOB: [birth year] (64 yo F)Acc No.[id number]:09/01/2024 Progress Note Patient:?Randy BRANDTen Provider:Edna Nuñez DPM :1960???Age:63 Y???Sex:Female D ate:09/01/2024 Address:[address] [place], [place] [id number] Pcp:Kalpana Veronica Subjective: * Chief Complaints: * ??? * Medical History:? Objective: * Vitals:? Assessment: Plan: * Treatment: * Images: * The named appointment provid er may or may not be the originator of this progress note, and it is not deemed complete until electronically signed by the appointment provider. Sign off status: Pending * Provider:Edna Nuñez DPM Date:?2024 Generated for Terrii feliciano/Iam/eTransmitting on:?11/02/2024 02:05 PM EDT
--- OUTSIDE RECORDS SUMMARY | 2024-11-02 14:06 | XMS_ITS ---
Author Organization [facility] Address [address] [place] [address] Care Team Providers Care Applications Support Analyst Name Role Phone Kalpana Veronica Primary Care Provider Unavailmagy e Black, Jonna Unavailable [phone] REASON FOR VISIT Looking for apt Encounters Encounter Location Date Provider Diagnosis [facility] [address] [place] [address] 10/24/2024 Jonna Black Plan Of Treatment No Information Progress Notes * Araceli KINCAIDOB: [birth year] (64 yo F)Acc No.[id number]:10/24/2024 Patient:?Jaimie KINCAID :1960???Age:64 Y???Sex:Female Address:[address] [place] [address], [address] * true * Date:? Generated for Printi ng/Fabaldomerog/eTransmitting on:?11/02/2024 02:05 PM EDT
--- OUTSIDE RECORDS SUMMARY | 2024-11-02 14:06 | XMS_ITS | Encounter Summary ---
Author Organization [facility] Address [address] [place] [address] Care Team Providers Care Geochemical Manager Name Role Phone Kalpana Veronica Primary Care Provider [phone] Encounter Details Date Type Department Care Team (Late st Contact Info) Description 06/29/2024 Lab Requisition [facility] - Main Lab [address] [facility] [place] [phone] Marielena Vera MD [address] [facility] [address] [place] [id number] Acute kidney failure, unspecified (CMS/HCC); Personal history [...] if clinically indicated. 06/29/2024 2:12 PM EST [facility] Other Urine specimen from urethra / Unknown Non-blood Collection / Unknown 06/28/2024 11:00 AM EST 06/29/2024 1:52 PM EST Marielena Vera MD LAB MICROBIOLOGY - G ENERAL ORDERABLES Final Result [facility] [address] [place] [address], documented in this encounter Visit Diagnoses Diagnosis Acute kidney failure, unspecified (CMS/HCC) Acute kidney failure, unspecified Personal history of urinary (tract) infections documented in this encounter Care Teams Geochemical Manager Relationship Specialty Start Date End Date Kalpana Veronica PA [address] [place] [phone] PCP - General Physician Night Warehouse Selector 06/26/24 documented as of this encounter
--- OUTSIDE RECORDS SUMMARY | 2024-11-02 14:06 | XMS_ITS | Clinical Summary ---
Author Organization [facility] Address [address] [place] [phone] Phone Care Team Providers Care Game Producer Name Role Phone Kalpana Veronica Primary Care Provider [phone] Allergies Active Allergy Reactions Criticality Noted Date Comments Allopurinol 06/26/2024 Blue Dye 06/26/2024 Ciprofloxacin 06/26/2024 Codeine 06/26/2024 Hydromorphone 06/26/2024 Lisinopril 06/26/2024 Methocarbamol 06/26/2024 Oxycodone-Acetaminophen 06/26/2024 Acetaminophen 06/26/2024 Acetaminophen-Codeine 06/26/2024 Hydrocodone-Acetaminophen 06/26/2024 Alprazolam 06/26/2024 Medications No known medications Surgical History Surgery Date Site/Laterality Comments JOINT REPLACEMENT Medical History Medical History Date Comments AML (acute myeloid leukemia) ([facility]) Asthma Cystitis Thomas's esophagus Cataract CKD (chronic kidney disease), stage III ([facility] ) CVA (cerebral vascular accident) ([facility]) DJD (degenerative joint disease) Dyslipidemia Anxiety GERD [...] - PCV) 06/29/2016 06/29/2015, 04/07/2013 RSV Immunization Adult Patients (1 - Risk 60-74 years 1-dose series) [...] age to complete this topic Meningococcal B Vaccine Aged Out No l onger eligible based on patient's age to complete this topic RSV Immunization Patients Under 20 months Aged Out No longer eligible based on patient's age to complete this topic Varicella Vaccines Aged Out No longer eligible based on patient's age to complete this topic Insurance MEDICARE [facility] Care Teams Game Producer Relationship Specialty Start Date End Date Kalpana Veronica PA [address] [place] [address] PCP - General Physician Proof Press Operator 06/26/24
== END 2024-11-02 17:05 | disposition home or self-care (01) ==
LOC: HO.HMCFM 11:59
PROVIDERS: PCP Physician Assistant; Visit Provider Physician Assistant
DX: M79.672 Pain in left foot (principal); N18.31 Chronic kidney disease, stage 3a; D72.829 Elevated white blood cell count, unspecified; M25.511 Pain in right shoulder

== ENCOUNTER → 2024-11-02 11:59 | Outpatient (BNVA) | payer MEDICARE, SELFPAY | PROVIDERS: PCP Physician Assistant; Visit Provider Physician Assistant ==

== ENCOUNTER 2024-12-29 10:42 | Outpatient (AMB) | payer MEDICARE, SELFPAY ==
--- NOTE | 2024-12-29 10:50 | MHC.PC.OV ---
Vital Signs 12/29/24 10:56 Height 5 ft 2.5 in BMI Reason not done Patient refused/unable BP 98/72 Blood Pressure Location Rt brachial Position Sitting Respiration 14 Pulse 95 Pulse Source Pulse Oximeter Pulse Oximetry (%) 96 Oxygen Delivery Method Room Air Intake Visit Reasons: Back pain Intake Note: Fractured rib. Inside Solar Sales Consultant Required: No Allergies acetaminophen Allergy (Severe, Verified 12/29/24 10:51) Swelling allopurinol Allergy (Severe, Verified 12/29/24 10:51) Swelling azithromycin [From Zithromax Z-Ron] Allergy (Severe, Verified 12/29/24 10:51) Gastrointestinal Upset blue dye Allergy (Severe, Verified 12/29/24 10:51) Swelling codeine Allergy (Severe, Verified 12/29/24 10:51) Swelling oxycodone [From Percocet] Allergy (Severe, Verified 12/29/24 10:51) Swelling Tobacco use date assessed: 12/29/24 Fall risk assessment: 2 + Falls in past year Last assessed Fall Risk: 12/29/24 Dental Screening Dental Screen Date: 12/31/23 Did you have a dental visit in the last 12 months?: Yes Did you have a dental problem in the last 6 months where you did not have access to dental care?: No Was dental information given to patient?: Patient has dentist HPI Back pain HPI Details The patient is a 64-year-old female presenting for an acute problem visit regarding pain. She does have a significant past medical history of chronic kidney disease, gout, GERD, anxiety, dyslipidemia, AML in remission. Pulm: Currently stable and following with her skate maker., Dr. Jaramillo. Psych: She is doing better with the Effexor 75 mg Nephro: Her chronic kidney disease is stable and she is following with Dr. Lucas. Musculoskeletal: She [place] about 3 weeks ago [place]05 [place] She fell to the ground and had a hard time getting up. She felt that she injured her left foot and ribs. I did order x-rays for her and she completed them on 12/26. The left foot was noted to have a possible acute/subacute nondisplaced fracture. She does have a youth advocate, Dr. Nuñez and was at the office Thursday. The right shoulder does show mild arthritic changes without acute fracture or dislocation Chest x-ray does show left 11th lateral rib cortical irregularity which could represent a subacute or chronic fracture. She states that she is still having pain and does not feel that the tramadol is as effective as she would like. She is taking it 1 to 2 times a day if needed She says that she still does have a small hematoma noted on the left lateral chest wall. She states that it is shrinking in size but it is still present. She says it was significantly black and blue prior but now it is greenish/yellow and just a lump below the skin. She has a few other small lumps noted on the right lateral upper leg which she states had significant black and blues from the fall and much larger lumps initially. She has been applying heat to the affected area and gently massaging. She says that this does appear to be helping. Heme/onc: Following with Dr. Glen Da Silva at [facility]. Colonoscopy: November 2024, tubular adenoma noted. Repeat screening in 2027 [facility] Medical History (Updated 11/02/24 @ 13:14 by Kalpana Veronica PA-C) GERD (gastroesophageal reflux disease) Generalized anxiety disorder with panic attacks Dyslipidemia Overactive bladder AML (acute myeloid leukemia) in remission Surgical History Stem cells transplant status Family History Mother Cancer Father Cancer Social History (Updated 11/02/24 @ 11:53 by Yumiko Mixon CMA) Housing: House Alcohol intake: current Comment: Rare Patient Tobacco Use Status: Never used Tobacco e-Cigarette/Vaping Use: Never Used Second Hand Smoke Exposure: Yes service: No Current occupational status: retired Cognitive needs: No Hearing needs: No Vision needs: Yes (glasses) Questionnaire Thrive Questionnaire Date Thrive assessed: 07/31/24 I am a: Patient What is your living situation today?: I have a steady place to live Within the past 12 months, did the food you bought not last and you didn't have the money to get more?: Never true Within the past 12 months, did you worry whether your food would run out before you got money to buy more?: Never true Do you have trouble paying for medicines?: No Do you have trouble getting transportation to medical appointments?: No Do you have trouble paying your heating and electricity bill?: No Do you have trouble taking care of your child, family member or friend?: No Do you have trouble with day-to-day activities such as bathing, preparing meals, shopping, managing finances, etc.?: No Are you currently unemployed and looking for a job?: No Are you interested in more education?: No Please select the resources that you would like help with: None Currently or been in a relationship where the following occur: I choose not to answer THRIVE Score: 0 AUDIT C Alcohol Use Questionnaire (AUDIT-C) 1. How often do you have a drink containing alcohol?: Monthly or less 2. How many drinks containing alcohol do you have on a typical day when you are drinking?: 1 or 2 3. How often do you have six or more drinks on one occasion?: Never Total Score: 1 Physical exam (Primary Care) Tobacco/Smoking Status: Tobacco use Status Tobacco use date assessed 10/13/24 11/02/24 11:53 Patient Tobacco Use Status Never used Tobacco 11/02/24 11:53 e-Cigarette/Vaping Use Never Used 11/02/24 11:53 Thrive Assessment: Date of Thrive Assessment Date Thrive assessed 07/31/24 12/29/24 10:43 Currently or been in a relationship where the following occur: I choose not to answer Const Orientation/consciousness: patient oriented x3 HENOR Ears: hearing grossly normal bilaterally Neck Thyroid: Thyroid normal Lymphatic: no lymphadenopathy noted Resp Auscultation: clear to auscultation bilaterally Cardio Rate: regular rate Rhythm: regular rhythm Heart sounds: S1 normal heart sound present and S2 normal heart sound present Skin Other: There is an approximately 4 in x 3 in subcutaneous lump noted over the left lateral /anterior chest wall. There is yellowish ecchymosis noted overlying this. There are 3, pea-sized subcutaneous lumps noted on the right lateral upper leg with yellowish ecchymosis overlying it. Neuro General: patient oriented x3, gait normal and no focal motor deficits Coding Level of Care Code Est Pt Level 4 (92395) Complex EM visit Add On G2211 Diagnoses Generalized anxiety disorder with panic attacks F41.1; F41.0 Foot fracture, left S92.902A Fracture of left eleventh rib S22.32XA Assessment & Plan Assessment & Plan (1) Generalized anxiety disorder with panic attacks: Code(s): F41.1 - Generalized anxiety disorder; F41.0 - Panic disorder [episodic paroxysmal anxiety] Category: Medical Plan: Currently doing well with current regimen of venlafaxine and lorazepam twice a day (2) Foot fracture, left: Code(s): S92.902A - Unspecified fracture of left foot, initial encounter for closed fracture Plan: Has follow up with Dr. Nuñez. Wearing supportive footwear. Pain is improving (3) Fracture of left eleventh rib: Code(s): S22.32XA - Fracture of one rib, left side, initial encounter for closed fracture Plan: She is gradually improving. We did discuss the findings of the hematomas and she will continue with the applying he and limb letting me know if it does not continue improving or if anything worsens or changes. We will try increasing the tramadol. Medications: Changed From tramadol 50 mg PO BID 30 days PRN 60 tabs 0RF pain To tramadol 100 mg (2 x 50 mg) PO BID 30 days PRN 120 tabs 0RF pain
[2024-12-29 10:56] VITALS: BP 98/72; PULSE 95; RESP 14; O2SAT 96
--- OUTSIDE RECORDS SUMMARY | 2024-12-29 12:36 | XMS_ITS | Encounter Summary ---
Author Organization [facility] Address [address] [place] [address] Phone Care Team Providers Care Financial Director Name Role Phone Kalpana Veronica PA-C Primary Care Provider + Encounter Details Date Type Department Care Team (Late st Contact Info) Description 07/05/2024 Documentation Only [facility], [address] [place] [address] Lashon Rios [address] [place] [address] Social History Tobacco Use Types [...] on filedocumented in this encounter Care Teams Financial Director Relationship Specialty Start Date End Date Kalpana Veronica PA-C [address] [place] [phone] PCP - General Physician Control Electrician 07/05/24 documented as of this encounter
== END 2024-12-29 13:36 | disposition home or self-care (01) ==
LOC: HO.HMCFM 10:43
PROVIDERS: PCP Physician Assistant; Visit Provider Physician Assistant
DX: F41.1 Generalized anxiety disorder (principal); F41.0 Panic disorder [episodic paroxysmal anxiety]; S92.902A Unspecified fracture of left foot, initial encounter for closed fracture; S22.32XA Fracture of one rib, left side, initial encounter for closed fracture

== ENCOUNTER → 2024-12-29 10:42 | Outpatient (BNVA) | payer MEDICARE, SELFPAY | PROVIDERS: PCP Physician Assistant; Visit Provider Physician Assistant | DX: F41.1 Generalized anxiety disorder (principal); F41.0 Panic disorder [episodic paroxysmal anxiety]; S92.902D Unspecified fracture of left foot, subsequent encounter for fracture with routine healing; S22.32XD Fracture of one rib, left side, subsequent encounter for fracture with routine healing | CPT/HCPCS: 99212 ==

== ENCOUNTER 2025-01-16 07:31 | Outpatient (REF) | payer MEDICARE, SELFPAY ==
--- OUTSIDE RECORDS SUMMARY | 2025-01-16 07:34 | XMS_ITS | Encounter Summary ---
Author Organization [facility] Address [address] [place] [address] Phone Care Team Providers Care Customer Account Representative Name Role Phone Kalpana Veronica PA-C Primary Care Provider + Encounter Details Date Type Department Care Team (Late st Contact Info) Description 07/05/2024 Documentation Only [facility], [address] [place] [address] Lashon Rios [address] [place] [address] Social History Tobacco Use Types [...] on filedocumented in this encounter Care Teams Customer Account Representative Relationship Specialty Start Date End Date Kalpana Veronica PA-C [address] [place] [id number] PCP - General Physician Accounting Professor 07/05/24 documented as of this encounter
[2025-01-16 11:12] LABS: Appearance Urine Clear; Color Urine Yellow; Glucose Urine UA Negative (Negative); Leukocyte Esterase Urine Small (1+) (Negative); Nitrite Urine Negative (Negative); Specific Gravity - Urine 1.015 (1.005-1.025); UMIC TRIGGER UACC YES; Urine Blood Negative (Negative); Urine Ketones Negative (Negative); Urine Protein Negative (Neg-Trace)
[2025-01-16 11:18] LABS: MANUAL DIFF FLAG NO
[2025-01-16 11:28] LABS: Bacteria Urine None Seen (None Seen); Calcium Oxalate Crystals Urine Present; Hyaline Casts Urine 0-2 /LPF (0-2); RBC Urine 0-2 /HPF (0-2); Squamous Epithelial Cell Urine 0-2 /HPF (0-2); UACC Culture Trigger YES; WBC Urine 0-5 /HPF (0-5)
[2025-01-16 11:32] LABS: Basophils Percent Auto 0.4 % (0-2); Eosinophils Absolute Auto 0.1 X10*3/uL (0.0-0.4); Eosinophils Percent Auto 0.7 % (0-4); Hematocrit 39.2 % (37.0-47.0); Hemoglobin 13.1 g/dl (12.0-16.0); Imm Gran Abs Auto 0.03 X10*3/uL (0.00-0.03); Imm Gran Pct Auto 0.3 % (0.0-0.4); Lymphocytes Absolute Auto 2.9 X10*3/uL (1.2-4.9); Lymphocytes Percent Auto 26.5 % (20-40); Mean Corpuscular HGB Conc 33.4 g/dl (31.0-35.0); Mean Corpuscular Hemoglobin 31.4 pg (27.0-33.0); Mean Platelet Volume 9.4 fL (9.4-12.3); Monocytes Absolute Auto 0.9 X10*3/uL (0.1-1.2); Monocytes Percent Auto 7.7 % (2-11); Neutrophils Absolute Auto 7.2 x10*3/uL (2.0-8.3); Neutrophils Percent Auto 64.4 % (45-73); Platelet Count 264 X10*3/uL (160-400); Red Blood Count 4.17 X10*6/uL (4.20-5.50); White Blood Count 11.1 X10*3/uL (4.8-10.8)
[2025-01-16 11:51] LABS: Alanine Aminotransferase 22 U/L (0-31); Albumin Level 4.1 g/dL (3.5-5.0); Alkaline Phosphatase 97 U/L (39-117); Anion Gap 13 (12-20); Aspartate Amino Transferase 27 U/L (5-31); Bilirubin Total 0.5 mg/dL (0.0-1.0); Blood Urea Nitrogen 25 mg/dL (9-16); C Reactive Protein 0.13 mg/dL (< or = 0.50); Calcium 9.6 mg/dL (8.4-10.2); Carbon Dioxide 26 mmol/L (22-29); Chloride 106 mmol/L (96-108); Estimated Glomerular Filt Rate 41; Glucose Random 77 mg/dL (60-115); Potassium 3.2 mmol/L (3.3-5.1); Sodium 142 mmol/L (135-145); Total Protein 6.7 g/dL (6.5-8.0); Uric Acid 7.6 mg/dL (2.4-5.7)
[2025-01-16 12:10] LABS: Erythrocyte Sedimentation Rate 14 MM/HR (0-20)
== END 2025-01-16 07:32 | disposition home or self-care (01) ==
LOC: HO.WFDLDS 07:31
PROVIDERS: Referring Provider Student in an Organized Health Care Education/Training Program; Visit Provider Physician Assistant
DX: M1A.39X0 Chronic gout due to renal impairment, multiple sites, without tophus (tophi) (principal)
CPT/HCPCS: 36415; 80053; 81001; 81003; 84550; 85025; 85652; 86140; 87086

== ENCOUNTER 2025-01-18 13:33 | Outpatient (AMB) | payer MEDICARE, SELFPAY ==
--- NOTE | 2025-01-18 13:47 | MHC.PC.OV ---
Vital Signs 01/18/25 13:51 Height 5 ft 2.5 in Weight 167 lb 4 oz BMI 30.1 BP 126/76 Blood Pressure Location Lt brachial Position Sitting Respiration 14 Pulse 92 Pulse Source Pulse Oximeter Temp 97.7 F Temp Source Oral Pulse Oximetry (%) 96 Oxygen Delivery Method Room Air Intake Visit Reasons: labs and f/u Intake Note: Labs follow up Commercial Field Inspector Required: No Allergies acetaminophen Allergy (Severe, Verified 01/18/25 13:47) Swelling allopurinol Allergy (Severe, Verified 01/18/25 13:47) Swelling azithromycin (From Zithromax Z-Ron) Allergy (Severe, Verified 01/18/25 13:47) Gastrointestinal Upset blue dye Allergy (Severe, Verified 01/18/25 13:47) Swelling codeine Allergy (Severe, Verified 01/18/25 13:47) Swelling oxycodone (From Percocet) Allergy (Severe, Verified 01/18/25 13:47) Swelling Medication List - Last Reconciled 01/20/25 by Kalpana Veronica PA-C albuterol sulfate 90 mcg/actuation 2 puffs inhalation Q6H PRN atorvastatin 80 mg PO DAILY diclofenac sodium 1% (Arthritis Pain (diclofenac)) 4 grams topical QID PRN furosemide (Lasix) 20 mg PO DAILY PRN ibuprofen (Motrin IB) 200 mg PO Q6H PRN lorazepam 1 mg PO BID 30 days montelukast 10 mg PO DAILY multivitamin with minerals (Hair,Skin and Nails tablet) 1 tab PO DAILY nystatin 1 appl topical BID-TID PRN omeprazole 80 mg PO ONCE prednisone 5 mg PO DAILY probenecid 500 mg PO BID 90 days tramadol 50 mg PO TID PRN venlafaxine ER (Effexor XR) 75 mg PO DAILY Tobacco use date assessed: 01/18/25 Fall risk assessment: 2 + Falls in past year Last assessed Fall Risk: 01/18/25 Dental Screening Dental Screen Date: 01/18/25 Did you have a dental visit in the last 12 months?: No Did you have a dental problem in the last 6 months where you did not have access to dental care?: No Was dental information given to patient?: Patient has dentist HPI labs and f/u HPI Details The patient is a 64-year-old female presenting for a follow up. She does have a significant past medical history of chronic kidney disease, gout, GERD, anxiety, dyslipidemia, AML in remission. She does complain today of flu-like symptoms that started yesterday. She states that she had severe upper abdominal pain with nausea and diarrhea. She has also been somewhat congested. Reports sinus congestion and pressure. No significant ear pain but feels like they are blocked. Intermittent sore throat with this. No cough. No fevers or chills. No known sick contacts. She denies going out to eat prior to this starting. States that everyone ate the same thing and she does it would be food poisoning. Pulm: Currently stable and following with her photographic double., Dr. Jaramillo. Psych: She is doing better with the Effexor 75 mg Nephro: Her chronic kidney disease is stable and she is following with Dr. Lucas. Musculoskeletal: She does have ongoing chronic pain and osteoarthritis. She finds the tramadol somewhat effective but taking 100 mg twice a day causes severe GI upset. States that she is only able to take it 1 tablet at a time. Heme/onc: Following with Dr. Glen Da Silva at [facility]. Colonoscopy: November 2024, tubular adenoma noted. Repeat screening in 2027 [facility] Medical History (Updated 01/18/25 @ 14:36 by Kalpana Veronica PA-C) GERD (gastroesophageal reflux disease) Generalized anxiety disorder with panic attacks Dyslipidemia Overactive bladder AML (acute myeloid leukemia) in remission Surgical History Stem cells transplant status Family History Mother Cancer Father Cancer Social History (Updated 01/18/25 @ 13:59 by Yumiko Mixon CMA) Housing: House Alcohol intake: current Comment: Rare Patient Tobacco Use Status: Never used Tobacco e-Cigarette/Vaping Use: Never Used Second Hand Smoke Exposure: Yes service: No Current occupational status: retired Current occupational exposures/hazards: No Cognitive needs: No Hearing needs: No Vision needs: Yes (glasses) Questionnaire Thrive Questionnaire Date Thrive assessed: 07/31/24 I am a: Patient What is your living situation today?: I have a steady place to live Within the past 12 months, did the food you bought not last and you didn't have the money to get more?: Never true Within the past 12 months, did you worry whether your food would run out before you got money to buy more?: Never true Do you have trouble paying for medicines?: No Do you have trouble getting transportation to medical appointments?: No Do you have trouble paying your heating and electricity bill?: No Do you have trouble taking care of your child, family member or friend?: No Do you have trouble with day-to-day activities such as bathing, preparing meals, shopping, managing finances, etc.?: No Are you currently unemployed and looking for a job?: No Are you interested in more education?: No Please select the resources that you would like help with: None Currently or been in a relationship where the following occur: I choose not to answer THRIVE Score: 0 AUDIT C Alcohol Use Questionnaire (AUDIT-C) 1. How often do you have a drink containing alcohol?: Monthly or less 2. How many drinks containing alcohol do you have on a typical day when you are drinking?: 1 or 2 3. How often do you have six or more drinks on one occasion?: Never Total Score: 1 Physical exam (Primary Care) Vital Signs: Last Vital Signs Temp 97.7 F 01/18/25 13:51 Pulse 92 01/18/25 13:51 Resp 14 01/18/25 13:51 BP 126/76 01/18/25 13:51 Pulse Ox 96 01/18/25 13:51 Oxygen Delivery Method Room Air 01/18/25 13:51 BMI result Body Mass Index 30.1 Tobacco/Smoking Status: Tobacco use Status Tobacco use date assessed 01/18/25 01/18/25 13:54 Patient Tobacco Use Status Never used Tobacco 01/18/25 13:59 e-Cigarette/Vaping Use Never Used 01/18/25 13:59 Thrive Assessment: Date of Thrive Assessment Date Thrive assessed 07/31/24 01/18/25 13:54 Currently or been in a relationship where the following occur: I choose not to answer Const Orientation/consciousness: patient oriented x3 HENMT Other: TMs dome-shaped a small air-fluid levels. Nasal mucosa erythematous. No drainage noted. Oral mucosa moist. Posterior oropharynx WNL. No lymphadenopathy noted. Ears: hearing grossly normal bilaterally Neck Thyroid: Thyroid normal Lymphatic: no lymphadenopathy noted Resp Auscultation: clear to auscultation bilaterally Cardio Rate: regular rate Rhythm: regular rhythm Heart sounds: S1 normal heart sound present and S2 normal heart sound present GI Other: Mild epigastric pain to palpation. No rebound or guarding. No CVA tenderness. Inspection: Yes normal to inspection Palpation (GI): Soft to palpation Auscultation: normoactive bowel sounds Rectal Exam - Female: deferred Skin General skin exam: no rashes or lesions noted Neuro General: patient oriented x3, gait normal and no focal motor deficits Coding Level of Care Code Est Pt Level 4 (33155) Complex EM visit Add On G2211 Diagnoses CKD stage 3a, GFR 45-59 ml/min N18.31 Epigastric abdominal pain R10.13 Bilateral low back pain M54.50 Assessment & Plan Assessment & Plan (1) CKD stage 3a, GFR 45-59 ml/min: Code(s): N18.31 - Chronic kidney disease, stage 3a Category: Medical Plan: Stable. Following with Nephrology (2) Epigastric abdominal pain: Code(s): R10.13 - Epigastric pain Category: Medical Plan: Labs ordered today. We will follow up pending test results. She is improving. Advised to monitor for symptoms. If she fails to continue improving or if anything worsens or changes advised to contact me or go to the ER. Discussed that it could be viral in etiology. Swab ordered. (3) Bilateral low back pain: Code(s): M54.50 - Low back pain, unspecified Category: Medical Plan: Increase tramadol to 4 times a day. She will let me know if this improves her symptoms. Orders: Orders Basic Metabolic Panel 01/18/25 N18.31 - Chronic kidney disease, stage 3a, R10.13 - Epigastric pain Complete Blood Count Auto Diff 01/18/25 N18.31 - Chronic kidney disease, stage 3a, R10.13 - Epigastric pain Liver Panel 01/18/25 N18.31 - Chronic kidney disease, stage 3a, R10.13 - Epigastric pain UA CC w/rflx Micro + Cult 01/18/25 N18.31 - Chronic kidney disease, stage 3a, R10.13 - Epigastric pain, Z13.220 - Encounter for screening for lipoid disorders Lipase 01/18/25 N18.31 - Chronic kidney disease, stage 3a, R10.13 - Epigastric pain Amylase 01/18/25 N18.31 - Chronic kidney disease, stage 3a, R10.13 - Epigastric pain SARS-CoV2/FLU/RSV 01/18/25 R09.89 - Other specified symptoms and signs involving the circulatory and respiratory systems Medications: New amoxicillin-pot clavulanate 875-125 mg 1 tab PO Q12H 20 tabs 0RF Changed From nystatin 1 appl topical BID-TID 60 grams 2RF To nystatin 1 appl topical BID-TID PRN From tramadol 50 mg PO TID PRN pain To tramadol 50 mg PO Q6H PRN 120 tabs 5RF pain 30 days
[2025-01-18 13:51] VITALS: BP 126/76; PULSE 92; RESP 14; TEMP 36.5; O2SAT 96; BMI 30.1
--- OUTSIDE RECORDS SUMMARY | 2025-01-18 15:58 | XMS_ITS | Encounter Summary ---
Author Organization [facility] Address [address] [place] [address] Phone Care Team Providers Care Grocery Bagger Name Role Phone Kalpana Veronica PA-C Primary Care Provider + Encounter Details Date Type Department Care Team (Late st Contact Info) Description 07/05/2024 Documentation Only [facility] [place], [address] [place] [address] Lashon Rios [address] [place] [address] Social History Tobacco Use Types [...] on filedocumented in this encounter Care Teams Grocery Bagger Relationship Specialty Start Date End Date Kalpana Veronica PA-C [address] [place] [id number] PCP - General Physician Mainspring Winder 07/05/24 documented as of this encounter
== END 2025-01-18 15:08 | disposition home or self-care (01) ==
LOC: HO.HMCFM 13:34
PROVIDERS: PCP Physician Assistant; Visit Provider Physician Assistant
DX: N18.31 Chronic kidney disease, stage 3a (principal); R10.13 Epigastric pain; M54.50 Low back pain, unspecified

== ENCOUNTER → 2025-01-18 13:33 | Outpatient (BNVA) | payer MEDICARE, SELFPAY | PROVIDERS: PCP Physician Assistant; Visit Provider Physician Assistant | DX: Z13.89 Encounter for screening for other disorder (principal) ==

== ENCOUNTER 2025-01-18 14:50 | Outpatient (REF) | payer MEDICARE, SELFPAY ==
[2025-01-18 18:14] LABS: Appearance Urine Clear; Color Urine Yellow; Glucose Urine UA Negative (Negative); Leukocyte Esterase Urine Small (1+) (Negative); Nitrite Urine Negative (Negative); Specific Gravity - Urine <= 1.005 (1.005-1.025); UMIC TRIGGER UACC YES; Urine Blood Negative (Negative); Urine Ketones Negative (Negative); Urine Protein Negative (Neg-Trace)
[2025-01-18 18:25] LABS: Alanine Aminotransferase 63 U/L (0-31); Albumin Level 4.3 g/dL (3.5-5.0); Alkaline Phosphatase 125 U/L (39-117); Anion Gap 16 (12-20); Aspartate Amino Transferase 61 U/L (5-31); Bilirubin Direct 0.2 mg/dL (0.0-0.5); Bilirubin Total 0.4 mg/dL (0.0-1.0); Blood Urea Nitrogen 22 mg/dL (9-16); C Reactive Protein 0.26 mg/dL (< or = 0.50); Calcium 9.7 mg/dL (8.4-10.2); Carbon Dioxide 23 mmol/L (22-29); Chloride 105 mmol/L (96-108); Estimated Glomerular Filt Rate 39; Glucose Random 98 mg/dL (60-115); Lipase 32 U/L (8-78); Potassium 3.5 mmol/L (3.3-5.1); Sodium 140 mmol/L (135-145)
[2025-01-18 18:26] LABS: Amylase 74 U/L (28-100)
[2025-01-18 18:29] LABS: Bacteria Urine None Seen (None Seen); Hyaline Casts Urine 0-2 /LPF (0-2); RBC Urine 0-2 /HPF (0-2); Squamous Epithelial Cell Urine 0-2 /HPF (0-2); UACC Culture Trigger YES; WBC Urine 0-5 /HPF (0-5)
[2025-01-18 18:43] LABS: Basophils Percent Auto 0.2 % (0-2); Mean Corpuscular HGB Conc 34.4 g/dl (31.0-35.0); Mean Corpuscular Hemoglobin 31.7 pg (27.0-33.0); PLT CLUMP 1; Red Cell Distribution Width 13.8 % (11.0-16.0); SCAN SMEAR FLAG 1
[2025-01-18 18:45] LABS: Eosinophils Percent Auto 0.3 % (0-4); Hematocrit 37.2 % (37.0-47.0); Hemoglobin 12.8 g/dl (12.0-16.0); Imm Gran Abs Auto 0.07 X10*3/uL (0.00-0.03); Imm Gran Pct Auto 0.6 % (0.0-0.4); Lymphocytes Absolute Auto 1.2 X10*3/uL (1.2-4.9); Lymphocytes Percent Auto 9.6 % (20-40); MANUAL DIFF FLAG SCAN; Mean Corpuscular Volume 92.1 fL (80.0-98.0); Monocytes Absolute Auto 0.7 X10*3/uL (0.1-1.2); Monocytes Percent Auto 5.8 % (2-11); Neutrophils Absolute Auto 10.3 x10*3/uL (2.0-8.3); Neutrophils Percent Auto 83.5 % (45-73); Red Blood Count 4.04 X10*6/uL (4.20-5.50)
[2025-01-18 18:46] LABS: Influenza A PCR NEGATIVE (Negative); Influenza B PCR NEGATIVE (Negative); Resp Syncy Virus RNA Qual PCR NEGATIVE (Negative); SARS COV2 PCR INHOUSE NEGATIVE (Negative)
[2025-01-18 18:48] LABS: White Blood Count 12.3 X10*3/uL (4.8-10.8)
[2025-01-18 19:10] LABS: Platelet Count 252 X10*3/uL (160-400)
[2025-01-18 19:11] LABS: SLIDE REVIEW VERIFIED
[2025-01-18 19:19] LABS: Erythrocyte Sedimentation Rate 17 MM/HR (0-20)
== END 2025-01-18 14:51 | disposition home or self-care (01) ==
LOC: HO.WFDLDS 14:50
PROVIDERS: Student in an Organized Health Care Education/Training Program; Visit Provider Physician Assistant
DX: N18.31 Chronic kidney disease, stage 3a (principal); R10.13 Epigastric pain; M54.50 Low back pain, unspecified; R09.89 Other specified symptoms and signs involving the circulatory and respiratory systems; D72.829 Elevated white blood cell count, unspecified; M79.672 Pain in left foot; M25.512 Pain in left shoulder
CPT/HCPCS: 0241U; 36415; 80053; 81001; 82150; 82248; 83690; 85025; 85652; 86140; 87086; 99212

== ENCOUNTER 2025-03-06 13:25 | Outpatient (REF) | payer MEDICARE, SELFPAY ==
--- OUTSIDE RECORDS SUMMARY | 2025-03-06 13:36 | XMS_ITS | Encounter Summary ---
Author Organization [facility] Address [address] [place] [address] Phone Care Team Providers Care Shot Coat Tender Name Role Phone Kalpana Veronica PA-C Primary Care Provider + Encounter Details Date Type Department Care Team (Late st Contact Info) Description 07/05/2024 Documentation Only [facility] [place], [address] [place] [address] Lashon Rios [address] [place] [address] Social History Tobacco Use Types [...] on filedocumented in this encounter Care Teams Shot Coat Tender Relationship Specialty Start Date End Date Kalpana Veronica PA-C [address] [place] [phone] PCP - General Physician End Worker 07/05/24 documented as of this encounter
--- OUTSIDE RECORDS SUMMARY | 2025-03-06 13:36 | XMS_ITS | Clinical Summary ---
Author Organization [facility] Address [address] [place] [address] Phone Care Team Providers Care Distribution Sales Representative Name Role Phone Kalpana Veronica [...] History Date Comments AML (acute myeloid leukemia) ([facility] V24, [facility] V28) Asthma Cystitis Thomas's esophagus Cataract CKD (chronic kidney disease), stage III ([facility] V24, [facility] V28) CVA (cerebral vascular accident) ([facility] V24, C [place]/[facility] V28) DJD (degenerative joint disease) Dyslipidemia Anxiety GERD [...] 84 06/26/2024 1:20 AM EST Temperature 37 C (98.6 F) 06/26/2024 1:20 AM EST Respiratory Rate 20 [...] Tdap) 05/27/2021 05/27/2011, 03/07/2011 COVID-19 Vaccine ( season) 2024 10/02/2021, 10/18/2020, 09/20/2020 Cholesterol Screening (Lipid Panel) 06/26/2024 Colorectal Cancer Screening: Colonoscopy 06/26/2024 Falls Risk Assessment 06/26/2024 Hepatitis C Screening 06/26/2024 Hypertension/CHF/CAD Annual BMP Blood Test 06/26/2024 Medicare Annual Wellness Visit 06/26/2024 Osteoporosis Screening (Bone Density Screening) 06/26/2024 Social Influencers of Health Screening 06/26/2024 Depression Screening 07/27/2024 Influenza Vaccine (#1) 2025 2, 06/05/2019, 03/29/2015, Additional history exists MMR Vaccines Aged Out 02/05/1995 No longer [...] age to complete this topic Insurance MEDICARE [facility] Care Teams Distribution Sales Representative Relationship Specialty Start Date End Date Kalpana Veronica PA [address] [place] [address] PCP - General Physician Oil Driller 06/26/24
[2025-03-06 17:39] LABS: MANUAL DIFF FLAG NO
[2025-03-06 17:44] LABS: Appearance Urine Clear; Glucose Urine UA Negative (Negative); PH 6.0 (5.0-9.0); Specific Gravity - Urine 1.010 (1.005-1.025); UMIC TRIGGER UACC YES
[2025-03-06 18:01] LABS: Hematocrit 37.3 % (37.0-47.0); Hemoglobin 12.3 g/dl (12.0-16.0); Imm Gran Abs Auto 0.06 X10*3/uL (0.00-0.03); Imm Gran Pct Auto 0.5 % (0.0-0.4); Lymphocytes Absolute Auto 4.0 X10*3/uL (1.2-4.9); Mean Corpuscular HGB Conc 33.0 g/dl (31.0-35.0); Mean Corpuscular Hemoglobin 31.2 pg (27.0-33.0); Mean Corpuscular Volume 94.7 fL (80.0-98.0); NRBC Abs Auto 0.000 X10*3/uL (0.0-0.012); NRBC Pct Auto 0.0 /100WBC (0.0-0.2); Platelet Count 278 X10*3/uL (160-400); Red Blood Count 3.94 X10*6/uL (4.20-5.50); White Blood Count 13.0 X10*3/uL (4.8-10.8)
[2025-03-06 18:21] LABS: Alanine Aminotransferase 21 U/L (0-31); Albumin Level 4.2 g/dL (3.5-5.0); Alkaline Phosphatase 94 U/L (39-117); Anion Gap 16 (12-20); Aspartate Amino Transferase 25 U/L (5-31); Blood Urea Nitrogen 24 mg/dL (9-16); Calcium 9.2 mg/dL (8.4-10.2); Carbon Dioxide 25 mmol/L (22-29); Chloride 104 mmol/L (96-108); Estimated Glomerular Filt Rate 39; Potassium 3.1 mmol/L (3.3-5.1); Sodium 142 mmol/L (135-145); Total Protein 6.9 g/dL (6.5-8.0); Uric Acid 5.9 mg/dL (2.4-5.7)
[2025-03-07 09:09] LABS: Lyme Abs Screen <0.90 index
== END 2025-03-06 13:26 | disposition home or self-care (01) ==
LOC: HO.WFDLDS 13:25
PROVIDERS: Student in an Organized Health Care Education/Training Program; Visit Provider Physician Assistant
DX: Z01.84 Encounter for antibody response examination (principal); N18.31 Chronic kidney disease, stage 3a; M1A.39X0 Chronic gout due to renal impairment, multiple sites, without tophus (tophi); R79.89 Other specified abnormal findings of blood chemistry; M79.671 Pain in right foot; M79.672 Pain in left foot
CPT/HCPCS: 36415; 80048; 80076; 81001; 84550; 85025; 86617; 86618

== ENCOUNTER 2025-03-15 10:39 | Outpatient (REF) | payer MEDICARE, SELFPAY ==
--- OUTSIDE RECORDS SUMMARY | 2025-03-15 11:58 | XMS_ITS | Encounter Summary ---
Author Organization [facility] Address [address] [place] [address] Phone Care Team Providers Care Heel Seat Laster Name Role Phone Kalpana Veronica PA-C Primary Care Provider + Encounter Details Date Type Department Care Team (Late st Contact Info) Description 07/05/2024 Documentation Only [facility] [place], [address] [place] [address] Lashon Rios [address] [place] [address] Social History Tobacco Use Types [...] on filedocumented in this encounter Care Teams Heel Seat Laster Relationship Specialty Start Date End Date Kalpana Veronica PA-C [address] [place] [phone] PCP - General Physician Passenger Tire Inspector 07/05/24 documented as of this encounter
--- OUTSIDE RECORDS SUMMARY | 2025-03-15 11:58 | XMS_ITS | Clinical Summary ---
Author Organization [facility] Address [address] [place] [address] Phone Care Team Providers Care Laundry Tub Maker Name Role Phone Kalpana Veronica Primary Care Provider [phone] Allergies Active Allergy Reactions Criticality Noted Date Comments Allopurinol 06/26/2024 Blue Dye 06/26/2024 Ciprofloxacin 06/26/2024 Codeine 06/26/2024 Hydromorphone 06/26/2024 Lisinopril 06/26/2024 Methocarbamol 06/26/2024 Oxycodone-Acetaminophen 06/26/2024 Acetaminophen 06/26/2024 Acetaminophen-Codeine 06/26/2024 Hydrocodone-Acetaminophen 06/26/2024 Alprazolam 06/26/2024 Medications No known medications Surgical History Surgery Date Site/Laterality Comments JOINT REPLACEMENT Medical History Medical History Date Comments AML (acute myeloid leukemia) ([facility] V24, [facility] V28) Asthma Cystitis Thomas's esophagus Cataract CKD (chronic kidney disease), stage III ([facility] V24, [facility] V28) CVA (cerebral vascular accident) ([facility] V24, [place]/[facility] V28) DJD (degenerative joint disease) Dyslipidemia Anxiety [...] age to complete this topic Insurance MEDICARE [facility] Care Teams Laundry Tub Maker Relationship Specialty Start Date End Date Kalpana Veronica PA [address] [place] [phone] PCP - General Physician Night Nurse 06/26/24
--- OUTSIDE RECORDS SUMMARY | 2025-03-15 11:58 | XMS_ITS | Patient Health Record ---
Author Organization [facility] Address [address] [place] [address] Care Team Providers Care Certified Medical Coder Name Role Phone Kalpana Veronica Primary Care Provider Unavailabl e Joaquin Jonna Unavailable [phone] CameronCassandra Unavailable [phone] Allergies Allergen (clinical drug ingredient) Drug/Non Drug [...] above Performing Lab: Notes/Report: See Examination above X ray : Foot, left 3V Reviewed date:01/12/2025 07:25:21 PM Interpretation:See Examination above Performing Lab: Notes/Report: See Examination above X ray : Foot, left 3V Reviewed date:02/13/2025 05:10:49 PM Interpretation:See Examination above Performing Lab: Notes/Report: See Examination above Reason For Referral No Information Medications Medication SIG (Take, Route, Frequency, Duration) Notes Start Date End Date Status Probenecid Active Furosemide 20 MG Oral; Duration: 90 Days Active Omeprazole Active Effexor Not-Taking predniSONE 5 MG/ML as directed Orally Active Baclofen 10 MG 1 tablet as needed Orally Twice a day Not-Taking Aspir-81 Active Gabapentin 600 MG 1 tablet Orally Once a day Not-Taking Ammonium Lactate 12 % 1 application Externally to affected areas of dry skin to feet except for between the toes Twice a day; Duration: 30 days Active Vitamin C Active Vitamin D3 Active Atorvastatin Calcium 80 MG TAKE 1 TABLET BY MOUTH DAILY Oral; Duration: 90 Active Lexapro Not-Taking Hair Skin Nails supplement Act eunice Ciclopirox Olamine 0.77 % 1 application to affected area Externally to feet Twice a day; Duration: 30 days Not-Taking LORazepam 1 MG Oral; Duration: 30 Active PROzac 20 MG 1 capsule Orally Onc e a day; Duration: 30 day(s) Not-Taking Singulair Active Immunizations Vaccine Route Administration Date Status Comme nts Influenza Unknown 01/12/2025 Refused Social History Tobacco Use: Social History Observation Description Date Details (start date - stop date) Never Smoker NA - NA Tobacco use other than smoking: Question Answer Notes Are you an other tobacco user? No Tobacco Control (Standard) Question Answer Notes Tobacco use: Nonsmoker Additional Findings: Tobacco non-user Current no nsmoker AUDIT-C (Standard) Question Answer Notes Did you have a drink containing alcohol in the p ast year? No Points 0 Interpretation Negative Problems Problem Type SNOMED Code ICD Code Onset Dates Problem Status W/U Status Risk Notes Problem Acquired hammer toe of left foot (4662171464673230 ) Other hammer toe(s) (acquired), left foot (M20.42) Active confirmed Problem Acquired hallux valgus (08444222) Acquired hallux interphalangeus of left foot (M20.12) Active confirmed Problem Localized, primary osteoarthritis of the ankle and/or foot (805380357) Arthritis of joint of lesser toe, left (M19.072) Active confirmed Problem Ulcer of toe of left foot (disorder) (1668980024336470 2) Skin ulcer of toe of left foot, limited to breakdown of skin (L97.521) Active confirmed Vital Signs Blood pressure diastolic 60 mm Hg 02/13/2025 Height 5ft2.5in in 02/13/2025 Blood pressure systolic 127 mm Hg 02/13/2025 Weight 161 lbs 02/13/2025 BMI 28.97 kg/m2 02/13/2025 Procedures Procedure Date Ordered Date Performed Result Body Sit e 68290- Debride <25 sq cm 09/22/2024 N/A Encounters Encounter Location Date Provider Diagnosis [facility] [address] [address] 06/21/2024 Cassandra Cameron Pain in left toe(s) M79.675 ; Other hammer toe(s) (acquired), left foot M20.42 ; Tinea unguium B35.1 ; Pain in right toe(s) M79.674 and Pain in left toe(s) M79.[address] [address] 09/22/2024 Jonna Black Pain in left toe(s) M79.675 ; Other hammer toe(s) (acquired), left foot M20.42 ; Xerosis of skin L85.3 ; Arthritis of joint of lesser toe, left M19.072 ; Subluxation of metatarsophalangeal joint of toe, initial encounter S93.149A and Skin ulcer of toe of left foot, limited to breakdown of skin L97.[address] [address] 12/26/2024 Cassandra Cameron Pain in left toe(s) M79.675 ; Other hammer toe(s) (acquired), left foot M20.42 ; Arthritis of joint of lesser toe, left M19.072 and Subluxation of metatarsophalangeal joint of toe, initial encounter S93.149A [address] [address] 01/12/2025 Jonna Black Pain in left toe(s) M79.675 and Closed nondisplaced fracture of second metatarsal bone of left foot, initial encounter S92.325A [address] [address] 02/13/2025 Jonna Black Pain in left toe(s) M79.675 ; Contusion of left great toe without damage to nail, initial encounter S90.112A ; Acquired hallux interphalangeus of left foot M20.12 ; Closed nondisplaced fracture of second metatarsal bone of left foot with routine healing, subsequent encounter S92.325D and Contusion of left great toe without damage to nail, subsequent encounter S90.112D [address] [address] 05/30/2024 Jonna Black [facility] [place] [address] [place] [address] 05/30/2024 Jonna Black [facility] [place] [address] [place] [address] 06/03/2024 Jonna Black [facility] [place] [address] [facility] [address] [place] [address] 06/21/2024 Jonna Black [facility] [place] [address] [place] [address] 09/01/2024 Jonna Black [facility] [address] [place] [address] 10/24/2024 Jonna Black [facility] [address] [place] [address] 12/22/2024 Jonna Black [facility] [address] [place] [address] 01/11/2025 Jonna Black [facility] [address] [place] [address] 01/12/2025 Jonna Black [facility] [address] [place] [address] 02/01/2025 Jonna Black [facility] [address] [place] [address] 02/09/2025 Jonna Black Assessments Encounter Date Diagnosis (ICD Code) Assessment Notes Treatment Notes Treatment Clinical Notes Section Notes 06/21/2024 Pain in left toe(s) (ICD-10 - M79.675) 06/21/2024 Other hammer toe(s) (acquired), left foot (ICD-10 - M20.42) 09/22/2024 Pain in left toe(s) (ICD-10 - M79.675) 09/22/2024 Other hammer toe(s) (acquired), left foot (ICD-10 - M20.42) 01/12/2025 Pain in left toe(s) (ICD-10 - M79.675) 01/12/2025 Closed nondisplaced fracture of second metatarsal bone of left foot, initial encounter (ICD-10 - S92.325A) 02/13/2025 Contusion of left gr eat toe without damage to nail, initial encounter (ICD-10 - S90.112A) 12/26/2024 Pain in left toe(s) (ICD-10 - M79.675) 12/26/2024 Other hammer toe(s) (acquired), left foot (ICD-10 - M20.42) 02/13/2025 Pain in left toe(s) (ICD-10 - M79.675) 02/13/2025 Acquired hallux interphalangeus of left foot (ICD-10 - M20.12) 12/26/2024 Arthritis of joint o f lesser toe, left (ICD-10 - M19.072) 09/22/2024 Xerosis of skin (ICD -10 - L85.3) 06/21/2024 Tinea unguium (ICD-1 0 - B35.1) 06/21/2024 Pain in right toe(s) (ICD-10 - M79.674) 09/22/2024 Arthritis of joint o f lesser toe, left (ICD-10 - M19.072) 02/13/2025 Closed nondisplaced fracture of second metatarsal bone of left foot with routine healing, subsequent encounter (ICD-10 - S92.325D) 12/26/2024 Subluxation of metatarsophalangeal joint of toe, initial encounter (ICD-10 - S93.149A) 02/13/2025 Contusion of left gr eat toe without damage to nail, subsequent encounter (ICD-10 - S90.112D) 06/21/2024 Pain in left toe(s) (ICD-10 - M79.675) 09/22/2024 Subluxation of metatarsophalangeal joint of toe, initial encounter (ICD-10 - S93.149A) 09/22/2024 Skin ulcer of toe of left foot, limited to breakdown of skin (ICD-10 - L97.521) Patient Educated with: WOUND CARE INSTRUCTIONS. pdf (WOUND CARE INSTRUCTIONS. pdf) Plan Of Treatment Pending Test Test Name Order Date [id number] NAIL, 1-5 08/20/2023 83033-[id number] Plate 10/30/2022 74965- Debride <25 sq cm 09/22/2024 Insurance Providers Payer Name Payer Address Payer Phone Subscriber Number Group Number Insured Name Patient Relationship to Insured Coverage Start Date Coverage End Date Medicare National Govt Svcs Inc [address] [place] [address] [id number] [employer] Jaimie Self - patient is the insured AARP Secondary to Medicare [address] [place] [address] [id number] [employer], Jaimie Self - patient is the insured Medical (General) History Medical History History ICD Code Anxiety Arthritis Back,Hip,and Knee pain Cancer Cataracts Gall bladder removed Gout Kidney disease Osteoporosis Reflux ( GERD) Stroke TIA 2013 Measles Mumps Chicken pox Bone implants/screws Surgical History Surgery Date(Month/Year) tonsillectomy 4yrs old lap[place] 02/02/1992 cataract surgery 2004,2006 total left knee replacement 2006 neck fusion 2010 R rotator cuff tear repair 06/24/21 L foot surgery Hospitalization History Reason Date(Month/Year) spine and neck issue 05/2024
[2025-03-15 14:52] LABS: Appearance Urine Cloudy; Glucose Urine UA Negative (Negative); PH 6.5 (5.0-9.0); Specific Gravity - Urine 1.010 (1.005-1.025); UMIC TRIGGER UACC YES
[2025-03-15 15:10] LABS: UACC Culture Trigger YES
== END 2025-03-15 10:40 | disposition home or self-care (01) ==
LOC: HO.WFDLDS 10:39
PROVIDERS: Visit Provider Physician Assistant
DX: R30.0 Dysuria (principal)
CPT/HCPCS: 81001; 87086; 87147

== ENCOUNTER 2025-03-30 10:04 | Outpatient (AMB) | payer MEDICARE, SELFPAY ==
--- OUTSIDE RECORDS SUMMARY | 2025-02-09 09:30 | XMS_ITS ---
Author Organization [facility] Address [address] [place] [address] Care Team Providers Care High School Science Teacher Name Role Phone Kalpana Veronica Primary Care Provider Jonna Gil [phone] Encounters Encounter Location Date Provider Diagnosis [facility] [address] [place] [address] 02/09/2025 Jonna Nuñez Plan Of Treatment No Information Progress Notes * Araceli BRANDTOB: 959 (64 yo F)Acc No.[id number]:02/09/2025 Progress Note Patient: Jaimie SCOTT Provider: Rusty Nuñez DPM :1960 A ge:64 Y S ex:Female Date:02/09/2025 Address:[address] [place], [place] [id number] Pcp:Kalpana Veronica Subjective: * Chief Complaints: * [...] Date: 02/09/2025 Generated for Terrii ng/Fabaldomerog/eTransmitting on: 03/30/2025 11:13 AM EDT
--- NOTE | 2025-03-30 10:12 | A.OFFPC_ITS ---
Vital Signs 03/30/25 10:16 BMI Reason not done Patient refused/unable BP 88/64 L Blood Pressure Location Lt brachial Position Sitting Respiration 14 Pulse 103 H Pulse Source Pulse Oximeter Temp 97.8 F Temp Source Oral Pulse Oximetry (%) 98 Oxygen Delivery Method Room Air Intake Visit Reasons: Reschedule/bloodwork and anxiety Intake Note: Follow up Medical Record Transcriber Required: No Allergies acetaminophen Allergy (Severe, Verified 03/30/25 10:12) Swelling allopurinol Allergy (Severe, Verified 03/30/25 10:12) Swelling azithromycin (From Zithromax Z-Ron) Allergy (Severe, Verified 03/30/25 10:12) Gastrointestinal Upset blue dye Allergy (Severe, Verified 03/30/25 10:12) Swelling codeine Allergy (Severe, Verified 03/30/25 10:12) Swelling oxycodone (From Percocet) Allergy (Severe, Verified 03/30/25 10:12) Swelling Medication List - Last Reconciled 03/30/25 by Kalpana Veronica PA-C albuterol sulfate 90 mcg/actuation 2 puffs inhalation Q6H PRN atorvastatin 80 mg PO DAILY diclofenac sodium 1% (Arthritis Pain (diclofenac)) 4 grams topical QID PRN furosemide (Lasix) 20 mg PO DAILY PRN lorazepam 1 mg PO BID 30 days montelukast 10 mg PO DAILY multivitamin with minerals (Hair,Skin and Nails tablet) 1 tab PO DAILY nystatin 1 appl topical BID-TID PRN omeprazole 80 mg PO ONCE prednisone 5 mg PO DAILY probenecid 500 mg PO BID 90 days venlafaxine ER 150 mg PO DAILY Tobacco use date assessed: 03/30/25 Dental Screening Dental Screen Date: 01/18/25 HPI Reschedule/bloodwork and anxiety HPI Details The patient is a 64-year-old female presenting for a follow up. She does have a significant past medical history of chronic kidney disease, gout, GERD, anxiety, dyslipidemia, AML in remission. CV: bp is low today but recently started metorpolol last week for palpitations. she thinks she is on 25 mg. GI-states that last week she went out to eat and had half of a hamburger and some ice cream which caused diarrhea and upset stomach. She states that she had diarrhea for a few days with abdominal cramping. She has been able to eat and drink as of yesterday. She has been eating banana bread and that seems to be okay. She has been trying to hydrate as well. She is no longer having abdominal pain. Denies any fevers or chills. She was also on Augmentin for a UTI which she thinks also worsened the diarrhea. She discontinued that a couple days ago and believes that the UTI symptoms have resolved. Pulm: Currently stable and following with her systems development consultant., Dr. Jaramillo. Psych: She is doing better with the Effexor 150 mg Nephro: Her chronic kidney disease is stable and she is following with Dr. Lucas. Musculoskeletal: She does have ongoing chronic pain and osteoarthritis. She finds the tramadol somewhat effective but taking 100 mg twice a day causes severe GI upset. States that she is only able to take it 1 tablet at a time. Heme/onc: Following with Dr. Glen Da Silva at [facility]. Colonoscopy: November 2024, tubular adenoma noted. Repeat screening in 2027 [facility] Medical History (Updated 01/18/25 @ 14:36 by Kalpana Veronica PA-C) GERD (gastroesophageal reflux disease) Generalized anxiety disorder with panic attacks Dyslipidemia Overactive bladder AML (acute myeloid leukemia) in remission Surgical History Stem cells transplant status Family History Mother Cancer Father Cancer Social History (Updated 01/18/25 @ 13:59 by Yumiko Mixon CMA) Housing: House Alcohol intake: current Comment: Rare Patient Tobacco Use Status: Never used Tobacco e-Cigarette/Vaping Use: Never Used Second Hand Smoke Exposure: Yes service: No Current occupational status: retired Current occupational exposures/hazards: No Cognitive needs: No Hearing needs: No Vision needs: Yes (glasses) Questionnaire Thrive Questionnaire Date Thrive assessed: 07/31/24 I am a: Patient What is your living situation today?: I have a steady place to live Within the past 12 months, did the food you bought not last and you didn't have the money to get more?: Never true Within the past 12 months, did you worry whether your food would run out before you got money to buy more?: Never true Do you have trouble paying for medicines?: No Do you have trouble getting transportation to medical appointments?: No Do you have trouble paying your heating and electricity bill?: No Do you have trouble taking care of your child, family member or friend?: No Do you have trouble with day-to-day activities such as bathing, preparing meals, shopping, managing finances, etc.?: No Are you currently unemployed and looking for a job?: No Are you interested in more education?: No Please select the resources that you would like help with: None Currently or been in a relationship where the following occur: I choose not to answer THRIVE Score: 0 Physical exam (Primary Care) Vital Signs: Last Vital Signs Temp 97.8 F 03/30/25 10:16 Pulse 103 H 03/30/25 10:16 Resp 14 03/30/25 10:16 BP 88/64 L 03/30/25 10:16 Pulse Ox 98 03/30/25 10:16 Oxygen Delivery Method Room Air 03/30/25 10:16 Tobacco/Smoking Status: Tobacco use Status Tobacco use date assessed 03/30/25 03/30/25 10:21 Patient Tobacco Use Status Never used Tobacco 03/30/25 10:21 e-Cigarette/Vaping Use Never Used 03/30/25 10:21 Thrive Assessment: Date of Thrive Assessment Date Thrive assessed 07/31/24 03/30/25 10:21 Currently or been in a relationship where the following occur: I choose not to answer Const Orientation/consciousness: patient oriented x3 HENMT Ears: hearing grossly normal bilaterally Neck Thyroid: Thyroid normal Lymphatic: no lymphadenopathy noted Resp Auscultation: clear to auscultation bilaterally Cardio Rate: regular rate Rhythm: regular rhythm Heart sounds: S1 normal heart sound present and S2 normal heart sound present GI Inspection: Yes normal to inspection Palpation (GI): Soft to palpation and Other GI palpation findings present (nontender, no cva tenderness) Auscultation: normoactive bowel sounds Rectal Exam - Female: deferred Skin General skin exam: no rashes or lesions noted Neuro General: patient oriented x3, gait normal and no focal motor deficits Coding Level of Care Code Est Pt Level 4 (76823) Complex EM visit Add On G2211 Diagnoses Dyslipidemia E78.5 Generalized anxiety disorder with panic attacks F41.1; F41.0 CKD stage 3a, GFR 45-59 ml/min N18.31 Hypotension I95.9 Assessment & Plan Assessment & Plan (1) Dyslipidemia: Code(s): E78.5 - Hyperlipidemia, unspecified Category: Medical Plan: Continue atorvastatin (2) Generalized anxiety disorder with panic attacks: Code(s): F41.1 - Generalized anxiety disorder; F41.0 - Panic disorder [episodic paroxysmal anxiety] Category: Medical Plan: Continue the Effexor and lorazepam as needed (3) CKD stage 3a, GFR 45-59 ml/min: Code(s): N18.31 - Chronic kidney disease, stage 3a Category: Medical Plan: We will monitor (4) Hypotension: Code(s): I95.9 - Hypotension, unspecified Plan: Was started on metoprolol 25 mg for palpitations but is having lower blood pressure readings here and at home. Advised to reduce her dosage. She has a short term follow up with Cardiology. Plan Labs ordered today. Continue with a bland diet. Advised her to reduce her metoprolol to 12.5 mg Orders: Orders Basic Metabolic Panel Today E78.5 - Hyperlipidemia, unspecified, F41.0 - Panic disorder [episodic paroxysmal anxiety], F41.1 - Generalized anxiety disorder, N18.31 - Chronic kidney disease, stage 3a, R19.7 - Diarrhea, unspecified Erythrocyte Sedimentation Rate Today E78.5 - Hyperlipidemia, unspecified, F41.0 - Panic disorder [episodic paroxysmal anxiety], F41.1 - Generalized anxiety disorder, N18.31 - Chronic kidney disease, stage 3a, R19.7 - Diarrhea, unspecified Complete Blood Count Auto Diff Today E78.5 - Hyperlipidemia, unspecified, F41.0 - Panic disorder [episodic paroxysmal anxiety], F41.1 - Generalized anxiety disorder, N18.31 - Chronic kidney disease, stage 3a, R19.7 - Diarrhea, unspecified Liver Panel Today E78.5 - Hyperlipidemia, unspecified, F41.0 - Panic disorder [episodic paroxysmal anxiety], F41.1 - Generalized anxiety disorder, N18.31 - Chronic kidney disease, stage 3a, R19.7 - Diarrhea, unspecified UA CC w/rflx Micro + Cult Today E78.5 - Hyperlipidemia, unspecified, F41.0 - Panic disorder [episodic paroxysmal anxiety], F41.1 - Generalized anxiety disorder, N18.31 - Chronic kidney disease, stage 3a, R19.7 - Diarrhea, unspecified, R30.0 - Dysuria TSH reflex Free T4 Today E78.5 - Hyperlipidemia, unspecified, F41.0 - Panic disorder [episodic paroxysmal anxiety], F41.1 - Generalized anxiety disorder, N18.31 - Chronic kidney disease, stage 3a, R19.7 - Diarrhea, unspecified Medications: New metoprolol succinate ER 12.5 mg (1/2 x 25 mg) PO DAILY 90 tabs 0RF
[2025-03-30 10:16] VITALS: BP 88/64; PULSE 103; RESP 14; TEMP 36.6; O2SAT 98
--- OUTSIDE RECORDS SUMMARY | 2025-03-30 11:13 | XMS_ITS | Patient Health Record ---
Author Organization [facility] Address [address] [place] [address] Care Team Providers Care Golf Caddy Name Role Phone Kalpana Veronica Primary Care Provider Unavailabl e Joaquin Jonna Unavailable [phone] CameronCassandra Unavailable [phone] Allergies Allergen (clinical drug ingredient) Drug/Non Drug [...] Problem Acquired hammer toe of left foot (4845742610843812 ) Other hammer toe(s) (acquired), left foot (M20.42) Active confirmed Problem Acquired hallux valgus (90393796) Acquired hallux interphalangeus of left foot (M20.12) Active confirmed Problem Localized, primary osteoarthritis of the ankle and/or foot (155294181) Arthritis of joint of lesser toe, left (M19.072) Active confirmed Problem Ulcer of toe of left foot (disorder) (5853048070220810 2) Skin ulcer of toe of left foot, limited to breakdown of skin (L97.521) Active confirmed Vital Signs Blood pressure diastolic 60 mm Hg 02/13/2025 Height 5ft2.5in in 02/13/2025 Blood pressure systolic 127 mm Hg 02/13/2025 Weight 161 lbs 02/13/2025 BMI 28.97 kg/m2 02/13/2025 Procedures Procedure Date Ordered Date Performed Result Body Sit e 44739- Debride <25 sq cm 09/22/2024 N/A Encounters Encounter Location Date Provider Diagnosis [facility] [address] [address] 06/21/2024 Cassandra Cameron Pain in left toe(s) M79.675 ; Other hammer toe(s) (acquired), left foot M20.42 ; Tinea unguium B35.1 ; Pain in right toe(s) M79.674 and Pain in left toe(s) M79.[address] [address] 09/22/2024 Jonna Black Pain in left toe(s) M79.675 ; Other hammer toe(s) (acquired), left foot M20.42 ; Xerosis of skin L85.3 ; Arthritis of joint of lesser toe, left M19.072 ; Subluxation of metatarsophalangeal joint of toe, initial encounter S93.149A and Skin ulcer of toe of left foot, limited to breakdown of skin L97.[address] [address] 12/26/2024 Cassandra Cameron Pain in left toe(s) M79.675 ; Other hammer toe(s) (acquired), left foot M20.42 ; Arthritis of joint of lesser toe, left M19.072 and Subluxation of metatarsophalangeal joint of toe, initial encounter S93.149A [address] [address] 01/12/2025 Jonna Black Pain in left toe(s) M79.675 and Closed nondisplaced fracture of second metatarsal bone of left foot, initial encounter S92.325A [address] [address] 02/13/2025 Jonna Black Pain in left toe(s) M79.675 ; Contusion of left great toe without damage to nail, initial encounter S90.112A ; Acquired hallux interphalangeus of left foot M20.12 ; Closed nondisplaced fracture of second metatarsal bone of left foot with routine healing, subsequent encounter S92.325D and Contusion of left great toe without damage to nail, subsequent encounter S90.112D [address] [address] 05/30/2024 Jonna Black [facility] [place] [address] [facility] [place] [address] 05/30/2024 Jonna Black [facility] [place] [address] [facility] [place] [address] 06/03/2024 Jonna Black [facility] [place] [address] [facility] [address] [place] [address] 06/21/2024 Jonna Black [facility] [place] [address] [facility] [place] [address] 09/01/2024 Jonna Black [facility] [address] [place] [address] 10/24/2024 Jonna Black [facility] [address] [place] [address] 12/22/2024 Jonna Black [facility] [address] [place] [address] 01/11/2025 Jonna Black [facility] [address] [place] [address] 01/12/2025 Jonna Black [facility] [address] [place] [address] 02/01/2025 Jonna Black [facility] [address] [place] [address] 02/09/2025 Jonna Black Assessments Encounter Date Diagnosis [...] Treatment Pending Test Test Name Order Date [id number] NAIL, 1-5 08/20/2023 22404-Rogyjjvo Plate 10/30/2022 36624- Debride <25 sq cm 09/22/2024 Insurance Providers Payer Name Payer Address Payer Phone Subscriber Number Group Number Insured Name Patient Relationship to Insured Coverage Start Date Coverage End Date Medicare National Govt Svcs Inc [address] [place] [address] [id number] [employer] [place]aimie Self - patient is the insured AARP Secondary to Medicare [address] [place] [address] [id number] [employer] in, Jaimie Self - patient is [...]
--- OUTSIDE RECORDS SUMMARY | 2025-03-30 11:13 | XMS_ITS | Encounter Summary ---
Author Organization [facility] Address [address] [place] [address] Phone Care Team Providers Care Car Electronics Installer Name Role Phone Kalpana Veronica PA-C Primary Care Provider + Encounter Details Date Type Department Care Team (Late st Contact Info) Description 07/05/2024 Documentation Only [facility], [address] [place] [address] Lashon Rios [address] [place] [address] Social History Tobacco Use Types [...] on filedocumented in this encounter Care Teams Car Electronics Installer Relationship Specialty Start Date End Date Kalpana Veronica PA-C [address] [place] [id number] PCP - General Physician Workers Compensation Manager 07/05/24 documented as of this encounter
--- OUTSIDE RECORDS SUMMARY | 2025-03-30 11:13 | XMS_ITS | Clinical Summary ---
Author Organization [facility], Address [address] [facility] 1 [place] [address] Phone Care Team Providers Care Manager Economic Name Role Phone Kalpana Veronica PA-C Primary [...] time each day 90 tablet 3 5 02/22/20 Active Active Problems Problem Noted Date Diagnosed Date Edema 07/05/2024 Simple renal cyst 10/15/2021 Asthma 05/21/2021 Stage 3a chronic kidney disease 09/13/2019 Overview (07/30/2020): Update for Diagnosis Load Resolved Problems Problem Noted Date Diagnosed Date Resolved Date Syncope 01/01/2021 05/21/2021 Urinary tract infection 06/19/202004/27 Anemia 09/13/2019 05/21/2021 Dyslipidemia 09/13/2019 12/26/2020 Gout 09/13/2019 12/26/2020 Hypertensive disorder 09/13/20192020 Encounters Date Type Department Care Team Description 02/21/2025 Refill [facility], [address] [place] [address] Lashon Rios from Last 3 Months Immunizations Immunization Administration Dates Next Due Hepatitis B 09/18/1997,04/18/1997,03/20/1997 [...] Colorectal Cancer Screening: Sigmoidoscopy 10/15/2007 Pneumococcal Vaccine: 50+ Years (3 of 3 - PCV) 06/29/2016 06/29/2015, 04/07/2013 Influenza Vaccine (#1) 2025 06/02/2022 Hepatitis B Vaccine Aged Out 09/18/1997, 04/18/1997, 03/20/1997 No longer eligible based on patient's age to complete this topic Pneumococcal Vaccine: Peds ( 0 to 5 Years) and At-Risk Patients (6 to 49 Years) Discontinued 06/29/2015, 04/07/2013 Insurance Medicare [facility] Care Teams Manager Economic Relationship Specialty Start Date End Date Kalpana Veronica PA-C [address] [place] [address] PCP - General Physician Dough Cutting Machine Operator 07/05/24
--- OUTSIDE RECORDS SUMMARY | 2025-03-30 11:14 | XMS_ITS | Encounter Summary ---
Author Organization [facility] Address [address] [place] [address] Care Team Providers Care Medical Receptionist Name Role Phone Kalpana Veronica Primary Care Provider [phone] Encounter Details Date Type Department Care Team (Late st Contact Info) Description 06/29/[address] [facility] - Main Lab [address] [facility] [place] [phone] Marielena Vera MD [address] [facility] [address] [place] [address] Acute kidney failure, unspecified (CMS/HCC V24); Personal history of urinary (tract) infections Social [...] 11:00 AM EST Acute kidney failure, unspecified (CMS/[facility]) Personal history of urinary (tract) infections documented in this encounter Results * Bacterial identification and susceptibility, aerobic (06/28/2024 11:00 AM EST) Culture, Bacterial ID and Sensitivity Mixed urogenital cuba, no uropathogens present. Suggest repeat specimen, if clinically indicated. 06/29/2024 2:12 PM EST [facility] Other Urine specimen from urethra / Unknown Non-blood Collection / Unknown 06/28/2024 11:00 AM EST 06/29/2024 1:52 PM EST Marielena Vera MD LAB MICROBIOLOGY - G ENERAL ORDERABLES Final Result [facility] [address] [place] [address], documented in this encounter Visit Diagnoses Diagnosis Acute kidney failure, unspecified (CMS/HCC V24) Acute kidney failure, unspecified Personal history of urinary (tract) infections documented in this encounter Care Teams Medical Receptionist Relationship Specialty Start Date End Date Kalpana Veronica PA [address] [place] [address] PCP - General Physician Dental Specialist 06/26/24 documented as of this encounter
--- OUTSIDE RECORDS SUMMARY | 2025-03-30 11:14 | XMS_ITS | Clinical Summary ---
Author Organization [facility] Address [address] [place] [address] Phone Care Team Providers Care Wearing Apparel Assembler Name Role Phone Kalpana Veronica Primary Care Provider [phone] Allergies Active Allergy Reactions Criticality Noted Date Comments Allopurinol 06/26/2024 Blue Dye 06/26/2024 Ciprofloxacin 06/26/2024 Codeine 06/26/2024 Hydromorphone 06/26/2024 Lisinopril 06/26/2024 Methocarbamol 06/26/2024 Oxycodone-Acetaminophen 06/26/2024 Acetaminophen 06/26/2024 Acetaminophen-Codeine 06/26/2024 Hydrocodone-Acetaminophen 06/26/2024 Alprazolam 06/26/2024 Medications No known medications Surgical History Surgery Date Site/Laterality Comments JOINT REPLACEMENT Medical History Medical History Date Comments AML (acute myeloid leukemia) ([facility] V24, [facility] V28) Asthma Cystitis Thomas's esophagus Cataract CKD (chronic kidney disease), stage III ([facility] V24, [facility] V28) CVA (cerebral vascular accident) ([facility] V24, [facility] [place]/[facility] V28) DJD (degenerative joint disease) Dyslipidemia [...] - Td or Tdap) 05/27/2021 05/27/2011, 03/07/2011 Cholesterol Screening (Lipid Panel) 06/26/2024 Colorectal Cancer Screening: Colonoscopy 06/26/2024 Falls Risk Assessment 06/26/2024 Hepatitis C Screening 06/26/2024 Hypertension/CHF/CAD Annual BMP Blood Test 06/26/2024 Medicare Annual Wellness Visit 06/26/2024 Osteoporosis Screening (Bone Density Screening) 06/26/2024 Social Influencers of Health Screening 06/26/2024 Depression Screening 07/27/2024 COVID-19 Vaccine ( season) 2025 10/02/2021, 10/18/2020, 09/20/2020 Influenza Vaccine (#1) 2025 , 06/05/2019, 03/29/2015, Additional history exists MMR Vaccines [...] age to complete this topic Insurance MEDICARE [facility] Care Teams Wearing Apparel Assembler Relationship Specialty Start Date End Date Kalpana Veronica PA [address] [place] [address] PCP - General Physician Rip And Groove Machine Operator 06/26/24
== END 2025-03-30 10:42 | disposition home or self-care (01) ==
LOC: HO.HMCFM 10:04
PROVIDERS: PCP Physician Assistant; Visit Provider Physician Assistant
DX: E78.5 Hyperlipidemia, unspecified (principal); F41.1 Generalized anxiety disorder; F41.0 Panic disorder [episodic paroxysmal anxiety]; N18.31 Chronic kidney disease, stage 3a; I95.9 Hypotension, unspecified

== ENCOUNTER → 2025-03-30 10:04 | Outpatient (BNVA) | payer MEDICARE, SELFPAY | PROVIDERS: PCP Physician Assistant; Visit Provider Physician Assistant | DX: E78.5 Hyperlipidemia, unspecified (principal); F41.1 Generalized anxiety disorder; F41.0 Panic disorder [episodic paroxysmal anxiety]; N18.31 Chronic kidney disease, stage 3a; I95.9 Hypotension, unspecified | CPT/HCPCS: 99212 ==

== ENCOUNTER 2025-04-06 11:56 | Outpatient (REF) | payer MEDICARE, SELFPAY ==
--- OUTSIDE RECORDS SUMMARY | 2025-02-09 09:30 | XMS_ITS ---
Author Organization [facility] Address [address] [place] [address] Care Team Providers Care Acid Adjuster Name Role Phone Kalpana Veronica Primary Care Provider Jonna Gil [phone] Encounters Encounter Location Date Provider Diagnosis [facility] [address] [place] [address] 02/09/2025 Jonna Nuñez Plan Of Treatment No Information Progress Notes * Araceli BRANDTOB: 959 (64 yo F)Acc No.[id number]:02/09/2025 Progress Note Patient: Jaimie SCOTT Provider: Rusty Nuñez DPM :1960 A ge:64 Y S ex:Female Date:02/09/2025 Address:[address] [place], [place] [id number] Pcp:Kalpana Veronica Subjective: * Chief Complaints: * * Medical History: Objective: * Vitals: Assessment: Plan: * Treatment: * Images: * The named appointment provid er may or may not be the originator of this progress note, and it is not deemed complete until electronically signed by the appointment provider. Sign off status: Pending * Provider: Rusty Nuñez DPM Date: 02/09/2025 Generated for Terrii ng/Fabaldomerog/eTransmitting on: 04/06/2025 04:16 PM EDT
[2025-04-06 14:22] LABS: MANUAL DIFF FLAG NO
[2025-04-06 14:28] LABS: Appearance Urine Cloudy; Glucose Urine UA Negative (Negative); PH 6.5 (5.0-9.0); Specific Gravity - Urine 1.010 (1.005-1.025); UMIC TRIGGER UACC YES
[2025-04-06 14:28] LABS: Hematocrit 36.4 % (37.0-47.0); Hemoglobin 12.3 g/dl (12.0-16.0); Imm Gran Abs Auto 0.09 X10*3/uL (0.00-0.03); Imm Gran Pct Auto 0.6 % (0.0-0.4); Lymphocytes Absolute Auto 1.3 X10*3/uL (1.2-4.9); Mean Corpuscular HGB Conc 33.8 g/dl (31.0-35.0); Mean Corpuscular Hemoglobin 31.2 pg (27.0-33.0); Mean Corpuscular Volume 92.4 fL (80.0-98.0); NRBC Abs Auto 0.000 X10*3/uL (0.0-0.012); NRBC Pct Auto 0.0 /100WBC (0.0-0.2); Platelet Count 234 X10*3/uL (160-400); Red Blood Count 3.94 X10*6/uL (4.20-5.50); White Blood Count 15.2 X10*3/uL (4.8-10.8)
[2025-04-06 14:46] LABS: UACC Culture Trigger YES
[2025-04-06 15:00] LABS: Alanine Aminotransferase 25 U/L (0-31); Albumin Level 3.8 g/dL (3.5-5.0); Alkaline Phosphatase 112 U/L (39-117); Anion Gap 12 (12-20); Aspartate Amino Transferase 26 U/L (5-31); Blood Urea Nitrogen 20 mg/dL (9-16); Calcium 9.2 mg/dL (8.4-10.2); Carbon Dioxide 29 mmol/L (22-29); Chloride 105 mmol/L (96-108); Estimated Glomerular Filt Rate 44; Potassium 3.4 mmol/L (3.3-5.1); Sodium 143 mmol/L (135-145); Total Protein 6.3 g/dL (6.5-8.0)
--- OUTSIDE RECORDS SUMMARY | 2025-04-06 16:16 | XMS_ITS | Encounter Summary ---
Author Organization [facility] Address [address] [place] [address] Phone Care Team Providers Care Certified Personal Finance Counselor Name Role Phone Kalpana Veronica PA-C Primary Care Provider + Encounter Details Date Type Department Care Team (Late st Contact Info) Description 07/05/2024 Documentation Only [facility], [address] [place] [address] Lashon Rios [address] [place] [address] Social History Tobacco Use Types [...] on filedocumented in this encounter Care Teams Certified Personal Finance Counselor Relationship Specialty Start Date End Date Kalpana Veronica PA-C [address] [place] [address] PCP - General Physician Lacing String Cutter 07/05/24 documented as of this encounter
--- OUTSIDE RECORDS SUMMARY | 2025-04-06 16:17 | XMS_ITS | Clinical Summary ---
Author Organization [facility] Address [address] [place] [address] Phone Care Team Providers Care Chicken Raiser Name Role Phone Kalpana Veronica Primary Care Provider [phone] Allergies Active Allergy Reactions Criticality Noted Date Comments Allopurinol 06/26/2024 Blue Dye 06/26/2024 Ciprofloxacin 06/26/2024 Codeine 06/26/2024 Hydromorphone 06/26/2024 Lisinopril 06/26/2024 Methocarbamol 06/26/2024 Oxycodone-Acetaminophen 06/26/2024 Acetaminophen 06/26/2024 Acetaminophen-Codeine 06/26/2024 Hydrocodone-Acetaminophen 06/26/2024 Alprazolam 06/26/2024 Medications No known medications Surgical History Surgery Date Site/Laterality Comments JOINT REPLACEMENT Medical History Medical History Date Comments AML (acute myeloid leukemia) ([facility], [facility] V28) Asthma Cystitis Thomas's esophagus Cataract CKD (chronic kidney disease), stage III ([facility], [facility] V28) CVA (cerebral vascular accident) ([facility]24, [facility] [place] V28) DJD (degenerative joint disease) [...] age to complete this topic Insurance MEDICARE [facility] Care Teams Chicken Raiser Relationship Specialty Start Date End Date Kalpana Veronica PA [address] [place] [address] PCP - General Physician Occupational Health Physician 06/26/24
--- OUTSIDE RECORDS SUMMARY | 2025-04-06 16:17 | XMS_ITS | Encounter Summary ---
Author Organization [facility] Address [address] [place] [address] Care Team Providers Care Environmental Scientists Name Role Phone Kalpana Veronica Primary Care Provider [phone] Encounter Details Date Type Department Care Team (Late st Contact Info) Description 06/29/2024 Lab Requisition [facility] - Main Lab [address] [facility] [place] [phone] Marielena Vera MD [address] [facility] [address] [place] [address] Acute kidney failure, unspecified (CMS/HCC V24); Personal [...] 11:00 AM EST Acute kidney failure, unspecified (CMS/[facility]) Personal history of urinary (tract) infections documented in this encounter Results * Bacterial identification and susceptibility, aerobic (06/28/2024 11:00 AM EST) Culture, Bacterial ID and Sensitivity Mixed urogenital cuba, no uropathogens present. Suggest repeat specimen, if clinically indicated. 06/29/2024 2:12 PM EST [facility] Other Urine specimen from urethra / Unknown Non-blood Collection / Unknown 06/28/2024 11:00 AM EST 06/29/2024 1:52 PM EST Marielena Vera MD LAB MICROBIOLOGY - G ENERAL ORDERABLES Final Result [facility] [address] [place] [address], documented in this encounter Visit Diagnoses Diagnosis Acute kidney failure, unspecified (CMS/HCC V24) Acute kidney failure, unspecified Personal history of urinary (tract) infections documented in this encounter Care Teams Environmental Scientists Relationship Specialty Start Date End Date Kalpana Veronica PA [address] [place] [address] PCP - General Physician Ski Tow Operator 06/26/24 documented as of this encounter
--- OUTSIDE RECORDS SUMMARY | 2025-04-06 16:17 | XMS_ITS | Clinical Summary ---
Author Organization [facility], Address [address] [facility] 1 [place] [address] Phone Care Team Providers Care Nougat Candy Maker Helper Name Role Phone Kalpana Veronica PA-C Primary [...] Refill [facility], [address] [facility] [place] [address] Lashon Rios from Last 3 Months Immunizations [...] 47 Years) Discontinued 06/29/2015, 04/07/2013 Insurance Medicare [facility] Care Teams Nougat Candy Maker Helper Relationship Specialty Start Date End Date Kalpana Veronica PA-C [address] [place] [address] PCP - General Physician Raisin Washer 07/05/24
--- OUTSIDE RECORDS SUMMARY | 2025-04-06 16:17 | XMS_ITS | Patient Health Record ---
Author Organization [facility] Address [address] [place] [address] Care Team Providers Care Welder Helper Name Role Phone Kalpana Veronica Primary Care Provider Unavailabl e Joaquin Jonna Unavailable [phone] CameronCassandra Unavailable [phone] Allergies Allergen (clinical drug ingredient) Drug/Non Drug [...] Problem Acquired hammer toe of left foot (1854342276118800 ) Other hammer toe(s) (acquired), left foot (M20.42) Active confirmed Problem Acquired hallux valgus (27263400) Acquired hallux interphalangeus of left foot (M20.12) Active confirmed Problem Localized, primary osteoarthritis of the ankle and/or foot (125089854) Arthritis of joint of lesser toe, left (M19.072) Active confirmed Problem Ulcer of toe of left foot (disorder) (0994899784372366 2) Skin ulcer of toe of left foot, limited to breakdown of skin (L97.521) Active confirmed Vital Signs Blood pressure diastolic 60 mm Hg 02/13/2025 Height 5ft2.5in in 02/13/2025 Blood pressure systolic 127 mm Hg 02/13/2025 Weight 161 lbs 02/13/2025 BMI 28.97 kg/m2 02/13/2025 Procedures Procedure Date Ordered Date Performed Result Body Sit e 90942- Debride <25 sq cm 09/22/2024 N/A Encounters Encounter Location Date Provider Diagnosis [facility] [address] [address] 06/21/2024 Cassandra Cameron Pain in left toe(s) M79.675 ; Other hammer toe(s) (acquired), left foot M20.42 ; Tinea unguium B35.1 ; Pain in right toe(s) M79.674 and Pain in left toe(s) M79.[address] [address] 09/22/2024 Jonna Black Pain in left toe(s) M79.675 ; Other hammer toe(s) (acquired), left foot M20.42 ; Xerosis of skin L85.3 ; Arthritis of joint of lesser toe, left M19.072 ; Subluxation of metatarsophalangeal joint of toe, initial encounter S93.149A and Skin ulcer of toe of left foot, limited to breakdown of skin L97.[address] [address] 12/26/2024 Cassandra Caemron Pain in left toe(s) M79.675 ; Other hammer toe(s) (acquired), left foot M20.42 ; Arthritis of joint of lesser toe, left M19.072 and Subluxation of metatarsophalangeal joint of toe, initial encounter S93.149A [address] [address] 01/12/2025 Jonna Black Pain in left toe(s) M79.675 and Closed nondisplaced fracture of second metatarsal bone of left foot, initial encounter S92.325A [address] [address] 02/13/2025 Jonna Black Pain in left toe(s) M79.675 ; Contusion of left great toe without damage to nail, initial encounter S90.112A ; Acquired hallux interphalangeus of left foot M20.12 ; Closed nondisplaced fracture of second metatarsal bone of left foot with routine healing, subsequent encounter S92.325D and Contusion of left great toe without damage to nail, subsequent encounter S90.112D [address] [address] 05/30/2024 Jonna Black [facility] [address] [place] [address] 05/30/2024 Jonna Black [facility] [address] [place] [address] 06/03/2024 Jonna Black [facility] [address] [facility] [address] [place] [address] 06/21/2024 Jonna Black [facility] [address] [place] [address] 09/01/2024 Jonna Black [facility] [address] [place] [address] 10/24/2024 Jonna Black [facility] [address] [place] [address] 12/22/2024 Jonna Black [facility] [address] [place] [address] 01/11/2025 Jonna Black [facility] [address] [place] [address] 01/12/2025 Jonna Black [facility] [address] [place] [address] 02/01/2025 Jonna Black [facility] [address] [place] [address] 02/09/2025 Jonna Black Assessments Encounter Date Diagnosis [...] Treatment Pending Test Test Name Order Date [id number] NAIL, 1-5 08/20/2023 [id number] Plate 10/30/2022 45609- Debride <25 sq cm 09/22/2024 Insurance Providers Payer Name Payer Address Payer Phone Subscriber Number Group Number Insured Name Patient Relationship to Insured Coverage Start Date Coverage End Date Medicare National [employer] [address] [place] [address] [id number] [employer] Jaimie Self - patient is the insured AARP Secondary to Medicare [address] [place] [address] [phone] [id number] [employer] in, Jaimie Self - patient is [...]
== END 2025-04-06 11:57 | disposition home or self-care (01) ==
LOC: HO.WFDLDS 11:56
PROVIDERS: Visit Provider Physician Assistant
DX: E78.5 Hyperlipidemia, unspecified (principal); N18.31 Chronic kidney disease, stage 3a; F41.0 Panic disorder [episodic paroxysmal anxiety]; R19.7 Diarrhea, unspecified
CPT/HCPCS: 36415; 80048; 80076; 81001; 84443; 85025; 85652; 87086

== ENCOUNTER 2025-04-12 12:56 | Outpatient (AMB) | payer MEDICARE, SELFPAY ==
--- OUTSIDE RECORDS SUMMARY | 2025-02-09 09:30 | XMS_ITS ---
Author Organization [facility] Address [address] [place] [address] Care Team Providers Care Manager Business Development Hospice Name Role Phone Kalpana Veronica Primary Care Provider Jonna Gil [phone] Encounters Encounter Location Date Provider Diagnosis [facility] [address] [place] [address] 02/09/2025 Jonna Nuñez Plan Of Treatment No Information Progress Notes * Araceli BRANDTOB: 959 (64 yo F)Acc No.[id number]:02/09/2025 Progress Note Patient: Jaimie SCOTT Provider: Rusty Nuñez DPM :1960 A ge:64 Y S ex:Female Date:02/09/2025 Address:[address] [place], [place] [id number] Pcp:Kalpana Veronica Subjective: * Chief Complaints: * [...] Date: 02/09/2025 Generated for Terrii ng/Fabaldomerog/eTransmitting on: 04/12/2025 04:24 PM EDT
--- NOTE | 2025-04-12 13:26 | A.OFFVIS_ITS ---
Vital Signs 04/12/25 13:36 Height 5 ft 2.5 in Weight 162 lb 4 oz BMI 29.2 BP 120/84 Blood Pressure Location Lt brachial Position Sitting Pulse 96 Pulse Source Pulse Oximeter Pulse Oximetry (%) 98 Oxygen Delivery Method Room Air Intake Visit Reasons: gout Intake Note: Patient presents for Gout follow up. Allergies acetaminophen Allergy (Severe, Verified 04/12/25 13:35) Swelling allopurinol Allergy (Severe, Verified 04/12/25 13:35) Swelling azithromycin (From Zithromax Z-Ron) Allergy (Severe, Verified 04/12/25 13:35) Gastrointestinal Upset blue dye Allergy (Severe, Verified 04/12/25 13:35) Swelling codeine Allergy (Severe, Verified 04/12/25 13:35) Swelling oxycodone (From Percocet) Allergy (Severe, Verified 04/12/25 13:35) Swelling Medication List - Last Reconciled 04/12/25 by Doris Jerez MD albuterol sulfate 90 mcg/actuation 2 puffs inhalation Q6H PRN atorvastatin 80 mg PO DAILY diclofenac sodium 1% (Arthritis Pain (diclofenac)) 4 grams topical QID PRN furosemide (Lasix) 20 mg PO DAILY PRN lorazepam 1 mg PO BID 30 days metoprolol succinate ER 12.5 mg (1/2 x 25 mg) PO DAILY montelukast 10 mg PO DAILY multivitamin with minerals (Hair,Skin and Nails tablet) 1 tab PO DAILY nystatin 1 appl topical BID-TID PRN omeprazole 80 mg PO ONCE prednisone 5 mg PO DAILY probenecid 500 mg PO BID 90 days sulfamethoxazole-trimethoprim 800-160 mg (Bactrim DS) 1 tab PO BID venlafaxine ER 150 mg PO DAILY HPI Comments Details: Patient is a 64-year-old female with AML currently in remission, hyperlipidemia, CKD stage 3, asthma, 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 - No changes to medications Today - On Probenecid 500mg bid and prednisone 5mg daily - Since the last visit had 2 flares of gout involving her left great toe (previous surgery) requiring prednsione taper, which resolved - Last flare 1 month ago - Otherwise doing well Rheumatologic History: Initial history by me: Patient states that the past several years she has been having recurrent attacks of monoarticular arthritis involving the bilateral great toes. These episodes would be precipitated by eating meat. They would resolve with Prednisone tapers. Has tried allopurinol low past however had an allergic reaction with swelling. Has also tried colchicine in the past by also have allergic reaction to assess well. Of note her grandfather also had really bad gout. Risk Factors for Gout Family history and CKD Denies: HTN, EtOH use and use of medications: low-dose ASA, diuretics, cyclosporine Current Rheumatology Medication(s): Probenecid 500mg bid Prednisone 5mg daily [facility] Medical History (Updated 01/18/25 @ 14:36 by Kalpana Veronica PA-C) GERD (gastroesophageal reflux disease) Generalized anxiety disorder with panic attacks Dyslipidemia Overactive bladder AML (acute myeloid leukemia) in remission Surgical History Stem cells transplant status Family History Mother Cancer Father Cancer Social History Housing: House Alcohol intake: current Comment: Rare Patient Tobacco Use Status: Never used Tobacco e-Cigarette/Vaping Use: Never Used Second Hand Smoke Exposure: Yes service: No Current occupational status: retired Current occupational exposures/hazards: No Cognitive needs: No Hearing needs: No Vision needs: Yes (glasses) Review of Systems Const Details: Review of Systems Constitutional: Denies fever, chills, weight loss ENT: Denies vision changes, eye pain or eye redness, dental caries, dry mouth GI: Denies nausea, vomiting, diarrhea, abdominal pain, change in BM Pulm: Denies SOB, ANDERSON, hemoptysis, wheezing Cards: Denies chest pain, palpitations Skin: Denies Raynaud's, rash, nail changes, photosensitivity, CIGAR BINDER: Denies headaches, weakness, paresthesias, recurrent falls MSK: as per HPI All other systems reviewed and are unremarkable except noted above Physical Exam Exam Exam: Vital signs reviewed Physical Examination CONSTITUITIONAL Patient alert and cooperative. Well appearing and in no apparent painful distress MSK Hands * Right Hand: Able to make a fist. No swelling or tenderness to palpation of the MCPs, PIPs or DIPs. * Left Hand: Able to make a fist. No swelling or tenderness to palpation of the MCPs, PIPs or DIPs. * Herbedens nodes noted bilaterally Wrists * Right Wrist: Full ROM to flexion and extension. No swelling or TTP * Left Wrist: Full ROM to flexion and extension. No swelling or TTP Elbows * Right Elbow: Full ROM. No swelling or TTP. No TTP of the medial epicondyle. No TTP of the lateral epicondyle * Left Elbow: Full ROM. No swelling or TTP. No TTP of the medial epicondyle. No TTP of the lateral epicondyle Shoulders * Right shoulder: Full ROM. No swelling noted. No TTP of the AC joint. No TTP of the subacromial bursa. No TTP of the posterior shoulder * Left shoulder: Full ROM. No swelling noted. No TTP of the AC joint. No TTP of the subacromial bursa. No TTP of the posterior shoulder Knees * Right knee: Full ROM. No swelling noted. No TTP of the knee joint line. No TTP of pes anserine bursa. Crepitations felt * Left knee: Full ROM. No swelling noted. No TTP of the knee joint line. No TTP of pes anserine bursa. Surgical scar over the knee Ankles * Right ankle: Good ankle dorsiflexion and plantar flexion. No swelling. No TTP of the ankle joint * Left ankle: Good ankle dorsiflexion and plantar flexion. No swelling. No TTP of the ankle joint Feet * Right foot: Negative squeeze test * Left foot: surgical scar over the great toe, skin appear blue but good cap refill Tender points? * No tenderness to palpation of the bilateral trapezius, supraspinatus, anterior costochondral junctions, bilateral suboccipital muscle insertions SKIN No rashes Vital Signs: Last Vital Signs Pulse 96 04/12/25 13:36 BP 120/84 04/12/25 13:36 Pulse Ox 98 04/12/25 13:36 Oxygen Delivery Method Room Air 04/12/25 13:36 BMI result Body Mass Index 29.2 Results Reviewed Results Reviewed: Laboratory Tests 01/18/25 03/06/25 04/06/25 14:58 13:29 12:00 WBC 15.2 H RBC 3.94 L Hgb 12.3 Hct 36.4 L Plt Count 234 ESR 16 Sodium 143 Potassium 3.4 Chloride 105 Carbon Dioxide 29 BUN 20 H Creatinine 1.22 Uric Acid 5.9 H AST 26 ALT 25 C-Reactive Protein 0.26 Laboratory Tests 04/06/25 12:06 Urine Color Yellow Urine Appearance Cloudy Urine Protein Negative Urine Blood Small (1+) H Ur Leukocyte Esterase Large (3+) H Urine RBC 3-5 H Urine WBC >50 H Urine Bacteria Trace Assessment & Plan Assessment & Plan (1) Gout: Comment: Non crystal proven Allopurinol - allergic rxn Colchicine - did not tolerate 08/2024: Probenecid and prednisone Code(s): M10.9 - Gout, unspecified Category: Medical Qualifiers: Chronicity: chronic Gout etiology: due to renal impairment Gout site: multiple sites Presence of tophus: without tophus Qualified Code(s): M1A.39X0 - Chronic gout due to renal impairment, multiple sites, without tophus (tophi) Plan: #Non crystal proven non tophaceous gout Patient is a 64-year-old female with AML in remission and CKD who presents for management of gout. Tried allopurinol in the past however had allergic reaction and has not been able to take either that or colchicine. Risk factors for gout: Family history, CKD, furosemide use Doing well on probenecid. UA at goal <6 Recommending daily tart mitchell juice to reduce risk of flares Plan - Probenecid 500mg bid - Prednisone 5mg daily - If uric acid stable in 6 months will consider stopping prednisone - RTC 6 months - Labs before visit: CBC, CMP, ESR, CRP, UA Plan I spent 30 minutes reviewing the record and labs, taking a history, examining the patient, discussing the treatment plan and documenting in the medical record Orders: Orders XR shoulder RT min 2V Today M25.511 - Pain in right shoulder Coding Level of Care Code Est Pt Level 4 (74271) Complex EM visit Add On G2211 Diagnoses Chronic gout due to renal impairment of multiple sites without tophus M1A.39X0 Chronicity: chronic Gout etiology: due to renal impairment Gout site: multiple sites Presence of tophus: without tophus
[2025-04-12 13:36] VITALS: BP 120/84; PULSE 96; O2SAT 98; BMI 29.2
--- OUTSIDE RECORDS SUMMARY | 2025-04-12 16:24 | XMS_ITS | Encounter Summary ---
Author Organization [facility] Address [address] [place] [address] Phone Care Team Providers Care Bread Panner Name Role Phone Kalpana Veronica PA-C Primary Care Provider + Encounter Details Date Type Department Care Team (Late st Contact Info) Description 07/05/2024 Documentation Only [facility], [address] [place] [address] Lashon Rios [address] [place] [address] Social History Tobacco Use Types [...] on filedocumented in this encounter Care Teams Bread Panner Relationship Specialty Start Date End Date Kalpana Veronica PA-C [address] [place] [address] PCP - General Physician Electrical Technician Instructor 07/05/24 documented as of this encounter
--- OUTSIDE RECORDS SUMMARY | 2025-04-12 16:24 | XMS_ITS | Patient Health Record ---
Author Organization [facility] Address [address] [place] [address] Care Team Providers Care Fourdrinier Operator Name Role Phone Kalpana Veronica Primary Care Provider Unavailabl e Joaquin Jonna Unavailable [phone] CameronCassandra Unavailable [phone] Allergies Allergen (clinical drug ingredient) Drug/Non Drug [...] Problem Acquired hammer toe of left foot (2746852989402441 ) Other hammer toe(s) (acquired), left foot (M20.42) Active confirmed Problem Acquired hallux valgus (74895084) Acquired hallux interphalangeus of left foot (M20.12) Active confirmed Problem Localized, primary osteoarthritis of the ankle and/or foot (435519806) Arthritis of joint of lesser toe, left (M19.072) Active confirmed Problem Ulcer of toe of left foot (disorder) (1857542163845009 2) Skin ulcer of toe of left foot, limited to breakdown of skin (L97.521) Active confirmed Vital Signs Blood pressure diastolic 60 mm Hg 02/13/2025 Height 5ft2.5in in 02/13/2025 Blood pressure systolic 127 mm Hg 02/13/2025 Weight 161 lbs 02/13/2025 BMI 28.97 kg/m2 02/13/2025 Procedures Procedure Date Ordered Date Performed Result Body Sit e 51159- Debride <25 sq cm 09/22/2024 N/A Encounters Encounter Location Date Provider Diagnosis [facility] [address] [address] 06/21/2024 Cassandra Cameron Pain in left toe(s) M79.675 ; Other hammer toe(s) (acquired), left foot M20.42 ; Tinea unguium B35.1 ; Pain in right toe(s) M79.674 and Pain in left toe(s) M79.[address] [address] 09/22/2024 Jonna Black Pain in left toe(s) M79.675 ; Other hammer toe(s) (acquired), left foot M20.42 ; Xerosis of skin L85.3 ; Arthritis of joint of lesser toe, left M19.072 ; Subluxation of metatarsophalangeal joint of toe, initial encounter S93.149A and Skin ulcer of toe of left foot, limited to breakdown of skin L97.[address] [address] 12/26/2024 Cassandra Cameron Pain in left toe(s) M79.675 ; Other hammer toe(s) (acquired), left foot M20.42 ; Arthritis of joint of lesser toe, left M19.072 and Subluxation of metatarsophalangeal joint of toe, initial encounter S93.149A [address] [address] 01/12/2025 Jonna Black Pain in left toe(s) M79.675 and Closed nondisplaced fracture of second metatarsal bone of left foot, initial encounter S92.325A [address] [address] 02/13/2025 Jonna Black Pain in left toe(s) M79.675 ; Contusion of left great toe without damage to nail, initial encounter S90.112A ; Acquired hallux interphalangeus of left foot M20.12 ; Closed nondisplaced fracture of second metatarsal bone of left foot with routine healing, subsequent encounter S92.325D and Contusion of left great toe without damage to nail, subsequent encounter S90.112D [address] [address] 05/30/2024 Jonna Black [facility] [address] [place] [address] 05/30/2024 Jonna Black [facility] [address] [place] [address] 06/03/2024 Jonna Black [facility] [place] [address] [facility] [address] [place] [address] 06/21/2024 Jonna Black [facility] [address] [place] [address] 09/01/2024 Jonna Black [facility] [address] [place] [address] 10/24/2024 Jonna Black [facility] [address] [address] 12/22/2024 Jonna Black [facility] [address] [place] [address] 01/11/2025 Jonna Black [facility] [address] [place] [address] 01/12/2025 Jonna Black [facility] [address] [place] [address] 02/01/2025 Jonna Black [facility] [address] [place] [address] 02/09/2025 Jonna Black Assessments Encounter Date Diagnosis [...] to nail, initial encounter (ICD-10 - S90.112A) 02/13/2025 Pain in left toe(s) (ICD-10 - M79.675) 06/21/2024 Pain in left toe(s) (ICD-10 - M79.675) 06/21/2024 Other hammer toe(s) (acquired), left foot (ICD-10 - M20.42) 12/26/2024 Pain in left toe(s) (ICD-10 - M79.675) 12/26/2024 Other hammer toe(s) (acquired), left foot (ICD-10 - M20.42) 12/26/2024 Arthritis of joint o f lesser toe, left (ICD-10 - M19.072) 06/21/2024 Tinea unguium (ICD-1 0 - B35.1) 02/13/2025 Acquired hallux interphalangeus of left foot (ICD-10 - M20.12) 09/22/2024 Xerosis of skin (ICD -10 - L85.3) 02/13/2025 Closed nondisplaced fracture of second metatarsal bone of left foot with routine healing, subsequent encounter (ICD-10 - S92.325D) 09/22/2024 Arthritis of joint o f lesser toe, left (ICD-10 - M19.072) 06/21/2024 Pain in right toe(s) (ICD-10 - M79.674) 12/26/2024 Subluxation of metatarsophalangeal joint of toe, initial encounter (ICD-10 - S93.149A) 06/21/2024 Pain in left toe(s) (ICD-10 - M79.675) 02/13/2025 Contusion of left gr eat toe without damage to nail, subsequent encounter (ICD-10 - S90.112D) 09/22/2024 Subluxation of metatarsophalangeal joint of toe, initial encounter (ICD-10 - S93.149A) 09/22/2024 Skin ulcer of toe of left foot, limited to breakdown of skin (ICD-10 - L97.521) Patient Educated with: WOUND CARE INSTRUCTIONS. pdf (WOUND CARE INSTRUCTIONS. pdf) Plan Of Treatment Pending Test Test Name Order Date [id number] NAIL, 1-5 08/20/2023 [id number] Plate 10/30/2022 00016- Debride <25 sq cm 09/22/2024 Insurance Providers Payer Name Payer Address Payer Phone Subscriber Number Group Number Insured Name Patient Relationship to Insured Coverage Start Date Coverage End Date Medicare National [employer] [address] [place] [address] [id number] [employer] Jaimie Self - patient is the insured A[employer] Secondary to Medicare [address] [place] [address] [id number] [employer] in, Jaimie Self - patient is [...]
--- OUTSIDE RECORDS SUMMARY | 2025-04-12 16:24 | XMS_ITS | Clinical Summary ---
Author Organization [facility], Address [address] [facility] [address] [place] [address] Phone Care Team Providers Care Planer Operator / Grader Name Role Phone Kalpana Veronica PA-C Primary [...] Refill [facility], [address] [place] [address] Lashon Rios from Last 3 Months Immunizations [...] 49 Years) Discontinued 06/29/2015, 04/07/2013 Insurance Medicare [facility] Care Teams Planer Operator / Grader Relationship Specialty Start Date End Date Kalpana Veronica PA-C [address] [place] [id number] PCP - General Physician Appraiser Land 07/05/24
== END 2025-04-12 13:59 | disposition home or self-care (01) ==
LOC: HO.RHES 12:57
PROVIDERS: PCP Physician Assistant; Visit Provider Student in an Organized Health Care Education/Training Program
DX: M1A.39X0 Chronic gout due to renal impairment, multiple sites, without tophus (tophi) (principal)
CPT/HCPCS: 99214; G2211

== ENCOUNTER → 2025-04-12 12:56 | Outpatient (BNVA) | payer MEDICARE, SELFPAY | PROVIDERS: PCP Physician Assistant; Visit Provider Student in an Organized Health Care Education/Training Program | DX: M1A.39X0 Chronic gout due to renal impairment, multiple sites, without tophus (tophi) (principal) | CPT/HCPCS: 99212 ==

== ENCOUNTER 2025-04-26 15:10 | Outpatient (AMB) | payer MEDICARE, SELFPAY ==
--- NOTE | 2025-04-26 15:25 | MHC.PC.OV ---
Vital Signs 04/26/25 15:28 BMI Reason not done Patient refused/unable BP 106/74 Blood Pressure Location Lt brachial Position Sitting Respiration 14 Pulse 98 Pulse Source Pulse Oximeter Temp 98 F Temp Source Oral Pulse Oximetry (%) 97 Oxygen Delivery Method Room Air Intake Visit Reasons: follow up Intake Note: Follow up. Stopped metoprolol because of side effects. Genetics Physician Required: No Allergies acetaminophen Allergy (Severe, Verified 04/12/25 13:35) Swelling allopurinol Allergy (Severe, Verified 04/12/25 13:35) Swelling azithromycin (From Zithromax Z-Ron) Allergy (Severe, Verified 04/12/25 13:35) Gastrointestinal Upset blue dye Allergy (Severe, Verified 04/12/25 13:35) Swelling codeine Allergy (Severe, Verified 04/12/25 13:35) Swelling oxycodone (From Percocet) Allergy (Severe, Verified 04/12/25 13:35) Swelling metoprolol Allergy (Unknown, Verified 04/26/25 15:30) head swelling Medication List - Last Reconciled 04/26/25 by Kalpana Veronica PA-C albuterol sulfate 90 mcg/actuation 2 puffs inhalation Q6H PRN atorvastatin 80 mg PO DAILY diclofenac sodium 1% (Arthritis Pain (diclofenac)) 4 grams topical QID PRN furosemide (Lasix) 20 mg PO DAILY PRN lorazepam 1 mg PO BID 30 days montelukast 10 mg PO DAILY multivitamin with minerals (Hair,Skin and Nails tablet) 1 tab PO DAILY nystatin 1 appl topical BID-TID PRN omeprazole 80 mg PO ONCE prednisone 5 mg PO DAILY probenecid 500 mg PO BID 90 days sulfamethoxazole-trimethoprim 800-160 mg (Bactrim DS) 1 tab PO BID venlafaxine ER 150 mg PO DAILY Tobacco use date assessed: 03/30/25 Dental Screening Dental Screen Date: 01/18/25 HPI follow up HPI Details The patient is a 64-year-old female presenting for a follow up. She does have a significant past medical history of chronic kidney disease, gout, GERD, anxiety, dyslipidemia, AML in remission. CV: bp is 106/74. She was previously on metoprolol 12.5 mg for palpitations. : Feels like her UTI is back. She saw urology last week and they did a UA and told her that it was negative. She recently stopped the Bactrim and feels as if she is getting the burning with urination again. At times she is getting intermittent flank pain but nothing persistent. She does have an ultrasound ordered. Pulm: Currently stable and following with her chocolatier., Dr. Jaramillo. Psych: She is doing better with the Effexor 150 mg Nephro: Her chronic kidney disease is stable and she is following with Dr. Lucas. Musculoskeletal: She does have ongoing chronic pain and osteoarthritis. She is unable to tolerate tramadol and stopped this completely. She states that it was causing a weird feeling in her mouth and she was worried that she was having an allergic reaction. It was also causing GI upset with taking more than 1 a day. She is allergic to oxycodone, codeine, morphine. She states that in the past she got pain relief with ketamine but this was given at the ER. Most of her side effects are swelling and GI upset. She is interested in trying something like fentanyl. She is in a lot of pain today. She fell again a couple days ago and states that she landed on her left side. Her left shoulder is painful and she has some range of motion of it but states it is hard to lift her arm up above her head. She says that she had a previous rotator cuff surgery and thinks that she injured this. Her right arm is also very painful and her right hip. She has a hard time lying on either hip at night. She has a history of chronic back and neck pain and has myelomalacia of the cervical cord without any numbness, tingling or weakness in the upper extremities. She says that she just has a stay in certain positions. She tries very careful to work on her posture and to work on stretching and strengthening. She is unable to move much. States that her muscles are all tight and that she is intolerant of all muscle relaxers. She can not take NSAIDs due to her chronic kidney disease. Tylenol offers little improvement. She is terrified of having any surgical procedures due to her concerns about her kidneys and she is terrified because she does not tolerate many medications and has a fear of procedure/needles. Heme/onc: Following with Dr. Glen Da Silva at [facility]. Colonoscopy: November 2024, tubular adenoma noted. Repeat screening in 2027 Mammo: Overdue. Has been unable to get this because she fell in the summer and had a rib contusion and still has some discomfort of her ribs and does not want a mammogram right now. [facility] Medical History (Updated 04/27/25 @ 09:57 by Kalpana Veronica PA-C) GERD (gastroesophageal reflux disease) Generalized anxiety disorder with panic attacks Dyslipidemia Overactive bladder AML (acute myeloid leukemia) in remission Surgical History Stem cells transplant status Family History Mother Cancer Father Cancer Social History Housing: House Alcohol intake: current Comment: Rare Patient Tobacco Use Status: Never used Tobacco e-Cigarette/Vaping Use: Never Used Second Hand Smoke Exposure: Yes service: No Current occupational status: retired Current occupational exposures/hazards: No Cognitive needs: No Hearing needs: No Vision needs: Yes (glasses) Questionnaire Thrive Questionnaire Date Thrive assessed: 07/31/24 I am a: Patient What is your living situation today?: I have a steady place to live Within the past 12 months, did the food you bought not last and you didn't have the money to get more?: Never true Within the past 12 months, did you worry whether your food would run out before you got money to buy more?: Never true Do you have trouble paying for medicines?: No Do you have trouble getting transportation to medical appointments?: No Do you have trouble paying your heating and electricity bill?: No Do you have trouble taking care of your child, family member or friend?: No Do you have trouble with day-to-day activities such as bathing, preparing meals, shopping, managing finances, etc.?: No Are you currently unemployed and looking for a job?: No Are you interested in more education?: No Please select the resources that you would like help with: None Currently or been in a relationship where the following occur: I choose not to answer THRIVE Score: 0 Physical exam (Primary Care) Vital Signs: Last Vital Signs Temp 98 F 04/26/25 15:28 Pulse 98 04/26/25 15:28 Resp 14 04/26/25 15:28 BP 106/74 04/26/25 15:28 Pulse Ox 97 04/26/25 15:28 Oxygen Delivery Method Room Air 04/26/25 15:28 Tobacco/Smoking Status: Tobacco use Status Tobacco use date assessed 03/30/25 04/26/25 15:27 Patient Tobacco Use Status Never used Tobacco 04/26/25 15:27 e-Cigarette/Vaping Use Never Used 04/26/25 15:27 Thrive Assessment: Date of Thrive Assessment Date Thrive assessed 07/31/24 04/26/25 15:27 Currently or been in a relationship where the following occur: I choose not to answer Const Orientation/consciousness: patient oriented x3 HENMT Ears: hearing grossly normal bilaterally Neck Other: Range of motion limited due to pain. She is able to do flexion and extension but lateral bending elicits discomfort. Tenderness to palpation over the cervical paraspinous muscles. There is a muscle spasm of some noted in the left trapezius. Reports significant pain with light palpation. Thyroid: Thyroid normal Lymphatic: no lymphadenopathy noted Chest Other: Tender to palpation on the lateral aspects of the bilateral chest wall. Chest palpation & inspection: normal inspection of the chest Resp Auscultation: clear to auscultation bilaterally Cardio Rate: regular rate Rhythm: regular rhythm Heart sounds: S1 normal heart sound present and S2 normal heart sound present Back/Spine/Pelvis Other: Reports bilateral mild CVA tenderness. Tenderness to palpation over the thoracic and cervical paraspinous muscles. Range is limited due to pain. Unable to assess straight leg raise. Skin General skin exam: no rashes or lesions noted Neuro General: patient oriented x3, gait normal and no focal motor deficits Extrem General: Yes normal to inspection and Yes capillary refill normal Coding Level of Care Code Est Pt Level 4 (75300) Complex EM visit Add On G2211 Diagnoses Generalized anxiety disorder with panic attacks F41.1; F41.0 CKD stage 3a, GFR 45-59 ml/min N18.31 Thoracic back pain M54.6 Chronicity: chronic Bilateral low back pain M54.50 Myelomalacia of cervical cord G95.89 Bilateral hip pain M25.551; M25.552 Bilateral shoulder pain M25.511; M25.512 Assessment & Plan Assessment & Plan (1) Generalized anxiety disorder with panic attacks: Code(s): F41.1 - Generalized anxiety disorder; F41.0 - Panic disorder [episodic paroxysmal anxiety] Category: Medical Plan: Currently stable with the Effexor and lorazepam. (2) CKD stage 3a, GFR 45-59 ml/min: Code(s): N18.31 - Chronic kidney disease, stage 3a Category: Medical Plan: Stable. We will monitor (3) Thoracic back pain: Code(s): M54.6 - Pain in thoracic spine Category: Medical Qualifiers: Chronicity: chronic Plan: Imaging ordered. (4) Bilateral low back pain: Code(s): M54.50 - Low back pain, unspecified Category: Medical Plan: As above (5) Myelomalacia of cervical cord: Code(s): G95.89 - Other specified diseases of spinal cord Category: Medical Plan: As above. Has followed up with Neurosurgery. Declines intervention. (6) Bilateral hip pain: Code(s): M25.551 - Pain in right hip; M25.552 - Pain in left hip Category: Medical Plan: X-rays ordered. Advised to follow with Orthopedic surgery (7) Bilateral shoulder pain: Code(s): M25.511 - Pain in right shoulder; M25.512 - Pain in left shoulder Category: Medical Plan: As above Plan Given her chronic pain we will try fentanyl patch. She will let me know if she is intolerant of this. She is aware of the risks associated with this including addiction, dependence, sedation, constipation etc.. Narcan provided. She has tried and failed numerous medications for pain relief. Lidocaine patch also ordered to use as needed. Advised to complete labs. UA and culture ordered Orders: Orders UA CC w/rflx Micro + Cult 04/26/25 F41.0 - Panic disorder [episodic paroxysmal anxiety], F41.1 - Generalized anxiety disorder, N18.31 - Chronic kidney disease, stage 3a, R30.0 - Dysuria Comprehensive Met. Panel 04/26/25 F41.0 - Panic disorder [episodic paroxysmal anxiety], F41.1 - Generalized anxiety disorder, N18.31 - Chronic kidney disease, stage 3a Complete Blood Count Auto Diff 04/26/25 F41.0 - Panic disorder [episodic paroxysmal anxiety], F41.1 - Generalized anxiety disorder, N18.31 - Chronic kidney disease, stage 3a XR shoulder LT min 2V 04/26/25 M25.512 - Pain in left shoulder Medications: New naloxone 4 mg/actuation (Narcan) spray 1 dose into ONE nostril; alternate nostrils w each dose until help arrives 4 mg intranasal Q3M PRN 2 ea 0RF opioid overdose lidocaine 5% leave on most painful area for up to 12 hrs 3 patches topical DAILY 30 ea 0RF fentanyl 12 mcg/hr Partial Fill upon patient request. 1 patch transdermal Q72H 10 ea 0RF pain 28 days G95.89 - Other specified diseases of spinal cord, M54.50 - Low back pain, unspecified, M54.6 - Pain in thoracic spine Refilled sulfamethoxazole-trimethoprim 800-160 mg (Bactrim DS) 1 tab PO BID 10 tabs 0RF
[2025-04-26 15:28] VITALS: BP 106/74; PULSE 98; RESP 14; TEMP 36.6; O2SAT 97
--- OUTSIDE RECORDS SUMMARY | 2025-04-26 16:12 | XMS_ITS | Clinical Summary ---
Author Organization [facility] Address [address] [place] [address] Phone Care Team Providers Care Flat Cutter Name Role Phone Kalpana Veronica Primary Care Provider Allergies Active Allergy Reactions Criticality Noted Date Comments Allopurinol 06/26/2024 Blue Dye 06/26/2024 Ciprofloxacin 06/26/2024 Codeine 06/26/2024 Hydromorphone 06/26/2024 Lisinopril 06/26/2024 Methocarbamol 06/26/2024 Oxycodone-Acetaminophen 06/26/2024 Acetaminophen 06/26/2024 Acetaminophen-Codeine 06/26/2024 Hydrocodone-Acetaminophen 06/26/2024 Alprazolam 06/26/2024 Medications No known medications Surgical History Surgery Date Site/Laterality Comments JOINT REPLACEMENT Medical History Medical History Date Comments AML (acute myeloid leukemia) ([facility] V24, [facility] V28) Asthma Cystitis Thomas's esophagus Cataract CKD (chronic kidney disease), stage III ([facility] V24, [facility] V28) CVA (cerebral vascular accident) ([facility] V24, [place] V28) DJD (degenerative joint [...] age to complete this topic Insurance MEDICARE [facility] Care Teams Flat Cutter Relationship Specialty Start Date End Date Kalpana Veronica PA [address] [place] [address] PCP - General Physician Corn Popper 06/26/24
--- OUTSIDE RECORDS SUMMARY | 2025-04-26 16:12 | XMS_ITS | Encounter Summary ---
Author Organization [facility] Address [address] [place] [address] Care Team Providers Care Application Release Manager Name Role Phone Kalpana Veronica Primary Care Provider [phone] Encounter Details Date Type Department Care Team (Late st Contact Info) Description 06/29/2024 Lab Requisition [facility] - Main Lab [address] [facility] [place] [id number] Marielena Vera MD [address] [facility] [place] [address] [place] [address] Acute kidney failure, unspecified (CMS/HCC V24); Personal [...] 11:00 AM EST Acute kidney failure, unspecified (CMS/[facility]) Personal history of urinary (tract) infections documented in this encounter Results * Bacterial identification and susceptibility, aerobic (06/28/2024 11:00 AM EST) Culture, Bacterial ID and Sensitivity Mixed urogenital cuba, no uropathogens present. Suggest repeat specimen, if clinically indicated. 06/29/2024 2:12 PM EST [facility] Other Urine specimen from urethra / Unknown Non-blood Collection / Unknown 06/28/2024 11:00 AM EST 06/29/2024 1:52 PM EST Marielena Vera MD LAB MICROBIOLOGY - G ENERAL ORDERABLES Final Result [facility] [address] [place] [address], documented in this encounter Visit Diagnoses Diagnosis Acute kidney failure, unspecified (CMS/HCC V24) Acute kidney failure, unspecified Personal history of urinary (tract) infections documented in this encounter Care Teams Application Release Manager Relationship Specialty Start Date End Date Kalpana Veronica PA [address] [place] [phone] PCP - General Physician Deck Worker 06/26/24 documented as of this encounter
== END 2025-04-26 16:09 | disposition home or self-care (01) ==
LOC: HO.HMCFM 15:10
PROVIDERS: PCP Physician Assistant; Visit Provider Physician Assistant
DX: M54.50 Low back pain, unspecified (principal); N18.31 Chronic kidney disease, stage 3a; G95.89 Other specified diseases of spinal cord; F41.1 Generalized anxiety disorder; F41.0 Panic disorder [episodic paroxysmal anxiety]; M54.6 Pain in thoracic spine; M25.551 Pain in right hip; M25.552 Pain in left hip; M25.511 Pain in right shoulder; M25.512 Pain in left shoulder

== ENCOUNTER → 2025-04-26 15:10 | Outpatient (BNVA) | payer MEDICARE, SELFPAY | PROVIDERS: PCP Physician Assistant; Visit Provider Physician Assistant | DX: K21.9 Gastro-esophageal reflux disease without esophagitis (principal); F41.9 Anxiety disorder, unspecified; E78.5 Hyperlipidemia, unspecified; R10.9 Unspecified abdominal pain; M25.512 Pain in left shoulder; M79.601 Pain in right arm; M25.551 Pain in right hip; M25.552 Pain in left hip; M54.2 Cervicalgia; M54.6 Pain in thoracic spine; M54.50 Low back pain, unspecified; F41.1 Generalized anxiety disorder; F41.0 Panic disorder [episodic paroxysmal anxiety]; N18.31 Chronic kidney disease, stage 3a; G95.89 Other specified diseases of spinal cord; Z91.81 History of falling; M25.511 Pain in right shoulder | CPT/HCPCS: 99212 ==

== ENCOUNTER 2025-04-27 15:31 | Outpatient (REF) | payer MEDICARE, SELFPAY ==
--- OUTSIDE RECORDS SUMMARY | 2025-02-09 09:30 | XMS_ITS ---
Author Organization [facility] Address [address] [place] [address] Care Team Providers Care Painter Rough Name Role Phone Kalpana Veronica Primary Care Provider Jonna Gil [phone] Encounters Encounter Location Date Provider Diagnosis [facility] [address] [place] [address] 02/09/2025 Jonna Nuñez Plan Of Treatment No Information Progress Notes * Araceli BRANDTOB: 959 (64 yo F)Acc No.[id number]:02/09/2025 Progress Note Patient: Jaimie SCOTT Provider: Rusty Nuñez DPM :1960 A ge:64 Y S ex:Female Date:02/09/2025 Address:[address] [place], [place] [id number] Pcp:Kalpana Veronica Subjective: * Chief Complaints: * * Medical History: Objective: * Vitals: Assessment: Plan: * Treatment: * Images: * The named appointment provid er may or may not be the originator of this progress note, and it is not deemed complete until electronically signed by the appointment provider. Sign off status: Pending * Provider: Rusty Nuñez DPM Date: 0 02/09/2025 Generated for Terrii ng/Fabaldomerog/eTransmitting on: 04:44 PM EDT
--- OUTSIDE RECORDS SUMMARY | 2025-04-27 16:44 | XMS_ITS | Clinical Summary ---
Author Organization [facility] Address [address] [place] [phone] Phone Care Team Providers Care Glue Mounter Operator Name Role Phone Kalpana Veronica Primary Care Provider [phone] Allergies Active Allergy Reactions Criticality Noted Date Comments Allopurinol 06/26/2024 Blue Dye 06/26/2024 Ciprofloxacin 06/26/2024 Codeine 06/26/2024 Hydromorphone 06/26/2024 Lisinopril 06/26/2024 Methocarbamol 06/26/2024 Oxycodone-Acetaminophen 06/26/2024 Acetaminophen 06/26/2024 Acetaminophen-Codeine 06/26/2024 Hydrocodone-Acetaminophen 06/26/2024 Alprazolam 06/26/2024 Medications No known medications Surgical History Surgery Date Site/Laterality Comments JOINT REPLACEMENT Medical History Medical History Date Comments AML (acute myeloid leukemia) ([facility] V24, [facility] V28) Asthma Cystitis Thomas's esophagus Cataract CKD (chronic kidney disease), stage III ([facility] V24, [facility] V28) CVA (cerebral vascular accident) ([facility] V24, [facility] [place] V28) DJD (degenerative joint disease) Dyslipidemia [...] age to complete this topic Insurance MEDICARE [facility] Care Teams Glue Mounter Operator Relationship Specialty Start Date End Date Kalpana Veronica PA [address] [place] [address] PCP - General Physician Fruit Sprayer 06/26/24
--- OUTSIDE RECORDS SUMMARY | 2025-04-27 16:44 | XMS_ITS | Encounter Summary ---
Author Organization [facility] Address [address] [place] [address] Care Team Providers Care Certified Paralegal Name Role Phone Kalpana Veronica Primary Care Provider [phone] Encounter Details Date Type Department Care Team (Late st Contact Info) Description 06/29/[address] [facility] - Main Lab [address] [facility] [place] [phone] Marielena Vera MD [address] [facility] [address] [place] [address] Acute kidney failure, unspecified (CMS/HCC V24); Personal [...] 11:00 AM EST Acute kidney failure, unspecified (CMS/[facility]) Personal history of urinary (tract) infections documented in this encounter Results * Bacterial identification and susceptibility, aerobic (06/28/2024 11:00 AM EST) Culture, Bacterial ID and Sensitivity Mixed urogenital cuba, no uropathogens present. Suggest repeat specimen, if clinically indicated. 06/29/2024 2:12 PM EST [facility] Other Urine specimen from urethra / Unknown Non-blood Collection / Unknown 06/28/2024 11:00 AM EST 06/29/2024 1:52 PM EST Marielena Vera MD LAB MICROBIOLOGY - G ENERAL ORDERABLES Final Result [facility] [address] [place] [address], documented in this encounter Visit Diagnoses Diagnosis Acute kidney failure, unspecified (CMS/HCC V24) Acute kidney failure, unspecified Personal history of urinary (tract) infections documented in this encounter Care Teams Certified Paralegal Relationship Specialty Start Date End Date Kalpana Veronica PA [address] [place] [phone] PCP - General Physician Director Of People 06/26/24 documented as of this encounter
--- OUTSIDE RECORDS SUMMARY | 2025-04-27 16:44 | XMS_ITS | Clinical Summary ---
Author Organization [facility], Address [address] [facility] [address] [place] [address] Phone Care Team Providers Care Fire Control Mechanic Name Role Phone Kalpana Veronica PA-C Primary [...] Refill [facility], [address] [place] [address] Lashon Rios from Last 3 Months Immunizations [...] 49 Years) Discontinued 06/29/2015, 04/07/2013 Insurance Medicare [facility] Care Teams Fire Control Mechanic Relationship Specialty Start Date End Date Kalpana Veronica PA-C [address] [place] [address] PCP - General Physician Looping Machine Operator 07/05/24
--- OUTSIDE RECORDS SUMMARY | 2025-04-27 16:44 | XMS_ITS | Encounter Summary ---
Author Organization [facility] Address [address] [place] [address] Phone Care Team Providers Care Primary School Principal Name Role Phone Kalpana Veronica PA-C Primary Care Provider + Encounter Details Date Type Department Care Team (Late st Contact Info) Description 07/05/2024 Documentation Only [facility], [address] [place] [address] Lashon Rios [address] [place] [address] Social History Tobacco Use Types [...] on filedocumented in this encounter Care Teams Primary School Principal Relationship Specialty Start Date End Date Kalpana Veronica PA-C [address] [place] [address] PCP - General Physician Duct Maker 07/05/24 documented as of this encounter
--- OUTSIDE RECORDS SUMMARY | 2025-04-27 16:44 | XMS_ITS | Patient Health Record ---
Author Organization [facility] Address [address] [place] [address] Care Team Providers Care Rotary Dryer Operator Name Role Phone Kalpana Veronica Primary Care Provider Unavailabl e Joaquin Jonna Unavailable [phone] CameronCassandra Unavailable [phone] Allergies Allergen (clinical drug ingredient) Drug/Non Drug [...] Problem Acquired hammer toe of left foot (3504270906150161 ) Other hammer toe(s) (acquired), left foot (M20.42) Active confirmed Problem Acquired hallux valgus (99484946) Acquired hallux interphalangeus of left foot (M20.12) Active confirmed Problem Localized, primary osteoarthritis of the ankle and/or foot (639699387) Arthritis of joint of lesser toe, left (M19.072) Active confirmed Problem Ulcer of toe of left foot (disorder) (4183238366773645 2) Skin ulcer of toe of left foot, limited to breakdown of skin (L97.521) Active confirmed Vital Signs Blood pressure diastolic 60 mm Hg 02/13/2025 Height 5ft2.5in in 02/13/2025 Blood pressure systolic 127 mm Hg 02/13/2025 Weight 161 lbs 02/13/2025 BMI 28.97 kg/m2 02/13/2025 Procedures Procedure Date Ordered Date Performed Result Body Sit e 68001- Debride <25 sq cm 09/22/2024 N/A Encounters Encounter Location Date Provider Diagnosis [facility] [address] [address] 06/21/2024 Cassandra Cameron Pain in left toe(s) M79.675 ; Other hammer toe(s) (acquired), left foot M20.42 ; Tinea unguium B35.1 ; Pain in right toe(s) M79.674 and Pain in left toe(s) M79.[address] [address] 09/22/2024 Jonna Black Pain in left toe(s) M79.675 ; Other hammer toe(s) (acquired), left foot M20.42 ; Xerosis of skin L85.3 ; Arthritis of joint of lesser toe, left M19.072 ; Subluxation of metatarsophalangeal joint of toe, initial encounter S93.149A and Skin ulcer of toe of left foot, limited to breakdown of skin L97.[address] [address] 12/26/2024 Cassandra Cameron Pain in left toe(s) M79.675 ; Other hammer toe(s) (acquired), left foot M20.42 ; Arthritis of joint of lesser toe, left M19.072 and Subluxation of metatarsophalangeal joint of toe, initial encounter S93.149A [address] [address] 01/12/2025 Jonna Black Pain in left toe(s) M79.675 and Closed nondisplaced fracture of second metatarsal bone of left foot, initial encounter S92.325A [address] [address] 02/13/2025 Jonna Black Pain in left toe(s) M79.675 ; Contusion of left great toe without damage to nail, initial encounter S90.112A ; Acquired hallux interphalangeus of left foot M20.12 ; Closed nondisplaced fracture of second metatarsal bone of left foot with routine healing, subsequent encounter S92.325D and Contusion of left great toe without damage to nail, subsequent encounter S90.112D [address] [address] 05/30/2024 Jonna Black [facility] [place] [address] [place] [address] 05/30/2024 Ojnna Black [facility] [place] [address] [place] [address] 06/03/2024 Jonna Black [facility] [place] [address] [facility] [address] [place] [address] 06/21/2024 Jonna Black [facility] [place] [address] [place] [address] 09/01/2024 Jonna Black [facility] [address] [place] [address] 10/24/2024 Jonna Black [facility] [address] [place] [address] 12/22/2024 Jonna Black [facility] [address] [place] [address] 01/11/2025 Jonna Black [facility] [address] [place] [address] 01/12/2025 Jonna Black [facility] [address] [place] [address] 02/01/2025 Jonna Black [facility] [address] [place] [address] 02/09/2025 Jonna Black Assessments Encounter Date Diagnosis [...] Treatment Pending Test Test Name Order Date [id number]-YXQEEFG NAIL, 1-5 08/20/2023 72985-Mpqlnebi Plate 10/30/2022 84368- Debride <25 sq cm 09/22/2024 Insurance Providers Payer Name Payer Address Payer Phone Subscriber Number Group Number Insured Name Patient Relationship to Insured Coverage Start Date Coverage End Date Medicare [employer] [address] [place] [address] [id number] [employer] Jaimie Self - patient is the insured A[employer] Secondary to Medicare [address] [place] [address] [id number] [employer], Jaimie Self - patient is [...]
[2025-04-27 17:42] LABS: MANUAL DIFF FLAG NO
[2025-04-27 17:49] LABS: Hematocrit 38.0 % (37.0-47.0); Hemoglobin 12.5 g/dl (12.0-16.0); Imm Gran Abs Auto 0.06 X10*3/uL (0.00-0.03); Imm Gran Pct Auto 0.5 % (0.0-0.4); Lymphocytes Absolute Auto 1.3 X10*3/uL (1.2-4.9); Mean Corpuscular HGB Conc 32.9 g/dl (31.0-35.0); Mean Corpuscular Hemoglobin 30.7 pg (27.0-33.0); Mean Corpuscular Volume 93.4 fL (80.0-98.0); NRBC Abs Auto 0.000 X10*3/uL (0.0-0.012); NRBC Pct Auto 0.0 /100WBC (0.0-0.2); Platelet Count 256 X10*3/uL (160-400); Red Blood Count 4.07 X10*6/uL (4.20-5.50); White Blood Count 12.0 X10*3/uL (4.8-10.8)
[2025-04-27 18:05] LABS: Alanine Aminotransferase 27 U/L (0-31); Albumin Level 4.2 g/dL (3.5-5.0); Alkaline Phosphatase 113 U/L (39-117); Anion Gap 14 (12-20); Aspartate Amino Transferase 28 U/L (5-31); Blood Urea Nitrogen 25 mg/dL (9-16); Calcium 9.6 mg/dL (8.4-10.2); Carbon Dioxide 24 mmol/L (22-29); Chloride 108 mmol/L (96-108); Estimated Glomerular Filt Rate 43; Potassium 3.3 mmol/L (3.3-5.1); Sodium 143 mmol/L (135-145); Total Protein 6.8 g/dL (6.5-8.0)
[2025-04-27 18:15] LABS: Appearance Urine Clear; Glucose Urine UA Negative (Negative); PH 5.5 (5.0-9.0); Specific Gravity - Urine 1.015 (1.005-1.025)
== END 2025-04-27 15:32 | disposition home or self-care (01) ==
LOC: HO.WFDLDS 15:31
PROVIDERS: Visit Provider Physician Assistant
DX: N18.31 Chronic kidney disease, stage 3a (principal); F41.0 Panic disorder [episodic paroxysmal anxiety]; F41.1 Generalized anxiety disorder; R30.0 Dysuria
CPT/HCPCS: 36415; 80053; 81003; 85025

== ENCOUNTER 2025-06-28 15:04 | Outpatient (REF) | payer MEDICARE, SELFPAY ==
[2025-06-28 18:36] LABS: MANUAL DIFF FLAG NO
[2025-06-28 19:10] LABS: Alanine Aminotransferase 24 U/L (0-31); Albumin Level 4.1 g/dL (3.5-5.0); Alkaline Phosphatase 103 U/L (39-117); Anion Gap 12 (12-20); Aspartate Amino Transferase 29 U/L (5-31); Blood Urea Nitrogen 22 mg/dL (9-16); Calcium 9.4 mg/dL (8.4-10.2); Carbon Dioxide 23 mmol/L (22-29); Chloride 110 mmol/L (96-108); Estimated Glomerular Filt Rate 43; Potassium 3.3 mmol/L (3.3-5.1); Sodium 142 mmol/L (135-145); Total Protein 6.9 g/dL (6.5-8.0)
[2025-06-28 19:20] LABS: Hematocrit 40.0 % (37.0-47.0); Hemoglobin 13.2 g/dl (12.0-16.0); Imm Gran Abs Auto 0.06 X10*3/uL (0.00-0.03); Imm Gran Pct Auto 0.5 % (0.0-0.4); Lymphocytes Absolute Auto 1.6 X10*3/uL (1.2-4.9); Mean Corpuscular HGB Conc 33.0 g/dl (31.0-35.0); Mean Corpuscular Hemoglobin 31.3 pg (27.0-33.0); Mean Corpuscular Volume 94.8 fL (80.0-98.0); NRBC Abs Auto 0.000 X10*3/uL (0.0-0.012); NRBC Pct Auto 0.0 /100WBC (0.0-0.2); Platelet Count 278 X10*3/uL (160-400); Red Blood Count 4.22 X10*6/uL (4.20-5.50); White Blood Count 11.8 X10*3/uL (4.8-10.8)
== END 2025-06-28 15:05 | disposition home or self-care (01) ==
LOC: HO.WFDLDS 15:04
PROVIDERS: PCP Physician Assistant; Visit Provider Physician Assistant
DX: N18.31 Chronic kidney disease, stage 3a (principal); C92.01 Acute myeloblastic leukemia, in remission; E78.5 Hyperlipidemia, unspecified; Q21.12 Patent foramen ovale; F41.1 Generalized anxiety disorder; F41.0 Panic disorder [episodic paroxysmal anxiety]; R19.7 Diarrhea, unspecified; Z86.73 Personal history of transient ischemic attack (TIA), and cerebral infarction without residual deficits
CPT/HCPCS: 36415; 80053; 84443; 85025; 99212

== ENCOUNTER 2025-06-28 15:04 | Outpatient (AMB) | payer MEDICARE, SELFPAY ==
--- OUTSIDE RECORDS SUMMARY | 2024-06-03 07:45 | XMS_ITS ---
[facility] Organization [facility] Address [address] [place] [address] Care Team Providers Care Medical Device Sales Representative Name Role Phone Kalpana Veronica Primary Care Provider Jonna Gil Unavailable [phone] Cassandra Cameron [phone] Encounters Encounter Location Date Provider Diagnosis [address] [address] 06/03/2024 Cassandra Cameron Plan Of Treatment Next Appt Details Provider Name:Jonna Nuñez , 08/28/2025 11:30:00 AM, [address] [place], [address], Progress Notes * Araceli BRANDTOB: [birth year] (64 yo F)Acc No.[id number]:06/03/2024 Progress Note Patient: Jaimie SCOTT Provider: Que Cameron DPM :1960 A ge:63 Y S ex:Female Date:06/03/2024 Address:[address] [place] [address] Pcp:Kalpana Veronica Subjective: * Chief Complaints: * * Medical History: Objective: * Vitals: Assessment: Plan: * Treatment: * Images: * The named appointment provid er may or may not be the originator of this progress note, and it is not deemed complete until electronically signed by the appointment provider. Sign off status: Pending * Provider: Que Cameron GARLAND Date: 1 08/03/2023 Generated for Katlyn wiggins/Iam/Jessica on: 08/29/2024 06:08 PM EST
--- OUTSIDE RECORDS SUMMARY | 2024-09-01 09:00 | XMS_ITS ---
Author Organization [facility] Address [address] [place] [address] Care Team Providers Care Adobe Architect Name Role Phone Kalpana Veronica Primary Care Provider Jonna Gil [phone] Encounters Encounter Location Date Provider Diagnosis [address] [address] 09/01/2024 Jonna Nuñez Plan Of Treatment Next Appt Details Provider Name:Jonna Nuñez , 08/28/2025 11:30:00 AM, [address] [place], [address], Progress Notes * Araceli BRANDTOB: [birth year] (64 yo F)Acc No.[id number]:09/01/2024 Progress Note Patient: Que Jaimie ZIEGLER Provider: Rusty Nuñez DPM :1960 A ge:63 Y S ex:Female Date:09/01/2024 Address:[address] [place] [address] Pcp:Kalpana Veronica Subjective: * Chief Complaints: * * Medical History: Objective: * Vitals: Assessment: Plan: * Treatment: * Images: * The named appointment provid er may or may not be the originator of this progress note, and it is not deemed complete until electronically signed by the appointment provider. Sign off status: Pending * Provider: Rusty Nuñez DPM Date: 0 09/01/2024 Generated for Katlyn wiggins/Iam/Jessica on: 1 08/29/2024 06:08 PM EST
--- OUTSIDE RECORDS SUMMARY | 2025-02-09 08:30 | XMS_ITS ---
Author Organization [facility] Address [address] [place] [address] Care Team Providers Care Biochemical Development Engineer Name Role Phone Kalpana Veronica Primary Care Provider Jonna Gil [phone] Encounters Encounter Location Date Provider Diagnosis [address] [address] 02/09/2025 Jonna Nuñez Plan Of Treatment Next Appt Details Provider Name:Jonna Nuñez , 08/28/2025 11:30:00 AM, [address] [place], [address], Progress Notes * Araceli BRANDTOB: 959 (64 yo F)Acc No.[id number]:02/09/2025 Progress Note Patient: Que Jaimie ZIEGLER Provider: Rusty Nuñez DPM :1960 A ge:64 Y S ex:Female Date:02/09/2025 Address:[address] [place] [address] Pcp:Kalpana Veronica Subjective: * Chief Complaints: * * Medical History: Objective: * Vitals: Assessment: Plan: * Treatment: * Images: * The named appointment provid er may or may not be the originator of this progress note, and it is not deemed complete until electronically signed by the appointment provider. Sign off status: Pending * Provider: Rusty Nuñez DPM Date: 0 02/09/2025 Generated for Katlyn wiggins/Iam/Jessica on: 1 08/29/2024 06:08 PM EST
--- OUTSIDE RECORDS SUMMARY | 2025-05-09 04:45 | XMS_ITS ---
Author Organization [facility] Address [address] [place] [address] Care Team Providers Care Software Systems Engineer Name Role Phone Kalpana Veronica Primary Care Provider Unavailmagy Nuñez Jonna Unavailable [phone] Manny Gorman Encounters Encounter Location Date Provider Diagnosis [address] [address] 05/09/2025 Manny Gorman Plan Of Treatment Next Appt Details Provider Name:Jonna Nuñez , 08/28/2025 11:30:00 AM, [address] [place] [address], [phone], Progress Notes * Araceli BRANDTOB: 9[birth year] (64 yo F)Acc No.[id number]:05/09/2025 Progress Note Patient: Jaimie SCOTT Provider: Que Gorman DPM :1960 A ge:64 Y S ex:Female Date:05/09/2025 Address:[address] [place] [address] Pcp:Kalpana Veronica Subjective: * Chief Complaints: * * Medical History: Objective: * Vitals: Assessment: Plan: * Treatment: * Images: * The named appointment provid er may or may not be the originator of this progress note, and it is not deemed complete until electronically signed by the appointment provider. Sign off status: Pending * Provider: Que Gorman, DPM Date: 1 Generated for Katlyn wiggins/Iam/Jessica on: 08/29/2024 06:06 PM EST
--- NOTE | 2025-06-28 15:18 | MHC.PC.OV ---
Vital Signs 06/28/25 15:26 Height 5 ft 2.5 in BMI Reason not done Patient refused/unable BP 96/66 Blood Pressure Location Lt brachial Position Sitting Respiration 14 Pulse 101 H Pulse Source Pulse Oximeter Pulse Oximetry (%) 94 Oxygen Delivery Method Room Air Intake Visit Reasons: hospital follow up Intake Note: Hospital follow up Aurist Required: No Accompanied by: Spouse Allergies acetaminophen Allergy (Severe, Verified 06/28/25 15:20) Swelling allopurinol Allergy (Severe, Verified 06/28/25 15:20) Swelling azithromycin (From Zithromax Z-Ron) Allergy (Severe, Verified 06/28/25 15:20) Gastrointestinal Upset blue dye Allergy (Severe, Verified 06/28/25 15:20) Swelling codeine Allergy (Severe, Verified 06/28/25 15:20) Swelling oxycodone (From Percocet) Allergy (Severe, Verified 06/28/25 15:20) Swelling metoprolol Allergy (Unknown, Verified 06/28/25 15:20) head swelling Tobacco use date assessed: 03/30/25 Dental Screening Dental Screen Date: 01/18/25 [facility] hospital follow up HPI Details The patient is a 64-year-old female presenting for a follow up. She does have a significant past medical history of chronic kidney disease, gout, GERD, anxiety, dyslipidemia, AML in remission. Recently on 06/13 started with dysarthria, dizziness and facial droop and was sent to the ER and noted to have an embolic stroke. While she was hospitalized the weakness and dysarthria did improve. She was hospitalized for just short of a week and then went to rehab and states that she was only there for a few days and started to improve. During her hospitalization they did do a bubble study which showed a PFO. She is planning to see a travel pt at [facility] for closure of this. She locally follows with Dr. Slaughter for palpitations and is on metoprolol 12.5 mg. She also had a Zio monitor last year but unclear with what the results showed. She is scheduled 08/01/25 to see Neurology. CV: bp is 106/74. She was previously on metoprolol 12.5 mg for palpitations. had a zio monitor last year. She previously followed with Dr. Slaughter. wants to see [facility] : Feels like her UTI is back. She saw urology last week and they did a UA and told her that it was negative. She recently stopped the Bactrim and feels as if she is getting the burning with urination again. At times she is getting intermittent flank pain but nothing persistent. She does have an ultrasound ordered. Pulm: Currently stable and following with her hat liner., Dr. Jaramillo. Psych: She stopped effexor (felt ineffective), then I tried lexapro ( had side effects). Just sent in cymbalta to try. She feels more emotional. She states that with everything going on she is just very anxious and emotional. She does not like the idea of being dependent on her has been so much but she is afraid to drive. Nephro: Her chronic kidney disease is stable and she is following with Dr. Lucas. Musculoskeletal: She has a history of chronic pain in you can see previous note for further details. At this point pain is managed with fentanyl patch. Heme/onc: Following with Dr. Glen Da Silva at [facility]. Colonoscopy: November 2024, tubular adenoma noted. Repeat screening in 2027 Mammo: Overdue. Has been unable to get this because she fell in the summer and had a rib contusion and still has some discomfort of her ribs and does not want a mammogram right now. [facility] Medical History (Updated 06/28/25 @ 15:38 by Kalpana Veronica PA-C) GERD (gastroesophageal reflux disease) Generalized anxiety disorder with panic attacks Dyslipidemia Overactive bladder AML (acute myeloid leukemia) in remission Surgical History Stem cells transplant status Family History Mother Cancer Father Cancer Social History Housing: House Alcohol intake: current Comment: Rare Patient Tobacco Use Status: Never used Tobacco e-Cigarette/Vaping Use: Never Used Second Hand Smoke Exposure: Yes service: No Current occupational status: retired Current occupational exposures/hazards: No Cognitive needs: No Hearing needs: No Vision needs: Yes (glasses) Questionnaire Thrive Questionnaire Date Thrive assessed: 07/31/24 I am a: Patient What is your living situation today?: I have a steady place to live Within the past 12 months, did the food you bought not last and you didn't have the money to get more?: Never true Within the past 12 months, did you worry whether your food would run out before you got money to buy more?: Never true Do you have trouble paying for medicines?: No Do you have trouble getting transportation to medical appointments?: No Do you have trouble paying your heating and electricity bill?: No Do you have trouble taking care of your child, family member or friend?: No Do you have trouble with day-to-day activities such as bathing, preparing meals, shopping, managing finances, etc.?: No Are you currently unemployed and looking for a job?: No Are you interested in more education?: No Please select the resources that you would like help with: None Currently or been in a relationship where the following occur: I choose not to answer THRIVE Score: 0 Review of Systems Neuro Reports Abnormal speech present Physical exam (Primary Care) Vital Signs: Last Vital Signs Pulse 101 H 06/28/25 15:26 Resp 14 06/28/25 15:26 BP 96/66 06/28/25 15:26 Pulse Ox 94 06/28/25 15:26 Oxygen Delivery Method Room Air 06/28/25 15:26 Tobacco/Smoking Status: Tobacco use Status Tobacco use date assessed 03/30/25 06/28/25 15:19 Patient Tobacco Use Status Never used Tobacco 06/28/25 15:19 e-Cigarette/Vaping Use Never Used 06/28/25 15:19 Thrive Assessment: Date of Thrive Assessment Date Thrive assessed 07/31/24 06/28/25 15:19 Currently or been in a relationship where the following occur: I choose not to answer Const Orientation/consciousness: patient oriented x3 HENMT Ears: hearing grossly normal bilaterally Neck Thyroid: Thyroid normal Lymphatic: no lymphadenopathy noted Resp Auscultation: clear to auscultation bilaterally Cardio Rate: regular rate Rhythm: regular rhythm Heart sounds: S1 normal heart sound present and S2 normal heart sound present GI Inspection: Yes normal to inspection Palpation (GI): Soft to palpation and Other GI palpation findings present (nontender, no cva tenderness) Auscultation: normoactive bowel sounds Rectal Exam - Female: deferred Skin General skin exam: no rashes or lesions noted Neuro Other: Speech is normal. General: patient oriented x3, gait normal, no focal motor deficits and CN's II-XI intact bilaterally Speech: Abnormal speech present Motor exam (neuro): 5/5 motor strength present throughout Coordination: [id number] test normal and rapid alternating movements of the distal upper extremity normal Romberg Test: Negative Coding Level of Care Code Est Pt Level 4 (16899) Complex visit Add On G2211 Diagnoses PFO (patent foramen ovale) Q21.12 Recent cerebrovascular accident (CVA) Z86.73 Dyslipidemia E78.5 CKD stage 3a, GFR 45-59 ml/min N18.31 AML (acute myeloid leukemia) in remission C92.01 Assessment & Plan Assessment & Plan (1) PFO (patent foramen ovale): Code(s): Q21.12 - Patent foramen ovale Category: Medical Plan: Referral to cardiology She has an appointment scheduled at [facility] in a few months but she has called him to try to get sooner. (2) Recent cerebrovascular accident (CVA): Code(s): Z86.73 - Personal history of transient ischemic attack (TIA), and cerebral infarction without residual deficits Category: Medical Plan: Has follow up scheduled with Neurology. She is almost back to baseline but still does not quite feel like herself. We did discuss possibilities of PT. She will let me know (3) Dyslipidemia: Code(s): E78.5 - Hyperlipidemia, unspecified Category: Medical Plan: We will check labs today (4) CKD stage 3a, GFR 45-59 ml/min: Code(s): N18.31 - Chronic kidney disease, stage 3a Category: Medical Plan: We will monitor (5) AML (acute myeloid leukemia) in remission: Code(s): C92.01 - Acute myeloblastic leukemia, in remission Category: Medical Plan: Has follow up with [facility] Orders: Orders Complete Blood Count Auto Diff 06/28/25 C92.01 - Acute myeloblastic leukemia, in remission, E78.5 - Hyperlipidemia, unspecified, N18.31 - Chronic kidney disease, stage 3a, Q21.12 - Patent foramen ovale, Z86.73 - Personal history of transient ischemic attack (TIA), and cerebral infarction without residual deficits Comprehensive Met. Panel 06/28/25 C92.01 - Acute myeloblastic leukemia, in remission, E78.5 - Hyperlipidemia, unspecified, N18.31 - Chronic kidney disease, stage 3a, Q21.12 - Patent foramen ovale, Z86.73 - Personal history of transient ischemic attack (TIA), and cerebral infarction without residual deficits TSH reflex Free T4 06/28/25 C92.01 - Acute myeloblastic leukemia, in remission, E78.5 - Hyperlipidemia, unspecified, N18.31 - Chronic kidney disease, stage 3a, Q21.12 - Patent foramen ovale, Z86.73 - Personal history of transient ischemic attack (TIA), and cerebral infarction without residual deficits Referrals Cardiology Referral Q21.12 - Patent foramen ovale, Z86.73 - Personal history of transient ischemic attack (TIA), and cerebral infarction without residual deficits
[2025-06-28 15:26] VITALS: BP 96/66; PULSE 101; RESP 14; O2SAT 94
--- OUTSIDE RECORDS SUMMARY | 2025-06-28 18:07 | XMS_ITS | Encounter Summary ---
Author Organization [facility] Address [address] [place] [address] Care Team Providers Care Grant Coordinator Name Role Phone Kalpana Veronica Primary Care Provider [phone] Encounter Details Date Type Department Care Team (Late st Contact Info) Description 06/29/2024 Lab Requisition [facility] - Main Lab [address] [facility] [place] [phone] Marielena Vera MD [address] [facility] [address] [place] [address] Acute kidney failure, unspecified (CMS/HCC V24); Personal [...] 11:00 AM EST Acute kidney failure, unspecified (CMS/[facility]) Personal history of urinary (tract) infections documented in this encounter Results * Bacterial identification and susceptibility, aerobic (06/28/2024 11:00 AM EST) Culture, Bacterial ID and Sensitivity Mixed urogenital cuba, no uropathogens present. Suggest repeat specimen, if clinically indicated. 06/29/2024 2:12 PM EST [facility] Other Urine specimen from urethra / Unknown Non-blood Collection / Unknown 06/28/2024 11:00 AM EST 06/29/2024 1:52 PM EST Marielena Vera MD LAB MICROBIOLOGY - G ENERAL ORDERABLES Final Result [facility] [address] [place] [address], documented in this encounter Visit Diagnoses Diagnosis Acute kidney failure, unspecified (CMS/HCC V24) Acute kidney failure, unspecified Personal history of urinary (tract) infections documented in this encounter Care Teams Grant Coordinator Relationship Specialty Start Date End Date Kalpana Veronica PA [address] [place] [phone] PCP - General Physician Transition Rn 06/26/24 documented as of this encounter
--- OUTSIDE RECORDS SUMMARY | 2025-06-28 18:07 | XMS_ITS | Clinical Summary ---
Author Organization [facility] Address [address] [place] [phone] Phone Care Team Providers Care Residential Green Building Designer Name Role Phone Kalpana Veronica Primary Care Provider [phone] Allergies Active Allergy Reactions Criticality Noted Date Comments Allopurinol 06/26/2024 Blue Dye 06/26/2024 Ciprofloxacin 06/26/2024 Codeine 06/26/2024 Hydromorphone 06/26/2024 Lisinopril 06/26/2024 Methocarbamol 06/26/2024 Oxycodone-Acetaminophen 06/26/2024 Acetaminophen 06/26/2024 Acetaminophen-Codeine 06/26/2024 Hydrocodone-Acetaminophen 06/26/2024 Alprazolam 06/26/2024 Medications No known medications Surgical History Surgery Date Site/Laterality Comments JOINT REPLACEMENT Medical History Medical History Date Comments AML (acute myeloid leukemia) ([facility] V24, [facility] V28) Asthma Cystitis Thomas's esophagus Cataract CKD (chronic kidney disease), stage III ([facility] V24, [facility] V28) CVA (cerebral vascular accident) ([facility] V24, [facility] V28) DJD (degenerative joint disease) Dyslipidemia Anxiety [...] Breast Cancer Screening 1960 Colorectal Cancer Screening: Colonoscopy 1960 Zoster Vaccines (1 of 2) 1977 RSV Immunization Adult Patients (1 - Risk 50-74 years 1-dose series) 2008 Pneumococcal Vaccine: 50+ Years (3 of 3 - PCV) 06/29/2016 06/29/2015, 04/07/2013 DTaP,Tdap,and Td Vaccines (3 - Td or Tdap) 05/27/2021 05/27/2011, 03/07/2011 Cholesterol Screening (Lipid Panel) 06/26/2024 Falls Risk Assessment 06/26/2024 Hepatitis C [...] age to complete this topic Insurance MEDICARE [facility] Care Teams Residential Green Building Designer Relationship Specialty Start Date End Date Kalpana Veronica PA [address] [place] [address] PCP - General Physician General Farm Manager 06/26/24
--- OUTSIDE RECORDS SUMMARY | 2025-06-28 18:08 | XMS_ITS | Patient Health Record ---
Author Organization [facility] [place] Address [address] [place] [address] Care Team Providers Care Licensed Nuclear Operator Name Role Phone Kalpana Veronica Primary Care Provider UnavailJonna Silva Unavailable [phone] Cassandra Cameron Unavailable [phone] Manny Gorman Unavailable [phone] Allergies Allergen (clinical drug ingredient) Drug/Non Drug Allergy documented on EMR Reaction Allergy Type Onset Date Status baclofen Baclofen swelling Drug Allergy Active oxycodone OxyCONTIN Unknown Drug Allergy Active acetaminophen / oxycodone Percocet Unknown Drug Allergy Active acetaminophen Tylenol Unknown Drug Allergy Act eunice acetaminophen Acetaminophen swelling Drug Allergy Active codeine Codeine severe abdominal pain Drug Allergy Active gabapentin Gabapentin Unknown Drug Allergy Activ e lisinopril Lisinopril Unknown Drug Allergy Activ e oxycodone oxyCODONE Unknown Drug Allergy Active Results Component Value Reference Range Notes X [...] Duration) Notes Start Date End Date Status Ammonium Lactate 12 % 1 application Externally to affected areas of dry skin to feet except for between the toes Twice a day; Duration: 30 days Active Vitamin D3 Active Probenecid Active LORazepam 1 MG/0.5ML 1 mL as needed Oral ly daily; Duration: 30 days Active PROzac 20 MG 1 capsule Orally Onc e a day; Duration: 30 day(s) Not-Taking Hair Skin Nails supplement Act eunice Ciclopirox Olamine 0.77 % 1 application to affected area Externally to feet Twice a day; Duration: 30 days Not-Taking Vitamin C Active Singulair Active predniSONE 5 MG/ML as directed Orally Active Baclofen 10 MG 1 tablet as needed Orally Twice a day Not-Taking Omeprazole Active Effexor Active Atorvastatin Calcium 80 MG TAKE 1 TABLET BY MOUTH DAILY Oral; Duration: 90 Active Lexapro Not-Taking Aspir-81 Active Gabapentin 600 MG 1 tablet Orally Once a day Not-Taking Furosemide 20 MG Oral; Duration: 90 Days Active Immunizations Vaccine Route Administration Date Status [...] Problem Acquired hammer toe of left foot (7152571530082975 ) Other hammer toe(s) (acquired), left foot (M20.42) Active confirmed Problem Acquired hallux valgus (73260362) Acquired hallux interphalangeus of left foot (M20.12) Active confirmed Problem Localized, primary osteoarthritis of the ankle and/or foot (651617943) Arthritis of joint of lesser toe, left (M19.072) Active confirmed Problem Ulcer of toe of left foot (disorder) (2737285877284047 2) Skin ulcer of toe of left foot, limited to breakdown of skin (L97.521) Active confirmed Vital Signs Blood pressure diastolic 60 mm Hg 05/16/2025 Height 5ft2.5in in 05/16/2025 Blood pressure systolic 123 mm Hg 05/16/2025 Weight 163 lbs 05/16/2025 BMI 29.33 kg/m2 05/16/2025 Procedures Procedure Date Ordered Date Performed Result Body Sit e 6[address]28- Debride <25 sq cm 09/22/2024 N/A Encounters Encounter Location Date Provider Diagnosis [address] [address] 09/22/2024 Jonna Black Pain in left toe(s) M79.675 ; Other hammer toe(s) (acquired), left foot M20.42 ; Xerosis of skin L85.3 ; Arthritis of joint of lesser toe, left M19.072 ; Subluxation of metatarsophalangeal joint of toe, initial encounter S93.149A and Skin ulcer of toe of left foot, limited to breakdown of skin L97.[address] [address] 12/26/2024 Cassandra Cameron Pain in left toe(s) M79.675 ; Other hammer toe(s) (acquired), left foot M20.42 ; Arthritis of joint of lesser toe, left M19.072 and Subluxation of metatarsophalangeal joint of toe, initial encounter S93.149A [address] [address] 01/12/2025 Jonna Black Pain in left toe(s) M79.675 and Closed nondisplaced fracture of second metatarsal bone of left foot, initial encounter S92.325A [address] [address] 02/13/2025 Jonna Black Pain in left toe(s) M79.675 ; Contusion of left great toe without damage to nail, initial encounter S90.112A ; Acquired hallux interphalangeus of left foot M20.12 ; Closed nondisplaced fracture of second metatarsal bone of left foot with routine healing, subsequent encounter S92.325D and Contusion of left great toe without damage to nail, subsequent encounter S90.112D [address] [address] 05/16/2025 Manny Gorman Pain in left toe(s) M79.675 and Other hammer toe(s) (acquired), left foot M20.42 [facility] [address] [place] [address] 09/01/2024 Jonna Black [facility] [address] [place] [address] 10/24/2024 Jonna Black [facility] [address] [place] [address] 12/22/2024 Jonna Black [facility] [address] [place] [address] 01/11/2025 Jonna Black [facility] [address] [place] [address] 01/12/2025 Jonna Black [facility] [address] [place] [address] 02/01/2025 Jonna Black [facility] [address] [place] [address] 02/09/2025 Jonna Black [facility] [address] [place] [address] 05/09/2025 Jonna Black Assessments Encounter Date Diagnosis (ICD [...] Pain in left toe(s) (ICD-10 - M79.675) 05/16/2025 Pain in left toe(s) (ICD-10 - M79.675) 05/16/2025 Other hammer toe(s) (acquired), left foot (ICD-10 - M20.42) 12/26/2024 Arthritis of joint o f lesser toe, left (ICD-10 - M19.072) 02/13/2025 Acquired hallux interphalangeus of left foot [...] Treatment Pending Test Test Name Order Date [id number] NAIL, 1-5 08/20/2023 [id number] Plate 10/30/2022 34266- Debride <25 sq cm 09/22/2024 Next Appt Details Provider Name:Jonna Nuñez , 08/28/2025 11:30:00 AM, [address] [facility], [place], [address], Insurance Providers Payer Name Payer Address Payer Phone Subscriber Number Group Number Insured Name Patient Relationship to Insured Coverage Start Date Coverage End Date Medicare [employer] [address] [place] [address] [phone] [id number] Irma Jaimie foster Self - patient is the insured A[employer] Secondary to Medicare [address] [place] [address] [id number] Jaimie Colvin Self - patient is the insured Medical (General) History Medical History History ICD Code Anxiety Arthritis Back,Hip,and Knee pain Cancer Cataracts Gall bladder removed Gout Kidney disease Osteoporosis Reflux ( GERD) Stroke TIA 2013 Measles Mumps Chicken pox Bone implants/screws Surgical History Surgery Date(Month/Year) tonsillectomy 4yrs old lestercholalcides 02/02/1992 cataract surgery 2004,2006 total left knee replacement 2006 neck fusion 2010 R rotator cuff tear repair 06/24/21 L foot surgery Hospitalization History Reason Date(Month/Year) spine and neck issue 05/2024
== END 2025-06-28 16:00 | disposition home or self-care (01) ==
LOC: HO.HMCFM 15:05
PROVIDERS: PCP Physician Assistant; Visit Provider Physician Assistant
DX: E78.5 Hyperlipidemia, unspecified (principal); N18.31 Chronic kidney disease, stage 3a; C92.01 Acute myeloblastic leukemia, in remission; Z86.73 Personal history of transient ischemic attack (TIA), and cerebral infarction without residual deficits; Q21.12 Patent foramen ovale